=== PATIENT | male | born 1945 | race Caucasian/White ===

== ENCOUNTER 2019-01-31 09:20 | Outpatient (CLI) | payer MEDICARE ==
--- NOTE | 2019-01-31 10:00 | RAD ---
EXAM: Two views chest PROVIDED CLINICAL HISTORY: Hypertension COMPARISON: None FINDINGS: Cardiac silhouette and pulmonary vasculature are within normal limits. The lungs are clear. Multilev el osteophytes are seen in the thoracic spine. Vascular calcifications are seen in the thoracic aorta. IMPRESSION: No acute cardiopulmonary process.
== END 2019-01-31 09:21 | disposition home or self-care (01) ==
LOC: BICRAD 09:20
PROVIDERS: ATTEND Internal Medicine
DX: I10 Essential (primary) hypertension (principal)
CPT/HCPCS: 71046

== ENCOUNTER 2019-02-21 09:31 | Outpatient (CLI) | payer MEDICARE ==
--- NOTE | 2019-02-21 10:15 | ULT ---
Exam: Bilateral renal ultrasound HISTORY: Chronic kidney disease COMPARISON: None FINDINGS: Right kidney: Normal cortical echotexture. No hydronephrosis. Right kidney measurements: 13.1 x 6.6 x 7.3 cm. Left kidney: Normal cortical echotexture. No hydronephrosis. Hypoechoic focus measuring 1.3 x 1.4 x 1 .5 cm. Left kidney measurements 12.8 x 5.6 x 5.3 cm. Urinary bladder: Normal mucosa. Prevoid volume 308 mL. Post void volume 35 mL. IMPRESSION: 1. Mild post void residual. 2. Hypoechoic focus in the mid pole left kidney. Sonographic features are not entirely consistent wit h a simple cyst. Renal mass protocol CT can be performed on a nonemergent basis. CODE T
== END 2019-02-21 09:32 | disposition home or self-care (01) ==
LOC: BICULT 09:31
PROVIDERS: ATTEND Internal Medicine Nephrology
DX: N18.3 Chronic kidney disease, stage 3 (moderate) (principal); N28.89 Other specified disorders of kidney and ureter
CPT/HCPCS: 76770

== ENCOUNTER 2020-03-18 11:43 | Inpatient (IN) | payer MEDICARE ==
[2020-03-18 12:12] LABS: #Lymphocytes 0.7 thou/uL (1.20-3.40); #Monocytes 0.2 thou/uL (0.11-0.59); %Basophils 0.2 % (0.0-1.0); %Monocytes 5.3 % (0.0-10.0); %Neutrophils 76.4 % (42.0-75.0); Mean Corpuscular Hemoglobin 31.2 pg (27.0-31.0); Mean Corpuscular Volume 91.7 fL (78.0-98.0); Mean Platelet Volume 8.1 fL (7.4-10.4); Platelet Count 159 thou/uL (130-400); RBC Distribution Width 11.9 % (11.5-14.5); Red Blood Cell (RBC) Count 3.86 mill/uL (4.70-6.10); White Blood Cell (WBC) Count 3.9 thou/uL (4.8-10.8)
[2020-03-18 12:31] LABS: ALT (SGPT) 51 U/L (8-55); AST (SGOT) 94 U/L (5-34); Albumin 3.6 g/dL (3.4-4.8); Alkaline Phosphatase 36 U/L (40-110); Anion Gap 18 mmol/L (10-20); BUN (Urea Nitrogen) 39 mg/dL (8.4-25.7); Bilirubin, Total 0.6 mg/dL (0.2-1.2); Calc. Creatinine Clearance 0 mL/min (70-130); Calcium 8.5 mg/dL (7.8-10.44); Carbon Dioxide 17 mmol/L (23-31); Chloride 99 mmol/L (98-107); Globulin 3.3 g/dL (2.4-3.5); Glucose 171 mg/dL (83-110); Protein, Total 6.9 g/dL (5.8-8.1); Sodium 130 mmol/L (136-145)
--- NOTE | 2020-03-18 12:44 | RAD ---
RADIOGRAPH CHEST 1 VIEW: DATE: 03/18/2020 TIME: 12:36 PM HISTORY: 74-year-old COVID-19 positive male with dyspnea COMPARISON: 01/31/2019 FINDINGS: There is a new finding of a moderate degree of patchy bilateral peripheral and central infiltrates th roughout all lung saha. No cardiomegaly or pneumothorax. Lateral costophrenic angles are sharp. IMPRESSION: Moderate degree of bilateral: 19 pneumonia
[2020-03-18 12:51] LABS: CKMB 2.1 ng/mL (0-6.6)
[2020-03-18] MEDS ORDERED: Aspirin Chewable 81 MG TAB ONE (13:06)
[2020-03-18] MEDS ORDERED: cefTRIAXone\\ROCEPHIN 1 GM VIAL ONE (13:06)
[2020-03-18] MEDS ORDERED: Dexamethasone 4 mg/ml Vial ONE (13:06)
[2020-03-18] MEDS ORDERED: Azithromycin 500 MG VIAL ONE (13:55)
[2020-03-18] MEDS ORDERED: Dextrose 50% Abboject 50 ML SYRINGE SLOW IVP PRN (14:41)
[2020-03-18] MEDS ORDERED: Dextrose 5% in Water 1,000 ML IV PRN (14:41)
[2020-03-18] MEDS ORDERED: cloNIDine 0.1 MG TAB PO PRN (14:47)
--- NOTE | 2020-03-18 14:56 | PDOC.HHP ---
Hospitalist HPI - History of Present Illness Fever, shortness of breath related to COVID-19 History of Present Illness: Patient is a 74-year-old male with a history of diabetes, hypertension, hyperlipidemia and morbid obesity who presented to the emergency department with worsening symptoms of COVID-19 infection. Patient reports that he went to a family gathering on . Subsequently someone at that gathering told him they were positive. He then went to get tested 7 days ago. He received his results 5 days ago. At that time he began experiencing some flulike symptoms. He reported generalized aches, low-grade fever and some shortness of breath. His is also infected with COVID-19 but is faring better than he is. He reported that his symptoms progressed and therefore he presented to the emergency department. He says he is not been eating or drinking as much because of his generalized malaise. He denies having any significant chest pain or cough. ED Course: Patient's chest x-ray in the emergency department was consistent with COVID-19 pneumonia. His white blood cell count was a bit low. Also consistent with Covid. He had a troponin of 0.1 and his sodium was slightly low at 130. He also had a GFR slightly below his baseline.In the emergency department he was given Rocephin and azithromycin. He was also given dexamethasone 10 mg IV x1 as well as aspirin and 1 L of normal saline. His O2 sat was 98% on room air. Nonetheless he has been placed on 2 L nasal cannula oxygen. Hospitalist ROS - Review of Systems Constitutional: reports: fever, malaise. denies: chills Respiratory: reports: shortness of breath, SOB with excertion. denies: cough Cardiovascular: denies: chest pain, palpitations Gastrointestinal: reports: constipation. denies: nausea, vomiting, abdominal pain, diarrhea All other systems reviewed; all pertinent +/- noted in HPI/Subj - Medication Medications: atorvastatin WedMar 18, 2020 13:40 JOSE DAVID Bose Jennifer TABLET : Strength - 40 mg : ORAL Patient Dose: 1 tab(s) Oral once a day (in the evening). cloNIDine HCl WedMar 18, 2020 13:40 JOSE DAVID Bose Jennifer TABLET : Strength - 0.1 mg : ORAL Patient Dose: 1 tab(s) Oral every 6 hours PRN. furosemide oral WedMar 18, 2020 13:40 JOSE DAVID Bose Jennifer TABLET : Strength - 40 mg : ORAL Patient Dose: 1 tab(s) Oral once a day (in the morning). Januvia WedMar 18, 2020 13:40 JOSE DAVID Bose Jennifer TABLET : Strength - 100 mg : ORAL Patient Dose: 1 tab(s) Oral once a day. lisinopril WedMar 18, 2020 13:40 JOSE DAVID Bose Jennifer TABLET : Strength - 20 mg : ORAL Patient Dose: 1 tab(s) Oral once a day. pantoprazole oral WedMar 18, 2020 13:40 JOSE DAVID Bose Jennifer TABLET, DELAYED RELEASE (ENTERIC COATED) : Strength - 40 mg : ORAL Patient Dose: 1 tab(s) Oral once a day. dutasteride WedMar 18, 2020 13:40 JOSE DAVID Bose Jennifer capsule : Strength - 0.5 mg : ORAL Patient Dose: once a day (in the morning). bisoprolol fumarate WedMar 18, 2020 13:41 JOSE DAVID Bose Jennifer tablet : Strength - 10 mg : ORAL Patient Dose: once a day (in the morning). doxazosin WedMar 18, 2020 13:42 JOSE DAVID Bose Jennifer tablet : Strength - 4 mg : ORAL Patient Dose: once a day (in the morning).IF BP 160+ TAKE 1/2 PILL IN EVENING. Vascepa WedMar 18, 2020 13:43 JOSE DAVID Bose Jennifer capsule : Strength - 1 gram : ORAL Patient Dose: 2 cap(s) 2 times a day. glipiZIDE WedMar 18, 2020 13:44 JOSE DAVID Bose Jennifer tablet : Strength - 5 mg : ORAL Patient Dose: 2 times a day. aspirin oral WedMar 18, 2020 13:44 JOSE DAVID Bose Jennifer tablet : Strength - 81 mg : ORAL Patient Dose: once a day. glucosamine-chondroitin 500 mg-400 mg capsule WedMar 18, 2020 13:46 JOSE DAVID Bose Jennifer capsule : Strength - 500 mg-400 mg : ORAL Patient Dose: 1587 mg 2 times a day. Centrum Silver tablet WedMar 18, 2020 13:46 JOSE DAVID Bose Jennifer tablet : ORAL Patient Dose: once a day. Tylenol Extra Strength WedMar 18, 2020 13:47 JOSE DAVID Bose Jennifer capsule : Strength - 500 mg : ORAL Patient Dose: 2 times a day. Hospitalist History - Past Medical History Source: patient Cardiac: reports: CHF, Hyperlipidemia Renal/: reports: Chronic renal failure (Stage III) Endocrine: reports: Diabetes - Past Surgical History Past Surgical History: reports: Other (Blepharoplasty) - Family History Family History: reports: cerebrovascular accident (Father) - Social History Smoking Status: Never smoker Alcohol: reports: None Living Situation: With Family - Exam General Appearance: NAD, awake alert General - other findings: Morbidly obese Eye: PERRL Heart: RRR, no murmur, no gallops, no rubs, normal peripheral pulses Respiratory: CTAB, no wheezes, no rales, no ronchi, normal chest expansion, no tachypnea Respiratory - other findings: Exam is compromised by the negative pressure machine noise Gastrointestinal: soft, non-tender, non-distended, normal bowel sounds, no palpable masses, no hepatomegaly, no splenomegaly, no bruit Extremities: no cyanosis, no clubbing, no edema Skin: normal turgor, no lesions, no rashes Neurological: cranial nerve grossly intact, normal sensation to touch, no weakness, no focal deficits, no new deficit Musculoskeletal: normal tone, normal strength, no muscle wasting Psychiatric: normal affect, normal behavior, A&O x 3 Hospitalist Results - Labs Result Diagrams: 03/18/20 11:59 03/18/20 11:59 Lab results: WBC 3.9 thou/uL (4.8-10.8) L 03/18/20 11:59 Hgb 12.0 g/dL (14.0-18.0) L 03/18/20 11:59 Hct 35.4 % (42.0-52.0) L 03/18/20 11:59 MCV 91.7 fL (78.0-98.0) 03/18/20 11:59 Plt Count 159 thou/uL (130-400) 03/18/20 11:59 Neutrophils % 76.4 % (42.0-75.0) H 03/18/20 11:59 ESR Westergren 89 mm/hr (Less than 20) H 03/18/20 11:59 Sodium 130 mmol/L (136-145) L 03/18/20 11:59 Potassium 4.0 mmol/L (3.5-5.1) 03/18/20 11:59 Chloride 99 mmol/L (98-107) 03/18/20 11:59 Carbon Dioxide 17 mmol/L (23-31) L 03/18/20 11:59 BUN 39 mg/dL (8.4-25.7) H 03/18/20 11:59 Creatinine 2.93 mg/dL (0.7-1.3) H 03/18/20 11:59 Glucose 171 mg/dL (83-110) H 03/18/20 11:59 Lactic Acid 1.2 mmol/L (0.5-2.2) 03/18/20 12:23 Calcium 8.5 mg/dL (7.8-10.44) 03/18/20 11:59 Total Bilirubin 0.6 mg/dL (0.2-1.2) 03/18/20 11:59 AST 94 U/L (5-34) H 03/18/20 11:59 ALT 51 U/L (8-55) 03/18/20 11:59 Alkaline Phosphatase 36 U/L (40-110) L 03/18/20 11:59 CK-MB (CK-2) 2.1 ng/mL (0-6.6) 03/18/20 11:59 Troponin I 0.104 ng/mL (< 0.028) H 03/18/20 11:59 C-Reactive Protein 24.83 mg/dL (= or < 0.5) H 03/18/20 11:59 B-Natriuretic Peptide 54.2 pg/mL (0-100) 03/18/20 11:59 Serum Total Protein 6.9 g/dL (5.8-8.1) 03/18/20 11:59 Albumin 3.6 g/dL (3.4-4.8) 03/18/20 11:59 - Radiology Interpretation Chest x-ray Status: image reviewed by me, report reviewed by me (Consistent with bilateral Covid pneumonia.) Hospitalist H&P A/P - Problem (1) Pneumonia due to COVID-19 virus Code(s): U07.1 - COVID-19; J12.82 - PNEUMONIA DUE TO CORONAVIRUS DISEASE 2019 Status: Acute (2) Dehydration Code(s): E86.0 - DEHYDRATION Status: Acute (3) Acute worsening of stage 3 chronic kidney disease Code(s): N18.30 - CHRONIC KIDNEY DISEASE, STAGE 3 UNSPECIFIED Status: Acute (4) Hyponatremia Code(s): E87.1 - HYPO-OSMOLALITY AND HYPONATREMIA Status: Acute (5) Diabetes mellitus Code(s): E11.9 - TYPE 2 DIABETES MELLITUS WITHOUT COMPLICATIONS Status: Acute (6) Hypertension Code(s): I10 - ESSENTIAL (PRIMARY) HYPERTENSION Status: Acute (7) Morbid obesity Code(s): E66.01 - MORBID (SEVERE) OBESITY DUE TO EXCESS CALORIES Status: Acute (8) Hyperlipidemia Code(s): E78.5 - HYPERLIPIDEMIA, UNSPECIFIED Status: Acute (9) Elevated troponin Code(s): R77.8 - OTHER SPECIFIED ABNORMALITIES OF PLASMA PROTEINS Status: Acute - Plan Plan: Pneumonia due to COVID-19 virus: Patient has a confirmed exposure about 12 days ago. He tested + 7 days ago. Currently chest x-ray shows evidence of bilateral COVID-19 pneumonia findings. CRP is elevated at 25. Patient is symptomatic with generalized malaise and subjective shortness of breath. He did not demonstrate significant hypoxia. Patient received dexamethasone in the emergency department. He does not qualify for Remdesivir and that he is not hypoxic. Does not qualify for monoclonal antibodies. We will reassess through the course of his observation stay to see if he develops any significant hypoxia. Discussed Via [employer] connect with Dr. Erickson. Patient is not being admitted for Covid. He is not hypoxic presently. He is at high risk of decompensation due to his age, his obesity, his diabetes, and his renal dysfunction. He is within the 7 days of diagnosis. Therefore he does qualify for monoclonal antibodies. I discussed this with the patient and he is amenable. Request form has been completed. Dehydration: Patient is likely been febrile and has had decreased p.o. intake. He has hyponatremia and DYLAN concerning for acute dehydration. Patient received a liter of fluids in the emergency department. We will continue with IV hydration. Hyponatremia: Likely related to his chronic kidney disease and some dehydration. Mild and asymptomatic. Reassess with labs after hydration. Acute kidney injury: Patient has a history of CKD stage III. GFR is slightly below his baseline. Unlikely due to dehydration and acute infection. Reassess after hydration. Diabetes mellitus type 2: We will resume his home medications. Given the Decadron he will likely experience some hyperglycemia. Sliding scale insulin. New Indeterminate troponin: Patient certainly has risk factors for coronary disease but no history of cardiac issues. We will keep him on telemetry with serial troponins. Given the degree of renal impairment this may be insignificant. Patient is already on a beta-gumaro, statin, aspirin.
[2020-03-18 15:33] LABS: Troponin I 0.107 ng/mL (< 0.028)
[2020-03-18] MEDS: Sodium Chloride 0.9% 1,000 ML IV SCH (16:53)
[2020-03-18] MEDS: glipiZIDE 5 MG TAB PO SCH (16:54)
[2020-03-18] MEDS: HumaLOG 300 UNITS/3 ML VIAL SC PRN ×2 (17:11→20:30)
[2020-03-18 18:32] LABS: Troponin I 0.104 ng/mL (< 0.028)
[2020-03-18] MEDS: Atorvastatin Calcium 40 MG TAB PO SCH (20:21)
[2020-03-19] MEDS: Acetaminophen 325 MG TAB PO PRN ×2 (00:12→15:50)
[2020-03-19] MEDS: Sodium Chloride 0.9% 1,000 ML IV SCH ×2 (04:10→19:47)
[2020-03-19 05:12] LABS: #Lymphocytes 0.5 thou/uL (1.20-3.40); #Monocytes 0.3 thou/uL (0.11-0.59); #Neutrophils 3.1 thou/uL (1.40-6.50); %Lymphocytes 12.6 % (21.0-51.0); %Monocytes 7.1 % (0.0-10.0); %Neutrophils 80.3 % (42.0-75.0); Hemoglobin 11.3 g/dL (14.0-18.0); Mean Corpuscular HGB CONC 33.6 g/dL (32.0-36.0); Mean Corpuscular Hemoglobin 30.4 pg (27.0-31.0); Mean Corpuscular Volume 90.4 fL (78.0-98.0); Mean Platelet Volume 7.7 fL (7.4-10.4); Platelet Count 177 thou/uL (130-400); RBC Distribution Width 11.8 % (11.5-14.5); Red Blood Cell (RBC) Count 3.73 mill/uL (4.70-6.10); White Blood Cell (WBC) Count 3.9 thou/uL (4.8-10.8)
[2020-03-19 05:41] LABS: Anion Gap 16 mmol/L (10-20); BUN (Urea Nitrogen) 41 mg/dL (8.4-25.7); Calc. Creatinine Clearance 47 mL/min (70-130); Calcium 8.2 mg/dL (7.8-10.44); Carbon Dioxide 16 mmol/L (23-31); Chloride 102 mmol/L (98-107); Glucose 262 mg/dL (83-110); Potassium 4.1 mmol/L (3.5-5.1); Sodium 130 mmol/L (136-145)
[2020-03-19] MEDS: HumaLOG 300 UNITS/3 ML VIAL SC PRN ×4 (05:58→22:05)
[2020-03-19] MEDS: Alogliptin 6.25 MG TAB PO SCH (08:19)
[2020-03-19] MEDS: Doxazosin 2 MG TAB PO SCH (08:19)
[2020-03-19] MEDS: Enoxaparin Sodium 40 MG/0.4 ML SYRINGE SC SCH (08:19)
[2020-03-19] MEDS: Bisoprolol Fumarate 5 MG TAB PO SCH (08:19)
[2020-03-19] MEDS: Lisinopril 20 MG TAB PO SCH (08:20)
[2020-03-19] MEDS: Furosemide 40 MG TAB PO SCH (08:20)
[2020-03-19] MEDS: Dutasteride 0.5 MG CAP PO SCH (08:20)
[2020-03-19] MEDS: Aspirin 81 mg Enteric Coated Tablet PO SCH (08:20)
[2020-03-19] MEDS: glipiZIDE 5 MG TAB PO SCH ×2 (08:20→17:12)
--- NOTE | 2020-03-19 11:29 | PDOC.HOSPP ---
- Subjective Encounter Date: 03/19/20 Encounter Time: 11:25 Subjective: f/u for COVID PNA/hypoxia receiving initially Decadron/Rocephin/Zithromax. States increased SOB with mild movement or exertion. - Objective Vital Signs & Weight: Vital Signs (12 hours) Temp Pulse Resp BP BP BP Pulse Ox 03/19/20 11:17 97.9 F 83 151/79 H 03/19/20 08:20 98.2 F 79 22 H 139/69 92 L 03/19/20 07:52 98 F 79 22 H 147/67 H 93 L 03/19/20 04:50 94 L 03/19/20 04:15 20 94 L 03/19/20 04:10 98.8 F 85 20 168/60 H 90 L 03/19/20 04:00 98.8 F 85 17 168/60 H 90 L 03/19/20 03:55 20 94 L 03/19/20 00:00 99.3 F 87 20 162/74 H 95 Weight Weight 285 lb I&O: 03/18/20 03/19/20 03/20/20 06:59 06:59 06:59 Intake Total 1680 Output Total 850 400 Balance 830 -400 Result Diagrams: 03/19/20 04:54 03/19/20 04:54 Additional Labs: Accuchecks 03/18/20 03/18/20 20:27 17:02 POC Glucose 286 H 193 H Microbiology 03/18/20 12:23 Venous blood - Right Arm Blood Culture - Preliminary Specimen has been received and culture in progress. No Growth to date. 03/18/20 12:23 Venous blood - Left Hand Blood Culture - Preliminary Specimen has been received and culture in progress. No Growth to date. Laboratory Tests 03/14/20 03/18/20 03/18/20 15:35 11:59 11:59 Creatinine 2.93 H Lactic Acid Troponin I 0.104 H B-Natriuretic Peptide SARS-CoV-2 (PCR) DETECTED A* 03/18/20 03/18/20 03/18/20 11:59 12:23 14:55 Creatinine Lactic Acid 1.2 Troponin I 0.107 H B-Natriuretic Peptide 54.2 SARS-CoV-2 (PCR) 03/18/20 17:40 Creatinine Lactic Acid Troponin I 0.104 H B-Natriuretic Peptide SARS-CoV-2 (PCR) Radiology Reviewed by me: Yes (PCXR - bilat infiltrates) EKG Reviewed by me: Yes (Tele - SR) Hospitalist ROS - Medication Medications: Active Medications Generic Name Dose Route Start Last Admin Trade Name Freq PRN Reason Stop Dose Admin Acetaminophen 650 mg 03/18/20 14:41 03/19/20 00:12 Acetaminophen 325 Mg Tab PO 650 mg Q4H PRN Administration Headache/Fever/Mild Pain (1-3) Alogliptin Benzoate 6.25 mg 03/19/20 09:00 03/19/20 08:19 Alogliptin 6.25 Mg Tab PO 6.25 mg DAILY SYDNEE Administration Aspirin 81 mg 03/19/20 09:00 03/19/20 08:20 Aspirin 81 Mg Enteric Coated Tablet PO 81 mg DAILY SYDNEE Administration Atorvastatin Calcium 40 mg 03/18/20 21:00 03/18/20 20:21 Atorvastatin Calcium 40 Mg Tab PO 40 mg HS SYDNEE Administration Bisoprolol Fumarate 5 mg 03/19/20 09:00 03/19/20 08:19 Bisoprolol Fumarate 5 Mg Tab PO 5 mg DAILY SYDNEE Administration Doxazosin Mesylate 2 mg 03/19/20 09:00 03/19/20 08:19 Doxazosin 2 Mg Tab PO 2 mg DAILY SYDNEE Administration Dutasteride 0.5 mg 03/19/20 09:00 03/19/20 08:20 Dutasteride 0.5 Mg Cap PO 0.5 mg DAILY SYDNEE Administration Enoxaparin Sodium 40 mg 03/19/20 09:00 03/19/20 08:19 Enoxaparin Sodium 40 Mg/0.4 Ml Syringe SC 40 mg 0900 SYDNEE Administration Furosemide 40 mg 03/19/20 07:30 03/19/20 08:20 Furosemide 40 Mg Tab PO 40 mg DAILY-AC SYDNEE Administration Glipizide 5 mg 03/18/20 16:30 03/19/20 08:20 Glipizide 5 Mg Tab PO 5 mg BID-AC SYDNEE Administration Sodium Chloride 1,000 mls @ 75 mls/hr 03/18/20 15:00 03/19/20 04:10 Normal Saline 0.9% IV 1,000 mls .[id number] SYDNEE Administration Insulin Human Lispro 0 units 03/18/20 14:41 03/19/20 05:58 Humalog 300 Units/3 Ml Vial SC 4 units .MILD SLIDING SCALE PRN Administration Mild Correctional Scale Lisinopril 20 mg 03/19/20 09:00 03/19/20 08:20 Lisinopril 20 Mg Tab PO 20 mg DAILY SYDNEE Administration Pantoprazole Sodium 40 mg 03/19/20 09:00 03/19/20 08:20 Pantoprazole 40 Mg Tab PO 40 mg DAILY SYDNEE Administration - Exam General Appearance: awake alert General - other findings: tachypneic Eye: PERRL, anicteric sclera ENT: normocephalic atraumatic, no oropharyngeal lesions Neck: supple, symmetric, no JVD, no thyromegaly Heart: RRR, no gallops, no rubs, normal peripheral pulses Heart - other findings: S1, S2 Respiratory: tachypneic Respiratory - other findings: diminished in bases, scattered coarse sounds Gastrointestinal: soft, non-tender, non-distended, normal bowel sounds Gastrointestinal - other findings: obese Extremities: no cyanosis, no clubbing, 1+ LE edema Skin: normal turgor Neurological: cranial nerve grossly intact, no new deficit Musculoskeletal: normal tone, generalized weakness Psychiatric: normal affect, A&O x 3 Hosp A/P (1) Pneumonia due to COVID-19 virus Code(s): U07.1 - COVID-19; J12.82 - PNEUMONIA DUE TO CORONAVIRUS DISEASE 2019 Status: Acute Plan: Continue pulmonary supportive mgmt, Dexamethasone/Rocephin/Zithromax/Lovenox/Vit C/Zinc/D3 (2) Acute respiratory failure with hypoxia Code(s): J96.01 - ACUTE RESPIRATORY FAILURE WITH HYPOXIA Status: Acute Plan: Continue O2 supplementation, titrate to clinical response, Albuterol MDI (3) Acute worsening of stage 3 chronic kidney disease Code(s): N18.30 - CHRONIC KIDNEY DISEASE, STAGE 3 UNSPECIFIED Status: Acute Plan: Slow improvement, avoid nephrotoxic meds and limit contrast exposure (4) Diabetes mellitus Code(s): E11.9 - TYPE 2 DIABETES MELLITUS WITHOUT COMPLICATIONS Status: Chronic Plan: Continue ISS, Glipizide, serial accuchecks, ADA (5) Hyponatremia Code(s): E87.1 - HYPO-OSMOLALITY AND HYPONATREMIA Status: Acute Plan: Suspect due to hyperglycemia and decreased po intake, serial monitoring, glucose control - Plan plan discussed w/ family, continue antibiotics, social services director, respiratory the rapy, incentive spirometry, out of bed/ambulate, DVT proph w/SCDs Continue pulmonary supportive mgmt Start Rocephin/Zithromax Start Vit C/Zinc/D3 Continue Lovenox O2 supplementation Remdesivir on hold due to CKD AM lab: BMP, CBC, CRP, Ferritin
[2020-03-19] MEDS ORDERED: Zinc Sulfate 220 MG CAP PO SCH (12:15)
[2020-03-19] MEDS ORDERED: Dexamethasone 4 mg/ml Vial SLOW IVP SCH (12:15)
[2020-03-19] MEDS ORDERED: Ascorbic Acid 500 mg Chewable Tablet PO SCH (12:15)
[2020-03-19] MEDS: cefTRIAXone\\ROCEPHIN 2 GM in Sodium Chloride 0.9% 100 ML IVPB SCH (13:32)
[2020-03-19] MEDS: Azithromycin 500 MG in Sodium Chloride 0.9% 250 ML 250 ML IVPB SCH (15:45)
[2020-03-19] MEDS: Atorvastatin Calcium 40 MG TAB PO SCH (19:47)
[2020-03-20 05:43] LABS: #Lymphocytes 0.4 thou/uL (1.20-3.40); #Monocytes 0.4 thou/uL (0.11-0.59); #Neutrophils 4.1 thou/uL (1.40-6.50); %Basophils 0.2 % (0.0-1.0); %Eosinophils 0.1 % (0.0-10.0); %Lymphocytes 8.1 % (21.0-51.0); %Monocytes 7.7 % (0.0-10.0); %Neutrophils 83.9 % (42.0-75.0); Hemoglobin 11.8 g/dL (14.0-18.0); Mean Corpuscular HGB CONC 34.5 g/dL (32.0-36.0); Mean Corpuscular Hemoglobin 31.2 pg (27.0-31.0); Mean Corpuscular Volume 90.4 fL (78.0-98.0); Mean Platelet Volume 7.7 fL (7.4-10.4); Platelet Count 208 thou/uL (130-400); RBC Distribution Width 11.8 % (11.5-14.5); Red Blood Cell (RBC) Count 3.78 mill/uL (4.70-6.10); White Blood Cell (WBC) Count 4.9 thou/uL (4.8-10.8)
[2020-03-20 05:44] LABS: Anion Gap 17 mmol/L (10-20); BUN (Urea Nitrogen) 42 mg/dL (8.4-25.7); CRP (Inflammatory) 14.34 mg/dL (= or < 0.5); Calc. Creatinine Clearance 52 mL/min (70-130); Calcium 8.3 mg/dL (7.8-10.44); Carbon Dioxide 17 mmol/L (23-31); Chloride 107 mmol/L (98-107); Glucose 269 mg/dL (83-110); Potassium 4.3 mmol/L (3.5-5.1); Sodium 137 mmol/L (136-145)
[2020-03-20] MEDS: HumaLOG 300 UNITS/3 ML VIAL SC PRN ×3 (05:59→21:14)
[2020-03-20] MEDS: Acetaminophen 325 MG TAB PO PRN (08:17)
[2020-03-20] MEDS: Enoxaparin Sodium 40 MG/0.4 ML SYRINGE SC SCH (08:17)
[2020-03-20] MEDS: Alogliptin 6.25 MG TAB PO SCH (08:17)
[2020-03-20] MEDS: Bisoprolol Fumarate 5 MG TAB PO SCH (08:17)
[2020-03-20] MEDS: Zinc Sulfate 220 MG CAP PO SCH (08:17)
[2020-03-20] MEDS: Cholecalciferol (Vitamin D3) 400 UNITS TAB PO SCH (08:17)
[2020-03-20] MEDS: Ascorbic Acid 500 mg Chewable Tablet PO SCH (08:18)
[2020-03-20] MEDS: Aspirin 81 mg Enteric Coated Tablet PO SCH (08:18)
[2020-03-20] MEDS: Furosemide 40 MG TAB PO SCH (08:18)
[2020-03-20] MEDS: Dutasteride 0.5 MG CAP PO SCH (08:18)
[2020-03-20] MEDS: Doxazosin 2 MG TAB PO SCH (08:18)
[2020-03-20] MEDS: glipiZIDE 5 MG TAB PO SCH (08:18)
[2020-03-20] MEDS: Lisinopril 20 MG TAB PO SCH (08:18)
[2020-03-20] MEDS: Dexamethasone 4 mg/ml Vial SLOW IVP SCH (08:19)
[2020-03-20] MEDS: Sodium Chloride 0.9% 1,000 ML IV SCH ×2 (09:10→12:13)
--- NOTE | 2020-03-20 10:43 | PDOC.HOSPP ---
- Subjective Encounter Date: 03/20/20 Encounter Time: 10:15 Subjective: Called by nursing as O2 sats remain in low 70-80's after going to the restroom. COVID PNA with hypoxic resp failure receiving high-flow NC. - Objective Vital Signs & Weight: Vital Signs (12 hours) Temp Pulse Resp BP Pulse Ox 03/20/20 10:05 81 L 03/20/20 08:24 88 L 03/20/20 08:20 98.5 F 82 42 H 141/72 H 89 L 03/20/20 03:31 98.8 F 78 28 H 159/73 H 93 L 03/19/20 23:45 99.2 F 86 26 H 164/95 H 89 L Weight Weight 285 lb I&O: 03/19/20 03/20/20 03/21/20 06:59 06:59 06:59 Intake Total 1680 2110 Output Total 850 5 500 Balance 830 85 -500 Result Diagrams: 03/20/20 04:45 03/20/20 04:45 Additional Labs: Accuchecks 03/20/20 03/19/20 03/19/20 05:34 19:50 16:25 POC Glucose 242 H 276 H 282 H 03/19/20 12:02 POC Glucose 284 H Microbiology 03/18/20 12:23 Venous blood - Right Arm Blood Culture - Preliminary Specimen has been received and culture in progress. No Growth to date. 03/18/20 12:23 Venous blood - Left Hand Blood Culture - Preliminary Specimen has been received and culture in progress. No Growth to date. Laboratory Tests 03/14/20 03/18/20 03/18/20 15:35 11:59 11:59 ESR Westergren Creatinine 2.93 H Lactic Acid Ferritin Troponin I 0.104 H C-Reactive Protein B-Natriuretic Peptide SARS-CoV-2 (PCR) DETECTED A* 03/18/20 03/18/20 03/18/20 11:59 11:59 12:23 ESR Westergren 89 H Creatinine Lactic Acid 1.2 Ferritin Troponin I C-Reactive Protein B-Natriuretic Peptide 54.2 SARS-CoV-2 (PCR) 03/18/20 03/18/20 03/20/20 14:55 17:40 04:45 ESR Westergren Creatinine Lactic Acid Ferritin Troponin I 0.107 H 0.104 H C-Reactive Protein 14.34 H B-Natriuretic Peptide SARS-CoV-2 (PCR) 03/20/20 04:45 ESR Westergren Creatinine Lactic Acid Ferritin 1477.62 H Troponin I C-Reactive Protein B-Natriuretic Peptide SARS-CoV-2 (PCR) EKG Reviewed by me: Yes (Tele - SR) Hospitalist ROS - Medication Medications: Active Medications Generic Name Dose Route Start Last Admin Trade Name Freq PRN Reason Stop Dose Admin Acetaminophen 650 mg 03/18/20 14:41 03/20/20 08:17 Acetaminophen 325 Mg Tab PO 650 mg Q4H PRN Administration Headache/Fever/Mild Pain (1-3) Alogliptin Benzoate 6.25 mg 03/19/20 09:00 03/20/20 08:17 Alogliptin 6.25 Mg Tab PO 6.25 mg DAILY SYDNEE Administration Ascorbic Acid 1,000 mg 03/20/20 09:00 03/20/20 08:18 Ascorbic Acid 500 Mg Chewable Tablet PO 1,000 mg DAILY SYDNEE Administration Aspirin 81 mg 03/19/20 09:00 03/20/20 08:18 Aspirin 81 Mg Enteric Coated Tablet PO 81 mg DAILY SYDNEE Administration Atorvastatin Calcium 40 mg 03/18/20 21:00 03/19/20 19:47 Atorvastatin Calcium 40 Mg Tab PO 40 mg HS SYDNEE Administration Bisoprolol Fumarate 5 mg 03/19/20 09:00 03/20/20 08:17 Bisoprolol Fumarate 5 Mg Tab PO 5 mg DAILY SYDNEE Administration Cholecalciferol 400 units 03/20/20 09:00 03/20/20 08:17 Cholecalciferol (Vitamin D3) 400 Units Tab PO 400 units DAILY SYDNEE Administration Dexamethasone 8 mg 03/20/20 09:00 03/20/20 08:19 Dexamethasone 4 Mg/Ml Vial SLOW IVP 8 mg DAILY SYDNEE Administration Doxazosin Mesylate 2 mg 03/19/20 09:00 03/20/20 08:18 Doxazosin 2 Mg Tab PO 2 mg DAILY SYDNEE Administration Dutasteride 0.5 mg 03/19/20 09:00 03/20/20 08:18 Dutasteride 0.5 Mg Cap PO 0.5 mg DAILY SYDNEE Administration Enoxaparin Sodium 40 mg 03/19/20 09:00 03/20/20 08:17 Enoxaparin Sodium 40 Mg/0.4 Ml Syringe SC 40 mg 0900 SYDNEE Administration Furosemide 40 mg 03/19/20 07:30 03/20/20 08:18 Furosemide 40 Mg Tab PO 40 mg DAILY-AC SYDNEE Administration Glipizide 5 mg 03/18/20 16:30 03/20/20 08:18 Glipizide 5 Mg Tab PO 5 mg BID-AC SYDNEE Administration Ceftriaxone Sodium 2 gm/ 100 mls @ 200 mls/hr 03/19/20 13:00 03/19/20 13:32 Sodium Chloride IVPB 100 mls 1300 SYDNEE Administration Azithromycin 500 mg/ Sodium 250 mls @ 250 mls/hr 03/19/20 14:00 03/19/20 15:45 Chloride IVPB 250 mls 1400 SYDNEE Administration Insulin Human Lispro 0 units 03/18/20 14:41 03/20/20 05:59 Humalog 300 Units/3 Ml Vial SC 3 units .MILD SLIDING SCALE PRN Administration Mild Correctional Scale Insulin Human Lispro 0 units 03/19/20 21:53 03/19/20 22:05 Humalog 300 Units/3 Ml Vial SC 3 unit .BEDTIME SLIDING SC PRN Administration Bedtime Correctional Scale Lisinopril 20 mg 03/19/20 09:00 03/20/20 08:18 Lisinopril 20 Mg Tab PO 20 mg DAILY SYDNEE Administration Pantoprazole Sodium 40 mg 03/19/20 09:00 03/20/20 08:18 Pantoprazole 40 Mg Tab PO 40 mg DAILY SYDNEE Administration Zinc Sulfate 220 mg 03/20/20 09:00 03/20/20 08:17 Zinc Sulfate 220 Mg Cap PO 220 mg DAILY SYDNEE Administration - Exam General Appearance: ill appearing General - other findings: tachypneic, responds to questions Eye: PERRL, anicteric sclera ENT: normocephalic atraumatic, no oropharyngeal lesions Neck: supple, symmetric, no JVD, no thyromegaly, no lymphadenopathy Heart: RRR, no gallops, no rubs, normal peripheral pulses Heart - other findings: S1, S2 Respiratory: no wheezes, tachypneic Respiratory - other findings: diminished in bases, scattered coarse sounds Gastrointestinal: soft, non-tender, non-distended, normal bowel sounds, no palpable masses Extremities: no cyanosis, no clubbing, no edema Skin: normal turgor, no lesions Neurological: cranial nerve grossly intact, no new deficit Musculoskeletal: generalized weakness Psychiatric: A&O x 3, flat affect Hosp A/P (1) Pneumonia due to COVID-19 virus Code(s): U07.1 - COVID-19; J12.82 - PNEUMONIA DUE TO CORONAVIRUS DISEASE 2019 Status: Acute Plan: Continue Rocephin/Zithromax/Lovenox/Vit C/Zinc, consider convalescent plasma, Remdesivir if renal function improves (2) Acute respiratory failure with hypoxia Code(s): J96.01 - ACUTE RESPIRATORY FAILURE WITH HYPOXIA Status: Acute Plan: Trial BiPAP NIMV now, consult Pulmonology for further assistance, see mgmt in #1 (3) Acute worsening of stage 3 chronic kidney disease Code(s): N18.30 - CHRONIC KIDNEY DISEASE, STAGE 3 UNSPECIFIED Status: Acute Plan: Improved, continue low-volume IVF's, avoid nephrotoxic meds and limit contrast (4) Diabetes mellitus Code(s): E11.9 - TYPE 2 DIABETES MELLITUS WITHOUT COMPLICATIONS Status: Chronic (5) Hyponatremia Code(s): E87.1 - HYPO-OSMOLALITY AND HYPONATREMIA Status: Acute Plan: Resolved, continue serial monitoring - Plan continue antibiotics, social secretary, respiratory therapy, DVT proph w/SCDs Continue pulmonary supportive mgmt Start Rocephin/Zithromax Start Vit C/Zinc/D3 Continue Lovenox Add Albuterol MDI Trial BiPAP NIMV Consult Pulmonology Consider convalescent plasma O2 supplementation Remdesivir on hold due to CKD AM lab: BMP, CBC, CRP, Ferritin Total critical care time: 40min
[2020-03-20] MEDS ORDERED: Albuterol 200 PUFF (6.7GM INHALER) INH PRN (10:54)
[2020-03-20] MEDS: cefTRIAXone\\ROCEPHIN 2 GM in Sodium Chloride 0.9% 100 ML IVPB SCH (12:13)
[2020-03-20] MEDS ORDERED: Ventilator Sedation Protocol 1 EACH FS SCH (12:45)
[2020-03-20] MEDS ORDERED: Propofol 500 MG/50 ML VIAL ONE (13:22)
[2020-03-20] MEDS ORDERED: Propofol 1,000 MG/100 ML VIAL IV ONE ×2 (13:23→14:28)
--- NOTE | 2020-03-20 13:25 | CON ---
DATE OF CONSULTATION: 03/20/2020 This is a 45 minutes of critical care time. CONSULTING PHYSICIAN: Edis Quick REASON FOR CONSULTATION: Severe COVID-19 pneumonia HISTORY OF PRESENT ILLNESS: The patient is a 74-year-old male, who was admitted to the facility on 03/18/2020. He has had COVID symptoms since 03/14. Apparently, he went to a family gathering on 04/07. It looks like his positive test was from the 6th. He has been getting progressively worse since hospitalization. He has decompensated to the point, where he needs BiPAP and looks like he needs to be intubated. He is currently breathing about 37 L/minute on 65% FiO2. PAST MEDICAL HISTORY: 1. Diabetes mellitus. 2. Congestive heart failure. 3. Chronic kidney disease. PAST SURGICAL HISTORY: Blepharoplasty. FAMILY MEDICAL HISTORY: Remarkable for stroke. SOCIAL HISTORY: Never smoker. Does not consume alcohol. MEDICATIONS: Prior to admission; 1. Clonidine. 2. Furosemide. 3. Januvia. 4. Lisinopril. 5. Pantoprazole. 6. . 7. Bisoprolol. 8. Doxazosin. 9. Vascepa. 10. Glipizide. 11. Aspirin. 12. Glucosamine/chondroitin. 13. Centrum Silver. 14. Tylenol Extra Strength. REVIEW OF SYSTEMS: Difficult to obtain because he is so short of breath. PHYSICAL EXAMINATION: VITAL SIGNS: Temperature 99.5, pulse 76, respirations 20, O2 saturation 95% on BiPAP, and blood pressure 160/67. GENERAL: The patient appears acutely ill and tachypneic. His height is 5 feet and 11 inches, weight 285 pounds. BMI nearly 40. HEENT: His face is covered with BiPAP. NECK: No adenopathy or JVD. LUNGS: Inspiratory crackles bilaterally. CARDIAC: S1 and S2. Tachycardic. ABDOMEN: Soft, obese, and nontender. EXTREMITIES: No clubbing, cyanosis, or edema. LABORATORY DATA: Sodium 137, potassium 4.3, chloride 107, CO2 of 17, BUN 42, creatinine 2.3, and glucose 269. C-reactive protein 14. White blood cell count 4.9, hematocrit 34.2, and platelet count 208. IMAGING DATA: X-ray shows diffuse bilateral infiltrates from the time of admission. ASSESSMENT: Severe COVID-19 pneumonia with progressive acute hypoxic respiratory failure. I feel very strongly this is going to get much worse before it gets better. RECOMMENDATIONS: I do not think we have any choice, but to go forward and intubate the patient and place in a prone ventilation. I think he is sure to fail on BiPAP. I agree with the steroids. We need to increase his anticoagulation. I would withhold all of his oral hypoglycemics. I would stop his MARCO A inhibitor since his kidney function is off. His prognosis is very poor. Job ID: [id number] MADHAV
--- NOTE | 2020-03-20 13:35 | PQF ---
CLINICAL DOCUMENTATION CLARIFICATION FORM: Dear Dr. Nathen Quick Date: 03/20/20 [id number] Please exercise your independent, professional judgment in responding to the clarification form. Clinical indicators are provided on the bottom of this form for your review. Please check appropriate box(es): [ ] Type 1 [place] (NSTEMI) [ x ] Type 2 [place] (T2MI) secondary to: [ ] hypertension [ ] arrhythmia [ ] Infection [ ] severe anemia [ ] ischemic stroke [ x ] renal failure [ ] heart failure [ ] other [ ] Insignificant lab values [ ] Other: [ ] Takotsubo syndrome [ ] Other diagnosis [ ] Unable to determine In addition, please specify: Present on Admission (POA): [ x ] Yes [ ] No [ ] Unable to determine For continuity of documentation, please document condition throughout progress notes and discharge summary. Thank You. To be completed by CDI/Coding staff for physician review: CLINICAL INDICATORS - SIGNS / SYMPTOMS / LABS / RESULTS AND LOCATION IN EMR 03/18 Troponin I 0.104, 0.107, 0.104 Pt certainly has risk factors for coronary disease but no history of cardiac issues. We will keep him on telemetry with serial troponin. Given the degree of renal impairment this may be insignificant. (H&P/ [place]) 03/18 RISKS / RESULTS AND LOCATION IN EMR Hx of Hypertension, Hyperlipidemia, morbid obesity and diabetes; Covid 19- Pneumonia, DYLAN, CKD3 (H&P/ [place]) 03/18 TREATMENTS / RESULTS AND LOCATION IN EMR Supplemental oxygen ( 03/18 present) Continuous cardiac monitoring ( 03/18 present) Serial Troponin (03/18) Thank you! CDS Signature: Carine Carlin RN Phone #: [phone] Date: 03/20/2020 This is a permanent part of the Medical Record [facility]
[2020-03-20] MEDS ORDERED: Lorazepam 2 MG/ML VIAL ONE ×2 (13:43→14:37)
[2020-03-20 13:51] LABS: Actual Bicarbonate (HCO3a) 17.8 mEq/L (22-28); Base Excess (BEa) -7.1 mEq/L (-2.0 to +3.0); CO2 Tension 33.6 mmHg (35.0-45.0); Calcium, Ionized (arterial) 1.14 mmol/L (1.12-1.30); Carboxyhemoglobin (COHb) 0.1 gm% (0.0-3.0); Hemoglobin (Hb) 12.1 g/dL (14.0-18.0); O2 Tension (PaO2), arterial 62.7 mmHg (> 70.0); Potassium - ABG Lab 4.75 mmol/L (3.70-5.30); pH, Arterial 7.34 (7.35-7.45)
--- NOTE | 2020-03-20 13:53 | RAD ---
XR Chest 1 View Portable History: Postintubation Comparison: Radiograph 2 days prior Findings: Endotracheal tube tip at the clavicular level in good position. Enteric tube tip not well s een although likely below diaphragm although field of view. Markedly worsening of lung aeration. No pneumothorax. No significant effusion. No pneumomediastinum. Impression: 1. Markedly progressive airspace consolidation. 2. Endotracheal tube tip at the clavicular level. 3. Enteric tube tip below diaphragm although out of field of view.
[2020-03-20] MEDS ORDERED: DISCONTINUE PREVIOUS NARCOTIC PAIN MEDICATIONS AND BENZODIAZEPINES FS SCH (14:00)
[2020-03-20] MEDS ORDERED: Fentanyl BOLUS 250 ML IVPB PRN (14:00)
[2020-03-20] MEDS ORDERED: Propofol BOLUS 1,000 MG/100 ML VIAL IV PRN (14:00)
[2020-03-20 14:02] LABS: Puncture Site LRA
[2020-03-20] MEDS ORDERED: Vecuronium 10 MG VIAL ONE (14:28)
[2020-03-20] MEDS ORDERED: Sterile Water 10 ML ONE (14:29)
[2020-03-20] MEDS ORDERED: Fentanyl CADD 100 ML ONE (14:46)
[2020-03-20] MEDS: Azithromycin 500 MG in Sodium Chloride 0.9% 250 ML 250 ML IVPB SCH (15:46)
[2020-03-20] MEDS: Vecuronium 10 MG VIAL IVP PRN ×2 (17:56→20:47)
[2020-03-20] MEDS: Lorazepam 2 MG/ML VIAL SLOW IVP PRN ×2 (17:56→20:46)
[2020-03-20] MEDS: Atorvastatin Calcium 40 MG TAB PO SCH (20:46)
[2020-03-20] MEDS: Apixaban 5 MG TAB PER TUBE SCH (20:46)
[2020-03-20] MEDS: Propofol 1,000 MG/100 ML VIAL IV PRN (20:48)
[2020-03-20] MEDS ORDERED: NPH, Human Insulin Isophane 300 UNIT/3 ML VIAL SC SCH (21:00)
[2020-03-21] MEDS: Propofol 1,000 MG/100 ML VIAL IV PRN ×8 (00:03→23:17)
[2020-03-21] MEDS: Sodium Chloride 0.9% 1,000 ML IV SCH (00:03)
[2020-03-21] MEDS: HumaLOG 300 UNITS/3 ML VIAL SC PRN ×4 (00:10→20:34)
[2020-03-21 04:23] LABS: #Lymphocytes 0.4 thou/uL (1.20-3.40); #Monocytes 0.4 thou/uL (0.11-0.59); #Neutrophils 4.1 thou/uL (1.40-6.50); %Basophils 0.2 % (0.0-1.0); %Eosinophils 0.1 % (0.0-10.0); %Lymphocytes 7.8 % (21.0-51.0); %Monocytes 7.5 % (0.0-10.0); %Neutrophils 84.4 % (42.0-75.0); Hemoglobin 10.9 g/dL (14.0-18.0); Mean Corpuscular HGB CONC 34.4 g/dL (32.0-36.0); Mean Corpuscular Hemoglobin 31.3 pg (27.0-31.0); Mean Platelet Volume 7.8 fL (7.4-10.4); Platelet Count 226 thou/uL (130-400); Red Blood Cell (RBC) Count 3.48 mill/uL (4.70-6.10); White Blood Cell (WBC) Count 4.8 thou/uL (4.8-10.8)
[2020-03-21 04:48] LABS: Anion Gap 17 mmol/L (10-20); BUN (Urea Nitrogen) 46 mg/dL (8.4-25.7); CRP (Inflammatory) 13.33 mg/dL (= or < 0.5); Calc. Creatinine Clearance 54 mL/min (70-130); Carbon Dioxide 15 mmol/L (23-31); Chloride 109 mmol/L (98-107); Glucose 288 mg/dL (83-110); Potassium 4.3 mmol/L (3.5-5.1); Sodium 137 mmol/L (136-145)
[2020-03-21] MEDS: Vecuronium 10 MG VIAL IVP PRN ×5 (05:02→23:27)
[2020-03-21] MEDS: Lorazepam 2 MG/ML VIAL SLOW IVP PRN ×5 (05:02→23:27)
--- NOTE | 2020-03-21 07:55 | PRG ---
DATE OF SERVICE: 03/21/2020 This is a 35 minutes critical time. The patient remains intubated. He is in a prone position on mechanical ventilation. He is sedated with propofol, fentanyl. He is also intermittently paralyzed. OBJECTIVE: VITAL SIGNS: On exam, temperature 98.5, pulse 63, blood pressure 182/90, O2 saturation 100%. 24-hour intake 2090, output 1999. HEENT: Difficult to assess because he is prone. NECK: No JVD. LUNGS: Inspiratory crackles. CARDIAC: S1, S2. Regular. ABDOMEN: Soft. EXTREMITIES: No edema. LABORATORY AND DIAGNOSTIC STUDIES: Chest x-ray shows diffuse bilateral infiltrates. His ET tube is in good position. Labs: Sodium 137, potassium 4.3, chloride 109, CO2 15, BUN 46, creatinine 2.2, glucose 288. His anion gap is 13. White blood cell count 4.8, hematocrit 31.7, and platelet count 226. ASSESSMENT: 1. COVID-19 pneumonia. 2. Non-anion gap metabolic acidosis. 3. Respiratory failure requiring mechanical ventilation. PLAN: 1. Would hold diuretics. 2. IV fluids. 3. Continue steroids. 4. Stop ceftriaxone. 5. Continue anticoagulation. 6. I have adjusted blood pressure medications. 7. I have adjusted insulin. 8. Keep prone for at least 24 more hours. Job ID: [id number]
[2020-03-21] MEDS: Sodium Bicarbonate 70 MEQ in Sodium Chloride 0.45% 1,000 ML IV SCH (08:36)
[2020-03-21] MEDS: Morphine 2 MG/ML VIAL SLOW IVP PRN ×2 (08:37→14:00)
[2020-03-21] MEDS: Furosemide 40 MG TAB PO SCH (08:39)
--- NOTE | 2020-03-21 08:55 | RAD ---
PORTABLE CHEST: Date: 03/21/2020 HISTORY: Follow-up pneumonia. COMPARISON: Prior day's study. FINDINGS: The dense interstitial alveolar lung infiltrates are again noted. There is improvement of the changes in the left lung with a definite improvement to the aeration, but significant worsening to the amador es on the right side. The rapidity of the change may indicate some of this is related to pulmonary ed alpesh. IMPRESSION: 1. Rather pronounced improvement to some of the left lung interstitial alveolar changes, but a defin ite worsening to the right-sided changes. 2. Endotracheal tube in satisfactory position. POS: [facility]
[2020-03-21] MEDS ORDERED: Fentanyl CADD 100 ML ONE (11:16)
[2020-03-21] MEDS: Fentanyl CADD 100 ML IV SCH (11:19)
[2020-03-21] MEDS: Zinc Sulfate 220 MG CAP PO SCH (12:04)
[2020-03-21] MEDS: Amlodipine 10 MG TAB PER TUBE SCH (12:04)
[2020-03-21] MEDS: Pantoprazole 40 MG GRANULES PACKET PER TUBE SCH (12:04)
[2020-03-21] MEDS: Cholecalciferol (Vitamin D3) 400 UNITS TAB PO SCH (12:04)
[2020-03-21] MEDS: Apixaban 5 MG TAB PER TUBE SCH ×2 (12:04→20:03)
[2020-03-21] MEDS: Ascorbic Acid 500 mg Chewable Tablet PO SCH (12:05)
[2020-03-21] MEDS: Dutasteride 0.5 MG CAP PO SCH (12:05)
[2020-03-21] MEDS: Dexamethasone 4 mg/ml Vial SLOW IVP SCH (12:05)
[2020-03-21] MEDS: Doxazosin 2 MG TAB PO SCH (12:05)
[2020-03-21] MEDS: Aspirin Chewable 81 MG TAB PO SCH (12:05)
[2020-03-21] MEDS: NPH, Human Insulin Isophane 300 UNIT/3 ML VIAL SC SCH ×2 (12:29→20:33)
[2020-03-21] MEDS: Labetalol HCl 100 MG/20 ML VIAL SLOW IVP PRN (12:54)
[2020-03-21] MEDS: Bisoprolol Fumarate 5 MG TAB PO SCH (13:56)
[2020-03-21] MEDS: Azithromycin 500 MG in Sodium Chloride 0.9% 250 ML 250 ML IVPB SCH (14:00)
[2020-03-21] MEDS ORDERED: hydrALAZINE 20 MG/ML VIAL SLOW IVP SCH (14:00)
--- NOTE | 2020-03-21 14:44 | PDOC.HOSPP ---
- Subjective Encounter Date: 03/21/20 Encounter Time: 14:15 Subjective: f/u for COVID PNA[facility] with prone positioning. Nursing reports BP elevated. - Objective Vital Signs & Weight: Vital Signs (12 hours) Temp Pulse Resp BP 03/21/20 14:00 61 201/65 H 03/21/20 12:54 61 201/65 H 03/21/20 12:04 61 03/21/20 11:27 61 03/21/20 07:38 62 169/93 H 03/21/20 06:00 22 H 03/21/20 04:00 98.5 F 22 H Weight Admit Weight 276 lb Weight 276 lb 3.827 oz Most Recent Monitor Data Heart Rate from ECG 60 NIBP 201/93 NIBP BP-Mean 129 Respiration from ECG 22 SpO2 99 I&O: 03/20/20 03/21/20 03/22/20 06:59 06:59 06:59 Intake Total 2109 2090.3 Output Total 2024 1999 Balance 85 91.3 Result Diagrams: 03/21/20 03:42 03/21/20 03:42 Additional Labs: Accuchecks 03/21/20 03/21/20 03/21/20 12:21 03:32 00:07 POC Glucose 226 H 301 H 282 H 03/20/20 03/20/20 20:54 18:10 POC Glucose 309 H 287 H Microbiology 03/18/20 12:23 Venous blood - Right Arm Blood Culture - Preliminary Specimen has been received and culture in progress. No Growth to date. 03/18/20 12:23 Venous blood - Right Arm Blood Culture - Preliminary NO GROWTH AT 48 HOURS 03/18/20 12:23 Venous blood - Left Hand Blood Culture - Preliminary Specimen has been received and culture in progress. No Growth to date. 03/18/20 12:23 Venous blood - Left Hand Blood Culture - Preliminary NO GROWTH AT 48 HOURS Laboratory Tests 03/14/20 03/18/20 03/18/20 15:35 11:59 11:59 ESR Westergren Creatinine 2.93 H Lactic Acid Ferritin Troponin I 0.104 H C-Reactive Protein B-Natriuretic Peptide SARS-CoV-2 (PCR) DETECTED A* 03/18/20 03/18/20 03/18/20 11:59 11:59 12:23 ESR Westergren 89 H Creatinine Lactic Acid 1.2 Ferritin Troponin I C-Reactive Protein B-Natriuretic Peptide 54.2 SARS-CoV-2 (PCR) 03/18/20 03/18/20 03/20/20 14:55 17:40 04:45 ESR Westergren Creatinine 2.31 H Lactic Acid Ferritin Troponin I 0.107 H 0.104 H C-Reactive Protein 14.34 H B-Natriuretic Peptide SARS-CoV-2 (PCR) 03/20/20 03/21/20 03/21/20 04:45 03:42 03:42 ESR Westergren Creatinine Lactic Acid Ferritin 1477.62 H 1626.95 H Troponin I C-Reactive Protein 13.33 H B-Natriuretic Peptide SARS-CoV-2 (PCR) Radiology Reviewed by me: Yes (PCXR - infiltrates improved on L, R worsening, lines/tubes in place) EKG Reviewed by me: Yes (Tele - SR) Hospitalist ROS - Medication Medications: Active Medications Generic Name Dose Route Start Last Admin Trade Name Freq PRN Reason Stop Dose Admin Acetaminophen 650 mg 03/18/20 14:41 03/20/20 08:17 Acetaminophen 325 Mg Tab PO 650 mg Q4H PRN Administration Headache/Fever/Mild Pain (1-3) Amlodipine Besylate 10 mg 03/21/20 09:00 03/21/20 12:04 Amlodipine 10 Mg Tab PER TUBE 10 mg DAILY SYDNEE Administration Apixaban 5 mg 03/20/20 21:00 03/21/20 12:04 Apixaban 5 Mg Tab PER TUBE 5 mg BID SYDNEE Administration Ascorbic Acid 1,000 mg 03/20/20 09:00 03/21/20 12:05 Ascorbic Acid 500 Mg Chewable Tablet PO 1,000 mg DAILY SYDNEE Administration Aspirin 81 mg 03/21/20 09:00 03/21/20 12:05 Aspirin Chewable 81 Mg Tab PO 81 mg DAILY SYDNEE Administration Atorvastatin Calcium 40 mg 03/18/20 21:00 03/20/20 20:46 Atorvastatin Calcium 40 Mg Tab PO 40 mg HS SYDNEE Administration Bisoprolol Fumarate 5 mg 03/19/20 09:00 03/21/20 13:56 Bisoprolol Fumarate 5 Mg Tab PO Not Given DAILY SYDNEE Cholecalciferol 400 units 03/20/20 09:00 03/21/20 12:04 Cholecalciferol (Vitamin D3) 400 Units Tab PO 400 units DAILY SYDNEE Administration Dexamethasone 8 mg 03/20/20 09:00 03/21/20 12:05 Dexamethasone 4 Mg/Ml Vial SLOW IVP 8 mg DAILY SYDNEE Administration Doxazosin Mesylate 2 mg 03/19/20 09:00 03/21/20 12:05 Doxazosin 2 Mg Tab PO 2 mg DAILY SYDNEE Administration Dutasteride 0.5 mg 03/19/20 09:00 03/21/20 12:05 Dutasteride 0.5 Mg Cap PO 0.5 mg DAILY SYDNEE Administration Hydralazine HCl 20 mg 03/21/20 14:00 03/21/20 14:00 Hydralazine 20 Mg/Ml Vial SLOW IVP 03/21/20 16:00 20 mg NOW SYDNEE Administration Azithromycin 500 mg/ Sodium 250 mls @ 250 mls/hr 03/19/20 14:00 03/21/20 14:00 Chloride IVPB 250 mls 1400 SYDNEE Administration Fentanyl 100 mls @ 0 mls/hr 03/20/20 14:00 03/21/20 11:19 Fentanyl Cadd IV 04/19/20 14:00 100 mls INF SYDNEE Administration Protocol Per Protocol Sodium Bicarbonate 70 meq/ 1,070 mls @ 75 mls/hr 03/21/20 07:45 03/21/20 08:36 Sodium Chloride IV 1,070 mls .[id number] SYDNEE Administration Insulin Human Lispro 0 units 03/18/20 14:41 03/21/20 03:49 Humalog 300 Units/3 Ml Vial SC 5 units .MILD SLIDING SCALE PRN Administration Mild Correctional Scale Insulin Human Lispro 0 units 03/19/20 21:53 03/21/20 12:31 Humalog 300 Units/3 Ml Vial SC 3 unit .BEDTIME SLIDING SC PRN Administration Bedtime Correctional Scale Insulin Human NPH 40 unit 03/21/20 09:00 03/21/20 12:29 Nph, Human Insulin Isophane 300 Unit/3 Ml Vial SC Not Given BID SYDNEE Labetalol HCl 40 mg 03/21/20 07:34 03/21/20 12:54 Labetalol Hcl 100 Mg/20 Ml Vial SLOW IVP 8 ml Q4H PRN Administration SBP Greater Than 180 Lorazepam 2 mg 03/20/20 14:00 03/21/20 12:04 Lorazepam 2 Mg/Ml Vial SLOW IVP 04/19/20 14:00 2 mg Q1H PRN Administration Breakthrough agitation Morphine Sulfate 2 mg 03/20/20 14:00 03/21/20 14:00 Morphine 2 Mg/Ml Vial SLOW IVP 04/19/20 14:00 2 mg Q1H PRN Administration Breakthrough Pain/Agitation Pantoprazole Sodium 40 mg 03/21/20 09:00 03/21/20 12:04 Pantoprazole 40 Mg Granules Packet PER TUBE 40 mg DAILY SYDNEE Administration Propofol 1,000 mg 03/20/20 14:00 03/21/20 12:03 Propofol 1,000 Mg/100 Ml Vial IV 04/19/20 14:00 1,000 mg INF PRN Administration TO ACHIEVE GOAL RASS Protocol Vecuronium [place] 10 mg 03/20/20 12:37 03/21/20 14:00 Vecuronium 10 Mg Vial IVP 10 mg Q30MIN PRN Administration Agitation Zinc Sulfate 220 mg 03/20/20 09:00 03/21/20 12:04 Zinc Sulfate 220 Mg Cap PO 220 mg DAILY SYDNEE Administration - Exam General - other findings: sedate/prone mech ventilation Eye: anicteric sclera ENT: normocephalic atraumatic, no oropharyngeal lesions Neck: supple, symmetric, no JVD, no thyromegaly, no lymphadenopathy Heart: RRR, no gallops, no rubs, normal peripheral pulses Heart - other findings: S1, S2 Respiratory - other findings: diminished in bases, few scattered coarse sounds Gastrointestinal: normal bowel sounds, no palpable masses Gastrointestinal - other findings: obese Extremities: no cyanosis, no clubbing, no edema Skin: normal turgor, no lesions Musculoskeletal: generalized weakness Psychiatric: somnolent, lethargic Hosp A/P (1) Pneumonia due to COVID-19 virus Code(s): U07.1 - COVID-19; J12.82 - PNEUMONIA DUE TO CORONAVIRUS DISEASE 2019 Status: Acute Plan: Continue Rocephin/Zithromax/Convalescent plasma/Decadron/Vit C/D3/Zinc/Eliquis (2) Acute respiratory failure with hypoxia Code(s): J96.01 - ACUTE RESPIRATORY FAILURE WITH HYPOXIA Status: Acute Plan: Continue mech ventilation, prone positioning, Albuterol (3) Acute worsening of stage 3 chronic kidney disease Code(s): N18.30 - CHRONIC KIDNEY DISEASE, STAGE 3 UNSPECIFIED Status: Acute Plan: Improved, avoid nephrotoxic meds and limit contrast (4) Diabetes mellitus Code(s): E11.9 - TYPE 2 DIABETES MELLITUS WITHOUT COMPLICATIONS Status: Chronic Plan: Labile due to Decadron, ISS, Humulin N 40u BID (5) Hyponatremia Code(s): E87.1 - HYPO-OSMOLALITY AND HYPONATREMIA Status: Acute Plan: Resolved - Plan continue antibiotics, pediatric social worker, respiratory therapy, DVT proph w/SCDs Continue pulmonary supportive mgmt Start Rocephin/Zithromax Start Vit C/Zinc/D3 Continue Eliquis Add Albuterol MDI Consult Pulmonology s/p convalescent plasma O2 supplementation Remdesivir on hold due to CKD Add Clonidine 0.2mg TD AM lab: BMP, CBC, CRP, Ferritin
[2020-03-21] MEDS: cloNIDine 0.2mg/24 Hour PATCH TD SCH (15:48)
[2020-03-21] MEDS: Atorvastatin Calcium 40 MG TAB PO SCH (20:03)
[2020-03-21] MEDS: niCARdipine 25 MG in Sodium Chloride 0.9% 250 ML 240 ML IVPB SCH (20:03)
[2020-03-22] MEDS: Vecuronium 10 MG VIAL IVP PRN ×3 (00:28→13:44)
[2020-03-22] MEDS: Lorazepam 2 MG/ML VIAL SLOW IVP PRN ×4 (00:28→13:45)
[2020-03-22] MEDS: Sodium Bicarbonate 70 MEQ in Sodium Chloride 0.45% 1,000 ML IV SCH ×2 (00:29→10:41)
[2020-03-22] MEDS: HumaLOG 300 UNITS/3 ML VIAL SC PRN ×6 (00:43→21:44)
[2020-03-22] MEDS: Propofol 1,000 MG/100 ML VIAL IV PRN ×9 (01:11→22:06)
[2020-03-22] MEDS: Fentanyl CADD 100 ML IV SCH ×2 (01:12→13:53)
[2020-03-22] MEDS: niCARdipine 25 MG in Sodium Chloride 0.9% 250 ML 240 ML IVPB SCH ×3 (01:12→10:41)
[2020-03-22 04:25] LABS: #Lymphocytes 0.3 thou/uL (1.20-3.40); #Monocytes 0.4 thou/uL (0.11-0.59); #Neutrophils 5.3 thou/uL (1.40-6.50); %Basophils 0.2 % (0.0-1.0); %Eosinophils 0.2 % (0.0-10.0); %Lymphocytes 5.5 % (21.0-51.0); %Monocytes 6.7 % (0.0-10.0); %Neutrophils 87.4 % (42.0-75.0); Anion Gap 19 mmol/L (10-20); BUN (Urea Nitrogen) 44 mg/dL (8.4-25.7); Calc. Creatinine Clearance 61 mL/min (70-130); Calcium 8.2 mg/dL (7.8-10.44); Carbon Dioxide 16 mmol/L (23-31); Chloride 108 mmol/L (98-107); Glucose 349 mg/dL (83-110); Mean Corpuscular HGB CONC 34.6 g/dL (32.0-36.0); Mean Corpuscular Hemoglobin 31.4 pg (27.0-31.0); Mean Corpuscular Volume 90.6 fL (78.0-98.0); Mean Platelet Volume 7.5 fL (7.4-10.4); Platelet Count 246 thou/uL (130-400); Potassium 4.1 mmol/L (3.5-5.1); RBC Distribution Width 11.9 % (11.5-14.5); Sodium 139 mmol/L (136-145); White Blood Cell (WBC) Count 6.1 thou/uL (4.8-10.8)
[2020-03-22] MEDS ORDERED: Dextrose 5% in Water 1,000 ML IV PRN (07:49)
[2020-03-22] MEDS ORDERED: Dextrose 50% Abboject 50 ML SYRINGE SLOW IVP PRN (07:49)
--- NOTE | 2020-03-22 08:08 | PRG ---
DATE OF SERVICE: 03/22/2020 35 minutes of critical care time. SUBJECTIVE: The patient continues in a prone position on mechanical ventilation. A Cardene drip was started yesterday because of persistent hypertension. OBJECTIVE: VITAL SIGNS: Temperature 97.3, pulse 69, blood pressure 176/78, O2 saturation in the 90s. 24-hour intake 3340, output 2295. CHEST: His exam is limited to his chest. He has inspiratory crackles bilaterally. LABORATORY DATA: Sodium 139, potassium 4.1, chloride 108, CO2 16, BUN 44, creatinine 1.9, glucose 349. White blood cell count 6.1, hematocrit 31.7, platelet count 246. X-ray shows diffuse bilateral infiltrates. ASSESSMENT: 1. COVID-19 pneumonia. 2. Severe hyperglycemia. 3. Type 2 diabetes mellitus with severe insulin resistance. 4. Respiratory failure requiring mechanical ventilation. PLAN: 1. He will be placed in a supine position later today. I have adjusted his ventilator to lower his high PEEP pressure and raise his low PEEP pressure. Hopefully, this will get his volumes back into a more reasonable range. He was running in the 700-800s early this morning, and that is too much volume. 2. Increase insulin as he is extremely insulin resistant at this point. 3. Continue blood pressure control with nicardipine. 4. Hope tube feedings once he is in the supine position. 5. I do not expect him to live through this. Job ID: [id number]
[2020-03-22] MEDS: Ascorbic Acid 500 mg Chewable Tablet PO SCH (08:18)
[2020-03-22] MEDS: Zinc Sulfate 220 MG CAP PO SCH (08:18)
[2020-03-22] MEDS: Pantoprazole 40 MG GRANULES PACKET PER TUBE SCH (08:18)
[2020-03-22] MEDS: Morphine 2 MG/ML VIAL SLOW IVP PRN ×2 (08:18→13:45)
[2020-03-22] MEDS: Apixaban 5 MG TAB PER TUBE SCH ×2 (08:19→21:48)
[2020-03-22] MEDS: Amlodipine 10 MG TAB PER TUBE SCH (08:19)
[2020-03-22] MEDS: Dexamethasone 4 mg/ml Vial SLOW IVP SCH (08:19)
[2020-03-22] MEDS: Doxazosin 2 MG TAB PO SCH (08:19)
[2020-03-22] MEDS: Aspirin Chewable 81 MG TAB PO SCH (08:19)
[2020-03-22] MEDS: Dutasteride 0.5 MG CAP PO SCH (08:19)
[2020-03-22] MEDS: Bisoprolol Fumarate 5 MG TAB PO SCH (08:19)
[2020-03-22] MEDS: Cholecalciferol (Vitamin D3) 400 UNITS TAB PO SCH (08:19)
--- NOTE | 2020-03-22 09:21 | RAD ---
PORTABLE CHEST: Date: 03/22/2020 HISTORY: Follow-up COVID pneumonia. FINDINGS: Extensive bilateral lung infiltrates are again noted. Endotracheal tube is in satisfactory position. NG tube below the hemidiaphragm. Parenchymal infiltrates are relatively stable with the exception of some of the changes in the left lung appear somewhat increased. IMPRESSION: Slight increase in the parenchymal infiltrates in the left lung as compared to the prior exam. POS: [facility]
[2020-03-22] MEDS: NPH, Human Insulin Isophane 300 UNIT/3 ML VIAL SC SCH (09:32)
[2020-03-22] MEDS: Azithromycin 500 MG in Sodium Chloride 0.9% 250 ML 250 ML IVPB SCH (13:44)
[2020-03-22] MEDS ORDERED: Fentanyl CADD 100 ML ONE (13:51)
--- NOTE | 2020-03-22 19:12 | PDOC.HOSPP ---
- Subjective Encounter Date: 03/22/20 Encounter Time: 17:45 Subjective: f/u for COVID PNA/hypoxic resp failure s/p prone ventilation. [facility] FIO2 50%. - Objective Vital Signs & Weight: Vital Signs (12 hours) Temp Pulse Resp BP Pulse Ox 03/22/20 18:35 65 145/64 H 03/22/20 18:00 22 H 03/22/20 16:00 96.8 F L 22 H 03/22/20 14:22 67 03/22/20 14:00 22 H 03/22/20 12:00 97.5 F L 22 H 03/22/20 11:32 65 03/22/20 10:00 22 H 03/22/20 08:36 75 03/22/20 08:19 69 03/22/20 08:00 97.5 F L 22 H 95 Weight Admit Weight 276 lb Weight 275 lb 5.718 oz Most Recent Monitor Data Heart Rate from ECG 65 NIBP 145/64 NIBP BP-Mean 91 Respiration from ECG 22 SpO2 91 I&O: 03/21/20 03/22/20 03/23/20 06:59 06:59 06:59 Intake Total 2091.3 3340.0 2268 Output Total 1999 2295 500 Balance 91.3 1045.0 1768 Result Diagrams: 03/22/20 03:54 03/22/20 03:54 Additional Labs: Accuchecks 03/22/20 03/22/20 03/22/20 15:48 11:45 08:31 POC Glucose 318 H 270 H 289 H 03/22/20 03/22/20 03/21/20 03:45 00:32 20:14 POC Glucose 316 H 338 H 333 H Microbiology 03/18/20 12:23 Venous blood - Right Arm Blood Culture - Preliminary Specimen has been received and culture in progress. No Growth to date. 03/18/20 12:23 Venous blood - Right Arm Blood Culture - Preliminary NO GROWTH AT 48 HOURS 03/18/20 12:23 Venous blood - Left Hand Blood Culture - Preliminary Specimen has been received and culture in progress. No Growth to date. 03/18/20 12:23 Venous blood - Left Hand Blood Culture - Preliminary NO GROWTH AT 48 HOURS Laboratory Tests 03/14/20 03/18/20 03/18/20 15:35 11:59 11:59 ESR [place] Creatinine 2.93 H Lactic Acid Ferritin Troponin I 0.104 H C-Reactive Protein B-Natriuretic Peptide SARS-CoV-2 (PCR) DETECTED A* 03/18/20 03/18/20 03/18/20 11:59 11:59 12:23 ESR [place] 89 H Creatinine Lactic Acid 1.2 Ferritin Troponin I C-Reactive Protein B-Natriuretic Peptide 54.2 SARS-CoV-2 (PCR) 03/18/20 03/18/20 03/20/20 14:55 17:40 04:45 ESR [place] Creatinine 2.31 H Lactic Acid Ferritin Troponin I 0.107 H 0.104 H C-Reactive Protein 14.34 H B-Natriuretic Peptide SARS-CoV-2 (PCR) 03/20/20 03/21/20 03/21/20 04:45 03:42 03:42 ESR [place] Creatinine Lactic Acid Ferritin 1477.62 H 1626.95 H Troponin I C-Reactive Protein 13.33 H B-Natriuretic Peptide SARS-CoV-2 (PCR) Radiology Reviewed by me: Yes (PCXR - bilat infiltrates L>R, lines/tubes in place) EKG Reviewed by me: Yes (Tele - SR) Hospitalist ROS - Medication Medications: Active Medications Generic Name Dose Route Start Last Admin Trade Name Freq PRN Reason Stop Dose Admin Acetaminophen 650 mg 03/18/20 14:41 03/20/20 08:17 Acetaminophen 325 Mg Tab PO 650 mg Q4H PRN Administration Headache/Fever/Mild Pain (1-3) Amlodipine Besylate 10 mg 03/21/20 09:00 03/22/20 08:19 Amlodipine 10 Mg Tab PER TUBE 10 mg DAILY SYDNEE Administration Apixaban 5 mg 03/20/20 21:00 03/22/20 08:19 Apixaban 5 Mg Tab PER TUBE 5 mg BID SYDNEE Administration Ascorbic Acid 1,000 mg 03/20/20 09:00 03/22/20 08:18 Ascorbic Acid 500 Mg Chewable Tablet PO 1,000 mg DAILY SYDNEE Administration Aspirin 81 mg 03/21/20 09:00 03/22/20 08:19 Aspirin Chewable 81 Mg Tab PO 81 mg DAILY SYDNEE Administration Atorvastatin Calcium 40 mg 03/18/20 21:00 03/21/20 20:03 Atorvastatin Calcium 40 Mg Tab PO 40 mg HS SYDNEE Administration Bisoprolol Fumarate 5 mg 03/19/20 09:00 03/22/20 08:19 Bisoprolol Fumarate 5 Mg Tab PO 5 mg DAILY SYDNEE Administration Cholecalciferol 400 units 03/20/20 09:00 03/22/20 08:19 Cholecalciferol (Vitamin D3) 400 Units Tab PO 400 units DAILY SYDNEE Administration Clonidine 0.2 mg 03/21/20 15:00 03/21/20 15:48 Clonidine 0.2mg/24 Hour Patch TD 0.2 mg Q7DAYS@1500 SYDNEE Administration Dexamethasone 8 mg 03/20/20 09:00 03/22/20 08:19 Dexamethasone 4 Mg/Ml Vial SLOW IVP 8 mg DAILY SYDNEE Administration Doxazosin Mesylate 2 mg 03/19/20 09:00 03/22/20 08:19 Doxazosin 2 Mg Tab PO 2 mg DAILY SYDNEE Administration Dutasteride 0.5 mg 03/19/20 09:00 03/22/20 08:19 Dutasteride 0.5 Mg Cap PO 0.5 mg DAILY SYDNEE Administration Azithromycin 500 mg/ Sodium 250 mls @ 250 mls/hr 03/19/20 14:00 03/22/20 13:44 Chloride IVPB 250 mls 1400 SYDNEE Administration Fentanyl 100 mls @ 0 mls/hr 03/20/20 14:00 03/22/20 13:53 Fentanyl Cadd IV 04/19/20 14:00 100 mls INF SYDNEE Administration Protocol Per Protocol Sodium Bicarbonate 70 meq/ 1,070 mls @ 75 mls/hr 03/21/20 07:45 03/22/20 10:41 Sodium Chloride IV 1,070 mls .[id number] SYDNEE Administration Nicardipine HCl 25 mg/ Sodium 250 mls @ 0 mls/hr 03/21/20 19:30 03/22/20 10:41 Chloride IVPB 250 mls INF SYDNEE Administration Protocol Titrate Insulin Human Lispro 0 units 03/22/20 07:49 03/22/20 16:00 Humalog 300 Units/3 Ml Vial SC 11 unit .AGGRESSIVE SLIDING PRN Administration Aggressive [employer] Scale Insulin Human NPH 60 unit 03/22/20 09:00 03/22/20 09:32 Nph, Human Insulin Isophane 300 Unit/3 Ml Vial SC 60 unit BID SYDNEE Administration Labetalol HCl 40 mg 03/21/20 07:34 03/21/20 12:54 Labetalol Hcl 100 Mg/20 Ml Vial SLOW IVP 8 ml Q4H PRN Administration SBP Greater Than 180 Lorazepam 2 mg 03/20/20 14:00 03/22/20 13:45 Lorazepam 2 Mg/Ml Vial SLOW IVP 04/19/20 14:00 2 mg Q1H PRN Administration Breakthrough agitation Morphine Sulfate 2 mg 03/20/20 14:00 03/22/20 13:45 Morphine 2 Mg/Ml Vial SLOW IVP 04/19/20 14:00 2 mg Q1H PRN Administration Breakthrough Pain/Agitation Pantoprazole Sodium 40 mg 03/21/20 09:00 03/22/20 08:18 Pantoprazole 40 Mg Granules Packet PER TUBE 40 mg DAILY SYDNEE Administration Propofol 1,000 mg 03/20/20 14:00 03/22/20 16:45 Propofol 1,000 Mg/100 Ml Vial IV 04/19/20 14:00 1,000 mg INF PRN Administration TO ACHIEVE GOAL RASS Protocol Vecuronium [place] 10 mg 03/20/20 12:37 03/22/20 13:44 Vecuronium 10 Mg Vial IVP 10 mg Q30MIN PRN Administration Agitation Zinc Sulfate 220 mg 03/20/20 09:00 03/22/20 08:18 Zinc Sulfate 220 Mg Cap PO 220 mg DAILY SYDNEE Administration - Exam General - other findings: sedate on mech vent Eye: anicteric sclera ENT: normocephalic atraumatic, no oropharyngeal lesions ENT - other findings: ETT/OGT in place Neck: supple, symmetric, no JVD, no thyromegaly, no lymphadenopathy Heart: RRR, no gallops, no rubs, normal peripheral pulses Heart - other findings: S1, S2 Respiratory: tachypneic Respiratory - other findings: diminished in bilat saha, occ rhonchi Gastrointestinal: soft, non-tender, non-distended, normal bowel sounds, no palpable masses Gastrointestinal - other findings: obese Extremities: no cyanosis, 1+ LE edema Skin: normal turgor Psychiatric: somnolent, lethargic Hosp A/P (1) Pneumonia due to COVID-19 virus Code(s): U07.1 - COVID-19; J12.82 - PNEUMONIA DUE TO CORONAVIRUS DISEASE 2019 Status: Acute Plan: Continue Zithromax/Eliquis/Dexamethasone/Vit C/Zinc/Albuterol (2) Acute respiratory failure with hypoxia Code(s): J96.01 - ACUTE RESPIRATORY FAILURE WITH HYPOXIA Status: Acute Plan: Continue mech vent with Bi-level, wean as clinically indicated (3) Acute worsening of stage 3 chronic kidney disease Code(s): N18.30 - CHRONIC KIDNEY DISEASE, STAGE 3 UNSPECIFIED Status: Acute Plan: Improved, continue low-volume IVF's, avoid nephrotoxic meds (4) Diabetes mellitus Code(s): E11.9 - TYPE 2 DIABETES MELLITUS WITHOUT COMPLICATIONS Status: Chronic Plan: Labile, NPH 60u BID, ISS (5) Hyponatremia Code(s): E87.1 - HYPO-OSMOLALITY AND HYPONATREMIA Status: Acute Plan: Resolved - Plan continue antibiotics, rn social work, respiratory therapy, DVT proph w/SCDs Continue pulmonary supportive mgmt Continue Zithromax Continue Vit C/Zinc/D3 Continue Eliquis Add Albuterol MDI Pulmonology assistance appreciated s/p convalescent plasma O2 supplementation Remdesivir on hold due to CKD Add Clonidine 0.2mg TD AM lab: BMP, CBC, CRP, Ferritin PCXR in am
[2020-03-22] MEDS: Atorvastatin Calcium 40 MG TAB PO SCH (21:48)
[2020-03-23] MEDS: NPH, Human Insulin Isophane 300 UNIT/3 ML VIAL SC SCH ×2 (00:37→09:34)
[2020-03-23] MEDS: HumaLOG 300 UNITS/3 ML VIAL SC PRN ×3 (00:51→09:30)
[2020-03-23] MEDS: Propofol 1,000 MG/100 ML VIAL IV PRN ×4 (02:00→19:10)
[2020-03-23 03:50] LABS: #Lymphocytes 0.3 thou/uL (1.20-3.40); #Monocytes 0.5 thou/uL (0.11-0.59); #Neutrophils 6.8 thou/uL (1.40-6.50); %Eosinophils 0.4 % (0.0-10.0); %Lymphocytes 4.3 % (21.0-51.0); %Neutrophils 88.4 % (42.0-75.0); Hemoglobin 10.8 g/dL (14.0-18.0); Mean Corpuscular HGB CONC 34.3 g/dL (32.0-36.0); Mean Corpuscular Hemoglobin 31.6 pg (27.0-31.0); Mean Corpuscular Volume 92.1 fL (78.0-98.0); Platelet Count 255 thou/uL (130-400); RBC Distribution Width 12.2 % (11.5-14.5); Red Blood Cell (RBC) Count 3.42 mill/uL (4.70-6.10); White Blood Cell (WBC) Count 7.7 thou/uL (4.8-10.8)
[2020-03-23 03:54] LABS: Anion Gap 18 mmol/L (10-20); BUN (Urea Nitrogen) 51 mg/dL (8.4-25.7); Calc. Creatinine Clearance 56 mL/min (70-130); Calcium 8.1 mg/dL (7.8-10.44); Carbon Dioxide 18 mmol/L (23-31); Chloride 108 mmol/L (98-107); Glucose 288 mg/dL (83-110); Potassium 4.5 mmol/L (3.5-5.1); Sodium 139 mmol/L (136-145)
[2020-03-23] MEDS ORDERED: Fentanyl CADD 100 ML ONE (04:12)
[2020-03-23] MEDS: Sodium Bicarbonate 70 MEQ in Sodium Chloride 0.45% 1,000 ML IV SCH ×3 (05:29→20:16)
--- NOTE | 2020-03-23 08:33 | RAD ---
XR Chest 1 View Portable History: Pneumonia Comparison: Radiograph prior day Findings: Endotracheal tube tip the clavicular level. Enteric tube tip below diaphragm although out o f field of view. Airspace opacities are slightly improved. Impression: Slight improved lung aeration.
[2020-03-23] MEDS: Amlodipine 10 MG TAB PER TUBE SCH (09:30)
[2020-03-23] MEDS: Aspirin Chewable 81 MG TAB PO SCH (09:31)
[2020-03-23] MEDS: Apixaban 5 MG TAB PER TUBE SCH ×2 (09:31→19:10)
[2020-03-23] MEDS: Ascorbic Acid 500 mg Chewable Tablet PO SCH (09:31)
[2020-03-23] MEDS: Cholecalciferol (Vitamin D3) 400 UNITS TAB PO SCH (09:32)
[2020-03-23] MEDS: Dexamethasone 4 mg/ml Vial SLOW IVP SCH (09:32)
[2020-03-23] MEDS: Bisoprolol Fumarate 5 MG TAB PO SCH (09:32)
[2020-03-23] MEDS: Doxazosin 2 MG TAB PO SCH (09:33)
[2020-03-23] MEDS: Dutasteride 0.5 MG CAP PO SCH (09:33)
[2020-03-23] MEDS: Pantoprazole 40 MG GRANULES PACKET PER TUBE SCH (09:34)
[2020-03-23] MEDS: Zinc Sulfate 220 MG CAP PO SCH (09:35)
--- NOTE | 2020-03-23 10:08 | EKG ---
Test Reason : SOB Blood Pressure : / mmHG Vent. Rate : 079 BPM Atrial Rate : 079 BPM P-R Int : 158 ms QRS Dur : 112 ms QT Int : 406 ms P-R-T Axes : 005 -14 024 degrees QTc Int : 465 ms Normal sinus rhythm Normal ECG Confirmed by RIZWANA LINO, KAYCE Varghese ([id number]), presser and shaper [employer] TAURUS CANALES ([id number]) on 03/23/2020 10:07:53 AM [facility] Confirmed By:KAYCE WAGONER MD
--- NOTE | 2020-03-23 12:44 | PRG ---
DATE OF SERVICE: This is 35 minutes critical care time. SUBJECTIVE: The patient remains intubated on mechanical ventilation. He is now in a supine position. OBJECTIVE: VITAL SIGNS: His temperature is 99.4, that is his maximum temperature, pulse 71, blood pressure 207/91, O2 saturation 100%. Right now, he is not on the Cardene drip. Intake for 24 hours 3632, output 1716. HEENT: Unremarkable. NECK: No adenopathy or JVD. LUNGS: Clear anteriorly. CARDIAC: S1, S2. Regular. ABDOMEN: Soft. EXTREMITIES: No edema. LABORATORY DATA: White blood cell count 7.7, hematocrit 31.5, and platelet count 255. Sodium 139, potassium 4.5, chloride 108, CO2 18, BUN 51, creatinine 2.1, glucose 288. Ferritin 2241. ASSESSMENT: 1. COVID-19 pneumonia. 2. Diabetes with continued elevated blood sugars. 3. Acute respiratory failure requiring mechanical ventilation. PLAN: 1. I have lowered the high PEEP on his bilevel ventilation. I have also brought his FiO2 down from 50% to 45%. I think weaning is going to be very slow in this gentleman. 2. His blood pressures continue to be in issue. He is on Norvasc, Zebeta, and clonidine as well as Cardura. May end up having to add some minoxidil on top of this. 3. His blood sugars also continue to be a problem despite the NPH insulin. Therefore, may have to go to an insulin drip for a while. Job ID: [id number]
[2020-03-23] MEDS ORDERED: Minoxidil 2.5 MG TAB PER TUBE SCH (13:45)
[2020-03-23] MEDS: HUMULIN R 100 UNITS in Sodium Chloride 0.9% 100 ML IVPB SCH (14:12)
[2020-03-23] MEDS: Azithromycin 500 MG in Sodium Chloride 0.9% 250 ML 250 ML IVPB SCH (14:12)
--- NOTE | 2020-03-23 18:13 | PDOC.HOSPP ---
- Subjective Encounter Date: 03/23/20 Encounter Time: 18:12 non-verbal Subjective: Mr. Aureliano Woods is a 74-year-old patient who is admitted with COVID-19 pneumonia. He is intubated and mechanically ventilated. He is getting supportive care. I called and updated the family and answered all their questions. His prognosis appears to be guarded. He has multiple comorbid conditions including diabetes and morbid obesity. - Objective Vital Signs & Weight: Vital Signs (12 hours) Temp Pulse Resp BP Pulse Ox 03/23/20 16:00 98.9 F 22 H 03/23/20 15:22 69 176/83 H 03/23/20 14:00 22 H 03/23/20 12:02 73 03/23/20 12:00 98.5 F 22 H 03/23/20 10:00 22 H 03/23/20 09:30 69 195/87 H 03/23/20 08:00 99.4 F 22 H 98 03/23/20 07:52 69 Weight Admit Weight 276 lb Weight 4.72 oz Most Recent Monitor Data Heart Rate from ECG 63 NIBP 170/80 NIBP BP-Mean 110 Respiration from ECG 22 SpO2 99 I&O: 03/22/20 03/23/20 03/24/20 06:59 06:59 06:59 Intake Total 3340.0 3632 240 Output Total 2295 1760 1075 Balance 1045.0 1872 -835 Result Diagrams: 03/23/20 03:14 03/23/20 03:14 Additional Labs: Accuchecks 03/23/20 03/23/20 03/23/20 17:55 15:54 09:05 POC Glucose 189 H 209 H 222 H 03/23/20 03/22/20 00:40 21:12 POC Glucose 273 H 293 H Radiology Reviewed by me: Yes EKG Reviewed by me: Yes Hospitalist ROS - Review of Systems ROS unobtainable: due to endotracheal tube Constitutional: reports: weakness, malaise Respiratory: reports: shortness of breath, SOB with excertion Gastrointestinal: reports: nausea Neurological: reports: weakness, numbness - Medication Medications: Active Medications Generic Name Dose Route Start Last Admin Trade Name Freq PRN Reason Stop Dose Admin Acetaminophen 650 mg 03/18/20 14:41 03/20/20 08:17 Acetaminophen 325 Mg Tab PO 650 mg Q4H PRN Administration Headache/Fever/Mild Pain (1-3) Amlodipine Besylate 10 mg 03/21/20 09:00 03/23/20 09:30 Amlodipine 10 Mg Tab PER TUBE 10 mg DAILY SYDNEE Administration Apixaban 5 mg 03/20/20 21:00 03/23/20 09:31 Apixaban 5 Mg Tab PER TUBE 5 mg BID SYDNEE Administration Ascorbic Acid 1,000 mg 03/20/20 09:00 03/23/20 09:31 Ascorbic Acid 500 Mg Chewable Tablet PO 1,000 mg DAILY SYDNEE Administration Aspirin 81 mg 03/21/20 09:00 03/23/20 09:31 Aspirin Chewable 81 Mg Tab PO 81 mg DAILY SYDNEE Administration Atorvastatin Calcium 40 mg 03/18/20 21:00 03/22/20 21:48 Atorvastatin Calcium 40 Mg Tab PO 40 mg HS SYDNEE Administration Bisoprolol Fumarate 5 mg 03/19/20 09:00 03/23/20 09:32 Bisoprolol Fumarate 5 Mg Tab PO 5 mg DAILY SYDNEE Administration Cholecalciferol 400 units 03/20/20 09:00 03/23/20 09:32 Cholecalciferol (Vitamin D3) 400 Units Tab PO 400 units DAILY SYDNEE Administration Clonidine 0.2 mg 03/21/20 15:00 03/21/20 15:48 Clonidine 0.2mg/24 Hour Patch TD 0.2 mg Q7DAYS@1500 SYDNEE Administration Dexamethasone 8 mg 03/20/20 09:00 03/23/20 09:32 Dexamethasone 4 Mg/Ml Vial SLOW IVP 8 mg DAILY SYDNEE Administration Doxazosin Mesylate 2 mg 03/19/20 09:00 03/23/20 09:33 Doxazosin 2 Mg Tab PO 2 mg DAILY SYDNEE Administration Dutasteride 0.5 mg 03/19/20 09:00 03/23/20 09:33 Dutasteride 0.5 Mg Cap PO 0.5 mg DAILY SYDNEE Administration Azithromycin 500 mg/ Sodium 250 mls @ 250 mls/hr 03/19/20 14:00 03/23/20 14:12 Chloride IVPB 250 mls 1400 SYDNEE Administration Fentanyl 100 mls @ 0 mls/hr 03/20/20 14:00 03/22/20 13:53 Fentanyl Cadd IV 04/19/20 14:00 100 mls INF SYDNEE Administration Protocol Per Protocol Sodium Bicarbonate 70 meq/ 1,070 mls @ 75 mls/hr 03/21/20 07:45 03/23/20 05:29 Sodium Chloride IV 1,070 mls .[id number] SYDNEE Administration Nicardipine HCl 25 mg/ Sodium 250 mls @ 0 mls/hr 03/21/20 19:30 03/22/20 10:41 Chloride IVPB 250 mls INF SYDNEE Administration Protocol Titrate Insulin Human Regular 100 101 mls @ 0 mls/hr 03/23/20 12:30 03/23/20 14:12 units/ Sodium Chloride IVPB 101 mls INF SYDNEE Administration Protocol Titrate Midazolam HCl 100 mls @ 0 mls/hr 03/23/20 12:30 03/23/20 14:19 Versed IVPB 100 mls INF SYDNEE Administration Protocol Titrate Labetalol HCl 40 mg 03/21/20 07:34 03/21/20 12:54 Labetalol Hcl 100 Mg/20 Ml Vial SLOW IVP 8 ml Q4H PRN Administration SBP Greater Than 180 Lorazepam 2 mg 03/20/20 14:00 03/22/20 13:45 Lorazepam 2 Mg/Ml Vial SLOW IVP 04/19/20 14:00 2 mg Q1H PRN Administration Breakthrough agitation Morphine Sulfate 2 mg 03/20/20 14:00 03/22/20 13:45 Morphine 2 Mg/Ml Vial SLOW IVP 04/19/20 14:00 2 mg Q1H PRN Administration Breakthrough Pain/Agitation Pantoprazole Sodium 40 mg 03/21/20 09:00 03/23/20 09:34 Pantoprazole 40 Mg Granules Packet PER TUBE 40 mg DAILY SYDNEE Administration Propofol 1,000 mg 03/20/20 14:00 03/23/20 14:14 Propofol 1,000 Mg/100 Ml Vial IV 04/19/20 14:00 1,000 mg INF PRN Administration TO ACHIEVE GOAL RASS Protocol Vecuronium [place] 10 mg 03/20/20 12:37 03/22/20 13:44 Vecuronium 10 Mg Vial IVP 10 mg Q30MIN PRN Administration Agitation Zinc Sulfate 220 mg 03/20/20 09:00 03/23/20 09:35 Zinc Sulfate 220 Mg Cap PO 220 mg DAILY SYDNEE Administration - Exam General Appearance: NAD, ill appearing Eye: PERRL, anicteric sclera ENT: normocephalic atraumatic, no oropharyngeal lesions Neck: supple, symmetric, no JVD, no thyromegaly Heart: RRR, no murmur, no gallops, no rubs Respiratory: normal chest expansion, rhonchi, tachypneic, wheezes Gastrointestinal: soft, non-tender, non-distended Musculoskeletal: generalized weakness Psychiatric: not oriented, flat affect, somnolent, lethargic Hosp A/P (1) Acute respiratory failure with hypoxia Code(s): J96.01 - ACUTE RESPIRATORY FAILURE WITH HYPOXIA Status: Acute Plan: He remains intubated and mechanically ventilated. He has respiratory failure secondary to COVID-19 pneumonia. (2) Pneumonia due to COVID-19 virus Code(s): U07.1 - COVID-19; J12.82 - PNEUMONIA DUE TO CORONAVIRUS DISEASE 2019 Status: Acute Plan: Continue supportive care as above. (3) Morbid obesity Code(s): E66.01 - MORBID (SEVERE) OBESITY DUE TO EXCESS CALORIES Status: Acute (4) Diabetes mellitus Code(s): E11.9 - TYPE 2 DIABETES MELLITUS WITHOUT COMPLICATIONS Status: Chronic Qualifiers: Diabetes mellitus long term care administrator insulin use: with intermediate use Diabetes mellitus complication status: with hyperglycemia - Plan old records reviewed/req, plan discussed w/ family, PT/OT
[2020-03-23] MEDS: Atorvastatin Calcium 40 MG TAB PO SCH (19:10)
[2020-03-24] MEDS ORDERED: Fentanyl CADD 0 ML ONE (02:47)
[2020-03-24] MEDS: Fentanyl CADD 100 ML IV SCH ×2 (02:54→22:03)
[2020-03-24] MEDS: Propofol 1,000 MG/100 ML VIAL IV PRN (02:55)
[2020-03-24 03:28] LABS: #Lymphocytes 0.5 thou/uL (1.20-3.40); #Monocytes 0.6 thou/uL (0.11-0.59); #Neutrophils 6.2 thou/uL (1.40-6.50); %Eosinophils 0.3 % (0.0-10.0); %Lymphocytes 6.7 % (21.0-51.0); %Monocytes 8.2 % (0.0-10.0); %Neutrophils 84.8 % (42.0-75.0); Mean Corpuscular Hemoglobin 31.2 pg (27.0-31.0); Mean Corpuscular Volume 91.8 fL (78.0-98.0); Mean Platelet Volume 7.6 fL (7.4-10.4); Platelet Count 263 thou/uL (130-400); Red Blood Cell (RBC) Count 3.53 mill/uL (4.70-6.10); White Blood Cell (WBC) Count 7.3 thou/uL (4.8-10.8)
[2020-03-24 03:44] LABS: Anion Gap 17 mmol/L (10-20); BUN (Urea Nitrogen) 68 mg/dL (8.4-25.7); Calc. Creatinine Clearance 0 mL/min (70-130); Calcium 8.3 mg/dL (7.8-10.44); Carbon Dioxide 22 mmol/L (23-31); Chloride 109 mmol/L (98-107); Glucose 168 mg/dL (83-110); Potassium 4.5 mmol/L (3.5-5.1); Sodium 143 mmol/L (136-145)
[2020-03-24] MEDS: HUMULIN R 100 UNITS in Sodium Chloride 0.9% 100 ML IVPB SCH (05:12)
--- NOTE | 2020-03-24 07:56 | RAD ---
XR Chest 1 View Portable History: Pneumonia Comparison: Radiograph prior day Findings: Endotracheal tube tip at the clavicular level. Enteric tube tip below diaphragm although ou t of field of view. Airspace consolidation is similar. Relative to the prior airspace consolidation is also similar. No acute osseous abnormality. Impression: Similar examination of the chest. No pneumothorax or pneumomediastinum.
[2020-03-24] MEDS: Aspirin Chewable 81 MG TAB PO SCH (09:14)
[2020-03-24] MEDS: Minoxidil 2.5 MG TAB PER TUBE SCH (09:14)
[2020-03-24] MEDS: Pantoprazole 40 MG GRANULES PACKET PER TUBE SCH (09:15)
[2020-03-24] MEDS: Ascorbic Acid 500 mg Chewable Tablet PO SCH (09:15)
[2020-03-24] MEDS: Cholecalciferol (Vitamin D3) 400 UNITS TAB PO SCH (09:15)
[2020-03-24] MEDS: Amlodipine 10 MG TAB PER TUBE SCH (09:15)
[2020-03-24] MEDS: Doxazosin 2 MG TAB PO SCH (09:16)
[2020-03-24] MEDS: Apixaban 5 MG TAB PER TUBE SCH ×2 (09:16→19:38)
[2020-03-24] MEDS: Zinc Sulfate 220 MG CAP PO SCH (09:16)
[2020-03-24] MEDS: Dutasteride 0.5 MG CAP PO SCH (09:16)
[2020-03-24] MEDS: Dexamethasone 4 mg/ml Vial SLOW IVP SCH (09:16)
[2020-03-24] MEDS: Bisoprolol Fumarate 5 MG TAB PO SCH (09:17)
[2020-03-24] MEDS: Sodium Bicarbonate 70 MEQ in Sodium Chloride 0.45% 1,000 ML IV SCH (11:10)
--- NOTE | 2020-03-24 13:41 | PRG ---
DATE OF SERVICE: 03/24/2020 This is 35 minutes of critical care time. SUBJECTIVE: The patient remains stable on mechanical ventilation. He will wake up and follow commands. OBJECTIVE: VITAL SIGNS: Temperature 98.6, pulse 68, blood pressure 156/75, O2 saturation 96%. 24-hour intake 3821 and output 2725. HEENT: Unremarkable. NECK: No JVD. LUNGS: Clear anteriorly. CARDIAC: S1 and S2. Regular. ABDOMEN: Soft. EXTREMITIES: Edematous. LABORATORY DATA: Sodium 143, potassium 4.5, chloride 109, CO2 of 22, BUN 68, creatinine 1.9, glucose 168. White blood cell count 7.3, hematocrit 32.4, and platelet count 263. X-ray shows bilateral infiltrates, maybe some clearing. ASSESSMENT: 1. COVID-19 pneumonia. 2. Acute hypoxic respiratory failure requiring mechanical ventilation. 3. Mild renal dysfunction. 4. Improved blood sugars, on continuous insulin drip. PLAN: I have decreased his high PEEP and decreased his FiO2. He is going to hopefully get in the situation in the next day or two, where we can start aggressively weaning him from mechanical ventilation. He is continuing steroids and anticoagulation. I will update his family. Job ID: [id number]
--- NOTE | 2020-03-24 14:30 | PDOC.HOSPP ---
- Subjective Encounter Date: 03/24/20 Encounter Time: 14:28 non-verbal Subjective: Mr. Woods remains intubated and mechanically ventilated. I did call his family yesterday and updated them about the plan of care. He remains on a ventilator and I will defer to critical care team about weaning. - Objective Vital Signs & Weight: Vital Signs (12 hours) Temp Pulse Resp BP Pulse Ox 03/24/20 12:00 22 H 03/24/20 10:20 71 190/86 H 03/24/20 10:00 28 H 03/24/20 09:15 65 174/83 H 03/24/20 08:00 98.6 F 22 H 94 L 03/24/20 06:47 65 174/83 H 03/24/20 06:00 22 H 03/24/20 04:00 22 H Weight Admit Weight 276 lb Weight 292 lb 1.8 oz Most Recent Monitor Data Heart Rate from ECG 68 NIBP 156/75 NIBP BP-Mean 102 Respiration from ECG 22 SpO2 96 I&O: 03/23/20 03/24/20 03/25/20 06:59 06:59 06:59 Intake Total 3632 3821.0 300 Output Total 1760 2725 930 Balance 1872 1096.0 -630 Result Diagrams: 03/24/20 03:15 03/24/20 03:15 Additional Labs: Accuchecks 03/24/20 03/24/20 03/24/20 14:09 12:27 11:25 POC Glucose 167 H 159 H 163 H 03/24/20 03/24/20 03/24/20 10:06 09:28 08:36 POC Glucose 148 H 131 H 127 H 03/24/20 03/24/20 03/24/20 07:25 06:03 03:00 POC Glucose 150 H 120 H 176 H 03/24/20 03/23/20 03/23/20 01:06 23:24 20:29 POC Glucose 177 H 184 H 202 H 03/23/20 03/23/20 03/23/20 19:16 17:55 15:54 POC Glucose 184 H 189 H 209 H Radiology Reviewed by me: Yes EKG Reviewed by me: Yes Hospitalist ROS - Review of Systems Constitutional: reports: weakness Gastrointestinal: reports: nausea Neurological: reports: weakness - Medication Medications: Active Medications Generic Name Dose Route Start Last Admin Trade Name Benjamínq PRN Reason Stop Dose Admin Acetaminophen 650 mg 03/18/20 14:41 03/20/20 08:17 Acetaminophen 325 Mg Tab PO 650 mg Q4H PRN Administration Headache/Fever/Mild Pain (1-3) Amlodipine Besylate 10 mg 03/21/20 09:00 03/24/20 09:15 Amlodipine 10 Mg Tab PER TUBE 10 mg DAILY SYDNEE Administration Apixaban 5 mg 03/20/20 21:00 03/24/20 09:16 Apixaban 5 Mg Tab PER TUBE 5 mg BID SYDNEE Administration Ascorbic Acid 1,000 mg 03/20/20 09:00 03/24/20 09:15 Ascorbic Acid 500 Mg Chewable Tablet PO 1,000 mg DAILY SYDNEE Administration Aspirin 81 mg 03/21/20 09:00 03/24/20 09:14 Aspirin Chewable 81 Mg Tab PO 81 mg DAILY SYDNEE Administration Atorvastatin Calcium 40 mg 03/18/20 21:00 03/23/20 19:10 Atorvastatin Calcium 40 Mg Tab PO 40 mg HS SYDNEE Administration Bisoprolol Fumarate 5 mg 03/19/20 09:00 03/24/20 09:17 Bisoprolol Fumarate 5 Mg Tab PO 5 mg DAILY SYDNEE Administration Cholecalciferol 400 units 03/20/20 09:00 03/24/20 09:15 Cholecalciferol (Vitamin D3) 400 Units Tab PO 400 units DAILY SYDNEE Administration Clonidine 0.2 mg 03/21/20 15:00 03/21/20 15:48 Clonidine 0.2mg/24 Hour Patch TD 0.2 mg Q7DAYS@1500 SYDNEE Administration Dexamethasone 8 mg 03/20/20 09:00 03/24/20 09:16 Dexamethasone 4 Mg/Ml Vial SLOW IVP 8 mg DAILY SYDNEE Administration Doxazosin Mesylate 2 mg 03/19/20 09:00 03/24/20 09:16 Doxazosin 2 Mg Tab PO 2 mg DAILY SYDNEE Administration Dutasteride 0.5 mg 03/19/20 09:00 03/24/20 09:16 Dutasteride 0.5 Mg Cap PO 0.5 mg DAILY SYDNEE Administration Azithromycin 500 mg/ Sodium 250 mls @ 250 mls/hr 03/19/20 14:00 03/23/20 14:12 Chloride IVPB 250 mls 1400 SYDNEE Administration Fentanyl 100 mls @ 0 mls/hr 03/20/20 14:00 03/24/20 02:54 Fentanyl Cadd IV 04/19/20 14:00 100 mls INF SYDNEE Administration Protocol Per Protocol Sodium Bicarbonate 70 meq/ 1,070 mls @ 75 mls/hr 03/21/20 07:45 03/24/20 11:10 Sodium Chloride IV 1,070 mls .[id number] SYDNEE Administration Nicardipine HCl 25 mg/ Sodium 250 mls @ 0 mls/hr 03/21/20 19:30 03/22/20 10:41 Chloride IVPB 250 mls INF SYDNEE Administration Protocol Titrate Insulin Human Regular 100 101 mls @ 0 mls/hr 03/23/20 12:30 03/24/20 05:12 units/ Sodium Chloride IVPB 101 mls INF SYDNEE Administration Protocol Titrate Midazolam HCl 100 mls @ 0 mls/hr 03/23/20 12:30 03/24/20 13:33 Versed IVPB 100 mls INF SYDNEE Administration Protocol Titrate Labetalol HCl 40 mg 03/21/20 07:34 03/21/20 12:54 Labetalol Hcl 100 Mg/20 Ml Vial SLOW IVP 8 ml Q4H PRN Administration SBP Greater Than 180 Lorazepam 2 mg 03/20/20 14:00 03/22/20 13:45 Lorazepam 2 Mg/Ml Vial SLOW IVP 04/19/20 14:00 2 mg Q1H PRN Administration Breakthrough agitation Minoxidil 5 mg 03/24/20 09:00 03/24/20 09:14 Minoxidil 2.5 Mg Tab PER TUBE 5 mg DAILY SYDNEE Administration Morphine Sulfate 2 mg 03/20/20 14:00 03/22/20 13:45 Morphine 2 Mg/Ml Vial SLOW IVP 04/19/20 14:00 2 mg Q1H PRN Administration Breakthrough Pain/Agitation Pantoprazole Sodium 40 mg 03/21/20 09:00 03/24/20 09:15 Pantoprazole 40 Mg Granules Packet PER TUBE 40 mg DAILY SYDNEE Administration Propofol 1,000 mg 03/20/20 14:00 03/24/20 02:55 Propofol 1,000 Mg/100 Ml Vial IV 04/19/20 14:00 1,000 mg INF PRN Administration TO ACHIEVE GOAL RASS Protocol Vecuronium [place] 10 mg 03/20/20 12:37 01/15/21 13:44 Vecuronium 10 Mg Vial IVP 10 mg Q30MIN PRN Administration Agitation Zinc Sulfate 220 mg 03/20/20 09:00 03/24/20 09:16 Zinc Sulfate 220 Mg Cap PO 220 mg DAILY SYDNEE Administration - Exam General Appearance: NAD, ill appearing Eye: PERRL, anicteric sclera ENT: normocephalic atraumatic, no oropharyngeal lesions Neck: supple, symmetric, no JVD, no thyromegaly Heart: RRR, no murmur, no gallops, no rubs, normal peripheral pulses Respiratory: CTAB, no wheezes, no rales, no ronchi, normal chest expansion Gastrointestinal: soft, non-tender, non-distended, normal bowel sounds Neurological: no focal deficits, no new deficit Musculoskeletal: generalized weakness Psychiatric: not oriented, somnolent, lethargic Hosp A/P (1) Acute respiratory failure with hypoxia Code(s): J96.01 - ACUTE RESPIRATORY FAILURE WITH HYPOXIA Status: Acute Plan: He continues to tolerate mechanical ventilation. We appreciate pulmonary and critical care services. His prognosis is guarded. I did discuss with his family yesterday. (2) Pneumonia due to COVID-19 virus Code(s): U07.1 - COVID-19; J12.82 - PNEUMONIA DUE TO CORONAVIRUS DISEASE 2019 Status: Acute (3) Morbid obesity Code(s): E66.01 - MORBID (SEVERE) OBESITY DUE TO EXCESS CALORIES Status: Acute (4) Diabetes mellitus Code(s): E11.9 - TYPE 2 DIABETES MELLITUS WITHOUT COMPLICATIONS Status: Chronic Qualifiers: Diabetes mellitus bed bug exterminator insulin use: with bed bug exterminator use Diabetes mellitus complication status: with hyperglycemia - Plan old records reviewed/req, plan discussed w/ family, continue antibiotics, respiratory therapy
[2020-03-24] MEDS: Azithromycin 500 MG in Sodium Chloride 0.9% 250 ML 250 ML IVPB SCH (15:04)
[2020-03-24] MEDS: hydrALAZINE 20 MG/ML VIAL SLOW IVP PRN (19:38)
[2020-03-24] MEDS: Atorvastatin Calcium 40 MG TAB PO SCH (19:38)
[2020-03-24] MEDS ORDERED: Fentanyl CADD 100 ML ONE (20:30)
[2020-03-25] MEDS: Sodium Bicarbonate 70 MEQ in Sodium Chloride 0.45% 1,000 ML IV SCH (02:09)
[2020-03-25 05:39] LABS: #Eosinphils 0.1 thou/uL (0.0-0.7); #Lymphocytes 0.5 thou/uL (1.20-3.40); #Monocytes 0.8 thou/uL (0.11-0.59); #Neutrophils 7.5 thou/uL (1.40-6.50); %Basophils 0.3 % (0.0-1.0); %Eosinophils 0.9 % (0.0-10.0); %Lymphocytes 5.9 % (21.0-51.0); %Monocytes 8.5 % (0.0-10.0); %Neutrophils 84.4 % (42.0-75.0); Hemoglobin 10.5 g/dL (14.0-18.0); Mean Corpuscular HGB CONC 32.9 g/dL (32.0-36.0); Mean Corpuscular Hemoglobin 30.5 pg (27.0-31.0); Mean Corpuscular Volume 92.8 fL (78.0-98.0); Mean Platelet Volume 8.3 fL (7.4-10.4); Platelet Count 263 thou/uL (130-400); RBC Distribution Width 12.1 % (11.5-14.5); Red Blood Cell (RBC) Count 3.44 mill/uL (4.70-6.10); White Blood Cell (WBC) Count 8.9 thou/uL (4.8-10.8)
[2020-03-25 06:17] LABS: Anion Gap 15 mmol/L (10-20); BUN (Urea Nitrogen) 77 mg/dL (8.4-25.7); Calc. Creatinine Clearance 63 mL/min (70-130); Calcium 8.3 mg/dL (7.8-10.44); Carbon Dioxide 26 mmol/L (23-31); Chloride 109 mmol/L (98-107); Glucose 159 mg/dL (83-110); Potassium 4.5 mmol/L (3.5-5.1); Sodium 145 mmol/L (136-145)
[2020-03-25] MEDS: HUMULIN R 100 UNITS in Sodium Chloride 0.9% 100 ML IVPB SCH (06:36)
[2020-03-25] MEDS ORDERED: Dextrose 5% in Water 1,000 ML IV PRN (08:12)
[2020-03-25] MEDS ORDERED: Dextrose 50% Abboject 50 ML SYRINGE SLOW IVP PRN (08:12)
[2020-03-25] MEDS: Ascorbic Acid 500 mg Chewable Tablet PO SCH (08:18)
[2020-03-25] MEDS: Apixaban 5 MG TAB PER TUBE SCH ×2 (08:18→20:29)
[2020-03-25] MEDS: Amlodipine 10 MG TAB PER TUBE SCH (08:19)
[2020-03-25] MEDS: Doxazosin 2 MG TAB PO SCH (08:19)
[2020-03-25] MEDS: Minoxidil 2.5 MG TAB PER TUBE SCH (08:19)
[2020-03-25] MEDS: Dutasteride 0.5 MG CAP PO SCH (08:19)
[2020-03-25] MEDS: Zinc Sulfate 220 MG CAP PO SCH (08:19)
[2020-03-25] MEDS: Cholecalciferol (Vitamin D3) 400 UNITS TAB PO SCH (08:19)
[2020-03-25] MEDS: Aspirin Chewable 81 MG TAB PO SCH (08:19)
[2020-03-25] MEDS: Bisoprolol Fumarate 5 MG TAB PO SCH (08:20)
[2020-03-25] MEDS: Dexamethasone 4 mg/ml Vial SLOW IVP SCH (08:20)
[2020-03-25] MEDS: Pantoprazole 40 MG GRANULES PACKET PER TUBE SCH (08:21)
--- NOTE | 2020-03-25 08:25 | PRG ---
DATE OF SERVICE: 03/25/2020 35 minutes of critical care time. SUBJECTIVE: The patient remains intubated on mechanical ventilation. He will wake up and follow some commands. OBJECTIVE: VITAL SIGNS: Temperature 98.6, pulse 71, respirations 21, blood pressure 156/82. Currently, insulin drip at 3 units/hour. 24-hour intake 3222, output 2705. HEENT: Unremarkable. NECK: No adenopathy or JVD. LUNGS: Coarse breath sounds. CARDIAC: S1 and S2, regular. ABDOMEN: Soft. EXTREMITIES: No edema. LABORATORY DATA: White blood cell count 8.9, hematocrit 31.9, and platelet count 263. Sodium 145, potassium 4.5, chloride 109, CO2 of 26, BUN 77, creatinine 1.9, glucose 159. Ferritin 1489. Chest x-ray shows bilateral infiltrates, unchanged from previous. ASSESSMENT: 1. COVID-19 pneumonia. 2. Acute hypoxic respiratory failure, requiring mechanical ventilation - right now on bilevel ventilation with a FiO2 of 40%. 3. Renal dysfunction. 4. Diabetes mellitus. PLAN: 1. I will try transition him over to long-acting insulin today. 2. Cut the corticosteroid dose. 3. Initiate physical therapy. 4. Try to slowly wean mechanical ventilation. Job ID: [id number]
--- NOTE | 2020-03-25 08:31 | RAD ---
Portable frontal chest radiograph: 03/25/2020 COMPARISON: 03/24/2020 HISTORY: Pneumonia FINDINGS: The endotracheal tube and nasogastric tube appear stable. There is diffuse interstitial and alveolar opacity with a perihilar and bibasilar predominance, not significantly changed when compared to the prior examination. IMPRESSION: No significant interval change.
[2020-03-25] MEDS: NPH, Human Insulin Isophane 300 UNIT/3 ML VIAL SC SCH ×2 (09:48→20:30)
[2020-03-25] MEDS: Azithromycin 500 MG in Sodium Chloride 0.9% 250 ML 250 ML IVPB SCH (13:04)
[2020-03-25] MEDS: HumaLOG 300 UNITS/3 ML VIAL SC PRN ×2 (13:08→17:12)
[2020-03-25] MEDS ORDERED: Fentanyl CADD 100 ML ONE (14:36)
--- NOTE | 2020-03-25 16:54 | PDOC.HOSPP ---
- Subjective Encounter Date: 03/25/20 Encounter Time: 16:52 Subjective: The patient remains intubated and ventilated. No acute issues per nursing staff. We will continue current management plan. - Objective Vital Signs & Weight: Vital Signs (12 hours) Temp Pulse Resp BP Pulse Ox 03/25/20 16:00 98 F 03/25/20 14:35 73 03/25/20 12:00 97.7 F 03/25/20 11:59 76 03/25/20 08:19 72 155/72 H 03/25/20 08:00 98.8 F 96 03/25/20 06:00 24 H Weight Admit Weight 276 lb Weight 288 lb 5.834 oz Most Recent Monitor Data Heart Rate from ECG 87 NIBP 152/75 NIBP BP-Mean 100 Respiration from ECG 26 SpO2 100 I&O: 03/24/20 03/25/20 03/26/20 06:59 06:59 06:59 Intake Total 3821.0 3222.6 250 Output Total 2725 2705 835 Balance 1096.0 517.6 -585 Result Diagrams: 03/25/20 04:00 03/25/20 04:00 Additional Labs: Accuchecks 03/25/20 03/25/20 03/25/20 12:58 06:06 04:02 POC Glucose 179 H 140 H 147 H 03/25/20 03/25/20 03/25/20 02:23 01:23 00:14 POC Glucose 165 H 168 H 137 H 03/24/20 03/24/20 03/24/20 22:10 20:22 18:06 POC Glucose 158 H 147 H 168 H 03/23/20 03/23/20 03/23/20 22:05 17:07 14:32 POC Glucose 175 H 209 H 208 H Radiology Reviewed by me: Yes EKG Reviewed by me: Yes Hospitalist ROS - Review of Systems ROS unobtainable: due to endotracheal tube Constitutional: reports: weakness Gastrointestinal: reports: nausea Neurological: reports: weakness - Medication Medications: Active Medications Generic Name Dose Route Start Last Admin Trade Name Freq PRN Reason Stop Dose Admin Acetaminophen 650 mg 03/18/20 14:41 03/20/20 08:17 Acetaminophen 325 Mg Tab PO 650 mg Q4H PRN Administration Headache/Fever/Mild Pain (1-3) Amlodipine Besylate 10 mg 03/21/20 09:00 03/25/20 08:19 Amlodipine 10 Mg Tab PER TUBE 10 mg DAILY SYDNEE Administration Apixaban 5 mg 03/20/20 21:00 03/25/20 08:18 Apixaban 5 Mg Tab PER TUBE 5 mg BID SYDNEE Administration Ascorbic Acid 1,000 mg 03/20/20 09:00 03/25/20 08:18 Ascorbic Acid 500 Mg Chewable Tablet PO 1,000 mg DAILY SYDNEE Administration Aspirin 81 mg 03/21/20 09:00 03/25/20 08:19 Aspirin Chewable 81 Mg Tab PO 81 mg DAILY SYDNEE Administration Atorvastatin Calcium 40 mg 03/18/20 21:00 03/24/20 19:38 Atorvastatin Calcium 40 Mg Tab PO 40 mg HS SYDNEE Administration Bisoprolol Fumarate 5 mg 03/19/20 09:00 03/25/20 08:20 Bisoprolol Fumarate 5 Mg Tab PO 5 mg DAILY SYDNEE Administration Cholecalciferol 400 units 03/20/20 09:00 03/25/20 08:19 Cholecalciferol (Vitamin D3) 400 Units Tab PO 400 units DAILY SYDNEE Administration Clonidine 0.2 mg 03/21/20 15:00 03/21/20 15:48 Clonidine 0.2mg/24 Hour Patch TD 0.2 mg Q7DAYS@1500 SYDNEE Administration Dexamethasone 4 mg 03/25/20 09:00 03/25/20 08:20 Dexamethasone 4 Mg/Ml Vial SLOW IVP 4 mg DAILY SYDNEE Administration Doxazosin Mesylate 2 mg 03/19/20 09:00 03/25/20 08:19 Doxazosin 2 Mg Tab PO 2 mg DAILY SYDNEE Administration Dutasteride 0.5 mg 03/19/20 09:00 03/25/20 08:19 Dutasteride 0.5 Mg Cap PO 0.5 mg DAILY SYDNEE Administration Hydralazine HCl 20 mg 03/21/20 13:50 03/24/20 19:38 Hydralazine 20 Mg/Ml Vial SLOW IVP 20 mg Q4H PRN Administration SBP>170 Azithromycin 500 mg/ Sodium 250 mls @ 250 mls/hr 03/19/20 14:00 03/25/20 13:04 Chloride IVPB 250 mls 1400 SYDNEE Administration Fentanyl 100 mls @ 0 mls/hr 03/20/20 14:00 03/24/20 22:03 Fentanyl Cadd IV 04/19/20 14:00 100 mls INF SYDNEE Administration Protocol Per Protocol Nicardipine HCl 25 mg/ Sodium 250 mls @ 0 mls/hr 03/21/20 19:30 03/22/20 10:41 Chloride IVPB 250 mls INF SYDNEE Administration Protocol Titrate Insulin Human Regular 100 101 mls @ 0 mls/hr 03/23/20 12:30 03/25/20 06:36 units/ Sodium Chloride IVPB 101 mls INF SYDNEE Administration Protocol Titrate Midazolam HCl 100 mls @ 0 mls/hr 03/23/20 12:30 03/25/20 14:51 Versed IVPB 100 mls INF SYDNEE Administration Protocol Titrate Insulin Human Lispro 0 units 03/25/20 08:12 03/25/20 13:08 Humalog 300 Units/3 Ml Vial SC 3 unit .AGGRESSIVE SLIDING PRN Administration Aggressive Correctional Scale Insulin Human NPH 45 unit 03/25/20 09:00 03/25/20 09:48 Nph, Human Insulin Isophane 300 Unit/3 Ml Vial SC 45 unit BID SYDNEE Administration Labetalol HCl 40 mg 03/21/20 07:34 03/21/20 12:54 Labetalol Hcl 100 Mg/20 Ml Vial SLOW IVP 8 ml Q4H PRN Administration SBP Greater Than 180 Lorazepam 2 mg 03/20/20 14:00 03/22/20 13:45 Lorazepam 2 Mg/Ml Vial SLOW IVP 04/19/20 14:00 2 mg Q1H PRN Administration Breakthrough agitation Minoxidil 5 mg 03/24/20 09:00 03/25/20 08:19 Minoxidil 2.5 Mg Tab PER TUBE 5 mg DAILY SYDNEE Administration Morphine Sulfate 2 mg 03/20/20 14:00 03/22/20 13:45 Morphine 2 Mg/Ml Vial SLOW IVP 04/19/20 14:00 2 mg Q1H PRN Administration Breakthrough Pain/Agitation Pantoprazole Sodium 40 mg 03/21/20 09:00 03/25/20 08:21 Pantoprazole 40 Mg Granules Packet PER TUBE 40 mg DAILY SYDNEE Administration Propofol 1,000 mg 03/20/20 14:00 03/24/20 02:55 Propofol 1,000 Mg/100 Ml Vial IV 04/19/20 14:00 1,000 mg INF PRN Administration TO ACHIEVE GOAL RASS Protocol Vecuronium [place] 10 mg 03/20/20 12:37 03/22/20 13:44 Vecuronium 10 Mg Vial IVP 10 mg Q30MIN PRN Administration Agitation Zinc Sulfate 220 mg 03/20/20 09:00 03/25/20 08:19 Zinc Sulfate 220 Mg Cap PO 220 mg DAILY SYDNEE Administration - Exam General Appearance: NAD, ill appearing Eye: PERRL, anicteric sclera ENT: normocephalic atraumatic, no oropharyngeal lesions Neck: supple, symmetric Heart: RRR, no murmur, no gallops, no rubs Respiratory: CTAB, no wheezes Gastrointestinal: soft, non-tender, non-distended Neurological: cranial nerve grossly intact Psychiatric: not oriented, somnolent, lethargic Hosp A/P (1) Acute respiratory failure with hypoxia Code(s): J96.01 - ACUTE RESPIRATORY FAILURE WITH HYPOXIA Status: Acute (2) Pneumonia due to COVID-19 virus Code(s): U07.1 - COVID-19; J12.82 - PNEUMONIA DUE TO CORONAVIRUS DISEASE 2019 Status: Acute (3) Morbid obesity Code(s): E66.01 - MORBID (SEVERE) OBESITY DUE TO EXCESS CALORIES Status: Acute (4) Diabetes mellitus Code(s): E11.9 - TYPE 2 DIABETES MELLITUS WITHOUT COMPLICATIONS Status: Chronic Qualifiers: Diabetes mellitus senior living insulin use: with terminal 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
[2020-03-25] MEDS: Atorvastatin Calcium 40 MG TAB PO SCH (20:29)
[2020-03-26] MEDS: HumaLOG 300 UNITS/3 ML VIAL SC PRN ×5 (00:16→20:44)
[2020-03-26 04:56] LABS: #Eosinphils 0.1 thou/uL (0.0-0.7); #Lymphocytes 0.6 thou/uL (1.20-3.40); #Monocytes 0.8 thou/uL (0.11-0.59); #Neutrophils 6.7 thou/uL (1.40-6.50); %Basophils 0.1 % (0.0-1.0); %Eosinophils 1.3 % (0.0-10.0); %Lymphocytes 7.5 % (21.0-51.0); %Monocytes 9.9 % (0.0-10.0); %Neutrophils 81.3 % (42.0-75.0); Hemoglobin 10.1 g/dL (14.0-18.0); Mean Corpuscular HGB CONC 33.6 g/dL (32.0-36.0); Mean Corpuscular Hemoglobin 31.2 pg (27.0-31.0); Mean Corpuscular Volume 93.1 fL (78.0-98.0); Mean Platelet Volume 8.4 fL (7.4-10.4); Platelet Count 233 thou/uL (130-400); Red Blood Cell (RBC) Count 3.23 mill/uL (4.70-6.10); White Blood Cell (WBC) Count 8.2 thou/uL (4.8-10.8)
[2020-03-26 05:09] LABS: Anion Gap 16 mmol/L (10-20); BUN (Urea Nitrogen) 89 mg/dL (8.4-25.7); Calc. Creatinine Clearance 60 mL/min (70-130); Calcium 8.4 mg/dL (7.8-10.44); Carbon Dioxide 26 mmol/L (23-31); Chloride 110 mmol/L (98-107); Glucose 188 mg/dL (83-110); Potassium 4.5 mmol/L (3.5-5.1); Sodium 147 mmol/L (136-145)
--- NOTE | 2020-03-26 08:03 | RAD ---
XR Chest 1 View Portable History: Pneumonia Comparison: Radiograph prior day Findings: Enteric tube tip below diaphragm although out of field of view. Endotracheal tube tip felt to be at the clavicular level. Airspace opacities throughout the lungs are relatively similar. No pneumothorax. No pneumomediastinum . Impression: Similar examination of the chest without improved lung aeration. Relative to a chest radi ograph 1 week prior, findings are also relatively similar.
--- NOTE | 2020-03-26 08:04 | PRG ---
DATE OF SERVICE: 03/26/2020 30 minutes of critical care time. SUBJECTIVE: The patient remains intubated on mechanical ventilation. He will open his eyes to command. OBJECTIVE: VITAL SIGNS: His temperature is 99.3 with no fever overnight, pulse 83, blood pressure 166/80. Currently, sedated on Versed and fentanyl. His 24-hour intake was 3226, output 2705. He has been in persistent positive fluid balance and his weight is 285, up from 276 on 03/21/2020. HEENT: Unchanged. NECK: No JVD. LUNGS: Coarse breath sounds anteriorly. CARDIOVASCULAR: S1, S2. Regular. ABDOMEN: Obese, soft, nontender. EXTREMITIES: Slight edema throughout. LABORATORY DATA: Sodium 147, potassium 4.5, chloride 110, CO2 of 26, BUN 89, creatinine 2.0, and glucose 188. White blood cell count 8.2, hematocrit 30, and platelet count 233. His x-ray shows bilateral infiltrative changes which are stable. ASSESSMENT: 1. COVID-19 pneumonia. 2. Acute renal dysfunction. 3. Diabetes mellitus. PLAN: 1. He seems to have a free water deficit, so I will add free water through his tube feeds. 2. I have decreased his respiratory rate to 15, high pressure to 22 and his low pressure to 12. His FiO2 remains at 40%. I think it will be a very slow wean on this patient. Job ID: [id number]
[2020-03-26] MEDS: NPH, Human Insulin Isophane 300 UNIT/3 ML VIAL SC SCH ×2 (09:00→20:51)
[2020-03-26] MEDS ORDERED: Fentanyl CADD 100 ML ONE (09:02)
[2020-03-26] MEDS: Fentanyl CADD 100 ML IV SCH (09:06)
[2020-03-26] MEDS: Bisoprolol Fumarate 5 MG TAB PO SCH (09:06)
[2020-03-26] MEDS: Doxazosin 2 MG TAB PO SCH (09:06)
[2020-03-26] MEDS: Ascorbic Acid 500 mg Chewable Tablet PO SCH (09:07)
[2020-03-26] MEDS: Minoxidil 2.5 MG TAB PER TUBE SCH (09:07)
[2020-03-26] MEDS: Cholecalciferol (Vitamin D3) 400 UNITS TAB PO SCH (09:07)
[2020-03-26] MEDS: Aspirin Chewable 81 MG TAB PO SCH (09:07)
[2020-03-26] MEDS: Zinc Sulfate 220 MG CAP PO SCH (09:07)
[2020-03-26] MEDS: Dutasteride 0.5 MG CAP PO SCH (09:07)
[2020-03-26] MEDS: Amlodipine 10 MG TAB PER TUBE SCH (09:07)
[2020-03-26] MEDS: Pantoprazole 40 MG GRANULES PACKET PER TUBE SCH (09:07)
[2020-03-26] MEDS: Apixaban 5 MG TAB PER TUBE SCH ×2 (09:07→20:44)
[2020-03-26] MEDS: Dexamethasone 4 mg/ml Vial SLOW IVP SCH (09:08)
[2020-03-26] MEDS: Azithromycin 500 MG in Sodium Chloride 0.9% 250 ML 250 ML IVPB SCH (15:10)
--- NOTE | 2020-03-26 15:46 | PDOC.HOSPP ---
- Subjective Encounter Date: 03/26/20 Encounter Time: 15:44 non-verbal Subjective: I saw and evaluated Mr. Woods today. He remains on the mechanical ventilator. Critical care team is managing his ventilator. I will defer to them about weaning protocols. He is on ventilator secondary to respiratory failure from COVID-19 pneumonia. He has completed 8 days of azithromycin and I will go ahead and discontinue this today. He has remained afebrile and his white count has since normalized. We will continue supportive care as above. - Objective Vital Signs & Weight: Vital Signs (12 hours) Temp Pulse Resp BP Pulse Ox 03/26/20 14:59 78 03/26/20 10:37 64 03/26/20 10:00 1 L 03/26/20 09:07 75 151/66 H 03/26/20 08:00 98.8 F 22 H 95 03/26/20 06:39 75 03/26/20 06:00 22 H 03/26/20 04:00 99.3 F 23 H Weight Admit Weight 276 lb Weight 285 lb 7.978 oz Most Recent Monitor Data Heart Rate from ECG 70 NIBP 158/81 NIBP BP-Mean 106 Respiration from ECG 16 SpO2 97 I&O: 03/25/20 03/26/20 03/27/20 06:59 06:59 06:59 Intake Total 3222.6 1450.8 60 Output Total 2705 2504 1120 Balance 517.6 -1053.2 -1060 Result Diagrams: 03/26/20 04:05 03/26/20 04:05 Additional Labs: Accuchecks 03/26/20 03/25/20 03/25/20 09:22 23:58 20:35 POC Glucose 186 H 207 H 217 H 03/25/20 03/25/20 17:07 08:42 POC Glucose 195 H 154 H Radiology Reviewed by me: Yes EKG Reviewed by me: Yes Hospitalist ROS - Review of Systems Constitutional: reports: weakness, malaise Gastrointestinal: reports: nausea Neurological: reports: weakness - Medication Medications: Active Medications Generic Name Dose Route Start Last Admin Trade Name Freq PRN Reason Stop Dose Admin Acetaminophen 650 mg 03/18/20 14:41 03/20/20 08:17 Acetaminophen 325 Mg Tab PO 650 mg Q4H PRN Administration Headache/Fever/Mild Pain (1-3) Amlodipine Besylate 10 mg 03/21/20 09:00 03/26/20 09:07 Amlodipine 10 Mg Tab PER TUBE 10 mg DAILY SYDNEE Administration Apixaban 5 mg 03/20/20 21:00 03/26/20 09:07 Apixaban 5 Mg Tab PER TUBE 5 mg BID SYDNEE Administration Ascorbic Acid 1,000 mg 03/20/20 09:00 03/26/20 09:07 Ascorbic Acid 500 Mg Chewable Tablet PO 1,000 mg DAILY SYDNEE Administration Aspirin 81 mg 03/21/20 09:00 03/26/20 09:07 Aspirin Chewable 81 Mg Tab PO 81 mg DAILY SYDNEE Administration Atorvastatin Calcium 40 mg 03/18/20 21:00 03/25/20 20:29 Atorvastatin Calcium 40 Mg Tab PO 40 mg HS SYDNEE Administration Bisoprolol Fumarate 5 mg 03/19/20 09:00 03/26/20 09:06 Bisoprolol Fumarate 5 Mg Tab PO 5 mg DAILY SYDNEE Administration Cholecalciferol 400 units 03/20/20 09:00 03/26/20 09:07 Cholecalciferol (Vitamin D3) 400 Units Tab PO 400 units DAILY SYDNEE Administration Clonidine 0.2 mg 03/21/20 15:00 03/21/20 15:48 Clonidine 0.2mg/24 Hour Patch TD 0.2 mg Q7DAYS@1500 SYDNEE Administration Dexamethasone 4 mg 03/25/20 09:00 03/26/20 09:08 Dexamethasone 4 Mg/Ml Vial SLOW IVP 4 mg DAILY SYDNEE Administration Doxazosin Mesylate 2 mg 03/19/20 09:00 03/26/20 09:06 Doxazosin 2 Mg Tab PO 2 mg DAILY SYDNEE Administration Dutasteride 0.5 mg 03/19/20 09:00 03/26/20 09:07 Dutasteride 0.5 Mg Cap PO 0.5 mg DAILY SYDNEE Administration Hydralazine HCl 20 mg 03/21/20 13:50 03/24/20 19:38 Hydralazine 20 Mg/Ml Vial SLOW IVP 20 mg Q4H PRN Administration SBP>170 Azithromycin 500 mg/ Sodium 250 mls @ 250 mls/hr 03/19/20 14:00 03/26/20 15:10 Chloride IVPB 250 mls 1400 SYDNEE Administration Fentanyl 100 mls @ 0 mls/hr 03/20/20 14:00 03/26/20 09:06 Fentanyl Cadd IV 02/12/21 14:00 100 mls INF SYDNEE Administration Protocol Per Protocol Nicardipine HCl 25 mg/ Sodium 250 mls @ 0 mls/hr 03/21/20 19:30 03/22/20 10:41 Chloride IVPB 250 mls INF SYDNEE Administration Protocol Titrate Insulin Human Regular 100 101 mls @ 0 mls/hr 03/23/20 12:30 03/25/20 06:36 units/ Sodium Chloride IVPB 101 mls INF SYDNEE Administration Protocol Titrate Midazolam HCl 100 mls @ 0 mls/hr 03/23/20 12:30 03/26/20 07:19 Versed IVPB 100 mls INF SYDNEE Administration Protocol Titrate Insulin Human Lispro 0 units 03/25/20 08:12 03/26/20 13:00 Humalog 300 Units/3 Ml Vial SC 3 unit .AGGRESSIVE SLIDING PRN Administration Aggressive Correctional Scale Insulin Human NPH 45 unit 03/25/20 09:00 03/26/20 09:00 Nph, Human Insulin Isophane 300 Unit/3 Ml Vial SC 45 unit BID SYDNEE Administration Labetalol HCl 40 mg 03/21/20 07:34 03/21/20 12:54 Labetalol Hcl 100 Mg/20 Ml Vial SLOW IVP 8 ml Q4H PRN Administration SBP Greater Than 180 Lorazepam 2 mg 03/20/20 14:00 03/22/20 13:45 Lorazepam 2 Mg/Ml Vial SLOW IVP 04/19/20 14:00 2 mg Q1H PRN Administration Breakthrough agitation Minoxidil 5 mg 03/24/20 09:00 03/26/20 09:07 Minoxidil 2.5 Mg Tab PER TUBE 5 mg DAILY SYDNEE Administration Morphine Sulfate 2 mg 03/20/20 14:00 03/22/20 13:45 Morphine 2 Mg/Ml Vial SLOW IVP 04/19/20 14:00 2 mg Q1H PRN Administration Breakthrough Pain/Agitation Pantoprazole Sodium 40 mg 03/21/20 09:00 03/26/20 09:07 Pantoprazole 40 Mg Granules Packet PER TUBE 40 mg DAILY SYDNEE Administration Vecuronium [place] 10 mg 03/20/20 12:37 03/22/20 13:44 Vecuronium 10 Mg Vial IVP 10 mg Q30MIN PRN Administration Agitation Zinc Sulfate 220 mg 03/20/20 09:00 03/26/20 09:07 Zinc Sulfate 220 Mg Cap PO 220 mg DAILY SYDNEE Administration - Exam General Appearance: NAD, ill appearing Eye: PERRL ENT: normocephalic atraumatic, no oropharyngeal lesions Neck: supple, symmetric, no JVD, no thyromegaly, no lymphadenopathy Heart: RRR, no murmur, no gallops, no rubs, normal peripheral pulses Respiratory: CTAB, no wheezes, no rales, no ronchi, normal chest expansion Gastrointestinal: soft, non-tender, non-distended, normal bowel sounds Musculoskeletal: generalized weakness Psychiatric: not oriented, somnolent, lethargic Hosp A/P (1) Acute respiratory failure with hypoxia Code(s): J96.01 - ACUTE RESPIRATORY FAILURE WITH HYPOXIA Status: Acute (2) Pneumonia due to COVID-19 virus Code(s): U07.1 - COVID-19; J12.82 - PNEUMONIA DUE TO CORONAVIRUS DISEASE 2019 Status: Acute (3) Morbid obesity Code(s): E66.01 - MORBID (SEVERE) OBESITY DUE TO EXCESS CALORIES Status: Acute (4) Diabetes mellitus Code(s): E11.9 - TYPE 2 DIABETES MELLITUS WITHOUT COMPLICATIONS Status: Chronic Qualifiers: Diabetes mellitus fci insulin use: with fci use Diabetes mellitus complication status: with hyperglycemia - Plan plan discussed w/ family, PT/OT, respiratory therapy, incentive spirometry, DVT proph w/lovenox, GI proph Consults: Palliative Care 03/26/2020. Mr. Woods remains on mechanical ventilation. He has respiratory failure secondary to COVID-19 pneumonia. I did call and speak with his family day before yesterday and updated them about plan of care. Will defer to the critical care team about any weaning protocols.
[2020-03-26] MEDS: Atorvastatin Calcium 40 MG TAB PO SCH (20:44)
[2020-03-27] MEDS: HumaLOG 300 UNITS/3 ML VIAL SC PRN ×4 (01:16→20:37)
[2020-03-27] MEDS ORDERED: Fentanyl CADD 0 ML ONE (05:27)
[2020-03-27] MEDS: Fentanyl CADD 100 ML IV SCH (05:38)
[2020-03-27 05:47] LABS: #Eosinphils 0.1 thou/uL (0.0-0.7); #Lymphocytes 0.7 thou/uL (1.20-3.40); #Monocytes 0.7 thou/uL (0.11-0.59); #Neutrophils 6.4 thou/uL (1.40-6.50); %Basophils 0.3 % (0.0-1.0); %Eosinophils 1.4 % (0.0-10.0); %Lymphocytes 8.7 % (21.0-51.0); %Monocytes 8.9 % (0.0-10.0); %Neutrophils 80.6 % (42.0-75.0); Hemoglobin 10.1 g/dL (14.0-18.0); Mean Corpuscular HGB CONC 32.3 g/dL (32.0-36.0); Mean Corpuscular Hemoglobin 30.4 pg (27.0-31.0); Mean Platelet Volume 8.6 fL (7.4-10.4); Platelet Count 248 thou/uL (130-400); RBC Distribution Width 11.9 % (11.5-14.5); Red Blood Cell (RBC) Count 3.32 mill/uL (4.70-6.10); White Blood Cell (WBC) Count 7.9 thou/uL (4.8-10.8)
[2020-03-27 06:01] LABS: Anion Gap 13 mmol/L (10-20); BUN (Urea Nitrogen) 95 mg/dL (8.4-25.7); Calc. Creatinine Clearance 55 mL/min (70-130); Calcium 8.7 mg/dL (7.8-10.44); Carbon Dioxide 27 mmol/L (23-31); Chloride 111 mmol/L (98-107); Glucose 163 mg/dL (83-110); Potassium 4.8 mmol/L (3.5-5.1); Sodium 146 mmol/L (136-145)
--- NOTE | 2020-03-27 08:33 | RAD ---
PORTABLE CHEST: Date: 03/27/2020 INDICATION: Pneumonia follow-up. CCU follow-up. COMPARISON: 03/26/2020. FINDINGS: There are bilateral confluent infiltrates, most prominent in the lower lung saha. ET tube is unchan ged. No evidence of acute interval change. IMPRESSION: Stable bilateral infiltrates. POS: OFF
--- NOTE | 2020-03-27 08:51 | PRG ---
DATE OF SERVICE: 03/27/2020 35 minutes of critical care time. SUBJECTIVE: The patient remains intubated on mechanical ventilation. There have been no acute changes overnight. I find him deeply sedated on Versed and fentanyl to the point where he is not waking up and following commands. OBJECTIVE: VITAL SIGNS: Temperature 98.8, pulse 90, blood pressure , and O2 saturation 87%. 24-four intake 1879, output 2685. HEENT: Unremarkable. NECK: No adenopathy or JVD. LUNGS: Clear anteriorly. CARDIAC: S1, S2. Regular. ABDOMEN: Soft. EXTREMITIES: No edema. LABORATORY DATA: Sodium down to 146 from 147, potassium 4.8, chloride 111, CO2 of 27, BUN 95, creatinine 2.2, glucose 163. White blood cell count 7.9, hematocrit 31.2, and platelet count 248. ASSESSMENT: 1. Acute respiratory failure requiring mechanical ventilation. 2. COVID-19 pneumonia. 3. Worsening renal insufficiency. 4. Hypernatremia, slightly improved with free water administration yesterday. PLAN: 1. We will go ahead and give him some IV fluids today to see if that will help with his kidney numbers. 2. Switch over to SIMV mode and wean PEEP as tolerated. 3. Reduce Versed. Job ID: [id number]
[2020-03-27] MEDS: Bisoprolol Fumarate 5 MG TAB PO SCH (09:00)
[2020-03-27] MEDS: Sodium Chloride 0.45% 1,000 ML IV SCH ×2 (09:10→19:59)
[2020-03-27] MEDS: Pantoprazole 40 MG GRANULES PACKET PER TUBE SCH (09:12)
[2020-03-27] MEDS: Minoxidil 2.5 MG TAB PER TUBE SCH (09:12)
[2020-03-27] MEDS: Cholecalciferol (Vitamin D3) 400 UNITS TAB PO SCH (09:12)
[2020-03-27] MEDS: Ascorbic Acid 500 mg Chewable Tablet PO SCH (09:12)
[2020-03-27] MEDS: Apixaban 5 MG TAB PER TUBE SCH ×2 (09:12→20:00)
[2020-03-27] MEDS: Dutasteride 0.5 MG CAP PO SCH (09:12)
[2020-03-27] MEDS: Doxazosin 2 MG TAB PO SCH (09:12)
[2020-03-27] MEDS: Amlodipine 10 MG TAB PER TUBE SCH (09:12)
[2020-03-27] MEDS: Dexamethasone 4 mg/ml Vial SLOW IVP SCH (09:12)
[2020-03-27] MEDS: Aspirin Chewable 81 MG TAB PO SCH (09:13)
[2020-03-27] MEDS: Zinc Sulfate 220 MG CAP PO SCH (09:13)
[2020-03-27] MEDS: NPH, Human Insulin Isophane 300 UNIT/3 ML VIAL SC SCH ×2 (10:08→20:34)
[2020-03-27] MEDS: Acetaminophen 325 MG TAB PO PRN (16:17)
[2020-03-27] MEDS ORDERED: Fentanyl CADD 100 ML ONE (17:46)
--- NOTE | 2020-03-27 18:28 | PDOC.HOSPP ---
- Subjective Encounter Date: 03/27/20 Encounter Time: 18:26 Subjective: Mr. Woods was seen and evaluated. He remains intubated and mechanically ventilated. He has respiratory failure secondary to COVID-19 pneumonia. Will defer to the critical care team about weaning. - Objective Vital Signs & Weight: Vital Signs (12 hours) Temp Pulse Resp BP Pulse Ox 03/27/20 16:00 100.1 F H 9 L 03/27/20 14:17 77 142/70 H 03/27/20 14:00 9 L 03/27/20 12:00 99.6 F 9 L 03/27/20 11:48 75 146/68 H 03/27/20 10:00 10 L 03/27/20 09:12 82 151/79 H 03/27/20 08:00 99.8 F H 03/27/20 07:55 82 146/77 H 03/27/20 07:44 82 146/77 H 03/27/20 07:42 97 Weight Admit Weight 276 lb Weight 285 lb 7.968 oz Most Recent Monitor Data Heart Rate from ECG 98 NIBP 182/85 NIBP BP-Mean 117 Respiration from ECG 23 SpO2 97 I&O: 03/26/20 03/27/20 03/28/20 06:59 06:59 06:59 Intake Total 1450.8 1879 1129 Output Total 2504 2685 785 Balance -1053.2 -806 344 Result Diagrams: 03/27/20 05:15 03/27/20 05:15 Additional Labs: Accuchecks 03/27/20 03/27/20 03/27/20 12:40 08:24 05:03 POC Glucose 158 H 170 H 145 H 03/27/20 03/26/20 03/26/20 00:50 20:11 18:21 POC Glucose 176 H 171 H 179 H 03/26/20 12:53 POC Glucose 176 H Radiology Reviewed by me: Yes EKG Reviewed by me: Yes Hospitalist ROS - Review of Systems Constitutional: reports: weakness Gastrointestinal: reports: nausea Neurological: reports: weakness - Medication Medications: Active Medications Generic Name Dose Route Start Last Admin Trade Name Freq PRN Reason Stop Dose Admin Acetaminophen 650 mg 03/18/20 14:41 03/27/20 16:17 Acetaminophen 325 Mg Tab PO 650 mg Q4H PRN Administration Headache/Fever/Mild Pain (1-3) Amlodipine Besylate 10 mg 03/21/20 09:00 03/27/20 09:12 Amlodipine 10 Mg Tab PER TUBE 10 mg DAILY SYDNEE Administration Apixaban 5 mg 03/20/20 21:00 03/27/20 09:12 Apixaban 5 Mg Tab PER TUBE 5 mg BID SYDNEE Administration Ascorbic Acid 1,000 mg 03/20/20 09:00 03/27/20 09:12 Ascorbic Acid 500 Mg Chewable Tablet PO 1,000 mg DAILY SYDNEE Administration Aspirin 81 mg 03/21/20 09:00 03/27/20 09:13 Aspirin Chewable 81 Mg Tab PO 81 mg DAILY SYDNEE Administration Atorvastatin Calcium 40 mg 03/18/20 21:00 03/26/20 20:44 Atorvastatin Calcium 40 Mg Tab PO 40 mg HS SYDNEE Administration Bisoprolol Fumarate 5 mg 03/19/20 09:00 03/27/20 09:00 Bisoprolol Fumarate 5 Mg Tab PO 5 mg DAILY SYDNEE Administration Cholecalciferol 400 units 03/20/20 09:00 03/27/20 09:12 Cholecalciferol (Vitamin D3) 400 Units Tab PO 400 units DAILY SYDNEE Administration Clonidine 0.2 mg 03/21/20 15:00 03/21/20 15:48 Clonidine 0.2mg/24 Hour Patch TD 0.2 mg Q7DAYS@1500 SYDNEE Administration Dexamethasone 4 mg 03/25/20 09:00 03/27/20 09:12 Dexamethasone 4 Mg/Ml Vial SLOW IVP 4 mg DAILY SYDNEE Administration Doxazosin Mesylate 2 mg 03/19/20 09:00 03/27/20 09:12 Doxazosin 2 Mg Tab PO 2 mg DAILY SYDNEE Administration Dutasteride 0.5 mg 03/19/20 09:00 03/27/20 09:12 Dutasteride 0.5 Mg Cap PO 0.5 mg DAILY SYDNEE Administration Hydralazine HCl 20 mg 03/21/20 13:50 03/24/20 19:38 Hydralazine 20 Mg/Ml Vial SLOW IVP 20 mg Q4H PRN Administration SBP>170 Fentanyl 100 mls @ 0 mls/hr 03/20/20 14:00 03/27/20 05:38 Fentanyl Cadd IV 04/19/20 14:00 100 mls INF SYDNEE Administration Protocol Per Protocol Nicardipine HCl 25 mg/ Sodium 250 mls @ 0 mls/hr 03/21/20 19:30 03/22/20 10:41 Chloride IVPB 250 mls INF SYDNEE Administration Protocol Titrate Midazolam HCl 100 mls @ 0 mls/hr 03/23/20 12:30 03/27/20 17:52 Versed IVPB 100 mls INF SYDNEE Administration Protocol Titrate Sodium Chloride 1,000 mls @ 100 mls/hr 03/27/20 08:00 03/27/20 09:10 1/2 Normal Saline IV 03/28/20 03:59 1,000 mls .Q10H SYDNEE Administration Insulin Human Lispro 0 units 03/25/20 08:12 03/27/20 16:13 Humalog 300 Units/3 Ml Vial SC 3 unit .AGGRESSIVE SLIDING PRN Administration Aggressive Correctional Scale Insulin Human NPH 45 unit 03/25/20 09:00 03/27/20 10:08 Nph, Human Insulin Isophane 300 Unit/3 Ml Vial SC 45 unit BID SYDNEE Administration Labetalol HCl 40 mg 03/21/20 07:34 03/21/20 12:54 Labetalol Hcl 100 Mg/20 Ml Vial SLOW IVP 8 ml Q4H PRN Administration SBP Greater Than 180 Lorazepam 2 mg 03/20/20 14:00 03/22/20 13:45 Lorazepam 2 Mg/Ml Vial SLOW IVP 04/19/20 14:00 2 mg Q1H PRN Administration Breakthrough agitation Minoxidil 5 mg 03/24/20 09:00 03/27/20 09:12 Minoxidil 2.5 Mg Tab PER TUBE 5 mg DAILY SYDNEE Administration Morphine Sulfate 2 mg 03/20/20 14:00 03/22/20 13:45 Morphine 2 Mg/Ml Vial SLOW IVP 04/19/20 14:00 2 mg Q1H PRN Administration Breakthrough Pain/Agitation Pantoprazole Sodium 40 mg 03/21/20 09:00 03/27/20 09:12 Pantoprazole 40 Mg Granules Packet PER TUBE 40 mg DAILY SYDNEE Administration Vecuronium [place] 10 mg 03/20/20 12:37 03/22/20 13:44 Vecuronium 10 Mg Vial IVP 10 mg Q30MIN PRN Administration Agitation Zinc Sulfate 220 mg 03/20/20 09:00 03/27/20 09:13 Zinc Sulfate 220 Mg Cap PO 220 mg DAILY SYDNEE Administration - Exam General Appearance: NAD, ill appearing Eye: PERRL, anicteric sclera ENT: normocephalic atraumatic, no oropharyngeal lesions, moist mucosa Neck: supple, symmetric, no JVD, no thyromegaly Heart: RRR, no murmur, no gallops, no rubs Respiratory: CTAB, no wheezes, no rales Gastrointestinal: soft, non-tender, non-distended, normal bowel sounds, no p alpable masses Neurological: cranial nerve grossly intact Psychiatric: not oriented, somnolent, lethargic Hosp A/P (1) Acute respiratory failure with hypoxia Code(s): J96.01 - ACUTE RESPIRATORY FAILURE WITH HYPOXIA Status: Acute (2) Pneumonia due to COVID-19 virus Code(s): U07.1 - COVID-19; J12.82 - PNEUMONIA DUE TO CORONAVIRUS DISEASE 2019 Status: Acute (3) Morbid obesity Code(s): E66.01 - MORBID (SEVERE) OBESITY DUE TO EXCESS CALORIES Status: Acute (4) Diabetes mellitus Code(s): E11.9 - TYPE 2 DIABETES MELLITUS WITHOUT COMPLICATIONS Status: Chronic Qualifiers: Diabetes mellitus nursing home insulin use: with nursing home use Diabetes mellitus complication status: without complication - Plan continue antibiotics, PT/OT, respiratory therapy, incentive spirometry 03/26/2020. Mr. Woods remains on mechanical ventilation. He has respiratory failure secondary to COVID-19 pneumonia. I did call and speak with his family day before yesterday and updated them about plan of care. Will defer to the critical care team about any weaning protocols. 03/27/2020. He remains intubated and ventilated.
[2020-03-27] MEDS: Atorvastatin Calcium 40 MG TAB PO SCH (20:00)
[2020-03-28] MEDS: HumaLOG 300 UNITS/3 ML VIAL SC PRN ×6 (00:18→20:37)
[2020-03-28] MEDS ORDERED: Fentanyl CADD 100 ML ONE ×2 (01:43→22:07)
[2020-03-28 05:57] LABS: #Eosinphils 0.1 thou/uL (0.0-0.7); #Lymphocytes 0.8 thou/uL (1.20-3.40); #Monocytes 0.9 thou/uL (0.11-0.59); %Basophils 0.1 % (0.0-1.0); %Lymphocytes 9.4 % (21.0-51.0); %Monocytes 9.8 % (0.0-10.0); %Neutrophils 79.7 % (42.0-75.0); Hemoglobin 9.5 g/dL (14.0-18.0); Mean Corpuscular HGB CONC 32.4 g/dL (32.0-36.0); Mean Corpuscular Hemoglobin 30.5 pg (27.0-31.0); Mean Corpuscular Volume 94.4 fL (78.0-98.0); Mean Platelet Volume 9.4 fL (7.4-10.4); Platelet Count 208 thou/uL (130-400); RBC Distribution Width 11.8 % (11.5-14.5); Red Blood Cell (RBC) Count 3.12 mill/uL (4.70-6.10); White Blood Cell (WBC) Count 8.8 thou/uL (4.8-10.8)
[2020-03-28 06:15] LABS: Anion Gap 13 mmol/L (10-20); BUN (Urea Nitrogen) 91 mg/dL (8.4-25.7); Calc. Creatinine Clearance 56 mL/min (70-130); Calcium 8.2 mg/dL (7.8-10.44); Carbon Dioxide 26 mmol/L (23-31); Chloride 110 mmol/L (98-107); Glucose 189 mg/dL (83-110); Potassium 5.1 mmol/L (3.5-5.1); Sodium 144 mmol/L (136-145)
--- NOTE | 2020-03-28 08:46 | RAD ---
AP CHEST: Date: 03/28/2020 HISTORY: Pneumonia. CCU follow-up. COMPARISON: 03/27/2020. FINDINGS/IMPRESSION: ET tube and NG tube again noted. Bilateral infiltrates are again seen, more prominent in the lung bas es bilaterally. Alveolar-type infiltrates seen in both lung bases and hazy ground-glass type infiltra te in the upper lung saha. No significant interval change. POS: AGW
--- NOTE | 2020-03-28 09:28 | PRG ---
DATE OF SERVICE: 03/28/2020 35 minutes critical care time. SUBJECTIVE: The patient remains intubated on mechanical ventilation. He is heavily sedated on a Versed drip. OBJECTIVE: VITAL SIGNS: His temperature is 99.9 with T-max of 100.1, pulse 70, blood pressure 133/63, O2 saturation 100%. 24-hour intake is 5603, output 2685. HEENT: Unremarkable. NECK: No adenopathy or JVD. LUNGS: Fairly clear anteriorly. CARDIAC: S1, S2. Regular. ABDOMEN: Soft, extremities edematous. IMAGING: His chest x-ray continues to show bilateral infiltrates. LABORATORY DATA: White blood cell count 8.8, hematocrit 29.5, and platelet count 208. Sodium 144, potassium 5.1, chloride 110, CO2 26, potassium 91, creatinine 2.2, glucose 189. ASSESSMENT: 1. COVID pneumonia. 2. Acute hypoxic respiratory failure requiring mechanical ventilation. 3. Diabetes mellitus. 4. Mild hyperkalemia. PLAN: I will switch him from Versed to a Precedex drip in hopes of getting little more. He is rapidly weaning from mechanical ventilation in terms of being able to decrease his FiO2 and PEEP. We will watch his potassium level closely. Job ID: [id number]
[2020-03-28] MEDS: Apixaban 5 MG TAB PER TUBE SCH ×2 (09:36→20:04)
[2020-03-28] MEDS: Aspirin Chewable 81 MG TAB PO SCH (09:37)
[2020-03-28] MEDS: Minoxidil 2.5 MG TAB PER TUBE SCH (09:37)
[2020-03-28] MEDS: Amlodipine 10 MG TAB PER TUBE SCH (09:37)
[2020-03-28] MEDS: Acetaminophen 325 MG TAB PO PRN (09:37)
[2020-03-28] MEDS: Ascorbic Acid 500 mg Chewable Tablet PO SCH (09:37)
[2020-03-28] MEDS: Pantoprazole 40 MG GRANULES PACKET PER TUBE SCH (09:37)
[2020-03-28] MEDS: Doxazosin 2 MG TAB PO SCH (09:37)
[2020-03-28] MEDS: Bisoprolol Fumarate 5 MG TAB PO SCH (09:38)
[2020-03-28] MEDS: Dexamethasone 4 mg/ml Vial SLOW IVP SCH (09:38)
[2020-03-28] MEDS: Dutasteride 0.5 MG CAP PO SCH (09:38)
[2020-03-28] MEDS: cloNIDine 0.2mg/24 Hour PATCH TD SCH (09:39)
[2020-03-28] MEDS: NPH, Human Insulin Isophane 300 UNIT/3 ML VIAL SC SCH ×2 (09:46→20:36)
[2020-03-28] MEDS: Zinc Sulfate 220 MG CAP PO SCH (09:51)
[2020-03-28] MEDS: Cholecalciferol (Vitamin D3) 400 UNITS TAB PO SCH (09:51)
--- NOTE | 2020-03-28 16:05 | PDOC.HOSPP ---
- Subjective Encounter Date: 03/28/20 Encounter Time: 16:02 non-verbal Subjective: Mr. Woods remains on the ventilator. He is not following any commands. - Objective Vital Signs & Weight: Vital Signs (12 hours) Temp Pulse Resp Pulse Ox 03/28/20 15:19 72 03/28/20 14:00 16 03/28/20 12:00 99.7 F H 11 L 03/28/20 11:40 67 03/28/20 10:00 11 L 03/28/20 09:37 94 03/28/20 08:00 99.9 F H 6 L 03/28/20 07:54 100 03/28/20 07:31 94 03/28/20 06:00 19 Weight Admit Weight 276 lb Weight 286 lb 2.56 oz Most Recent Monitor Data Heart Rate from ECG 74 NIBP 138/61 NIBP BP-Mean 86 Respiration from ECG 23 SpO2 93 I&O: 03/27/20 03/28/20 03/29/20 06:59 06:59 06:59 Intake Total 1879 5603 800 Output Total 2685 2685 1050 Balance -806 2918 -250 Result Diagrams: 03/28/20 05:17 03/28/20 05:17 Additional Labs: Accuchecks 03/28/20 03/28/20 03/28/20 12:21 09:58 05:11 POC Glucose 201 H 185 H 184 H 03/27/20 03/27/20 03/27/20 23:46 20:06 16:06 POC Glucose 163 H 189 H 182 H Radiology Reviewed by me: Yes EKG Reviewed by me: Yes Hospitalist ROS - Review of Systems ROS unobtainable: due to mental status Constitutional: reports: weakness Gastrointestinal: reports: nausea Neurological: reports: weakness - Medication Medications: Active Medications Generic Name Dose Route Start Last Admin Trade Name Freq PRN Reason Stop Dose Admin Acetaminophen 650 mg 03/18/20 14:41 03/28/20 09:37 Acetaminophen 325 Mg Tab PO 650 mg Q4H PRN Administration Headache/Fever/Mild Pain (1-3) Amlodipine Besylate 10 mg 03/21/20 09:00 03/28/20 09:37 Amlodipine 10 Mg Tab PER TUBE 10 mg DAILY SYDNEE Administration Apixaban 5 mg 03/20/20 21:00 03/28/20 09:36 Apixaban 5 Mg Tab PER TUBE 5 mg BID SYDNEE Administration Ascorbic Acid 1,000 mg 03/20/20 09:00 03/28/20 09:37 Ascorbic Acid 500 Mg Chewable Tablet PO 1,000 mg DAILY SYDNEE Administration Aspirin 81 mg 03/21/20 09:00 03/28/20 09:37 Aspirin Chewable 81 Mg Tab PO 81 mg DAILY SYDNEE Administration Atorvastatin Calcium 40 mg 03/18/20 21:00 03/27/20 20:00 Atorvastatin Calcium 40 Mg Tab PO 40 mg HS SYDNEE Administration Bisoprolol Fumarate 5 mg 03/19/20 09:00 03/28/20 09:38 Bisoprolol Fumarate 5 Mg Tab PO 5 mg DAILY SYDNEE Administration Cholecalciferol 400 units 03/20/20 09:00 03/28/20 09:51 Cholecalciferol (Vitamin D3) 400 Units Tab PO 400 units DAILY SYDNEE Administration Clonidine 0.2 mg 03/21/20 15:00 03/28/20 09:39 Clonidine 0.2mg/24 Hour Patch TD 0.2 mg Q7DAYS@1500 SYDNEE Administration Dexamethasone 4 mg 03/25/20 09:00 03/28/20 09:38 Dexamethasone 4 Mg/Ml Vial SLOW IVP 4 mg DAILY SYDNEE Administration Doxazosin Mesylate 2 mg 03/19/20 09:00 03/28/20 09:37 Doxazosin 2 Mg Tab PO 2 mg DAILY SYDNEE Administration Dutasteride 0.5 mg 03/19/20 09:00 03/28/20 09:38 Dutasteride 0.5 Mg Cap PO 0.5 mg DAILY SYDNEE Administration Hydralazine HCl 20 mg 03/21/20 13:50 03/24/20 19:38 Hydralazine 20 Mg/Ml Vial SLOW IVP 20 mg Q4H PRN Administration SBP>170 Fentanyl 100 mls @ 0 mls/hr 03/20/20 14:00 03/27/20 05:38 Fentanyl Cadd IV 04/19/20 14:00 100 mls INF SYDNEE Administration Protocol Per Protocol Nicardipine HCl 25 mg/ Sodium 250 mls @ 0 mls/hr 03/21/20 19:30 03/22/20 10:41 Chloride IVPB 250 mls INF SYDNEE Administration Protocol Titrate Dexmedetomidine HCl 400 mcg/ 100 mls @ 0 mls/hr 03/28/20 08:45 03/28/20 09:52 Sodium Chloride IVPB 100 mls INF SYDNEE Administration Protocol Per Protocol Insulin Human Lispro 0 units 03/25/20 08:12 03/28/20 12:34 Humalog 300 Units/3 Ml Vial SC 6 unit .AGGRESSIVE SLIDING PRN Administration Aggressive Correctional Scale Insulin Human NPH 45 unit 03/25/20 09:00 03/28/20 09:46 Nph, Human Insulin Isophane 300 Unit/3 Ml Vial SC 45 unit BID SYDNEE Administration Labetalol HCl 40 mg 03/21/20 07:34 03/21/20 12:54 Labetalol Hcl 100 Mg/20 Ml Vial SLOW IVP 8 ml Q4H PRN Administration SBP Greater Than 180 Lorazepam 2 mg 03/20/20 14:00 03/22/20 13:45 Lorazepam 2 Mg/Ml Vial SLOW IVP 04/19/20 14:00 2 mg Q1H PRN Administration Breakthrough agitation Minoxidil 5 mg 03/24/20 09:00 03/28/20 09:37 Minoxidil 2.5 Mg Tab PER TUBE 5 mg DAILY SYDNEE Administration Morphine Sulfate 2 mg 03/20/20 14:00 03/22/20 13:45 Morphine 2 Mg/Ml Vial SLOW IVP 04/19/20 14:00 2 mg Q1H PRN Administration Breakthrough Pain/Agitation Pantoprazole Sodium 40 mg 03/21/20 09:00 03/28/20 09:37 Pantoprazole 40 Mg Granules Packet PER TUBE 40 mg DAILY SYDNEE Administration Vecuronium [place] 10 mg 03/20/20 12:37 03/22/20 13:44 Vecuronium 10 Mg Vial IVP 10 mg Q30MIN PRN Administration Agitation Zinc Sulfate 220 mg 03/20/20 09:00 03/28/20 09:51 Zinc Sulfate 220 Mg Cap PO 220 mg DAILY SYDNEE Administration - Exam General Appearance: NAD, ill appearing Eye: PERRL, anicteric sclera ENT: normocephalic atraumatic, no oropharyngeal lesions Neck: supple, symmetric Heart: RRR, no murmur, no gallops Respiratory: CTAB, no wheezes, no rales Gastrointestinal: soft, non-tender, non-distended Neurological: cranial nerve grossly intact Psychiatric: not oriented, somnolent, lethargic Hosp A/P (1) Acute respiratory failure with hypoxia Code(s): J96.01 - ACUTE RESPIRATORY FAILURE WITH HYPOXIA Status: Acute (2) Pneumonia due to COVID-19 virus Code(s): U07.1 - COVID-19; J12.82 - PNEUMONIA DUE TO CORONAVIRUS DISEASE 2019 Status: Acute (3) Morbid obesity Code(s): E66.01 - MORBID (SEVERE) OBESITY DUE TO EXCESS CALORIES Status: Acute (4) Diabetes mellitus Code(s): E11.9 - TYPE 2 DIABETES MELLITUS WITHOUT COMPLICATIONS Status: Chronic Qualifiers: Diabetes mellitus shelter insulin use: with terminal gauger supervisor use Diabetes mellitus complication status: without complication - Plan 03/26/2020. Mr. Woods remains on mechanical ventilation. He has respiratory failure sec ondary to COVID-19 pneumonia. I did call and speak with his family day before yesterday and updated them about plan of care. Will defer to the critical care team about any weaning protocols. 03/27/2020. He remains intubated and ventilated.
[2020-03-28] MEDS: Milk Of Magnesia 30 ML UDCUP PO PRN (17:08)
[2020-03-28] MEDS: Docusate Sodium 100 MG/10 ML UDCUP PO SCH (20:03)
[2020-03-28] MEDS: Atorvastatin Calcium 40 MG TAB PO SCH (20:04)
[2020-03-29] MEDS: HumaLOG 300 UNITS/3 ML VIAL SC PRN ×6 (00:16→20:54)
[2020-03-29] MEDS: Labetalol HCl 100 MG/20 ML VIAL SLOW IVP PRN (00:17)
[2020-03-29] MEDS: Acetaminophen 325 MG TAB PO PRN (00:23)
[2020-03-29] MEDS: hydrALAZINE 20 MG/ML VIAL SLOW IVP PRN (02:16)
[2020-03-29 05:32] LABS: #Eosinphils 0.1 thou/uL (0.0-0.7); #Lymphocytes 1.1 thou/uL (1.20-3.40); #Monocytes 0.6 thou/uL (0.11-0.59); #Neutrophils 8.1 thou/uL (1.40-6.50); %Basophils 0.5 % (0.0-1.0); %Eosinophils 0.7 % (0.0-10.0); %Lymphocytes 10.9 % (21.0-51.0); %Monocytes 5.6 % (0.0-10.0); %Neutrophils 82.4 % (42.0-75.0); Hemoglobin 10.4 g/dL (14.0-18.0); Mean Corpuscular HGB CONC 31.3 g/dL (32.0-36.0); Mean Corpuscular Hemoglobin 29.2 pg (27.0-31.0); Mean Corpuscular Volume 93.3 fL (78.0-98.0); Mean Platelet Volume 9.7 fL (7.4-10.4); Platelet Count 218 thou/uL (130-400); RBC Distribution Width 11.7 % (11.5-14.5); Red Blood Cell (RBC) Count 3.54 mill/uL (4.70-6.10); White Blood Cell (WBC) Count 9.8 thou/uL (4.8-10.8)
[2020-03-29 06:45] LABS: Anion Gap 16 mmol/L (10-20); BUN (Urea Nitrogen) 89 mg/dL (8.4-25.7); Calc. Creatinine Clearance 62 mL/min (70-130); Calcium 9.2 mg/dL (7.8-10.44); Carbon Dioxide 25 mmol/L (23-31); Chloride 109 mmol/L (98-107); Glucose 177 mg/dL (83-110); Potassium 4.6 mmol/L (3.5-5.1); Sodium 145 mmol/L (136-145)
--- NOTE | 2020-03-29 08:40 | RAD ---
PORTABLE CHEST: HISTORY: Pneumonia followup. CCU followup. COMPARISON: 03/28/2020. FINDINGS/IMPRESSION: ET tube unchanged. Bilateral hazy infiltrates more prominent in the lung bases appear stable from sterday. No significant interval change apparent. POS: OFF
[2020-03-29] MEDS: Ascorbic Acid 500 mg Chewable Tablet PO SCH (08:57)
[2020-03-29] MEDS: Zinc Sulfate 220 MG CAP PO SCH (08:57)
[2020-03-29] MEDS: Docusate Sodium 100 MG/10 ML UDCUP PO SCH ×2 (08:57→20:55)
[2020-03-29] MEDS: Minoxidil 2.5 MG TAB PER TUBE SCH (08:57)
[2020-03-29] MEDS: Pantoprazole 40 MG GRANULES PACKET PER TUBE SCH (08:57)
[2020-03-29] MEDS: Apixaban 5 MG TAB PER TUBE SCH ×2 (08:58→20:23)
[2020-03-29] MEDS: Dexamethasone 4 mg/ml Vial SLOW IVP SCH (08:58)
[2020-03-29] MEDS: Aspirin Chewable 81 MG TAB PO SCH (08:58)
[2020-03-29] MEDS: Doxazosin 2 MG TAB PO SCH (08:58)
[2020-03-29] MEDS: Dutasteride 0.5 MG CAP PO SCH (08:58)
[2020-03-29] MEDS: Amlodipine 10 MG TAB PER TUBE SCH (08:58)
[2020-03-29] MEDS: Milk Of Magnesia 30 ML UDCUP PO PRN (09:07)
[2020-03-29] MEDS: NPH, Human Insulin Isophane 300 UNIT/3 ML VIAL SC SCH ×2 (09:07→20:43)
[2020-03-29] MEDS: Bisoprolol Fumarate 5 MG TAB PO SCH (09:39)
[2020-03-29] MEDS: Cholecalciferol (Vitamin D3) 400 UNITS TAB PO SCH (09:39)
--- NOTE | 2020-03-29 14:33 | PDOC.HOSPP ---
- Subjective Encounter Date: 03/29/20 Encounter Time: 14:24 Subjective: Mr. Woods was seen and evaluated today. He seems to be coming around. He is squeeze my hand on command. He is slowly being weaned off of the ventilator. Unfortunate 74-year-old admitted with acute respiratory failure secondary to COVID-19 pneumonia. We will continue current management plan. - Objective Vital Signs & Weight: Vital Signs (12 hours) Temp Pulse Resp Pulse Ox 03/29/20 12:00 99.4 F 14 03/29/20 11:48 77 03/29/20 10:00 18 03/29/20 08:58 82 03/29/20 08:00 99.8 F H 03/29/20 07:29 99 03/29/20 07:21 12 03/29/20 07:01 82 03/29/20 06:00 23 H 03/29/20 04:00 100.1 F H 20 03/29/20 02:57 78 Weight Admit Weight 276 lb Weight 284 lb 2.813 oz Most Recent Monitor Data Heart Rate from ECG 75 NIBP 172/75 NIBP BP-Mean 107 Respiration from ECG 21 SpO2 97 I&O: 03/28/20 03/29/20 03/30/20 06:59 06:59 06:59 Intake Total 5603 3783 800 Output Total 2685 4360 1090 Balance 2918 -577 -290 Result Diagrams: 03/29/20 05:00 03/29/20 03:30 Additional Labs: Accuchecks 03/29/20 03/29/20 03/29/20 12:01 09:12 04:45 POC Glucose 201 H 200 H 163 H 03/29/20 03/28/20 03/28/20 00:04 20:09 17:23 POC Glucose 171 H 227 H 212 H Radiology Reviewed by me: Yes EKG Reviewed by me: Yes Hospitalist ROS - Review of Systems ROS unobtainable: due to mental status Constitutional: reports: weakness Neurological: reports: weakness - Medication Medications: Active Medications Generic Name Dose Route Start Last Admin Trade Name Freq PRN Reason Stop Dose Admin Acetaminophen 650 mg 03/18/20 14:41 03/29/20 00:23 Acetaminophen 325 Mg Tab PO 650 mg Q4H PRN Administration Headache/Fever/Mild Pain (1-3) Amlodipine Besylate 10 mg 03/21/20 09:00 03/29/20 08:58 Amlodipine 10 Mg Tab PER TUBE 10 mg DAILY SYDNEE Administration Apixaban 5 mg 03/20/20 21:00 03/29/20 08:58 Apixaban 5 Mg Tab PER TUBE 5 mg BID SYDNEE Administration Ascorbic Acid 1,000 mg 03/20/20 09:00 03/29/20 08:57 Ascorbic Acid 500 Mg Chewable Tablet PO 1,000 mg DAILY SYDNEE Administration Aspirin 81 mg 03/21/20 09:00 03/29/20 08:58 Aspirin Chewable 81 Mg Tab PO 81 mg DAILY SYDNEE Administration Atorvastatin Calcium 40 mg 03/18/20 21:00 03/28/20 20:04 Atorvastatin Calcium 40 Mg Tab PO 40 mg HS SYDNEE Administration Bisoprolol Fumarate 5 mg 03/19/20 09:00 03/29/20 09:39 Bisoprolol Fumarate 5 Mg Tab PO 5 mg DAILY SYDNEE Administration Cholecalciferol 400 units 03/20/20 09:00 03/29/20 09:39 Cholecalciferol (Vitamin D3) 400 Units Tab PO 400 units DAILY SYDNEE Administration Clonidine 0.1 mg 03/18/20 14:47 03/29/20 01:35 Clonidine 0.1 Mg Tab PO 0.1 mg Q4H PRN Administration SBP > 180 Clonidine 0.2 mg 03/21/20 15:00 03/28/20 09:39 Clonidine 0.2mg/24 Hour Patch TD 0.2 mg Q7DAYS@1500 SYDNEE Administration Dexamethasone 4 mg 03/25/20 09:00 03/29/20 08:58 Dexamethasone 4 Mg/Ml Vial SLOW IVP 4 mg DAILY SYDNEE Administration Docusate Sodium 100 mg 03/28/20 21:00 03/29/20 08:57 Docusate Sodium 100 Mg/10 Ml Udcup PO 100 mg BID SYDNEE Administration Doxazosin Mesylate 2 mg 03/19/20 09:00 03/29/20 08:58 Doxazosin 2 Mg Tab PO 2 mg DAILY SYDNEE Administration Dutasteride 0.5 mg 03/19/20 09:00 03/29/20 08:58 Dutasteride 0.5 Mg Cap PO 0.5 mg DAILY SYDNEE Administration Hydralazine HCl 20 mg 03/21/20 13:50 03/29/20 02:16 Hydralazine 20 Mg/Ml Vial SLOW IVP 20 mg Q4H PRN Administration SBP>170 Fentanyl 100 mls @ 0 mls/hr 03/20/20 14:00 03/27/20 05:38 Fentanyl Cadd IV 04/19/20 14:00 100 mls INF SYDNEE Administration Protocol Per Protocol Nicardipine HCl 25 mg/ Sodium 250 mls @ 0 mls/hr 03/21/20 19:30 03/22/20 10:41 Chloride IVPB 250 mls INF SYDNEE Administration Protocol Titrate Dexmedetomidine HCl 400 mcg/ 100 mls @ 0 mls/hr 03/28/20 08:45 03/29/20 09:38 Sodium Chloride IVPB 100 mls INF SYDNEE Administration Protocol Per Protocol Insulin Human Lispro 0 units 03/25/20 08:12 03/29/20 12:10 Humalog 300 Units/3 Ml Vial SC 6 unit .AGGRESSIVE SLIDING PRN Administration Aggressive Correctional Scale Insulin Human NPH 45 unit 03/25/20 09:00 03/29/20 09:07 Nph, Human Insulin Isophane 300 Unit/3 Ml Vial SC 45 unit BID SYDNEE Administration Labetalol HCl 40 mg 03/21/20 07:34 03/29/20 00:17 Labetalol Hcl 100 Mg/20 Ml Vial SLOW IVP 8 ml Q4H PRN Administration SBP Greater Than 180 Lorazepam 2 mg 03/20/20 14:00 03/22/20 13:45 Lorazepam 2 Mg/Ml Vial SLOW IVP 04/19/20 14:00 2 mg Q1H PRN Administration Breakthrough agitation Magnesium Hydroxide 30 ml 03/28/20 12:06 03/29/20 09:07 Milk Of Magnesia 30 Ml Udcup PO 30 ml DAILYPRN PRN Administration Constipation Minoxidil 5 mg 03/24/20 09:00 03/29/20 08:57 Minoxidil 2.5 Mg Tab PER TUBE 5 mg DAILY SYDNEE Administration Morphine Sulfate 2 mg 03/20/20 14:00 03/22/20 13:45 Morphine 2 Mg/Ml Vial SLOW IVP 04/19/20 14:00 2 mg Q1H PRN Administration Breakthrough Pain/Agitation Pantoprazole Sodium 40 mg 03/21/20 09:00 03/29/20 08:57 Pantoprazole 40 Mg Granules Packet PER TUBE 40 mg DAILY SYDNEE Administration Vecuronium [place] 10 mg 03/20/20 12:37 03/22/20 13:44 Vecuronium 10 Mg Vial IVP 10 mg Q30MIN PRN Administration Agitation Zinc Sulfate 220 mg 03/20/20 09:00 03/29/20 08:57 Zinc Sulfate 220 Mg Cap PO 220 mg DAILY SYDNEE Administration - Exam General Appearance: NAD, ill appearing Eye: PERRL, anicteric sclera ENT: normocephalic atraumatic, no oropharyngeal lesions Neck: supple, symmetric Heart: RRR, no murmur, no gallops Respiratory: CTAB, no wheezes Gastrointestinal: soft, non-tender, non-distended Psychiatric: not oriented, somnolent, lethargic Hosp A/P (1) Acute respiratory failure with hypoxia Code(s): J96.01 - ACUTE RESPIRATORY FAILURE WITH HYPOXIA Status: Acute (2) Pneumonia due to COVID-19 virus Code(s): U07.1 - COVID-19; J12.82 - PNEUMONIA DUE TO CORONAVIRUS DISEASE 2019 Status: Acute (3) Morbid obesity Code(s): E66.01 - MORBID (SEVERE) OBESITY DUE TO EXCESS CALORIES Status: Acute (4) Diabetes mellitus Code(s): E11.9 - TYPE 2 DIABETES MELLITUS WITHOUT COMPLICATIONS Status: Chronic Qualifiers: Diabetes mellitus long term care pharmacist insulin use: with long term care pharmacist use Diabetes mellitus complication status: without complication - Plan 03/26/2020. Mr. Woods remains on mechanical ventilation. He has respiratory failure secondary to COVID-19 pneumonia. I did call and speak with his family day before yesterday and updated them about plan of care. Will defer to the critical care team about any weaning protocols. 03/27/2020. He remains intubated and ventilated. 03/29/2020. Mr. Woods remains intubated. I think he is coming around. He is able to squeeze my hands on command. He is probably close to being extubated. He will likely need long-term convalescence. I will get physical therapy to help with increasing his activity while he is intubated.
[2020-03-29] MEDS ORDERED: Fentanyl CADD 100 ML ONE (15:23)
[2020-03-29] MEDS: Fentanyl CADD 100 ML IV SCH (15:29)
[2020-03-29] MEDS: Lorazepam 2 MG/ML VIAL SLOW IVP PRN (15:45)
--- NOTE | 2020-03-29 17:40 | PRG ---
DATE OF SERVICE: 03/29/2020 SUBJECTIVE: Mr. Woods remains hemodynamically stable. OBJECTIVE: VITAL SIGNS: Heart rate is in 80s, FiO2 is at 40%, blood pressure 166/74. LUNGS: Remarkable for equal breath sounds. HEART: Regular rhythm. ABDOMEN: Soft. EXTREMITIES: Without edema. DIAGNOSTIC STUDIES: Chest x-ray today shows bibasilar alveolar infiltrates that are unchanged. LABORATORY DATA: White count 9.8, hemoglobin 10.4, and platelets 218. Sodium 145, potassium 4.6, chloride 109, bicarb 25, BUN 89, and creatinine 1.93, creatinine was 2.93 on admission. IMPRESSION: 1. COVID pneumonia. 2. Acute on chronic kidney disease. 3. Diabetes. 4. Respiratory failure. He appears to be stable, but probably not at a point where we can safely extubate him. Job ID: [id number]
[2020-03-29] MEDS: Atorvastatin Calcium 40 MG TAB PO SCH (20:23)
[2020-03-30] MEDS: HumaLOG 300 UNITS/3 ML VIAL SC PRN ×6 (00:24→23:20)
[2020-03-30 04:23] LABS: #Basophils 0.1 thou/uL (0.0-0.2); #Eosinphils 0.1 thou/uL (0.0-0.7); #Lymphocytes 1.5 thou/uL (1.20-3.40); #Monocytes 1.1 thou/uL (0.11-0.59); %Basophils 0.5 % (0.0-1.0); %Eosinophils 0.7 % (0.0-10.0); %Lymphocytes 14.1 % (21.0-51.0); %Neutrophils 74.7 % (42.0-75.0); Hemoglobin 7.7 g/dL (14.0-18.0); Mean Corpuscular HGB CONC 32.1 g/dL (32.0-36.0); Mean Corpuscular Hemoglobin 30.2 pg (27.0-31.0); Mean Corpuscular Volume 94.2 fL (78.0-98.0); Mean Platelet Volume 10.1 fL (7.4-10.4); Platelet Count 222 thou/uL (130-400); RBC Distribution Width 11.6 % (11.5-14.5); Red Blood Cell (RBC) Count 2.55 mill/uL (4.70-6.10); White Blood Cell (WBC) Count 10.7 thou/uL (4.8-10.8)
[2020-03-30 04:35] LABS: Anion Gap 15 mmol/L (10-20); BUN (Urea Nitrogen) 82 mg/dL (8.4-25.7); Calc. Creatinine Clearance 61 mL/min (70-130); Calcium 9.3 mg/dL (7.8-10.44); Carbon Dioxide 28 mmol/L (23-31); Chloride 109 mmol/L (98-107); Glucose 200 mg/dL (83-110); Potassium 4.5 mmol/L (3.5-5.1); Sodium 147 mmol/L (136-145)
[2020-03-30] MEDS: Lorazepam 2 MG/ML VIAL SLOW IVP PRN ×4 (06:05→20:36)
--- NOTE | 2020-03-30 08:23 | RAD ---
Portable frontal chest radiograph: 03/30/2020 COMPARISON: 03/29/2020 HISTORY: Pneumonia FINDINGS: There are coarse linear interstitial densities with superimposed groundglass opacity in the perihilar regions and both lung bases, right greater than left, not significantly changed when compared to the prior exam. There is a stable endotracheal tube and nasogastric tube in place. IMPRESSION: No significant interval change.
[2020-03-30] MEDS: Dexamethasone 4 mg/ml Vial SLOW IVP SCH (08:29)
[2020-03-30] MEDS: Docusate Sodium 100 MG/10 ML UDCUP PO SCH ×2 (08:29→20:24)
[2020-03-30] MEDS: Amlodipine 10 MG TAB PER TUBE SCH (08:29)
[2020-03-30] MEDS: Doxazosin 2 MG TAB PO SCH (08:29)
[2020-03-30] MEDS: Ascorbic Acid 500 mg Chewable Tablet PO SCH (08:29)
[2020-03-30] MEDS: Aspirin Chewable 81 MG TAB PO SCH (08:29)
[2020-03-30] MEDS: Zinc Sulfate 220 MG CAP PO SCH (08:29)
[2020-03-30] MEDS: Dutasteride 0.5 MG CAP PO SCH (08:29)
[2020-03-30] MEDS: Cholecalciferol (Vitamin D3) 400 UNITS TAB PO SCH (08:29)
[2020-03-30] MEDS: Pantoprazole 40 MG GRANULES PACKET PER TUBE SCH (08:29)
[2020-03-30] MEDS: Minoxidil 2.5 MG TAB PER TUBE SCH (08:30)
[2020-03-30] MEDS: Apixaban 5 MG TAB PER TUBE SCH ×2 (08:30→20:24)
[2020-03-30] MEDS: NPH, Human Insulin Isophane 300 UNIT/3 ML VIAL SC SCH ×2 (08:30→20:25)
[2020-03-30] MEDS: Bisoprolol Fumarate 5 MG TAB PO SCH (12:21)
[2020-03-30] MEDS ORDERED: Morphine 2 MG/ML VIAL SLOW IVP PRN (14:26)
[2020-03-30] MEDS ORDERED: Fentanyl BOLUS 250 ML IVPB PRN (14:27)
[2020-03-30] MEDS ORDERED: Fentanyl CADD 100 ML IV SCH (14:30)
--- NOTE | 2020-03-30 14:56 | PDOC.HOSPP ---
- Subjective Encounter Date: 03/30/20 Encounter Time: 09:00 Subjective: is on vent, not in distress - Objective Vital Signs & Weight: Vital Signs (12 hours) Temp Pulse Resp Pulse Ox 03/30/20 14:00 25 H 03/30/20 12:00 98.8 F 24 H 03/30/20 10:29 72 03/30/20 10:00 20 03/30/20 08:29 70 03/30/20 08:24 70 03/30/20 08:00 99.2 F 03/30/20 07:45 13 03/30/20 07:35 95 03/30/20 06:00 21 H 03/30/20 04:00 99.4 F 21 H Weight Admit Weight 276 lb Weight 281 lb 15.539 oz Most Recent Monitor Data Heart Rate from ECG 88 NIBP 116/62 NIBP BP-Mean 80 Respiration from ECG 20 SpO2 97 I&O: 03/29/20 03/30/20 03/31/20 06:59 06:59 06:59 Intake Total 3783 4898.2 1200 Output Total 4360 3815 1025 Balance -577 1083.2 175 Result Diagrams: 03/30/20 03:45 03/30/20 03:45 Additional Labs: Accuchecks 03/30/20 03/30/20 03/29/20 03:50 00:20 20:13 POC Glucose 186 H 228 H 243 H Hospitalist ROS - Medication Medications: Active Medications Generic Name Dose Route Start Last Admin Trade Name Freq PRN Reason Stop Dose Admin Acetaminophen 650 mg 03/18/20 14:41 03/29/20 00:23 Acetaminophen 325 Mg Tab PO 650 mg Q4H PRN Administration Headache/Fever/Mild Pain (1-3) Amlodipine Besylate 10 mg 03/21/20 09:00 03/30/20 08:29 Amlodipine 10 Mg Tab PER TUBE 10 mg DAILY SYDNEE Administration Apixaban 5 mg 03/20/20 21:00 03/30/20 08:30 Apixaban 5 Mg Tab PER TUBE 5 mg BID SYDNEE Administration Ascorbic Acid 1,000 mg 03/20/20 09:00 03/30/20 08:29 Ascorbic Acid 500 Mg Chewable Tablet PO 1,000 mg DAILY SYDNEE Administration Aspirin 81 mg 03/21/20 09:00 03/30/20 08:29 Aspirin Chewable 81 Mg Tab PO 81 mg DAILY SYDNEE Administration Atorvastatin Calcium 40 mg 03/18/20 21:00 03/29/20 20:23 Atorvastatin Calcium 40 Mg Tab PO 40 mg HS SYDNEE Administration Bisoprolol Fumarate 5 mg 03/19/20 09:00 03/30/20 12:21 Bisoprolol Fumarate 5 Mg Tab PO 5 mg DAILY SYDNEE Administration Cholecalciferol 400 units 03/20/20 09:00 03/30/20 08:29 Cholecalciferol (Vitamin D3) 400 Units Tab PO 400 units DAILY SYDNEE Administration Clonidine 0.1 mg 03/18/20 14:47 03/29/20 01:35 Clonidine 0.1 Mg Tab PO 0.1 mg Q4H PRN Administration SBP > 180 Clonidine 0.2 mg 03/21/20 15:00 03/28/20 09:39 Clonidine 0.2mg/24 Hour Patch TD 0.2 mg Q7DAYS@1500 SYDNEE Administration Dexamethasone 4 mg 03/25/20 09:00 03/30/20 08:29 Dexamethasone 4 Mg/Ml Vial SLOW IVP 4 mg DAILY SYDNEE Administration Docusate Sodium 100 mg 03/28/20 21:00 03/30/20 08:29 Docusate Sodium 100 Mg/10 Ml Udcup PO 100 mg BID SYDNEE Administration Doxazosin Mesylate 2 mg 03/19/20 09:00 03/30/20 08:29 Doxazosin 2 Mg Tab PO 2 mg DAILY SYDNEE Administration Dutasteride 0.5 mg 03/19/20 09:00 03/30/20 08:29 Dutasteride 0.5 Mg Cap PO 0.5 mg DAILY SYDNEE Administration Hydralazine HCl 20 mg 03/21/20 13:50 03/29/20 02:16 Hydralazine 20 Mg/Ml Vial SLOW IVP 20 mg Q4H PRN Administration SBP>170 Nicardipine HCl 25 mg/ Sodium 250 mls @ 0 mls/hr 03/21/20 19:30 03/22/20 10:41 Chloride IVPB 250 mls INF SYDNEE Administration Protocol Titrate Dexmedetomidine HCl 400 mcg/ 100 mls @ 0 mls/hr 03/28/20 08:45 03/30/20 04:12 Sodium Chloride IVPB 100 mls INF SYDNEE Administration Protocol Per Protocol Insulin Human Lispro 0 units 03/25/20 08:12 03/30/20 12:52 Humalog 300 Units/3 Ml Vial SC 9 unit .AGGRESSIVE SLIDING PRN Administration Aggressive Correctional Scale Insulin Human NPH 45 unit 03/25/20 09:00 03/30/20 08:30 Nph, Human Insulin Isophane 300 Unit/3 Ml Vial SC 45 unit BID SYDNEE Administration Labetalol HCl 40 mg 03/21/20 07:34 03/29/20 00:17 Labetalol Hcl 100 Mg/20 Ml Vial SLOW IVP 8 ml Q4H PRN Administration SBP Greater Than 180 Magnesium Hydroxide 30 ml 03/28/20 12:06 03/29/20 09:07 Milk Of Magnesia 30 Ml Udcup PO 30 ml DAILYPRN PRN Administration Constipation Minoxidil 5 mg 03/24/20 09:00 03/30/20 08:30 Minoxidil 2.5 Mg Tab PER TUBE 5 mg DAILY SYDNEE Administration Pantoprazole Sodium 40 mg 03/21/20 09:00 03/30/20 08:29 Pantoprazole 40 Mg Granules Packet PER TUBE 40 mg DAILY SYDNEE Administration Vecuronium [place] 10 mg 03/20/20 12:37 03/22/20 13:44 Vecuronium 10 Mg Vial IVP 10 mg Q30MIN PRN Administration Agitation Zinc Sulfate 220 mg 03/20/20 09:00 03/30/20 08:29 Zinc Sulfate 220 Mg Cap PO 220 mg DAILY SYDNEE Administration - Exam General Appearance: ill appearing Eye: PERRL, anicteric sclera ENT: no oropharyngeal lesions, dry oral mucosa Neck: supple, no JVD Heart: RRR, no murmur Respiratory: no wheezes, rales, rhonchi Gastrointestinal: soft, non-tender, non-distended, normal bowel sounds Extremities: no cyanosis, no edema Neurological: cranial nerve grossly intact, no focal deficits Hosp A/P (1) Pneumonia due to COVID-19 virus Code(s): U07.1 - COVID-19; J12.82 - PNEUMONIA DUE TO CORONAVIRUS DISEASE 2019 Status: Acute (2) Acute respiratory failure with hypoxia Code(s): J96.01 - ACUTE RESPIRATORY FAILURE WITH HYPOXIA Status: Acute (3) Acute worsening of stage 3 chronic kidney disease Code(s): N18.30 - CHRONIC KIDNEY DISEASE, STAGE 3 UNSPECIFIED Status: Acute (4) Hyponatremia Code(s): E87.1 - HYPO-OSMOLALITY AND HYPONATREMIA Status: Resolved (5) Diabetes mellitus Code(s): E11.9 - TYPE 2 DIABETES MELLITUS WITHOUT COMPLICATIONS Status: Chronic Qualifiers: Diabetes mellitus alf insulin use: with intermediate frame tender use Diabetes mellitus complication status: with kidney complications Diabetes mellitus complication detail: with chronic kidney disease Chronic kidney disease stage: stage 3 (moderate) (6) Obesity Code(s): E66.9 - OBESITY, UNSPECIFIED Status: Chronic Qualifiers: Obesity classification: adult class 2 (BMI 35 - 39.9) (7) BPH (benign prostatic hyperplasia) Code(s): N40.0 - BENIGN PROSTATIC HYPERPLASIA WITHOUT LOWER URINRY TRACT SYMP Status: Chronic Qualifiers: Lower urinary tract symptom presence: symptoms absent Qualified Code(s): N40.0 - Benign prostatic hyperplasia without lower urinary tract symptoms (8) Hyperlipidemia Code(s): E78.5 - HYPERLIPIDEMIA, UNSPECIFIED Status: Chronic Qualifiers: Hyperlipidemia type: unspecified Qualified Code(s): E78.5 - Hyperlipidemia, unspecified - Plan is on dexamethasone, alb inh, weaning per pulm advice continue asp, lipitor, bisoprolol, eliquis, minoxidil, clonidine tts, avodart, doxazosin, protonix and nph insulin hemostable tried calling son Mr.Wesley Woods [phone] x2 and x1 unable to reach them, will update them in am
[2020-03-30] MEDS ORDERED: Fentanyl CADD 100 ML ONE (15:35)
--- NOTE | 2020-03-30 17:18 | PRG ---
DATE OF SERVICE: 03/30/2020 SUBJECTIVE: Mr. Woods remains mechanically ventilated. OBJECTIVE: VITAL SIGNS: Respiratory rate is in 20s, FiO2 is at 40, heart rate is in 80s, blood pressure 116/62, oximetry is in the high 90s. Intake and output positive 1083. LUNGS: Clear. HEART: Regular rhythm. ABDOMEN: Soft. EXTREMITIES: Asymmetry. LABORATORY DATA: White count 10.7, hemoglobin 7.7, platelets 222,000. Sodium 147, potassium 4.5, chloride 109, bicarb 28, BUN 82, creatinine 1.96. IMPRESSION: 1. COVID pneumonia. 2. [id number] kidney disease. 3. Diabetes. 4. Deconditioning with this hospitalization. Chest x-ray is unchanged today. He is 11 days into his hospitalization. He is not deteriorating, but as expected, he is not making rapid progress. Job ID: [id number]
[2020-03-30] MEDS: Atorvastatin Calcium 40 MG TAB PO SCH (20:24)
[2020-03-31] MEDS: Lorazepam 2 MG/ML VIAL SLOW IVP PRN ×5 (01:49→20:11)
[2020-03-31] MEDS: HumaLOG 300 UNITS/3 ML VIAL SC PRN ×6 (03:41→23:38)
[2020-03-31] MEDS ORDERED: Fentanyl CADD 100 ML ONE ×2 (03:45→17:22)
[2020-03-31 04:06] LABS: #Basophils 0.1 thou/uL (0.0-0.2); #Eosinphils 0.1 thou/uL (0.0-0.7); #Lymphocytes 1.2 thou/uL (1.20-3.40); #Neutrophils 6.6 thou/uL (1.40-6.50); %Basophils 0.7 % (0.0-1.0); %Eosinophils 0.9 % (0.0-10.0); %Lymphocytes 13.1 % (21.0-51.0); %Monocytes 10.8 % (0.0-10.0); %Neutrophils 74.4 % (42.0-75.0); Hemoglobin 9.6 g/dL (14.0-18.0); Mean Corpuscular HGB CONC 31.8 g/dL (32.0-36.0); Mean Corpuscular Hemoglobin 30.1 pg (27.0-31.0); Mean Corpuscular Volume 94.5 fL (78.0-98.0); Platelet Count 182 thou/uL (130-400); RBC Distribution Width 11.6 % (11.5-14.5); Red Blood Cell (RBC) Count 3.18 mill/uL (4.70-6.10); White Blood Cell (WBC) Count 8.8 thou/uL (4.8-10.8)
[2020-03-31 04:31] LABS: Anion Gap 14 mmol/L (10-20); BUN (Urea Nitrogen) 88 mg/dL (8.4-25.7); Calc. Creatinine Clearance 58 mL/min (70-130); Calcium 9.1 mg/dL (7.8-10.44); Carbon Dioxide 27 mmol/L (23-31); Chloride 109 mmol/L (98-107); Glucose 161 mg/dL (83-110); Potassium 4.8 mmol/L (3.5-5.1); Sodium 145 mmol/L (136-145)
[2020-03-31] MEDS: Ascorbic Acid 500 mg Chewable Tablet PO SCH (09:02)
[2020-03-31] MEDS: Cholecalciferol (Vitamin D3) 400 UNITS TAB PO SCH (09:02)
[2020-03-31] MEDS: Minoxidil 2.5 MG TAB PER TUBE SCH (09:02)
[2020-03-31] MEDS: Doxazosin 2 MG TAB PO SCH (09:02)
[2020-03-31] MEDS: Dutasteride 0.5 MG CAP PO SCH (09:02)
[2020-03-31] MEDS: Zinc Sulfate 220 MG CAP PO SCH (09:02)
[2020-03-31] MEDS: Aspirin Chewable 81 MG TAB PO SCH (09:02)
[2020-03-31] MEDS: Pantoprazole 40 MG GRANULES PACKET PER TUBE SCH (09:02)
[2020-03-31] MEDS: Apixaban 5 MG TAB PER TUBE SCH ×2 (09:04→20:40)
[2020-03-31] MEDS: Amlodipine 10 MG TAB PER TUBE SCH (09:04)
[2020-03-31] MEDS: Dexamethasone 4 mg/ml Vial SLOW IVP SCH (09:04)
[2020-03-31] MEDS: Acetaminophen 325 MG TAB PO PRN ×3 (09:08→17:51)
--- NOTE | 2020-03-31 09:09 | RAD ---
PORTABLE CHEST: 03/31/20 PROVIDED CLINICAL HISTORY: Pneumonia. COMPARISON: 03/30/2020 FINDINGS: Significant interval change with respect to the prior study is not apparent. IMPRESSION: As above. POS: STEFANIA
[2020-03-31] MEDS: Docusate Sodium 100 MG/10 ML UDCUP PO SCH ×2 (09:46→20:40)
[2020-03-31] MEDS: NPH, Human Insulin Isophane 300 UNIT/3 ML VIAL SC SCH ×2 (09:51→20:41)
[2020-03-31] MEDS: Bisoprolol Fumarate 5 MG TAB PO SCH (09:52)
[2020-03-31] MEDS ORDERED: Scopolamine 1.5 mg/72 hour Patch TD SCH (15:00)
--- NOTE | 2020-03-31 15:42 | PDOC.HOSPP ---
- Subjective Encounter Date: 03/31/20 Encounter Time: 09:30 Subjective: is on vent, mild sedation, follows verbal stimuli - Objective Vital Signs & Weight: Vital Signs (12 hours) Temp Pulse Resp BP Pulse Ox 03/31/20 15:20 69 03/31/20 13:07 101.1 F H 03/31/20 10:15 66 03/31/20 09:08 100.4 F H 03/31/20 09:04 66 160/75 H 03/31/20 08:00 100.4 F H 91 L 03/31/20 07:21 66 03/31/20 06:00 16 03/31/20 04:00 98.8 F 18 Weight Admit Weight 276 lb Weight 278 lb 14.156 oz Most Recent Monitor Data Heart Rate from ECG 73 NIBP 162/73 NIBP BP-Mean 102 Respiration from ECG 22 SpO2 94 I&O: 03/30/20 03/31/20 04/01/20 06:59 06:59 06:59 Intake Total 4898.2 5559.4 320 Output Total 3815 3180 950 Balance 1083.2 2379.4 -630 Result Diagrams: 03/31/20 03:36 03/31/20 03:36 Additional Labs: Accuchecks 03/31/20 03/31/20 03/31/20 12:30 08:13 03:39 POC Glucose 210 H 161 H 151 H 03/30/20 20:10 POC Glucose 154 H Hospitalist ROS - Medication Medications: Active Medications Generic Name Dose Route Start Last Admin Trade Name Freq PRN Reason Stop Dose Admin Acetaminophen 650 mg 03/18/20 14:41 03/31/20 13:07 Acetaminophen 325 Mg Tab PO 650 mg Q4H PRN Administration Headache/Fever/Mild Pain (1-3) Amlodipine Besylate 10 mg 03/21/20 09:00 03/31/20 09:04 Amlodipine 10 Mg Tab PER TUBE 10 mg DAILY SYDNEE Administration Apixaban 5 mg 03/20/20 21:00 03/31/20 09:04 Apixaban 5 Mg Tab PER TUBE 5 mg BID SYDNEE Administration Ascorbic Acid 1,000 mg 03/20/20 09:00 03/31/20 09:02 Ascorbic Acid 500 Mg Chewable Tablet PO 1,000 mg DAILY SYDNEE Administration Aspirin 81 mg 03/21/20 09:00 03/31/20 09:02 Aspirin Chewable 81 Mg Tab PO 81 mg DAILY SYDNEE Administration Atorvastatin Calcium 40 mg 03/18/20 21:00 03/30/20 20:24 Atorvastatin Calcium 40 Mg Tab PO 40 mg HS SYDNEE Administration Bisoprolol Fumarate 5 mg 03/19/20 09:00 03/31/20 09:52 Bisoprolol Fumarate 5 Mg Tab PO 5 mg DAILY SYDNEE Administration Cholecalciferol 400 units 03/20/20 09:00 03/31/20 09:02 Cholecalciferol (Vitamin D3) 400 Units Tab PO 400 units DAILY SYDNEE Administration Clonidine 0.1 mg 03/18/20 14:47 03/29/20 01:35 Clonidine 0.1 Mg Tab PO 0.1 mg Q4H PRN Administration SBP > 180 Clonidine 0.2 mg 03/21/20 15:00 03/28/20 09:39 Clonidine 0.2mg/24 Hour Patch TD 0.2 mg Q7DAYS@1500 SYDNEE Administration Dexamethasone 4 mg 03/25/20 09:00 03/31/20 09:04 Dexamethasone 4 Mg/Ml Vial SLOW IVP 4 mg DAILY SYDNEE Administration Docusate Sodium 100 mg 03/28/20 21:00 03/31/20 09:46 Docusate Sodium 100 Mg/10 Ml Udcup PO 100 mg BID SYDNEE Administration Doxazosin Mesylate 2 mg 03/19/20 09:00 03/31/20 09:02 Doxazosin 2 Mg Tab PO 2 mg DAILY SYDNEE Administration Dutasteride 0.5 mg 03/19/20 09:00 03/31/20 09:02 Dutasteride 0.5 Mg Cap PO 0.5 mg DAILY SYDNEE Administration Hydralazine HCl 20 mg 03/21/20 13:50 03/29/20 02:16 Hydralazine 20 Mg/Ml Vial SLOW IVP 20 mg Q4H PRN Administration SBP>170 Nicardipine HCl 25 mg/ Sodium 250 mls @ 0 mls/hr 03/21/20 19:30 03/22/20 10:41 Chloride IVPB 250 mls INF SYDNEE Administration Protocol Titrate Dexmedetomidine HCl 400 mcg/ 100 mls @ 0 mls/hr 03/28/20 08:45 03/31/20 14:52 Sodium Chloride IVPB 100 mls INF SYDNEE Administration Protocol Per Protocol Fentanyl 100 mls @ 0 mls/hr 03/30/20 14:30 03/30/20 15:44 Fentanyl Cadd IV 100 mls INF SYDNEE Administration Protocol Per Protocol Insulin Human Lispro 0 units 03/25/20 08:12 03/31/20 12:45 Humalog 300 Units/3 Ml Vial SC 6 unit .AGGRESSIVE SLIDING PRN Administration Aggressive Correctional Scale Insulin Human NPH 45 unit 03/25/20 09:00 03/31/20 09:51 Nph, Human Insulin Isophane 300 Unit/3 Ml Vial SC 45 unit BID SYDNEE Administration Labetalol HCl 40 mg 03/21/20 07:34 03/29/20 00:17 Labetalol Hcl 100 Mg/20 Ml Vial SLOW IVP 8 ml Q4H PRN Administration SBP Greater Than 180 Lorazepam 2 mg 03/30/20 14:27 03/31/20 15:10 Lorazepam 2 Mg/Ml Vial SLOW IVP 2 mg Q1H PRN Administration Breakthrough agitation Magnesium Hydroxide 30 ml 03/28/20 12:06 03/29/20 09:07 Milk Of Magnesia 30 Ml Udcup PO 30 ml DAILYPRN PRN Administration Constipation Minoxidil 5 mg 03/24/20 09:00 03/31/20 09:02 Minoxidil 2.5 Mg Tab PER TUBE 5 mg DAILY SYDNEE Administration Pantoprazole Sodium 40 mg 03/21/20 09:00 03/31/20 09:02 Pantoprazole 40 Mg Granules Packet PER TUBE 40 mg DAILY SYDNEE Administration Vecuronium [place] 10 mg 03/20/20 12:37 03/22/20 13:44 Vecuronium 10 Mg Vial IVP 10 mg Q30MIN PRN Administration Agitation Zinc Sulfate 220 mg 03/20/20 09:00 03/31/20 09:02 Zinc Sulfate 220 Mg Cap PO 220 mg DAILY SYDNEE Administration - Exam General Appearance: awake alert Eye: PERRL, anicteric sclera ENT: no oropharyngeal lesions, moist mucosa Neck: supple, no JVD Heart: RRR, no murmur Respiratory: no wheezes, rales, rhonchi Gastrointestinal: soft, non-tender, non-distended, normal bowel sounds Extremities: no cyanosis, no edema Neurological: cranial nerve grossly intact, no focal deficits Hosp A/P (1) Pneumonia due to COVID-19 virus Code(s): U07.1 - COVID-19; J12.82 - PNEUMONIA DUE TO CORONAVIRUS DISEASE 2019 Status: Acute (2) Acute respiratory failure with hypoxia Code(s): J96.01 - ACUTE RESPIRATORY FAILURE WITH HYPOXIA Status: Acute (3) Acute worsening of stage 3 chronic kidney disease Code(s): N18.30 - CHRONIC KIDNEY DISEASE, STAGE 3 UNSPECIFIED Status: Acute (4) Hyponatremia Code(s): E87.1 - HYPO-OSMOLALITY AND HYPONATREMIA Status: Resolved (5) Diabetes mellitus Code(s): E11.9 - TYPE 2 DIABETES MELLITUS WITHOUT COMPLICATIONS Status: Chronic Qualifiers: Diabetes mellitus care 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 insulin 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 Diabetes mellitus complication status: with kidney complications Diabetes mellitus complication detail: with chronic kidney disease Chronic kidney disease stage: stage 3 (moderate) (6) Obesity Code(s): E66.9 - OBESITY, UNSPECIFIED Status: Chronic Qualifiers: Obesity classification: adult class 2 (BMI 35 - 39.9) (7) BPH (benign prostatic hyperplasia) Code(s): N40.0 - BENIGN PROSTATIC HYPERPLASIA WITHOUT LOWER URINRY TRACT SYMP Status: Chronic Qualifiers: Lower urinary tract symptom presence: symptoms absent Qualified Code(s): N40.0 - Benign prostatic hyperplasia without lower urinary tract symptoms (8) Hyperlipidemia Code(s): E78.5 - HYPERLIPIDEMIA, UNSPECIFIED Status: Chronic Qualifiers: Hyperlipidemia type: unspecified Qualified Code(s): E78.5 - Hyperlipidemia, unspecified - Plan is on dexamethasone, alb inh, weaning per pulm advice continue asp, lipitor, bisoprolol, eliquis, minoxidil, clonidine tts, avodart, doxazosin, protonix and nph insulin hemostable d/w son [place] [phone] and gave full updates.
--- NOTE | 2020-03-31 15:51 | PRG ---
DATE OF SERVICE: 03/31/2020 SUBJECTIVE: Aureliano Woods remains mechanically ventilated. He is day 12 into the hospitalization. He is having some secretion issues, so I have added scopolamine patch. He had a COVID test 7 days prior to admission, so he is actually 19 days into this. OBJECTIVE: VITAL SIGNS: He had a temperature spiked to 101, blood pressure 160/73, heart rate 73. LUNGS: Remarkable for coarse equal breath sounds. HEART: Regular rhythm. ABDOMEN: Soft. LABORATORY DATA: White count 8.8, hemoglobin 9.6, platelets 182. Sodium 145, potassium 4.8, chloride 109, bicarb 27, BUN 88, and creatinine 2.05. Intake and output positive 2379. Weight is 278, weight on admission is reported as 285, but the weights are all over the place, so I am not sure what his true weight is. Chest x-ray is unchanged. IMPRESSION: 1. COVID pneumonia, respiratory failure, now probably 19 days into his illness. 2. Fever, needs to be re-cultured. Empiric antibiotics will be started. Job ID: [id number]
[2020-03-31] MEDS ORDERED: Meropenem 2 GM in Admixture Fee 1 EACH IVPB SCH (16:00)
[2020-03-31] MEDS: Milk Of Magnesia 30 ML UDCUP PO PRN (16:00)
[2020-03-31] MEDS: Vancomycin 1 GM in Premix Bag 1 BAG IVPB SCH (16:40)
[2020-03-31] MEDS: Atorvastatin Calcium 40 MG TAB PO SCH (20:40)
[2020-03-31] MEDS: Meropenem 2 GM in Sodium Chloride 0.9% 100 ML IVPB SCH (23:13)
[2020-04-01] MEDS ORDERED: Meropenem 2 GM in Sodium Chloride 0.9% 100 ML IVPB SCH
[2020-04-01] MEDS: Lorazepam 2 MG/ML VIAL SLOW IVP PRN ×2 (01:30→08:56)
[2020-04-01] MEDS: Vancomycin 1 GM in Premix Bag 1 BAG IVPB SCH ×2 (02:35→15:56)
[2020-04-01] MEDS: HumaLOG 300 UNITS/3 ML VIAL SC PRN ×2 (03:53→08:21)
[2020-04-01 04:22] LABS: #Basophils 0.1 thou/uL (0.0-0.2); #Eosinphils 0.1 thou/uL (0.0-0.7); #Lymphocytes 1.1 thou/uL (1.20-3.40); #Neutrophils 7.2 thou/uL (1.40-6.50); %Basophils 0.8 % (0.0-1.0); %Eosinophils 0.7 % (0.0-10.0); %Lymphocytes 11.8 % (21.0-51.0); %Monocytes 10.6 % (0.0-10.0); %Neutrophils 76.1 % (42.0-75.0); Hemoglobin 8.9 g/dL (14.0-18.0); Mean Corpuscular HGB CONC 32.8 g/dL (32.0-36.0); Mean Corpuscular Hemoglobin 30.9 pg (27.0-31.0); Mean Corpuscular Volume 94.1 fL (78.0-98.0); Mean Platelet Volume 10.4 fL (7.4-10.4); Platelet Count 174 thou/uL (130-400); RBC Distribution Width 11.6 % (11.5-14.5); Red Blood Cell (RBC) Count 2.89 mill/uL (4.70-6.10); White Blood Cell (WBC) Count 9.5 thou/uL (4.8-10.8)
[2020-04-01 04:45] LABS: Anion Gap 14 mmol/L (10-20); BUN (Urea Nitrogen) 90 mg/dL (8.4-25.7); Calc. Creatinine Clearance 57 mL/min (70-130); Calcium 8.9 mg/dL (7.8-10.44); Carbon Dioxide 28 mmol/L (23-31); Chloride 109 mmol/L (98-107); Glucose 205 mg/dL (83-110); Potassium 4.7 mmol/L (3.5-5.1); Sodium 146 mmol/L (136-145)
[2020-04-01] MEDS ORDERED: Fentanyl CADD 100 ML ONE (05:42)
[2020-04-01] MEDS: Meropenem 2 GM in Sodium Chloride 0.9% 100 ML IVPB SCH ×3 (08:20→23:35)
[2020-04-01] MEDS: Bisoprolol Fumarate 5 MG TAB PO SCH (08:21)
[2020-04-01] MEDS: NPH, Human Insulin Isophane 300 UNIT/3 ML VIAL SC SCH ×2 (08:21→21:28)
[2020-04-01] MEDS: Dexamethasone 4 mg/ml Vial SLOW IVP SCH ×2 (08:30→08:47)
[2020-04-01] MEDS: Zinc Sulfate 220 MG CAP PO SCH (08:47)
[2020-04-01] MEDS: Amlodipine 10 MG TAB PER TUBE SCH (08:47)
[2020-04-01] MEDS: Pantoprazole 40 MG GRANULES PACKET PER TUBE SCH (08:47)
[2020-04-01] MEDS: Cholecalciferol (Vitamin D3) 400 UNITS TAB PO SCH (08:47)
[2020-04-01] MEDS: Aspirin Chewable 81 MG TAB PO SCH (08:47)
[2020-04-01] MEDS: Apixaban 5 MG TAB PER TUBE SCH ×2 (08:47→20:59)
[2020-04-01] MEDS: Minoxidil 2.5 MG TAB PER TUBE SCH (08:47)
[2020-04-01] MEDS: Dutasteride 0.5 MG CAP PO SCH (08:47)
[2020-04-01] MEDS: Doxazosin 2 MG TAB PO SCH (08:51)
[2020-04-01] MEDS: Docusate Sodium 100 MG/10 ML UDCUP PO SCH ×2 (08:51→20:59)
[2020-04-01] MEDS: Ascorbic Acid 500 mg Chewable Tablet PO SCH (08:51)
--- NOTE | 2020-04-01 08:57 | PRG ---
DATE OF SERVICE: 04/01/2020 35 minutes critical time. SUBJECTIVE: Mr. Woods is awake, alert, follows all commands for me today. He has been on CPAP 5, pressure support 10 overnight. OBJECTIVE: VITAL SIGNS: His temperature is 99.0 with a T-max of 101.6 yesterday, pulse 65, blood pressure 137/66, 24 hour intake 4426, output 3235. HEENT: Unremarkable. NECK: No adenopathy or JVD. LUNGS: Coarse breath sounds. CARDIAC: S1, S2. Regular. ABDOMEN: Soft. EXTREMITIES: No edema. LABORATORY DATA: Sodium 146, potassium 4.7, chloride 109, CO2 28, BUN 90, creatinine 2.1, glucose 205. White blood cell count 9.5, hematocrit 37.2, and platelet count 174. IMAGING: His x-ray continues to show bilateral infiltrates. ASSESSMENT: 1. COVID-19 pneumonia. 2. Fever yesterday-empiric started, meropenem and vancomycin. 3. Very much improved gas exchange. PLAN: We will go ahead and extubate and see how he does. He is still 2 days away from being able to come out of isolation. His blood sugars seem to be reasonably well controlled. His sodium is somewhat high, indicating mild free water deficit. Job ID: [id number]
--- NOTE | 2020-04-01 09:46 | RAD ---
CHEST 1 VIEW: HISTORY: Followup pneumonia. COMPARISON: 03/31/2020. FINDINGS: Life support tubes stable in place. Poor inspiratory effort with bilateral interstitial, alveolar, a nd ground-glass opacity changes, evidence for bilateral COVID pneumonia, little overall change. IMPRESSION: Evidence for stable bilateral COVID pneumonia. POS: OFF
[2020-04-01 14:46] LABS: Vancomycin, Trough 15.1 ug/mL
--- NOTE | 2020-04-01 15:18 | PDOC.HOSPP ---
- Subjective Encounter Date: 04/01/20 Encounter Time: 08:45 Subjective: awake, follows verbal stimuli, is on vent, minimal sedation - Objective Vital Signs & Weight: Vital Signs (12 hours) Temp Pulse Resp BP Pulse Ox 04/01/20 13:47 98 04/01/20 09:00 94 L 04/01/20 08:47 64 147/66 H 04/01/20 08:00 95 04/01/20 07:01 64 147/66 H 04/01/20 06:00 22 H 04/01/20 04:00 99.0 F 21 H Weight Admit Weight 276 lb Weight 278 lb 3.574 oz Most Recent Monitor Data Heart Rate from ECG 88 NIBP 151/67 NIBP BP-Mean 95 Respiration from ECG 30 SpO2 94 I&O: 03/31/20 04/01/20 04/02/20 06:59 06:59 06:59 Intake Total 5559.4 4426 340 Output Total 3180 3235 1200 Balance 2379.4 1191 -860 Result Diagrams: 04/01/20 03:50 04/01/20 03:50 Additional Labs: Accuchecks 04/01/20 04/01/20 04/01/20 13:46 11:37 08:07 POC Glucose 110 H 142 H 184 H 04/01/20 03/31/20 03/31/20 03:40 23:20 20:18 POC Glucose 191 H 194 H 269 H 03/31/20 03/30/20 03/30/20 16:28 15:48 08:42 POC Glucose 238 H 202 H 171 H 03/29/20 15:36 POC Glucose 251 H Hospitalist ROS - Medication Medications: Active Medications Generic Name Dose Route Start Last Admin Trade Name Freq PRN Reason Stop Dose Admin Acetaminophen 650 mg 03/18/20 14:41 03/31/20 17:51 Acetaminophen 325 Mg Tab PO 650 mg Q4H PRN Administration Headache/Fever/Mild Pain (1-3) Amlodipine Besylate 10 mg 03/21/20 09:00 04/01/20 08:47 Amlodipine 10 Mg Tab PER TUBE 10 mg DAILY SYDNEE Administration Apixaban 5 mg 03/20/20 21:00 04/01/20 08:47 Apixaban 5 Mg Tab PER TUBE 5 mg BID SYDNEE Administration Ascorbic Acid 1,000 mg 03/20/20 09:00 04/01/20 08:51 Ascorbic Acid 500 Mg Chewable Tablet PO 1,000 mg DAILY SYDNEE Administration Aspirin 81 mg 03/21/20 09:00 04/01/20 08:47 Aspirin Chewable 81 Mg Tab PO 81 mg DAILY SYDNEE Administration Atorvastatin Calcium 40 mg 03/18/20 21:00 03/31/20 20:40 Atorvastatin Calcium 40 Mg Tab PO 40 mg HS SYDNEE Administration Bisoprolol Fumarate 5 mg 03/19/20 09:00 04/01/20 08:21 Bisoprolol Fumarate 5 Mg Tab PO 5 mg DAILY SYDNEE Administration Cholecalciferol 400 units 03/20/20 09:00 04/01/20 08:47 Cholecalciferol (Vitamin D3) 400 Units Tab PO 400 units DAILY SYDNEE Administration Clonidine 0.1 mg 03/18/20 14:47 03/29/20 01:35 Clonidine 0.1 Mg Tab PO 0.1 mg Q4H PRN Administration SBP > 180 Clonidine 0.2 mg 03/21/20 15:00 03/28/20 09:39 Clonidine 0.2mg/24 Hour Patch TD 0.2 mg Q7DAYS@1500 SYDNEE Administration Dexamethasone 4 mg 03/25/20 09:00 04/01/20 08:30 Dexamethasone 4 Mg/Ml Vial SLOW IVP 4 mg DAILY SYDNEE Administration Docusate Sodium 100 mg 03/28/20 21:00 04/01/20 08:51 Docusate Sodium 100 Mg/10 Ml Udcup PO 100 mg BID SYDNEE Administration Doxazosin Mesylate 2 mg 03/19/20 09:00 04/01/20 08:51 Doxazosin 2 Mg Tab PO 2 mg DAILY SYDNEE Administration Dutasteride 0.5 mg 03/19/20 09:00 04/01/20 08:47 Dutasteride 0.5 Mg Cap PO 0.5 mg DAILY SYDNEE Administration Hydralazine HCl 20 mg 03/21/20 13:50 03/29/20 02:16 Hydralazine 20 Mg/Ml Vial SLOW IVP 20 mg Q4H PRN Administration SBP>170 Nicardipine HCl 25 mg/ Sodium 250 mls @ 0 mls/hr 03/21/20 19:30 03/22/20 10:41 Chloride IVPB 250 mls INF SYDNEE Administration Protocol Titrate Dexmedetomidine HCl 400 mcg/ 100 mls @ 0 mls/hr 03/28/20 08:45 04/01/20 11:17 Sodium Chloride IVPB 100 mls INF SYDNEE Administration Protocol Per Protocol Vancomycin HCl 1 gm/ Device 200 mls @ 200 mls/hr 03/31/20 15:00 04/01/20 02:35 IVPB 200 mls 0300,1500 SYDNEE Administration Meropenem 2 gm/ Sodium 100 mls @ 0 mls/hr 04/01/20 00:00 04/01/20 08:20 Chloride IVPB 100 mls 0000,0800,1600 SYDNEE Administration Insulin Human Lispro 0 units 03/25/20 08:12 04/01/20 08:21 Humalog 300 Units/3 Ml Vial SC 3 unit .AGGRESSIVE SLIDING PRN Administration Aggressive Correctional Scale Insulin Human NPH 45 unit 03/25/20 09:00 04/01/20 08:21 Nph, Human Insulin Isophane 300 Unit/3 Ml Vial SC 45 unit BID SYDNEE Administration Labetalol HCl 40 mg 03/21/20 07:34 03/29/20 00:17 Labetalol Hcl 100 Mg/20 Ml Vial SLOW IVP 8 ml Q4H PRN Administration SBP Greater Than 180 Lorazepam 2 mg 03/30/20 14:27 04/01/20 08:56 Lorazepam 2 Mg/Ml Vial SLOW IVP 2 mg Q1H PRN Administration Breakthrough agitation Magnesium Hydroxide 30 ml 03/28/20 12:06 03/31/20 16:00 Milk Of Magnesia 30 Ml Udcup PO 30 ml DAILYPRN PRN Administration Constipation Minoxidil 5 mg 03/24/20 09:00 04/01/20 08:47 Minoxidil 2.5 Mg Tab PER TUBE 5 mg DAILY SYDNEE Administration Pantoprazole Sodium 40 mg 03/21/20 09:00 04/01/20 08:47 Pantoprazole 40 Mg Granules Packet PER TUBE 40 mg DAILY SYDNEE Administration Scopolamine 1.5 mg 03/31/20 15:00 03/31/20 16:41 Scopolamine 1.5 Mg/72 Hour Patch TD 1.5 mg Q3D SYDNEE Administration Sodium Chloride 10 ml 03/31/20 21:00 04/01/20 08:48 Flush - Normal Saline 10 Ml Syringe IVF 10 ml Q12HR SYDNEE Administration Vecuronium [place] 10 mg 03/20/20 12:37 03/22/20 13:44 Vecuronium 10 Mg Vial IVP 10 mg Q30MIN PRN Administration Agitation Zinc Sulfate 220 mg 03/20/20 09:00 04/01/20 08:47 Zinc Sulfate 220 Mg Cap PO 220 mg DAILY SYDNEE Administration - Exam Eye: PERRL, anicteric sclera ENT: no oropharyngeal lesions, moist mucosa Neck: supple, no JVD Heart: RRR, no murmur Respiratory: no wheezes, no rales, rhonchi Gastrointestinal: soft, non-tender, non-distended, normal bowel sounds Extremities: no cyanosis, no edema Neurological: cranial nerve grossly intact, no focal deficits Hosp A/P (1) Pneumonia due to COVID-19 virus Code(s): U07.1 - COVID-19; J12.82 - PNEUMONIA DUE TO CORONAVIRUS DISEASE 2019 Status: Acute (2) Acute respiratory failure with hypoxia Code(s): J96.01 - ACUTE RESPIRATORY FAILURE WITH HYPOXIA Status: Acute (3) Acute worsening of stage 3 chronic kidney disease Code(s): N18.30 - CHRONIC KIDNEY DISEASE, STAGE 3 UNSPECIFIED Status: Acute (4) Hyponatremia Code(s): E87.1 - HYPO-OSMOLALITY AND HYPONATREMIA Status: Resolved (5) Diabetes mellitus Code(s): E11.9 - TYPE 2 DIABETES MELLITUS WITHOUT COMPLICATIONS Status: Chronic Qualifiers: Diabetes mellitus 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: with watermelon inspector use Diabetes mellitus complication status: with kidney complications Diabetes mellitus complication detail: with chronic kidney disease Chronic kidney disease stage: stage 3 (moderate) (6) Obesity Code(s): E66.9 - OBESITY, UNSPECIFIED Status: Chronic Qualifiers: Obesity classification: adult class 2 (BMI 35 - 39.9) (7) BPH (benign prostatic hyperplasia) Code(s): N40.0 - BENIGN PROSTATIC HYPERPLASIA WITHOUT LOWER URINRY TRACT SYMP Status: Chronic Qualifiers: Lower urinary tract symptom presence: symptoms absent Qualified Code(s): N40.0 - Benign prostatic hyperplasia without lower urinary tract symptoms (8) Hyperlipidemia Code(s): E78.5 - HYPERLIPIDEMIA, UNSPECIFIED Status: Chronic Qualifiers: Hyperlipidemia type: unspecified Qualified Code(s): E78.5 - Hyperlipidemia, unspecified - Plan is on dexamethasone, alb inh, will get likely get extubated today continue asp, lipitor, bisoprolol, eliquis, minoxidil, clonidine tts, avodart, doxazosin, protonix and nph insulin hemostable d/w son Mr.Wesley Woods [phone] and gave full updates 03/31, 04/01.
[2020-04-01] MEDS: Atorvastatin Calcium 40 MG TAB PO SCH (20:59)
[2020-04-02] MEDS: Vancomycin 1 GM in Premix Bag 1 BAG IVPB SCH (03:52)
[2020-04-02 04:45] LABS: #Monocytes 1.2 thou/uL (0.11-0.59); %Basophils 0.3 % (0.0-1.0); %Eosinophils 0.3 % (0.0-10.0); %Lymphocytes 8.4 % (21.0-51.0); %Monocytes 10.1 % (0.0-10.0); %Neutrophils 80.9 % (42.0-75.0); Hemoglobin 9.8 g/dL (14.0-18.0); Mean Corpuscular HGB CONC 34.2 g/dL (32.0-36.0); Mean Corpuscular Volume 93.7 fL (78.0-98.0); Mean Platelet Volume 10.4 fL (7.4-10.4); Platelet Count 180 thou/uL (130-400); RBC Distribution Width 11.7 % (11.5-14.5); Red Blood Cell (RBC) Count 3.05 mill/uL (4.70-6.10); White Blood Cell (WBC) Count 12.3 thou/uL (4.8-10.8)
[2020-04-02 05:09] LABS: Anion Gap 16 mmol/L (10-20); BUN (Urea Nitrogen) 79 mg/dL (8.4-25.7); Calc. Creatinine Clearance 55 mL/min (70-130); Calcium 9.3 mg/dL (7.8-10.44); Carbon Dioxide 26 mmol/L (23-31); Chloride 112 mmol/L (98-107); Glucose 108 mg/dL (83-110); Potassium 4.2 mmol/L (3.5-5.1); Sodium 150 mmol/L (136-145)
[2020-04-02] MEDS: Meropenem 2 GM in Sodium Chloride 0.9% 100 ML IVPB SCH ×2 (07:45→15:52)
[2020-04-02] MEDS: Dexamethasone 4 mg/ml Vial SLOW IVP SCH (08:08)
--- NOTE | 2020-04-02 08:11 | RAD ---
Portable semiupright frontal chest radiograph: 04/02/2020 COMPARISON: 04/01/2020 HISTORY: Pneumonia FINDINGS: There is no pneumothorax seen. The endotracheal tube and nasogastric tube have been removed . There is interstitial opacity in the perihilar regions and both lung bases with superimposed airspace disease/groundglass opacity, most prominent within the lung bases. IMPRESSION: Interval removal of endotracheal tube and nasogastric tube-otherwise unchanged.
[2020-04-02] MEDS: Dextrose 5% in Water 1,000 ML IV SCH ×2 (08:57→22:03)
--- NOTE | 2020-04-02 08:57 | PRG ---
DATE OF SERVICE: 04/02/2020 SUBJECTIVE: The patient was successfully extubated yesterday. OBJECTIVE: GENERAL: He is awake, alert, talkative. VITAL SIGNS: Temperature 99.1, pulse 92, blood pressure 165/69. 24-hour intake 1370, output 3910. HEENT: Unremarkable. NECK: No adenopathy or JVD. LUNGS: Fairly clear anteriorly. CARDIAC: S1, S2, regular. ABDOMEN: Soft. EXTREMITIES: Trace edema. IMAGING STUDIES: His x-ray shows improving bilateral infiltrates and interval removal of his endotracheal tube. LABORATORY DATA: Sodium 150, potassium 4.2, chloride 112, CO2 of 26, BUN 79, creatinine 2.1, and glucose 108. White blood cell count 12.3, hematocrit 28.6, and platelet count 180. ASSESSMENT: 1. COVID-19 pneumonia. 2. Status post acute respiratory failure requiring mechanical ventilation. 3. Hypernatremia with a free water deficit. PLAN: 1. Stop Precedex. 2. Stop vancomycin since nothing has grown out of his cultures. 3. Add free water. 4. Reduce the NPH dose. Job ID: [id number]
[2020-04-02] MEDS: Apixaban 5 MG TAB PER TUBE SCH ×2 (10:46→21:13)
[2020-04-02] MEDS: Aspirin Chewable 81 MG TAB PO SCH (10:46)
[2020-04-02] MEDS: Ascorbic Acid 500 mg Chewable Tablet PO SCH (10:46)
[2020-04-02] MEDS: Bisoprolol Fumarate 5 MG TAB PO SCH (10:46)
[2020-04-02] MEDS: Amlodipine 10 MG TAB PER TUBE SCH (10:46)
[2020-04-02] MEDS: Zinc Sulfate 220 MG CAP PO SCH (10:46)
[2020-04-02] MEDS: Dutasteride 0.5 MG CAP PO SCH (10:46)
[2020-04-02] MEDS: Docusate Sodium 100 MG/10 ML UDCUP PO SCH ×2 (10:46→21:13)
[2020-04-02] MEDS: Minoxidil 2.5 MG TAB PER TUBE SCH (10:46)
[2020-04-02] MEDS: Doxazosin 2 MG TAB PO SCH (10:46)
[2020-04-02] MEDS: Cholecalciferol (Vitamin D3) 400 UNITS TAB PO SCH (10:46)
[2020-04-02] MEDS: Pantoprazole 40 MG GRANULES PACKET PER TUBE SCH (10:47)
[2020-04-02] MEDS: HumaLOG 300 UNITS/3 ML VIAL SC PRN ×3 (11:22→21:25)
[2020-04-02] MEDS: Labetalol HCl 100 MG/20 ML VIAL SLOW IVP PRN (11:35)
--- NOTE | 2020-04-02 16:12 | PDOC.HOSPP ---
- Subjective Encounter Date: 04/02/20 Encounter Time: 08:45 Subjective: got extubated yesterday, doing well, is on high flow oriented well, says he has 3 children 2 girls and a boy, 8 grand kids which is all accurate and confirmed with son over phone lethargic/freq yawing but easily arousable, is moving all extremities - Objective Vital Signs & Weight: Vital Signs (12 hours) Temp Pulse Pulse Pulse BP BP BP 04/02/20 15:24 04/02/20 12:00 99.8 F H 04/02/20 11:35 95 189/88 H 04/02/20 10:46 64 147/66 H 04/02/20 10:32 94 93 167/70 H 154/72 H 04/02/20 08:00 99.8 F H Pulse Ox Pulse Ox Pulse Ox 04/02/20 15:24 92 L 04/02/20 12:00 04/02/20 11:35 04/02/20 10:46 04/02/20 10:32 95 95 04/02/20 08:00 93 L Weight Admit Weight 276 lb Weight 272 lb 0.807 oz Most Recent Monitor Data Heart Rate from ECG 88 NIBP 146/64 NIBP BP-Mean 91 Respiration from ECG 23 SpO2 92 I&O: 04/01/20 04/02/20 04/03/20 06:59 06:59 06:59 Intake Total 4426 1370.4 990 Output Total 3235 3910 1220 Balance 1191 -2539.6 -230 Result Diagrams: 04/02/20 04:10 04/02/20 04:10 Additional Labs: Accuchecks 04/02/20 04/02/20 04/02/20 15:20 10:59 07:50 POC Glucose 256 H 205 H 127 H 04/02/20 04/02/20 04/01/20 04:20 00:21 21:16 POC Glucose 100 111 H 130 H 04/01/20 04/01/20 17:54 16:17 POC Glucose 132 H 117 H Hospitalist ROS - Medication Medications: Active Medications Generic Name Dose Route Start Last Admin Trade Name Freq PRN Reason Stop Dose Admin Acetaminophen 650 mg 03/18/20 14:41 03/31/20 17:51 Acetaminophen 325 Mg Tab PO 650 mg Q4H PRN Administration Headache/Fever/Mild Pain (1-3) Amlodipine Besylate 10 mg 03/21/20 09:00 04/02/20 10:46 Amlodipine 10 Mg Tab PER TUBE 10 mg DAILY SYDNEE Administration Apixaban 5 mg 03/20/20 21:00 04/02/20 10:46 Apixaban 5 Mg Tab PER TUBE 5 mg BID SYDNEE Administration Ascorbic Acid 1,000 mg 03/20/20 09:00 04/02/20 10:46 Ascorbic Acid 500 Mg Chewable Tablet PO 1,000 mg DAILY SYDNEE Administration Aspirin 81 mg 03/21/20 09:00 04/02/20 10:46 Aspirin Chewable 81 Mg Tab PO 81 mg DAILY SYDNEE Administration Atorvastatin Calcium 40 mg 03/18/20 21:00 04/01/20 20:59 Atorvastatin Calcium 40 Mg Tab PO Not Given HS [facility] Bisoprolol Fumarate 5 mg 03/19/20 09:00 04/02/20 10:46 Bisoprolol Fumarate 5 Mg Tab PO 5 mg DAILY SYDNEE Administration Cholecalciferol 400 units 03/20/20 09:00 04/02/20 10:46 Cholecalciferol (Vitamin D3) 400 Units Tab PO 400 units DAILY SYDNEE Administration Clonidine 0.1 mg 03/18/20 14:47 03/29/20 01:35 Clonidine 0.1 Mg Tab PO 0.1 mg Q4H PRN Administration SBP > 180 Clonidine 0.2 mg 03/21/20 15:00 03/28/20 09:39 Clonidine 0.2mg/24 Hour Patch TD 0.2 mg Q7DAYS@1500 SYDNEE Administration Dexamethasone 4 mg 03/25/20 09:00 04/02/20 08:08 Dexamethasone 4 Mg/Ml Vial SLOW IVP 4 mg DAILY SYDNEE Administration Docusate Sodium 100 mg 03/28/20 21:00 04/02/20 10:46 Docusate Sodium 100 Mg/10 Ml Udcup PO 100 mg BID SYDNEE Administration Doxazosin Mesylate 2 mg 03/19/20 09:00 04/02/20 10:46 Doxazosin 2 Mg Tab PO 2 mg DAILY SYDNEE Administration Dutasteride 0.5 mg 03/19/20 09:00 04/02/20 10:46 Dutasteride 0.5 Mg Cap PO 0.5 mg DAILY SYDNEE Administration Hydralazine HCl 20 mg 03/21/20 13:50 03/29/20 02:16 Hydralazine 20 Mg/Ml Vial SLOW IVP 20 mg Q4H PRN Administration SBP>170 Nicardipine HCl 25 mg/ Sodium 250 mls @ 0 mls/hr 03/21/20 19:30 03/22/20 10:41 Chloride IVPB 250 mls INF SYDNEE Administration Protocol Titrate Meropenem 2 gm/ Sodium 100 mls @ 0 mls/hr 04/01/20 00:00 04/02/20 15:52 Chloride IVPB 100 mls 0000,0800,1600 SYDNEE Administration Dextrose/Water 1,000 mls @ 75 mls/hr 04/02/20 08:45 04/02/20 08:57 D5w IV 04/03/20 11:24 1,000 mls .[id number] SYDNEE Administration Insulin Human Lispro 0 units 03/25/20 08:12 04/02/20 15:22 Humalog 300 Units/3 Ml Vial SC 9 unit .AGGRESSIVE SLIDING PRN Administration Aggressive Correctional Scale Labetalol HCl 40 mg 03/21/20 07:34 04/02/20 11:35 Labetalol Hcl 100 Mg/20 Ml Vial SLOW IVP 8 ml Q4H PRN Administration SBP Greater Than 180 Lorazepam 2 mg 03/30/20 14:27 04/01/20 08:56 Lorazepam 2 Mg/Ml Vial SLOW IVP 2 mg Q1H PRN Administration Breakthrough agitation Magnesium Hydroxide 30 ml 03/28/20 12:06 03/31/20 16:00 Milk Of Magnesia 30 Ml Udcup PO 30 ml DAILYPRN PRN Administration Constipation Minoxidil 5 mg 03/24/20 09:00 04/02/20 10:46 Minoxidil 2.5 Mg Tab PER TUBE 5 mg DAILY SYDNEE Administration Pantoprazole Sodium 40 mg 03/21/20 09:00 04/02/20 10:47 Pantoprazole 40 Mg Granules Packet PER TUBE 40 mg DAILY SYDNEE Administration Sodium Chloride 10 ml 03/31/20 21:00 04/02/20 08:57 Flush - Normal Saline 10 Ml Syringe IVF 10 ml Q12HR SYDNEE Administration Vecuronium [place] 10 mg 03/20/20 12:37 03/22/20 13:44 Vecuronium 10 Mg Vial IVP 10 mg Q30MIN PRN Administration Agitation Zinc Sulfate 220 mg 03/20/20 09:00 04/02/20 10:46 Zinc Sulfate 220 Mg Cap PO 220 mg DAILY SYDNEE Administration Hospitalist Exam Vitals: Vital Signs (12 hours) Temp Pulse Pulse Pulse BP BP BP 04/02/20 15:24 04/02/20 12:00 99.8 F H 04/02/20 11:35 95 189/88 H 04/02/20 10:46 64 147/66 H 04/02/20 10:32 94 93 167/70 H 154/72 H 04/02/20 08:00 99.8 F H Pulse Ox Pulse Ox Pulse Ox 04/02/20 15:24 92 L 04/02/20 12:00 04/02/20 11:35 04/02/20 10:46 04/02/20 10:32 95 95 04/02/20 08:00 93 L Weight Admit Weight 276 lb Weight 272 lb 0.807 oz Most Recent Monitor Data Heart Rate from ECG 88 NIBP 146/64 NIBP BP-Mean 91 Respiration from ECG 23 SpO2 92 Eye: PERRL, anicteric sclera ENT: no oropharyngeal lesions, dry oral mucosa Neck: supple, no JVD Heart: RRR, no murmur Respiratory: no wheezes, no rales, rhonchi Gastrointestinal: soft, non-tender, non-distended, normal bowel sounds Extremities: no cyanosis, 1+ LE edema Neurological: cranial nerve grossly intact, no focal deficits Hosp A/P (1) Pneumonia due to COVID-19 virus Code(s): U07.1 - COVID-19; J12.82 - PNEUMONIA DUE TO CORONAVIRUS DISEASE 2019 Status: Acute (2) Acute respiratory failure with hypoxia Code(s): J96.01 - ACUTE RESPIRATORY FAILURE WITH HYPOXIA Status: Acute (3) Acute worsening of stage 3 chronic kidney disease Code(s): N18.30 - CHRONIC KIDNEY DISEASE, STAGE 3 UNSPECIFIED Status: Acute (4) Hyponatremia Code(s): E87.1 - HYPO-OSMOLALITY AND HYPONATREMIA Status: Resolved (5) Diabetes mellitus Code(s): E11.9 - TYPE 2 DIABETES MELLITUS WITHOUT COMPLICATIONS Status: Chronic Qualifiers: Diabetes mellitus shelter insulin use: with shelter use Diabetes mellitus complication status: with kidney complications Diabetes mellitus complication detail: with chronic kidney disease Chronic kidney disease stage: stage 3 (moderate) (6) Obesity Code(s): E66.9 - OBESITY, UNSPECIFIED Status: Chronic Qualifiers: Obesity classification: adult class 2 (BMI 35 - 39.9) (7) BPH (benign prostatic hyperplasia) Code(s): N40.0 - BENIGN PROSTATIC HYPERPLASIA WITHOUT LOWER URINRY TRACT SYMP Status: Chronic Qualifiers: Lower urinary tract symptom presence: symptoms absent Qualified Code(s): N40.0 - Benign prostatic hyperplasia without lower urinary tract symptoms (8) Hyperlipidemia Code(s): E78.5 - HYPERLIPIDEMIA, UNSPECIFIED Status: Chronic Qualifiers: Hyperlipidemia type: unspecified Qualified Code(s): E78.5 - Hyperlipidemia, unspecified - Plan is on dexamethasone, alb inh, extuabated on 04/01/2020, doing well continue asp, lipitor, bisoprolol, eliquis, minoxidil, clonidine tts, avodart, doxazosin, protonix and nph insulin hemostable d/w son Mr.Wesley Woods [phone] and gave full updates 03/31, 04/01, 04/02. He will be off precautions from tomorrow encourage po intake, needs family to engage to keep him awake and eat PT eval
[2020-04-02] MEDS: Atorvastatin Calcium 40 MG TAB PO SCH (21:12)
[2020-04-03] MEDS: Meropenem 2 GM in Sodium Chloride 0.9% 100 ML IVPB SCH ×3 (00:54→17:42)
[2020-04-03 03:40] LABS: #Basophils 0.1 thou/uL (0.0-0.2); #Eosinphils 0.2 thou/uL (0.0-0.7); #Lymphocytes 1.5 thou/uL (1.20-3.40); #Monocytes 1.1 thou/uL (0.11-0.59); #Neutrophils 8.3 thou/uL (1.40-6.50); %Basophils 0.6 % (0.0-1.0); %Monocytes 10.1 % (0.0-10.0); %Neutrophils 74.3 % (42.0-75.0); Hemoglobin 10.5 g/dL (14.0-18.0); Mean Corpuscular Hemoglobin 30.7 pg (27.0-31.0); Mean Corpuscular Volume 93.2 fL (78.0-98.0); Mean Platelet Volume 10.2 fL (7.4-10.4); Platelet Count 182 thou/uL (130-400); RBC Distribution Width 11.9 % (11.5-14.5); Red Blood Cell (RBC) Count 3.42 mill/uL (4.70-6.10); White Blood Cell (WBC) Count 11.1 thou/uL (4.8-10.8)
[2020-04-03 03:59] LABS: Anion Gap 16 mmol/L (10-20); BUN (Urea Nitrogen) 65 mg/dL (8.4-25.7); Calc. Creatinine Clearance 57 mL/min (70-130); Calcium 9.2 mg/dL (7.8-10.44); Carbon Dioxide 21 mmol/L (23-31); Chloride 111 mmol/L (98-107); Glucose 163 mg/dL (83-110); Potassium 4.3 mmol/L (3.5-5.1); Sodium 144 mmol/L (136-145)
--- NOTE | 2020-04-03 08:14 | PRG ---
DATE OF SERVICE: 04/03/2020 SUBJECTIVE: Mr. Woods is still very confused until today, it is day #20 since his positive test and that he can come out of isolation. OBJECTIVE: VITAL SIGNS: His temperature is 98.7, pulse rate 89, blood pressure 160/91, and O2 saturation 96%. HEENT: Unremarkable. NECK: No adenopathy or JVD. LUNGS: Fairly clear. He is currently requiring 30% oxygen. ABDOMEN: Soft and nontender. EXTREMITIES: No edema. LABORATORY DATA: Sodium 144, potassium 4.3, chloride 111, CO2 of 21, BUN 65, creatinine 2.0, glucose 163. White blood cell count 11.1, hematocrit 31.8, and platelet count 182. His x-ray is about the same. ASSESSMENT: 1. COVID-19 pneumonia. 2. Status post endotracheal intubation and mechanical ventilation. 3. Obesity. 4. Hypernatremia. 5. Encephalopathy. PLAN: 1. I will go ahead and stop his clonidine, Ativan, morphine, and fentanyl-all of which could be affecting his mental status. 2. Reduce the steroid dose. 3. Because of reduction in the steroid dose, his need for insulin will continue to decrease. 4. If his mental status is suitable this afternoon, then he can be transferred to the [facility] with a sitter. Job ID: [id number]
--- NOTE | 2020-04-03 08:55 | RAD ---
CHEST 1 VIEW: Date: 04/03/2020 INDICATION: History of pneumonia. COMPARISON: Prior exam dated 04/02/2020. IMPRESSION: Bilateral air space disease persists. Mild cardiomegaly is stable. Small bilateral pleural effusions are similar appearing. No pneumothorax is evident. POS: BH
[2020-04-03] MEDS: Docusate Sodium 100 MG/10 ML UDCUP PO SCH ×2 (09:05→22:25)
[2020-04-03] MEDS: Pantoprazole 40 MG GRANULES PACKET PER TUBE SCH (09:05)
[2020-04-03] MEDS: Doxazosin 2 MG TAB PO SCH (09:06)
[2020-04-03] MEDS: Ascorbic Acid 500 mg Chewable Tablet PO SCH (09:06)
[2020-04-03] MEDS: Aspirin Chewable 81 MG TAB PO SCH (09:06)
[2020-04-03] MEDS: Zinc Sulfate 220 MG CAP PO SCH (09:06)
[2020-04-03] MEDS: Cholecalciferol (Vitamin D3) 400 UNITS TAB PO SCH (09:06)
[2020-04-03] MEDS: Amlodipine 10 MG TAB PER TUBE SCH (09:07)
[2020-04-03] MEDS: Apixaban 5 MG TAB PER TUBE SCH ×2 (09:07→22:26)
[2020-04-03] MEDS: Dutasteride 0.5 MG CAP PO SCH (09:07)
[2020-04-03] MEDS: Dexamethasone 4 mg/ml Vial SLOW IVP SCH (09:08)
[2020-04-03] MEDS: HumaLOG 300 UNITS/3 ML VIAL SC PRN ×2 (10:22→17:41)
[2020-04-03] MEDS: Bisoprolol Fumarate 5 MG TAB PO SCH (11:10)
[2020-04-03] MEDS: Minoxidil 2.5 MG TAB PER TUBE SCH (11:10)
--- NOTE | 2020-04-03 17:26 | PDOC.HOSPP ---
- Subjective Encounter Date: 04/03/20 Encounter Time: 09:00 Subjective: awake, responds well to verbal questions, says he will eat better today is on high flow O2 moves all extremities, wants something for right eye burning - Objective Vital Signs & Weight: Vital Signs (12 hours) Temp Pulse Pulse Pulse BP BP BP 04/03/20 16:34 04/03/20 13:56 68 93 141/70 H 141/73 H 04/03/20 09:07 80 125/72 04/03/20 08:00 98.2 F Pulse Ox Pulse Ox Pulse Ox 04/03/20 16:34 96 04/03/20 13:56 88 L 98 04/03/20 09:07 04/03/20 08:00 Weight Admit Weight 276 lb Weight 4.335 oz Most Recent Monitor Data Heart Rate from ECG 71 NIBP 163/70 NIBP BP-Mean 101 Respiration from ECG 12 SpO2 98 I&O: 04/02/20 04/03/20 04/04/20 06:59 06:59 06:59 Intake Total 1370.4 2422 100 Output Total 3910 3545 400 Balance -2539.6 -1123 -300 Result Diagrams: 04/03/20 03:28 04/03/20 03:28 Additional Labs: Accuchecks 04/03/20 04/03/20 04/03/20 17:04 10:18 01:18 POC Glucose 234 H 216 H 136 H 04/02/20 21:17 POC Glucose 184 H Hospitalist ROS - Medication Medications: Active Medications Generic Name Dose Route Start Last Admin Trade Name Freq PRN Reason Stop Dose Admin Acetaminophen 650 mg 03/18/20 14:41 03/31/20 17:51 Acetaminophen 325 Mg Tab PO 650 mg Q4H PRN Administration Headache/Fever/Mild Pain (1-3) Amlodipine Besylate 10 mg 03/21/20 09:00 04/03/20 09:07 Amlodipine 10 Mg Tab PER TUBE 10 mg DAILY SYDNEE Administration Apixaban 5 mg 03/20/20 21:00 04/03/20 09:07 Apixaban 5 Mg Tab PER TUBE 5 mg BID SYDNEE Administration Ascorbic Acid 1,000 mg 03/20/20 09:00 04/03/20 09:06 Ascorbic Acid 500 Mg Chewable Tablet PO 1,000 mg DAILY SYDNEE Administration Aspirin 81 mg 03/21/20 09:00 04/03/20 09:06 Aspirin Chewable 81 Mg Tab PO 81 mg DAILY SYDNEE Administration Atorvastatin Calcium 40 mg 03/18/20 21:00 04/02/20 21:12 Atorvastatin Calcium 40 Mg Tab PO 40 mg HS SYDNEE Administration Bisoprolol Fumarate 5 mg 03/19/20 09:00 04/03/20 11:10 Bisoprolol Fumarate 5 Mg Tab PO 5 mg DAILY SYDNEE Administration Cholecalciferol 400 units 03/20/20 09:00 04/03/20 09:06 Cholecalciferol (Vitamin D3) 400 Units Tab PO 400 units DAILY SYDNEE Administration Dexamethasone 2 mg 04/03/20 09:00 04/03/20 09:08 Dexamethasone 4 Mg/Ml Vial SLOW IVP 2 mg DAILY SYDNEE Administration Docusate Sodium 100 mg 03/28/20 21:00 04/03/20 09:05 Docusate Sodium 100 Mg/10 Ml Udcup PO 100 mg BID SYDNEE Administration Doxazosin Mesylate 2 mg 03/19/20 09:00 04/03/20 09:06 Doxazosin 2 Mg Tab PO 2 mg DAILY SYDNEE Administration Dutasteride 0.5 mg 03/19/20 09:00 04/03/20 09:07 Dutasteride 0.5 Mg Cap PO 0.5 mg DAILY SYDNEE Administration Hydralazine HCl 20 mg 03/21/20 13:50 03/29/20 02:16 Hydralazine 20 Mg/Ml Vial SLOW IVP 20 mg Q4H PRN Administration SBP>170 Nicardipine HCl 25 mg/ Sodium 250 mls @ 0 mls/hr 03/21/20 19:30 03/22/20 10:41 Chloride IVPB 250 mls INF SYDNEE Administration Protocol Titrate Meropenem 2 gm/ Sodium 100 mls @ 0 mls/hr 04/01/20 00:00 04/03/20 08:57 Chloride IVPB 100 mls 0000,0800,1600 SYDNEE Administration Insulin Human Lispro 0 units 03/25/20 08:12 04/03/20 10:22 Humalog 300 Units/3 Ml Vial SC 6 unit .AGGRESSIVE SLIDING PRN Administration Aggressive Correctional Scale Labetalol HCl 40 mg 03/21/20 07:34 04/02/20 11:35 Labetalol Hcl 100 Mg/20 Ml Vial SLOW IVP 8 ml Q4H PRN Administration SBP Greater Than 180 Magnesium Hydroxide 30 ml 03/28/20 12:06 03/31/20 16:00 Milk Of Magnesia 30 Ml Udcup PO 30 ml DAILYPRN PRN Administration Constipation Minoxidil 5 mg 03/24/20 09:00 04/03/20 11:10 Minoxidil 2.5 Mg Tab PER TUBE 5 mg DAILY SYDNEE Administration Pantoprazole Sodium 40 mg 03/21/20 09:00 04/03/20 09:05 Pantoprazole 40 Mg Granules Packet PER TUBE 40 mg DAILY SYDNEE Administration Sodium Chloride 10 ml 03/31/20 21:00 04/03/20 09:08 Flush - Normal Saline 10 Ml Syringe IVF 10 ml Q12HR SYDNEE Administration Zinc Sulfate 220 mg 03/20/20 09:00 04/03/20 09:06 Zinc Sulfate 220 Mg Cap PO 220 mg DAILY SYDNEE Administration Hospitalist Exam Vitals: Vital Signs (12 hours) Temp Pulse Pulse Pulse BP BP BP 04/03/20 16:34 04/03/20 13:56 68 93 141/70 H 141/73 H 04/03/20 09:07 80 125/72 04/03/20 08:00 98.2 F Pulse Ox Pulse Ox Pulse Ox 04/03/20 16:34 96 04/03/20 13:56 88 L 98 04/03/20 09:07 04/03/20 08:00 Weight Admit Weight 276 lb Weight 4.335 oz Most Recent Monitor Data Heart Rate from ECG 71 NIBP 163/70 NIBP BP-Mean 101 Respiration from ECG 12 SpO2 98 Eye: PERRL, anicteric sclera ENT: no oropharyngeal lesions, dry oral mucosa Neck: supple, no JVD Heart: RRR, no murmur Respiratory: no wheezes, rales, rhonchi Gastrointestinal: soft, non-tender, non-distended, normal bowel sounds Extremities: no cyanosis, no edema Neurological: cranial nerve grossly intact, no focal deficits Hosp A/P (1) Pneumonia due to COVID-19 virus Code(s): U07.1 - COVID-19; J12.82 - PNEUMONIA DUE TO CORONAVIRUS DISEASE 2019 Status: Acute (2) Acute respiratory failure with hypoxia Code(s): J96.01 - ACUTE RESPIRATORY FAILURE WITH HYPOXIA Status: Acute (3) Acute worsening of stage 3 chronic kidney disease Code(s): N18.30 - CHRONIC KIDNEY DISEASE, STAGE 3 UNSPECIFIED Status: Acute (4) Hyponatremia Code(s): E87.1 - HYPO-OSMOLALITY AND HYPONATREMIA Status: Resolved (5) Diabetes mellitus Code(s): E11.9 - TYPE 2 DIABETES MELLITUS WITHOUT COMPLICATIONS Status: Chronic Qualifiers: Diabetes mellitus snf insulin use: with snf use Diabetes mellitus complication status: with kidney complications Diabetes mellitus complication detail: with chronic kidney disease Chronic kidney disease stage: stage 3 (moderate) (6) Obesity Code(s): E66.9 - OBESITY, UNSPECIFIED Status: Chronic Qualifiers: Obesity classification: adult class 2 (BMI 35 - 39.9) (7) BPH (benign prostatic hyperplasia) Code(s): N40.0 - BENIGN PROSTATIC HYPERPLASIA WITHOUT LOWER URINRY TRACT SYMP Status: Chronic Qualifiers: Lower urinary tract symptom presence: symptoms absent Qualified Code(s): N40.0 - Benign prostatic hyperplasia without lower urinary tract symptoms (8) Hyperlipidemia Code(s): E78.5 - HYPERLIPIDEMIA, UNSPECIFIED Status: Chronic Qualifiers: Hyperlipidemia type: unspecified Qualified Code(s): E78.5 - Hyperlipidemia, unspecified - Plan is on dexamethasone, alb inh, extuabated on 04/01/2020, doing well continue asp, lipitor, bisoprolol, eliquis, minoxidil, avodart, doxazosin, protonix, coverage of reg insulin hemostable d/w son Mr.Wesley Woods [phone] and gave full updates 03/31, 04/01, 04/02, 04/03. He is off precautions from tomorrow encourage po intake, needs family to engage to keep him awake and eat PT eval and mobilize as tolerated with high flow O2
[2020-04-03] MEDS: Acetaminophen 325 MG TAB PO PRN (22:25)
[2020-04-03] MEDS: Atorvastatin Calcium 40 MG TAB PO SCH (22:26)
[2020-04-03] MEDS: Tetrahydrozoline 0.05% OPTH 15 ML BOT EA EYE SCH (22:44)
[2020-04-04] MEDS: Meropenem 2 GM in Sodium Chloride 0.9% 100 ML IVPB SCH ×2 (01:03→08:52)
[2020-04-04 05:31] LABS: Anion Gap 18 mmol/L (10-20); BUN (Urea Nitrogen) 67 mg/dL (8.4-25.7); Calc. Creatinine Clearance 0 mL/min (70-130); Calcium 8.8 mg/dL (7.8-10.44); Carbon Dioxide 17 mmol/L (23-31); Chloride 113 mmol/L (98-107); Glucose 168 mg/dL (83-110); Magnesium 2.3 mg/dL (1.6-2.6); Potassium 4.4 mmol/L (3.5-5.1); Sodium 144 mmol/L (136-145)
[2020-04-04 05:52] LABS: #Eosinphils 0.2 thou/uL (0.0-0.7); #Monocytes 0.8 thou/uL (0.11-0.59); #Neutrophils 6.2 thou/uL (1.40-6.50); %Basophils 0.4 % (0.0-1.0); %Eosinophils 2.5 % (0.0-10.0); %Monocytes 10.1 % (0.0-10.0); Hemoglobin 10.5 g/dL (14.0-18.0); Mean Corpuscular HGB CONC 33.4 g/dL (32.0-36.0); Mean Corpuscular Hemoglobin 31.9 pg (27.0-31.0); Mean Corpuscular Volume 95.6 fL (78.0-98.0); Mean Platelet Volume 10.9 fL (7.4-10.4); Platelet Count 117 thou/uL (130-400); Platelet Morphology Comment PLT clumps seen-ADEQ; RBC Distribution Width 11.9 % (11.5-14.5); Red Blood Cell (RBC) Count 3.29 mill/uL (4.70-6.10); White Blood Cell (WBC) Count 8.3 thou/uL (4.8-10.8)
[2020-04-04] MEDS: Cholecalciferol (Vitamin D3) 400 UNITS TAB PO SCH (08:52)
[2020-04-04] MEDS: Dutasteride 0.5 MG CAP PO SCH (08:52)
[2020-04-04] MEDS: Dexamethasone 4 mg/ml Vial SLOW IVP SCH (08:52)
[2020-04-04] MEDS: Zinc Sulfate 220 MG CAP PO SCH (08:52)
[2020-04-04] MEDS: Aspirin Chewable 81 MG TAB PO SCH (08:52)
[2020-04-04] MEDS: Bisoprolol Fumarate 5 MG TAB PO SCH (08:52)
[2020-04-04] MEDS: Pantoprazole 40 MG GRANULES PACKET PER TUBE SCH (08:52)
[2020-04-04] MEDS: Minoxidil 2.5 MG TAB PER TUBE SCH (08:53)
[2020-04-04] MEDS: Amlodipine 10 MG TAB PER TUBE SCH (08:53)
[2020-04-04] MEDS: Tetrahydrozoline 0.05% OPTH 15 ML BOT EA EYE SCH ×2 (08:53→20:15)
[2020-04-04] MEDS: Apixaban 5 MG TAB PER TUBE SCH ×2 (08:53→20:16)
[2020-04-04] MEDS: Ascorbic Acid 500 mg Chewable Tablet PO SCH (08:53)
[2020-04-04] MEDS: Docusate Sodium 100 MG/10 ML UDCUP PO SCH ×2 (08:53→20:16)
[2020-04-04] MEDS: Doxazosin 2 MG TAB PO SCH (08:53)
--- NOTE | 2020-04-04 09:53 | CON ---
DATE OF CONSULTATION: 04/04/2020 HISTORY OF PRESENT ILLNESS: Mr. Woods is a 74-year-old white male with history of chronic renal failure from presumed diabetic nephropathy and was admitted for COVID-19 pneumonia. He has been in the hospital for several days and his COVID-19 pneumonia seems to be stabilizing. He is currently off isolation at the present time. On close questioning, the patient is still complaining of generalized malaise. His shortness of breath has actually much improved. We are consulting for his acute kidney injury on top of his chronic renal failure. REVIEW OF SYSTEMS: Positive for generalized malaise, decreased energy level, decreased appetite. No chest pain. No shortness of breath. No gross hematuria. No dysuria. No frequency. No productive cough. No fever or chills. No sore throat. No headache. No diplopia. No nausea. No vomiting. MEDICATIONS: Currently on; 1. Amlodipine 10 mg tab daily. 2. Apixaban 5 mg b.i.d. 3. DuoNeb two puffs q.4 p.r.n. 4. Ascorbic acid 1000 mg daily. 5. Aspirin 81 mg daily. 6. Atorvastatin 40 mg tablet at bedtime. 7. Bisoprolol 5 mg daily. 8. Vitamin D3 of 400 international units daily. 9. Dexamethasone 2 mg IV daily. 10. Colace 100 mg p.o. b.i.d. 11. Avodart 0.5 mg once a day. 12. Doxazosin 2 mg at bedtime. 13. Humalog sliding scale. 14. Labetalol 40 mg IV q.4 p.r.n. 15. Meropenem 2 g IV q.8. 16. Minoxidil 5 mg daily. 17. Zinc sulfate 220 mg daily. PAST MEDICAL HISTORY: 1. Recent diagnosis of COVID-19 pneumonia. 2. Chronic renal failure from diabetic nephropathy. 3. BPH. 4. Type 2 diabetes mellitus. 5. Hypertension. 6. Hyperlipidemia. 7. Chronic NSAID intake. PAST SURGICAL HISTORY: Status post colonoscopy. SOCIAL HISTORY: The patient is , lives in [place], but originally from [place], [place], 3 children. 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 College graduate. Smoked for 30 years, 2 packs a day, currently not smoking. Occasional alcohol. No IV drug abuse. No blood transfusion. FAMILY HISTORY: No family history of ESRD. ALLERGIES: NONE, BUT ADVERSE REACTION TO CODEINE. TRAUMA: None. IMMUNIZATIONS: Up-to-date. HOSPITALIZATIONS: Please see past medical history. PHYSICAL EXAMINATION: VITAL SIGNS: Blood pressure 140/62, heart rate 78, respiratory rate 22, temperature 98, and O2 saturation 94%. GENERAL: The patient is awake, alert, comfortable, supine, obese, not in distress. SKIN: Adequate turgor. HEENT: He has pinkish conjunctivae. Anicteric sclerae. NECK: No neck mass. No carotid bruits. No JVD. CHEST: No deformities. LUNGS: Clear breath sounds. No wheezing. No crackles. HEART: Normal sinus rhythm. No murmur. No gallops. No rubs. ABDOMEN: Globular, soft, and nontender. No masses. EXTREMITIES: No edema. No deformities. NEUROLOGICAL: The patient is awake, oriented to 3 spheres. Moving all extremities. No tremors. No asterixis. DIAGNOSTIC DATA: Chest x-ray of April 03, 2020, bilateral airspace disease, persisting small bilateral pleural effusions. No pneumothorax. Laboratories of April 04, 2020; white count 8.2, hemoglobin 10.5. Sodium 144, potassium 4.4, chloride 113, carbon dioxide 17, BUN 67, creatinine 2.22, GFR 29 mL/minute, calcium 8.8, and magnesium 2.3. Further review of the serum creatinine shows the following on April 03, 2020, 2.03; April 02, 2020, 2.12; March 18, 2020, creatinine 2.93. Renal ultrasound in February 2019, there is a hypoechoic lesion in the left renal mid pole. Recommendation is CT scan. ASSESSMENT AND PLAN: 1. Acute kidney injury on top of his chronic renal failure. He most likely had hemodynamically-mediated renal dysfunction. My plan is to start him back on lactated Ringer's solution at 125 mL/hour. There is no indication for any dialytic intervention with this patient. Continue IV hydration. We will review urine sediment to rule out acute tubular necrosis. 2. Chronic renal failure secondary to presumed diabetic nephropathy. Baseline creatinine is about 1.8 to 1.9. 3. Left mid pole hypoechoic lesion. Continue to observe. Once the patient is out of the hospital, consider renal mass protocol assuming that the renal function will go back to baseline. 4. COVID-19 pneumonia, clinically improving. Continuing supportive care. We will recheck CBC and basic metabolic panel in a.m. Job ID: [id number]
[2020-04-04] MEDS: Lactated Ringer's 1,000 ML IV SCH ×2 (10:31→16:55)
--- NOTE | 2020-04-04 14:51 | PDOC.HOSPP ---
- Subjective Encounter Date: 04/04/20 Encounter Time: 12:00 Subjective: awake, responds well to verbal stimuli, is moving all extremities, ate his breakfast - Objective Vital Signs & Weight: Vital Signs (12 hours) Temp Pulse Pulse Pulse Pulse Resp BP 04/04/20 11:43 98.3 F 76 22 H 04/04/20 10:20 77 150 H 145 H 127/63 04/04/20 09:57 78 20 04/04/20 08:30 04/04/20 07:30 98 F 78 22 H 04/04/20 06:37 78 20 04/04/20 04:23 97.6 F 71 24 H BP BP BP Pulse Ox Pulse Ox Pulse Ox Pulse Ox 04/04/20 11:43 111/70 95 04/04/20 10:20 96/71 99 83 L 95 04/04/20 09:57 125/62 94 L 04/04/20 08:30 96 04/04/20 07:30 140/62 94 L 04/04/20 06:37 129/68 96 04/04/20 04:23 120/60 99 Weight Admit Weight 276 lb Weight 271 lb Most Recent Monitor Data Heart Rate from ECG 83 NIBP 142/78 NIBP BP-Mean 99 Respiration from ECG 20 SpO2 91 I&O: 04/03/20 04/04/20 04/05/20 06:59 06:59 06:59 Intake Total 2422 1216 Output Total 9381 8901 Balance -1123 -994 Result Diagrams: 04/04/20 04:59 04/04/20 04:59 Additional Labs: Accuchecks 04/04/20 04/03/20 00:56 17:04 POC Glucose 161 H 234 H Hospitalist ROS - Medication Medications: Active Medications Generic Name Dose Route Start Last Admin Trade Name Freq PRN Reason Stop Dose Admin Acetaminophen 650 mg 03/18/20 14:41 04/03/20 22:25 Acetaminophen 325 Mg Tab PO 650 mg Q4H PRN Administration Headache/Fever/Mild Pain (1-3) Amlodipine Besylate 10 mg 03/21/20 09:00 04/04/20 08:53 Amlodipine 10 Mg Tab PER TUBE 10 mg DAILY SYDNEE Administration Apixaban 5 mg 03/20/20 21:00 04/04/20 08:53 Apixaban 5 Mg Tab PER TUBE 5 mg BID SYDNEE Administration Ascorbic Acid 1,000 mg 03/20/20 09:00 04/04/20 08:53 Ascorbic Acid 500 Mg Chewable Tablet PO 1,000 mg DAILY SYDNEE Administration Aspirin 81 mg 03/21/20 09:00 04/04/20 08:52 Aspirin Chewable 81 Mg Tab PO 81 mg DAILY SYDNEE Administration Atorvastatin Calcium 40 mg 03/18/20 21:00 04/03/20 22:26 Atorvastatin Calcium 40 Mg Tab PO 40 mg HS SYDNEE Administration Bisoprolol Fumarate 5 mg 03/19/20 09:00 04/04/20 08:52 Bisoprolol Fumarate 5 Mg Tab PO 5 mg DAILY SYDNEE Administration Cholecalciferol 400 units 03/20/20 09:00 04/04/20 08:52 Cholecalciferol (Vitamin D3) 400 Units Tab PO 400 units DAILY SYDNEE Administration Dexamethasone 2 mg 04/03/20 09:00 04/04/20 08:52 Dexamethasone 4 Mg/Ml Vial SLOW IVP 2 mg DAILY SYDNEE Administration Docusate Sodium 100 mg 03/28/20 21:00 04/04/20 08:53 Docusate Sodium 100 Mg/10 Ml Udcup PO 100 mg BID SYDNEE Administration Doxazosin Mesylate 2 mg 03/19/20 09:00 04/04/20 08:53 Doxazosin 2 Mg Tab PO 2 mg DAILY SYDNEE Administration Dutasteride 0.5 mg 03/19/20 09:00 04/04/20 08:52 Dutasteride 0.5 Mg Cap PO 0.5 mg DAILY SYDNEE Administration Hydralazine HCl 20 mg 03/21/20 13:50 03/29/20 02:16 Hydralazine 20 Mg/Ml Vial SLOW IVP 20 mg Q4H PRN Administration SBP>170 Meropenem 2 gm/ Sodium 100 mls @ 0 mls/hr 04/01/20 00:00 04/04/20 08:52 Chloride IVPB 100 mls 0000,0800,1600 SYDNEE Administration Lactated Ringer's 1,000 mls @ 125 mls/hr 04/04/20 09:30 04/04/20 10:31 Lactated Ringer's IV 1,000 mls .Q8H SYDNEE Administration Insulin Human Lispro 0 units 03/25/20 08:12 04/03/20 17:41 Humalog 300 Units/3 Ml Vial SC 6 unit .AGGRESSIVE SLIDING PRN Administration Aggressive Correctional Scale Labetalol HCl 40 mg 03/21/20 07:34 04/02/20 11:35 Labetalol Hcl 100 Mg/20 Ml Vial SLOW IVP 8 ml Q4H PRN Administration SBP Greater Than 180 Magnesium Hydroxide 30 ml 03/28/20 12:06 03/31/20 16:00 Milk Of Magnesia 30 Ml Udcup PO 30 ml DAILYPRN PRN Administration Constipation Minoxidil 5 mg 03/24/20 09:00 04/04/20 08:53 Minoxidil 2.5 Mg Tab PER TUBE 5 mg DAILY SYDNEE Administration Sodium Chloride 10 ml 03/31/20 21:00 04/04/20 08:53 Flush - Normal Saline 10 Ml Syringe IVF 10 ml Q12HR SYDNEE Administration Tetrahydrozoline HCl 2 drop 04/03/20 21:00 04/04/20 08:53 Tetrahydrozoline 0.05% Opth 15 Ml Bot EA EYE 2 drop BID SYDNEE Administration Zinc Sulfate 220 mg 03/20/20 09:00 04/04/20 08:52 Zinc Sulfate 220 Mg Cap PO 220 mg DAILY SYDNEE Administration Hospitalist Exam Vitals: Vital Signs (12 hours) Temp Pulse Pulse Pulse Pulse Resp BP 04/04/20 11:43 98.3 F 76 22 H 04/04/20 10:20 77 150 H 145 H 127/63 04/04/20 09:57 78 20 04/04/20 08:30 04/04/20 07:30 98 F 78 22 H 04/04/20 06:37 78 20 04/04/20 04:23 97.6 F 71 24 H BP BP BP Pulse Ox Pulse Ox Pulse Ox Pulse Ox 04/04/20 11:43 111/70 95 04/04/20 10:20 96/71 99 83 L 95 04/04/20 09:57 125/62 94 L 04/04/20 08:30 96 04/04/20 07:30 140/62 94 L 04/04/20 06:37 129/68 96 04/04/20 04:23 120/60 99 Weight Admit Weight 276 lb Weight 271 lb Most Recent Monitor Data Heart Rate from ECG 83 NIBP 142/78 NIBP BP-Mean 99 Respiration from ECG 20 SpO2 91 General Appearance: awake alert Eye: PERRL, anicteric sclera ENT: no oropharyngeal lesions, moist mucosa Neck: supple, no JVD Heart: RRR, no murmur Respiratory: no wheezes, rales, rhonchi Gastrointestinal: soft, non-tender, non-distended, normal bowel sounds Extremities: no cyanosis, no edema Neurological: cranial nerve grossly intact, no focal deficits Psychiatric: A&O x 3 Hosp A/P (1) Pneumonia due to COVID-19 virus Code(s): U07.1 - COVID-19; J12.82 - PNEUMONIA DUE TO CORONAVIRUS DISEASE 2019 Status: Acute (2) Acute respiratory failure with hypoxia Code(s): J96.01 - ACUTE RESPIRATORY FAILURE WITH HYPOXIA Status: Acute (3) Acute worsening of stage 3 chronic kidney disease Code(s): N18.30 - CHRONIC KIDNEY DISEASE, STAGE 3 UNSPECIFIED Status: Acute (4) Hyponatremia Code(s): E87.1 - HYPO-OSMOLALITY AND HYPONATREMIA Status: Resolved (5) Diabetes mellitus Code(s): E11.9 - TYPE 2 DIABETES MELLITUS WITHOUT COMPLICATIONS Status: Chronic Qualifiers: 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: with roller printing supervisor use Diabetes mellitus complication status: with kidney complications Diabetes mellitus complication detail: with chronic kidney disease Chronic kidney disease stage: stage 3 (moderate) (6) Obesity Code(s): E66.9 - OBESITY, UNSPECIFIED Status: Chronic Qualifiers: Obesity classification: adult class 2 (BMI 35 - 39.9) (7) BPH (benign prostatic hyperplasia) Code(s): N40.0 - BENIGN PROSTATIC HYPERPLASIA WITHOUT LOWER URINRY TRACT SYMP Status: Chronic Qualifiers: Lower urinary tract symptom presence: symptoms absent Qualified Code(s): N40.0 - Benign prostatic hyperplasia without lower urinary tract symptoms (8) Hyperlipidemia Code(s): E78.5 - HYPERLIPIDEMIA, UNSPECIFIED Status: Chronic Qualifiers: Hyperlipidemia type: unspecified Qualified Code(s): E78.5 - Hyperlipidemia, unspecified - Plan is on dexamethasone, alb inh, extuabated on 04/01/2020, doing well continue asp, lipitor, bisoprolol, eliquis, minoxidil, avodart, doxazosin, protonix, coverage of reg insulin hemostable d/w son Hawi [phone] and gave full updates 03/31, 04/01, 04/02, 04/03, 04/04. He is off precautions from 04/04 encourage po intake, needs family to engage to make him eat and exercise/mobilize PT eval and mobilize as tolerated with nasal canula O2 is on LR 125mls/hr for natali. will need rehab/swing, skilled bed for dc plan, await PT mobilization to see his effort
[2020-04-04 15:30] LABS: Bilirubin Negative (Negative); Blood, Urine 2+ (Negative); Clarity Clear (Clear); Glucose, Urine (Dipstick) Normal (Negative); Ketone, Urine Negative (Negative); Leukocyte 250 Leu/uL (Negative); Nitrite Negative (Negative); Protein, Urine (Dipstick) 70 mg/dL (Neg-Trace); Specific Gravity, Urine 1.016 (1.002-1.036); Squamous Epithelial None Seen HPF (0-3); Urobilinogen Normal mg/dL (Less than 2)
[2020-04-04 15:32] LABS: Bacteria/HPF 1+ HPF (None Seen)
[2020-04-04] MEDS: HumaLOG 300 UNITS/3 ML VIAL SC PRN (16:55)
[2020-04-04] MEDS: Atorvastatin Calcium 40 MG TAB PO SCH (20:16)
[2020-04-05] MEDS: Lactated Ringer's 1,000 ML IV SCH ×4 (02:04→23:39)
[2020-04-05 07:19] LABS: #Eosinphils 0.4 thou/uL (0.0-0.7); #Lymphocytes 1.3 thou/uL (1.20-3.40); #Monocytes 0.8 thou/uL (0.11-0.59); #Neutrophils 5.8 thou/uL (1.40-6.50); %Basophils 0.5 % (0.0-1.0); %Eosinophils 4.7 % (0.0-10.0); %Lymphocytes 15.5 % (21.0-51.0); %Monocytes 9.5 % (0.0-10.0); %Neutrophils 69.8 % (42.0-75.0); Hemoglobin 10.4 g/dL (14.0-18.0); Mean Corpuscular HGB CONC 32.6 g/dL (32.0-36.0); Mean Corpuscular Hemoglobin 30.6 pg (27.0-31.0); Mean Corpuscular Volume 93.9 fL (78.0-98.0); Mean Platelet Volume 10.7 fL (7.4-10.4); Platelet Count 137 thou/uL (130-400); RBC Distribution Width 11.9 % (11.5-14.5); White Blood Cell (WBC) Count 8.3 thou/uL (4.8-10.8)
[2020-04-05 07:31] LABS: Anion Gap 18 mmol/L (10-20); BUN (Urea Nitrogen) 62 mg/dL (8.4-25.7); Calc. Creatinine Clearance 53 mL/min (70-130); Calcium 8.5 mg/dL (7.8-10.44); Carbon Dioxide 16 mmol/L (23-31); Chloride 117 mmol/L (98-107); Glucose 171 mg/dL (83-110); Potassium 5.1 mmol/L (3.5-5.1); Sodium 146 mmol/L (136-145)
[2020-04-05] MEDS: Amlodipine 10 MG TAB PER TUBE SCH (07:46)
[2020-04-05] MEDS: Apixaban 5 MG TAB PER TUBE SCH ×2 (07:47→20:49)
[2020-04-05] MEDS: Ascorbic Acid 500 mg Chewable Tablet PO SCH (07:47)
[2020-04-05] MEDS: Aspirin Chewable 81 MG TAB PO SCH (07:47)
[2020-04-05] MEDS: Bisoprolol Fumarate 5 MG TAB PO SCH (07:48)
[2020-04-05] MEDS: Dexamethasone 4 mg/ml Vial SLOW IVP SCH (07:48)
[2020-04-05] MEDS: Cholecalciferol (Vitamin D3) 400 UNITS TAB PO SCH (07:48)
[2020-04-05] MEDS: Docusate Sodium 100 MG/10 ML UDCUP PO SCH ×2 (07:48→20:49)
[2020-04-05] MEDS: Doxazosin 2 MG TAB PO SCH (07:48)
[2020-04-05] MEDS: Dutasteride 0.5 MG CAP PO SCH (07:49)
[2020-04-05] MEDS: Zinc Sulfate 220 MG CAP PO SCH (07:49)
[2020-04-05] MEDS: Minoxidil 2.5 MG TAB PER TUBE SCH (07:49)
[2020-04-05] MEDS: Tetrahydrozoline 0.05% OPTH 15 ML BOT EA EYE SCH ×2 (10:07→23:38)
[2020-04-05 10:08] VITALS: BMI 38.1
--- NOTE | 2020-04-05 10:13 | PRG ---
DATE OF SERVICE: 04/05/2020 SUBJECTIVE: Mr. Woods is a 74-year-old white male with known history of chronic renal failure from diabetic nephropathy, initially admitted for COVID-19 pneumonia. We are following up this patient for his acute kidney injury on top of his chronic renal failure. We are currently resuming back IV hydration with this patient. He has no new complaints today. OBJECTIVE: VITAL SIGNS: Blood pressure is noted at 170/80, heart rate 81, respiratory rate 20, temperature 97.6, O2 saturation is 95%. GENERAL: The patient is awake, occasionally confused, but not in distress, obese. SKIN: Adequate turgor. HEENT: He has pinkish conjunctivae, anicteric sclerae. NECK: No neck mass. No carotid bruits. No JVD. CHEST: No deformities. LUNGS: Decreased breath sounds. HEART: Normal sinus rhythm. No murmurs, gallops, or rubs. ABDOMEN: Globular, soft, nontender. No masses. EXTREMITIES: No edema. No deformities. MEDICATIONS: April 05, 2020, was reviewed. LABORATORY DATA: April 05, 2020, white count 8.3, hemoglobin 10.4. Sodium 146, potassium 5.1, chloride 117, carbon dioxide 16, BUN 62, creatinine 2.17, calcium is 8.5. ASSESSMENT AND PLAN: 1. Acute kidney injury-consider hemodynamically-mediated renal dysfunction. Currently receiving IV hydration. The patient is receiving lactated Ringer's at 125 mL/hour. 2. Chronic renal failure from diabetic nephropathy. Baseline creatinine is 1.8 to 1.9. No indication for any dialytic intervention. 3. Mild hypernatremia. Encouraged to increase fluid intake. If this further worsens, we may need to change the patient's IV fluid to one-half normal saline. 4. Status post COVID-19 pneumonia, doing better, off isolation. 5. We will recheck basic metabolic and CBC in a.m. Job ID: [id number]
--- NOTE | 2020-04-05 11:43 | PDOC.FMACP ---
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 The diagnosis, prognosis and goals of care were discussed. Appropriate forms and documentation to accomplish the goals of care were discussed. All questions were answered. *MPOA Completed, original and copy given to patient , copy placed on chart for m edical records. *Directive to Physician provided to patient. Elected to not complete at this time. Please refer to Palliative care notes in note section. Goal: Continued recovery with rehab/pt/ot Palliative Care will sign off as Goals addressed, MPOA completed, education in relation to directive to physician completed. Thank you for this very appropriate consult and allowing Palliative Care to participate in the care of Mr Woods and support his family. Time Spent (mins): 20
[2020-04-05] MEDS: HumaLOG 300 UNITS/3 ML VIAL SC PRN ×2 (12:56→17:43)
--- NOTE | 2020-04-05 14:27 | PDOC.HOSPP ---
- Subjective Encounter Date: 04/05/20 Encounter Time: 12:00 Subjective: oriented well, is moving all extremities feels better - Objective Vital Signs & Weight: Vital Signs (12 hours) Temp Pulse Resp BP BP BP Pulse Ox 04/05/20 12:56 98.3 F 74 18 142/72 H 97 04/05/20 11:56 98.2 F 76 20 157/88 H 97 04/05/20 11:45 97 04/05/20 10:00 73 105/61 94 L 04/05/20 08:00 97.6 F 81 20 170/80 H 95 04/05/20 07:46 74 145/61 H 04/05/20 07:34 95 04/05/20 06:22 80 22 H 155/90 H 95 04/05/20 03:51 98.0 F 72 24 H 146/67 H 95 Weight Admit Weight 276 lb Weight 273 lb 4.8 oz Most Recent Monitor Data Heart Rate from ECG 83 NIBP 142/78 NIBP BP-Mean 99 Respiration from ECG 20 SpO2 91 I&O: 04/04/20 04/05/20 04/06/20 06:59 06:59 06:59 Intake Total 1216 3890 240 Output Total 2210 1550 550 Balance -994 2340 -310 Result Diagrams: 04/05/20 07:05 04/05/20 07:05 Additional Labs: Accuchecks 04/05/20 04/05/20 04/04/20 10:31 05:11 20:14 POC Glucose 218 H 154 H 158 H 04/04/20 15:52 POC Glucose 204 H Hospitalist ROS - Medication Medications: Active Medications Generic Name Dose Route Start Last Admin Trade Name Freq PRN Reason Stop Dose Admin Acetaminophen 650 mg 03/18/20 14:41 04/03/20 22:25 Acetaminophen 325 Mg Tab PO 650 mg Q4H PRN Administration Headache/Fever/Mild Pain (1-3) Amlodipine Besylate 10 mg 03/21/20 09:00 04/05/20 07:46 Amlodipine 10 Mg Tab PER TUBE 10 mg DAILY SYDNEE Administration Apixaban 5 mg 03/20/20 21:00 04/05/20 07:47 Apixaban 5 Mg Tab PER TUBE 5 mg BID SYDNEE Administration Ascorbic Acid 1,000 mg 03/20/20 09:00 04/05/20 07:47 Ascorbic Acid 500 Mg Chewable Tablet PO 1,000 mg DAILY SYDNEE Administration Aspirin 81 mg 03/21/20 09:00 04/05/20 07:47 Aspirin Chewable 81 Mg Tab PO 81 mg DAILY SYDNEE Administration Atorvastatin Calcium 40 mg 03/18/20 21:00 04/04/20 20:16 Atorvastatin Calcium 40 Mg Tab PO 40 mg HS SYDNEE Administration Bisoprolol Fumarate 5 mg 03/19/20 09:00 04/05/20 07:48 Bisoprolol Fumarate 5 Mg Tab PO 5 mg DAILY SYDNEE Administration Cholecalciferol 400 units 03/20/20 09:00 04/05/20 07:48 Cholecalciferol (Vitamin D3) 400 Units Tab PO 400 units DAILY SYDNEE Administration Dexamethasone 2 mg 04/03/20 09:00 04/05/20 07:48 Dexamethasone 4 Mg/Ml Vial SLOW IVP 2 mg DAILY SYDNEE Administration Docusate Sodium 100 mg 03/28/20 21:00 04/05/20 07:48 Docusate Sodium 100 Mg/10 Ml Udcup PO Not Given BID [facility] Doxazosin Mesylate 2 mg 03/19/20 09:00 04/05/20 07:48 Doxazosin 2 Mg Tab PO 2 mg DAILY SYDNEE Administration Dutasteride 0.5 mg 03/19/20 09:00 04/05/20 07:49 Dutasteride 0.5 Mg Cap PO 0.5 mg DAILY SYDNEE Administration Hydralazine HCl 20 mg 03/21/20 13:50 03/29/20 02:16 Hydralazine 20 Mg/Ml Vial SLOW IVP 20 mg Q4H PRN Administration SBP>170 Lactated Ringer's 1,000 mls @ 125 mls/hr 04/04/20 09:30 04/05/20 10:10 Lactated Ringer's IV 1,000 mls .Q8H SYDNEE Administration Insulin Human Lispro 0 units 03/25/20 08:12 04/05/20 12:56 Humalog 300 Units/3 Ml Vial SC 6 unit .AGGRESSIVE SLIDING PRN Administration Aggressive Correctional Scale Labetalol HCl 40 mg 03/21/20 07:34 04/02/20 11:35 Labetalol Hcl 100 Mg/20 Ml Vial SLOW IVP 8 ml Q4H PRN Administration SBP Greater Than 180 Magnesium Hydroxide 30 ml 03/28/20 12:06 03/31/20 16:00 Milk Of Magnesia 30 Ml Udcup PO 30 ml DAILYPRN PRN Administration Constipation Minoxidil 5 mg 03/24/20 09:00 04/05/20 07:49 Minoxidil 2.5 Mg Tab PER TUBE 5 mg DAILY SYDNEE Administration Pantoprazole Sodium 40 mg 04/05/20 09:00 04/05/20 07:49 Pantoprazole 40 Mg Tab PO 40 mg DAILY SYDNEE Administration Sodium Chloride 10 ml 03/31/20 21:00 04/05/20 07:49 Flush - Normal Saline 10 Ml Syringe IVF 10 ml Q12HR SYDNEE Administration Tetrahydrozoline HCl 2 drop 04/03/20 21:00 04/05/20 10:07 Tetrahydrozoline 0.05% Opth 15 Ml Bot EA EYE 2 drop BID SYDNEE Administration Zinc Sulfate 220 mg 03/20/20 09:00 04/05/20 07:49 Zinc Sulfate 220 Mg Cap PO 220 mg DAILY SYDNEE Administration Hospitalist Exam Vitals: Vital Signs (12 hours) Temp Pulse Resp BP BP BP Pulse Ox 04/05/20 12:56 98.3 F 74 18 142/72 H 97 04/05/20 11:56 98.2 F 76 20 157/88 H 97 04/05/20 11:45 97 04/05/20 10:00 73 105/61 94 L 04/05/20 08:00 97.6 F 81 20 170/80 H 95 04/05/20 07:46 74 145/61 H 04/05/20 07:34 95 04/05/20 06:22 80 22 H 155/90 H 95 04/05/20 03:51 98.0 F 72 24 H 146/67 H 95 Weight Admit Weight 276 lb Weight 273 lb 4.8 oz Most Recent Monitor Data Heart Rate from ECG 83 NIBP 142/78 NIBP BP-Mean 99 Respiration from ECG 20 SpO2 91 General Appearance: awake alert Eye: PERRL, anicteric sclera ENT: no oropharyngeal lesions, moist mucosa Neck: supple, no JVD Heart: RRR, no murmur Respiratory: no wheezes, no rales, rhonchi Gastrointestinal: soft, non-tender, non-distended, normal bowel sounds Extremities: no cyanosis, no edema Neurological: cranial nerve grossly intact, no focal deficits Psychiatric: normal affect, A&O x 3 Hosp A/P (1) Pneumonia due to COVID-19 virus Code(s): U07.1 - COVID-19; J12.82 - PNEUMONIA DUE TO CORONAVIRUS DISEASE 2019 Status: Acute (2) Acute respiratory failure with hypoxia Code(s): J96.01 - ACUTE RESPIRATORY FAILURE WITH HYPOXIA Status: Acute (3) Acute worsening of stage 3 chronic kidney disease Code(s): N18.30 - CHRONIC KIDNEY DISEASE, STAGE 3 UNSPECIFIED Status: Acute (4) Hyponatremia Code(s): E87.1 - HYPO-OSMOLALITY AND HYPONATREMIA Status: Resolved (5) Diabetes mellitus Code(s): E11.9 - TYPE 2 DIABETES MELLITUS WITHOUT COMPLICATIONS Status: Chronic Qualifiers: Diabetes mellitus shelter insulin use: with terminal makeup operator use Diabetes mellitus complication status: with kidney complications Diabetes mellitus complication detail: with chronic kidney disease Chronic kidney disease stage: stage 3 (moderate) (6) Obesity Code(s): E66.9 - OBESITY, UNSPECIFIED Status: Chronic Qualifiers: Obesity classification: adult class 2 (BMI 35 - 39.9) (7) BPH (benign prostatic hyperplasia) Code(s): N40.0 - BENIGN PROSTATIC HYPERPLASIA WITHOUT LOWER URINRY TRACT SYMP Status: Chronic Qualifiers: Lower urinary tract symptom presence: symptoms absent Qualified Code(s): N40.0 - Benign prostatic hyperplasia without lower urinary tract symptoms (8) Hyperlipidemia Code(s): E78.5 - HYPERLIPIDEMIA, UNSPECIFIED Status: Chronic Qualifiers: Hyperlipidemia type: unspecified Qualified Code(s): E78.5 - Hyperlipidemia, unspecified - Plan is on dexamethasone, alb inh, extuabated on 04/01/2020, doing well continue asp, lipitor, bisoprolol, eliquis, minoxidil, avodart, doxazosin, protonix, coverage of reg insulin hemostable d/w son Mr.Wesley Woods [phone] and gave full updates 03/31, 04/01, 04/02, 04/03, 04/04. He is off precautions from 04/04 encourage po intake, needs family to engage to make him eat and exercise/mobilize PT eval and mobilize as tolerated with nasal canula O2 is on LR 125mls/hr for natali, d/w he will reduce the dose. will need rehab/swing, skilled bed for dc plan.
--- NOTE | 2020-04-05 17:27 | PRG ---
DATE OF SERVICE: 04/05/2020 SUBJECTIVE: Patient has been moved to the intermediate care unit. He is actually doing fairly well. He is able to converse with me today. His son is at the bedside. OBJECTIVE: VITAL SIGNS: His O2 saturation is 97% on 0.5 L of nasal cannula. Temperature 98.3, pulse 74, respirations 18, blood pressure 142/72. HEENT: Unremarkable. NECK: No adenopathy or JVD. CHEST: Fairly clear. CARDIAC: S1 and S2. Regular. ABDOMEN: Soft. EXTREMITIES: No edema. LABORATORY DATA: White blood count 8.3, hematocrit 31.9, and platelet count 137. Sodium 146, potassium 5.1, BUN 62, creatinine 2.2, glucose 171. ASSESSMENT: 1. Coronavirus disease 2019 pneumonia. 2. Status post respiratory failure requiring mechanical ventilation. 3. Extreme deconditioning. 4. Acute renal insufficiency. PLAN: The patient has been weaned down to a very low dose of dexamethasone. Hopefully, we can stop this next week. He is on anticoagulation. No further Pulmonary recommendations. I will check him intermittently. Job ID: [id number]
[2020-04-05] MEDS: Atorvastatin Calcium 40 MG TAB PO SCH (20:49)
[2020-04-06] MEDS: Lactated Ringer's 1,000 ML IV SCH ×3 (04:42→18:36)
[2020-04-06 05:01] LABS: #Basophils 0.1 thou/uL (0.0-0.2); #Eosinphils 0.5 thou/uL (0.0-0.7); #Monocytes 0.7 thou/uL (0.11-0.59); #Neutrophils 4.8 thou/uL (1.40-6.50); %Basophils 0.9 % (0.0-1.0); %Eosinophils 6.7 % (0.0-10.0); %Lymphocytes 14.9 % (21.0-51.0); %Monocytes 9.4 % (0.0-10.0); %Neutrophils 68.2 % (42.0-75.0); Hemoglobin 9.7 g/dL (14.0-18.0); Mean Corpuscular HGB CONC 32.9 g/dL (32.0-36.0); Mean Corpuscular Hemoglobin 30.6 pg (27.0-31.0); Mean Corpuscular Volume 92.9 fL (78.0-98.0); Mean Platelet Volume 9.9 fL (7.4-10.4); Platelet Count 152 thou/uL (130-400); RBC Distribution Width 11.7 % (11.5-14.5); Red Blood Cell (RBC) Count 3.18 mill/uL (4.70-6.10)
[2020-04-06 05:34] LABS: Anion Gap 12 mmol/L (10-20); BUN (Urea Nitrogen) 48 mg/dL (8.4-25.7); Calc. Creatinine Clearance 64 mL/min (70-130); Calcium 8.9 mg/dL (7.8-10.44); Carbon Dioxide 20 mmol/L (23-31); Chloride 114 mmol/L (98-107); Glucose 157 mg/dL (83-110); Potassium 3.8 mmol/L (3.5-5.1); Sodium 142 mmol/L (136-145)
[2020-04-06] MEDS: HumaLOG 300 UNITS/3 ML VIAL SC PRN ×3 (05:39→18:41)
[2020-04-06] MEDS: hydrALAZINE 20 MG/ML VIAL SLOW IVP PRN (06:34)
[2020-04-06] MEDS ORDERED: Bisacodyl 10 MG SUPP PR PRN (06:46)
[2020-04-06] MEDS: Cholecalciferol (Vitamin D3) 400 UNITS TAB PO SCH (09:56)
[2020-04-06] MEDS: Bisoprolol Fumarate 5 MG TAB PO SCH (09:56)
[2020-04-06] MEDS: Ascorbic Acid 500 mg Chewable Tablet PO SCH (09:56)
[2020-04-06] MEDS: Docusate Sodium 100 MG/10 ML UDCUP PO SCH ×2 (09:56→20:41)
[2020-04-06] MEDS: Aspirin Chewable 81 MG TAB PO SCH (09:56)
[2020-04-06] MEDS: Amlodipine 10 MG TAB PER TUBE SCH (09:57)
[2020-04-06] MEDS: Zinc Sulfate 220 MG CAP PO SCH (09:57)
[2020-04-06] MEDS: Dutasteride 0.5 MG CAP PO SCH (09:57)
[2020-04-06] MEDS: Minoxidil 2.5 MG TAB PER TUBE SCH (09:57)
[2020-04-06] MEDS: Apixaban 5 MG TAB PER TUBE SCH ×2 (09:57→20:41)
[2020-04-06] MEDS: Doxazosin 2 MG TAB PO SCH (09:58)
[2020-04-06] MEDS: Tetrahydrozoline 0.05% OPTH 15 ML BOT EA EYE SCH ×2 (09:59→20:42)
[2020-04-06] MEDS: Dexamethasone 4 mg/ml Vial SLOW IVP SCH (10:13)
--- NOTE | 2020-04-06 14:14 | PDOC.HOSPP ---
- Subjective Encounter Date: 04/06/20 Encounter Time: 11:00 Subjective: awake, oriented well, is eating well per staff needs to ambulate with PT - Objective Vital Signs & Weight: Vital Signs (12 hours) Temp Pulse Resp BP BP BP Pulse Ox 04/06/20 11:26 97.9 F 62 17 115/67 94 L 04/06/20 11:20 97.9 F 62 17 115/67 94 L 04/06/20 09:52 98.2 F 76 20 152/67 H 96 04/06/20 06:34 72 178/78 H 04/06/20 03:58 98.3 F 72 20 178/78 H 94 L Weight Admit Weight 276 lb Weight 273 lb 4.8 oz Most Recent Monitor Data Heart Rate from ECG 83 NIBP 142/78 NIBP BP-Mean 99 Respiration from ECG 20 SpO2 91 I&O: 04/05/20 04/06/20 04/07/20 06:59 06:59 06:59 Intake Total 3890 2774 110 Output Total 1550 550 225 Balance 2340 2224 -115 Result Diagrams: 04/06/20 04:45 04/06/20 04:45 Additional Labs: Accuchecks 04/06/20 04/06/20 04/05/20 10:53 05:04 19:43 POC Glucose 175 H 156 H 158 H 04/05/20 17:17 POC Glucose 208 H Hospitalist ROS - Medication Medications: Active Medications Generic Name Dose Route Start Last Admin Trade Name Freq PRN Reason Stop Dose Admin Acetaminophen 650 mg 03/18/20 14:41 04/03/20 22:25 Acetaminophen 325 Mg Tab PO 650 mg Q4H PRN Administration Headache/Fever/Mild Pain (1-3) Amlodipine Besylate 10 mg 03/21/20 09:00 04/06/20 09:57 Amlodipine 10 Mg Tab PER TUBE 10 mg DAILY SYDNEE Administration Apixaban 5 mg 03/20/20 21:00 04/06/20 09:57 Apixaban 5 Mg Tab PER TUBE 5 mg BID SYDNEE Administration Ascorbic Acid 1,000 mg 03/20/20 09:00 04/06/20 09:56 Ascorbic Acid 500 Mg Chewable Tablet PO 1,000 mg DAILY SYDNEE Administration Aspirin 81 mg 03/21/20 09:00 04/06/20 09:56 Aspirin Chewable 81 Mg Tab PO 81 mg DAILY SYDNEE Administration Atorvastatin Calcium 40 mg 03/18/20 21:00 04/05/20 20:49 Atorvastatin Calcium 40 Mg Tab PO 40 mg HS SYDNEE Administration Bisoprolol Fumarate 5 mg 03/19/20 09:00 04/06/20 09:56 Bisoprolol Fumarate 5 Mg Tab PO 5 mg DAILY SYDNEE Administration Cholecalciferol 400 units 03/20/20 09:00 04/06/20 09:56 Cholecalciferol (Vitamin D3) 400 Units Tab PO 400 units DAILY SYDNEE Administration Dexamethasone 2 mg 04/03/20 09:00 04/06/20 10:13 Dexamethasone 4 Mg/Ml Vial SLOW IVP 2 mg DAILY SYDNEE Administration Docusate Sodium 100 mg 03/28/20 21:00 04/06/20 09:56 Docusate Sodium 100 Mg/10 Ml Udcup PO 100 mg BID SYDNEE Administration Doxazosin Mesylate 2 mg 03/19/20 09:00 04/06/20 09:58 Doxazosin 2 Mg Tab PO 2 mg DAILY SYDNEE Administration Dutasteride 0.5 mg 03/19/20 09:00 04/06/20 09:57 Dutasteride 0.5 Mg Cap PO 0.5 mg DAILY SYDNEE Administration Hydralazine HCl 20 mg 03/21/20 13:50 04/06/20 06:34 Hydralazine 20 Mg/Ml Vial SLOW IVP 20 mg Q4H PRN Administration SBP>170 Lactated Ringer's 1,000 mls @ 125 mls/hr 04/04/20 09:30 04/06/20 09:59 Lactated Ringer's IV 1,000 mls .Q8H SYDNEE Administration Insulin Human Lispro 0 units 03/25/20 08:12 04/06/20 12:36 Humalog 300 Units/3 Ml Vial SC 3 unit .AGGRESSIVE SLIDING PRN Administration Aggressive Correctional Scale Labetalol HCl 40 mg 03/21/20 07:34 04/02/20 11:35 Labetalol Hcl 100 Mg/20 Ml Vial SLOW IVP 8 ml Q4H PRN Administration SBP Greater Than 180 Magnesium Hydroxide 30 ml 03/28/20 12:06 03/31/20 16:00 Milk Of Magnesia 30 Ml Udcup PO 30 ml DAILYPRN PRN Administration Constipation Minoxidil 5 mg 03/24/20 09:00 04/06/20 09:57 Minoxidil 2.5 Mg Tab PER TUBE 5 mg DAILY SYDNEE Administration Pantoprazole Sodium 40 mg 04/05/20 09:00 04/06/20 09:57 Pantoprazole 40 Mg Tab PO 40 mg DAILY SYDNEE Administration Sodium Chloride 10 ml 03/31/20 21:00 04/06/20 09:59 Flush - Normal Saline 10 Ml Syringe IVF 10 ml Q12HR SYDNEE Administration Tetrahydrozoline HCl 2 drop 04/03/20 21:00 04/06/20 09:59 Tetrahydrozoline 0.05% Opth 15 Ml Bot EA EYE 2 drop BID SYDNEE Administration Zinc Sulfate 220 mg 03/20/20 09:00 04/06/20 09:57 Zinc Sulfate 220 Mg Cap PO 220 mg DAILY SYDNEE Administration Hospitalist Exam Vitals: Vital Signs (12 hours) Temp Pulse Resp BP BP BP Pulse Ox 04/06/20 11:26 97.9 F 62 17 115/67 94 L 04/06/20 11:20 97.9 F 62 17 115/67 94 L 04/06/20 09:52 98.2 F 76 20 152/67 H 96 04/06/20 06:34 72 178/78 H 04/06/20 03:58 98.3 F 72 20 178/78 H 94 L Weight Admit Weight 276 lb Weight 273 lb 4.8 oz Most Recent Monitor Data Heart Rate from ECG 83 NIBP 142/78 NIBP BP-Mean 99 Respiration from ECG 20 SpO2 91 General Appearance: NAD, awake alert Eye: PERRL, anicteric sclera ENT: no oropharyngeal lesions, moist mucosa Neck: supple, no JVD Heart: RRR, no murmur Respiratory: no wheezes, rales, rhonchi Gastrointestinal: soft, non-tender, non-distended, normal bowel sounds Extremities: no cyanosis, no edema Neurological: cranial nerve grossly intact, no focal deficits Psychiatric: normal affect, A&O x 3 Hosp A/P (1) Pneumonia due to COVID-19 virus Code(s): U07.1 - COVID-19; J12.82 - PNEUMONIA DUE TO CORONAVIRUS DISEASE 2019 Status: Acute (2) Acute respiratory failure with hypoxia Code(s): J96.01 - ACUTE RESPIRATORY FAILURE WITH HYPOXIA Status: Acute (3) Acute worsening of stage 3 chronic kidney disease Code(s): N18.30 - CHRONIC KIDNEY DISEASE, STAGE 3 UNSPECIFIED Status: Acute (4) Hyponatremia Code(s): E87.1 - HYPO-OSMOLALITY AND HYPONATREMIA Status: Resolved (5) Diabetes mellitus Code(s): E11.9 - TYPE 2 DIABETES MELLITUS WITHOUT COMPLICATIONS Status: Chronic Qualifiers: Diabetes mellitus intermediate card tender insulin use: with shelter use Diabetes mellitus complication status: with kidney complications Diabetes mellitus complication detail: with chronic kidney disease Chronic kidney disease stage: stage 3 (moderate) (6) Obesity Code(s): E66.9 - OBESITY, UNSPECIFIED Status: Chronic Qualifiers: Obesity classification: adult class 2 (BMI 35 - 39.9) (7) BPH (benign prostatic hyperplasia) Code(s): N40.0 - BENIGN PROSTATIC HYPERPLASIA WITHOUT LOWER URINRY TRACT SYMP Status: Chronic Qualifiers: Lower urinary tract symptom presence: symptoms absent Qualified Code(s): N40.0 - Benign prostatic hyperplasia without lower urinary tract symptoms (8) Hyperlipidemia Code(s): E78.5 - HYPERLIPIDEMIA, UNSPECIFIED Status: Chronic Qualifiers: Hyperlipidemia type: unspecified Qualified Code(s): E78.5 - Hyperlipidemia, unspecified - Plan is on dexamethasone, alb inh, extuabated on 04/01/2020, doing well continue asp, lipitor, bisoprolol, eliquis, minoxidil, avodart, doxazosin, protonix, coverage of reg insulin hemostable d/w son Mr.Wesley Woods [phone] and gave full updates 03/31, 04/01, 04/02, 04/03, 04/04, 04/06. He is off precautions from 04/04 encourage po intake, needs family to engage to make him eat and exercise/mobilize PT eval and mobilize as tolerated with nasal canula O2 is on LR 125mls/hr for natali which is getting better suggest reduce dose. will need rehab/swing, skilled bed for dc plan.
[2020-04-06] MEDS: Atorvastatin Calcium 40 MG TAB PO SCH (20:41)
[2020-04-07] MEDS: Lactated Ringer's 1,000 ML IV SCH ×4 (02:30→18:52)
[2020-04-07 06:02] LABS: #Eosinphils 0.5 thou/uL (0.0-0.7); #Lymphocytes 1.1 thou/uL (1.20-3.40); #Monocytes 0.6 thou/uL (0.11-0.59); #Neutrophils 3.9 thou/uL (1.40-6.50); %Basophils 0.8 % (0.0-1.0); %Eosinophils 7.4 % (0.0-10.0); %Lymphocytes 18.4 % (21.0-51.0); %Monocytes 9.9 % (0.0-10.0); %Neutrophils 63.5 % (42.0-75.0); Hemoglobin 9.4 g/dL (14.0-18.0); Mean Corpuscular HGB CONC 33.5 g/dL (32.0-36.0); Mean Corpuscular Volume 92.5 fL (78.0-98.0); Mean Platelet Volume 9.7 fL (7.4-10.4); Platelet Count 147 thou/uL (130-400); RBC Distribution Width 11.9 % (11.5-14.5); Red Blood Cell (RBC) Count 3.05 mill/uL (4.70-6.10); White Blood Cell (WBC) Count 6.1 thou/uL (4.8-10.8)
[2020-04-07 06:16] LABS: Anion Gap 12 mmol/L (10-20); BUN (Urea Nitrogen) 40 mg/dL (8.4-25.7); Calc. Creatinine Clearance 61 mL/min (70-130); Calcium 8.8 mg/dL (7.8-10.44); Carbon Dioxide 20 mmol/L (23-31); Chloride 116 mmol/L (98-107); Glucose 162 mg/dL (83-110); Potassium 3.9 mmol/L (3.5-5.1); Sodium 144 mmol/L (136-145)
[2020-04-07] MEDS: Minoxidil 2.5 MG TAB PER TUBE SCH (09:39)
[2020-04-07] MEDS: Docusate Sodium 100 MG/10 ML UDCUP PO SCH ×2 (09:39→20:28)
[2020-04-07] MEDS: Bisoprolol Fumarate 5 MG TAB PO SCH (09:39)
[2020-04-07] MEDS: Cholecalciferol (Vitamin D3) 400 UNITS TAB PO SCH (09:39)
[2020-04-07] MEDS: Ascorbic Acid 500 mg Chewable Tablet PO SCH (09:39)
[2020-04-07] MEDS: Aspirin Chewable 81 MG TAB PO SCH (09:39)
[2020-04-07] MEDS: Doxazosin 2 MG TAB PO SCH (09:39)
[2020-04-07] MEDS: Dutasteride 0.5 MG CAP PO SCH (09:40)
[2020-04-07] MEDS: Dexamethasone 4 mg/ml Vial SLOW IVP SCH (09:40)
[2020-04-07] MEDS: Zinc Sulfate 220 MG CAP PO SCH (09:40)
[2020-04-07] MEDS: Apixaban 5 MG TAB PER TUBE SCH ×2 (09:40→20:29)
[2020-04-07] MEDS: Amlodipine 10 MG TAB PER TUBE SCH (09:40)
[2020-04-07] MEDS: Tetrahydrozoline 0.05% OPTH 15 ML BOT EA EYE SCH ×2 (09:41→20:29)
--- NOTE | 2020-04-07 10:30 | PRG ---
DATE OF SERVICE: 04/07/2020 SUBJECTIVE: Mr. Woods is a 74-year-old white male, who was initially admitted with COVID-19 pneumonia. We are following him up for his acute kidney injury on top of his chronic renal failure. We felt that he may have had hemodynamically mediated renal dysfunction. Empiric volume repletion was given. There is stabilization of his creatinine. Creatinine today is 1.88, which is near baseline. Please note, the patient is tolerating the IV fluid. He feels better. He is eating better. Denies any chest pain or shortness of breath. OBJECTIVE: VITAL SIGNS: Blood pressure is 159/83, heart rate 88, respiratory rate 18, temperature 98.4, O2 saturation 97%. GENERAL: The patient is awake, comfortable, obese, not in distress. SKIN: Adequate turgor. HEENT: He has a slightly pale conjunctivae. Anicteric sclerae. NECK: No neck mass. No carotid bruits. No JVD. CHEST: No deformities. LUNGS: Decreased breath sounds. HEART: Normal sinus rhythm. No murmur. No gallops. No rubs. ABDOMEN: Globular, soft, and nontender. No masses. EXTREMITIES: No edema. MEDICATIONS: Medications of April 07, 2020, reviewed. LABORATORY DATA: April 03, 2020; white count 6.1, hemoglobin 9.4. Sodium 144, potassium 4.3, chloride 111, carbon dioxide 21, BUN 65, creatinine 2.03. April 07, 2020; sodium 144, potassium 3.9, chloride 116, carbon dioxide 20, BUN 40, creatinine 1.88, GFR 35 mL/minute, calcium 8.8. White count 6.1, hemoglobin 9.4. ASSESSMENT AND PLAN: 1. Acute kidney injury - superimposed prerenal azotemia. Continue IV hydration. Due to the slowly improving renal function, we will decrease IV fluid from 125 to 100 mL/hr. No indication for any dialytic intervention. 2. Chronic renal failure. He has underlying diabetic nephropathy. Baseline creatinine is from 1.8 to 1.9 mg%. 3. COVID-19 pneumonia, clinically much improved. Continuing supportive care. Recheck basic metabolic panel and complete blood count in a.m. Job ID: [id number]
[2020-04-07] MEDS: HumaLOG 300 UNITS/3 ML VIAL SC PRN ×3 (12:04→21:35)
--- NOTE | 2020-04-07 13:25 | PDOC.HOSPP ---
- Subjective Encounter Date: 04/07/20 Encounter Time: 08:00 Subjective: no sob, feels better - Objective Vital Signs & Weight: Vital Signs (12 hours) Temp Pulse Resp BP BP Pulse Ox 04/07/20 12:56 97 04/07/20 12:03 97.8 F 81 18 145/78 H 96 04/07/20 09:36 98.4 F 88 18 159/83 H 97 04/07/20 03:00 98.2 F 76 20 149/75 H 90 L Weight Admit Weight 276 lb Weight 273 lb 4.8 oz Most Recent Monitor Data Heart Rate from ECG 83 NIBP 142/78 NIBP BP-Mean 99 Respiration from ECG 20 SpO2 91 I&O: 04/06/20 04/07/20 04/08/20 06:59 06:59 06:59 Intake Total 2774 1646 240 Output Total 550 225 Balance 2224 1421 240 Result Diagrams: 04/07/20 05:38 04/07/20 05:38 Additional Labs: Accuchecks 04/07/20 04/07/20 04/06/20 10:31 05:23 20:52 POC Glucose 204 H 147 H 171 H 04/06/20 17:32 POC Glucose 189 H Hospitalist ROS - Medication Medications: Active Medications Generic Name Dose Route Start Last Admin Trade Name Freq PRN Reason Stop Dose Admin Acetaminophen 650 mg 03/18/20 14:41 04/03/20 22:25 Acetaminophen 325 Mg Tab PO 650 mg Q4H PRN Administration Headache/Fever/Mild Pain (1-3) Amlodipine Besylate 10 mg 03/21/20 09:00 04/07/20 09:40 Amlodipine 10 Mg Tab PER TUBE 10 mg DAILY SYDNEE Administration Apixaban 5 mg 03/20/20 21:00 04/07/20 09:40 Apixaban 5 Mg Tab PER TUBE 5 mg BID SYDNEE Administration Ascorbic Acid 1,000 mg 03/20/20 09:00 04/07/20 09:39 Ascorbic Acid 500 Mg Chewable Tablet PO 1,000 mg DAILY SYDNEE Administration Aspirin 81 mg 03/21/20 09:00 04/07/20 09:39 Aspirin Chewable 81 Mg Tab PO 81 mg DAILY SYDNEE Administration Atorvastatin Calcium 40 mg 03/18/20 21:00 04/06/20 20:41 Atorvastatin Calcium 40 Mg Tab PO 40 mg HS SYDNEE Administration Bisoprolol Fumarate 5 mg 03/19/20 09:00 04/07/20 09:39 Bisoprolol Fumarate 5 Mg Tab PO 5 mg DAILY SYDNEE Administration Cholecalciferol 400 units 03/20/20 09:00 04/07/20 09:39 Cholecalciferol (Vitamin D3) 400 Units Tab PO 400 units DAILY SYDNEE Administration Dexamethasone 2 mg 04/03/20 09:00 04/07/20 09:40 Dexamethasone 4 Mg/Ml Vial SLOW IVP 2 mg DAILY SYDNEE Administration Docusate Sodium 100 mg 03/28/20 21:00 04/07/20 09:39 Docusate Sodium 100 Mg/10 Ml Udcup PO 100 mg BID SYDNEE Administration Doxazosin Mesylate 2 mg 03/19/20 09:00 04/07/20 09:39 Doxazosin 2 Mg Tab PO 2 mg DAILY SYDNEE Administration Dutasteride 0.5 mg 03/19/20 09:00 04/07/20 09:40 Dutasteride 0.5 Mg Cap PO 0.5 mg DAILY SYDNEE Administration Hydralazine HCl 20 mg 03/21/20 13:50 04/06/20 06:34 Hydralazine 20 Mg/Ml Vial SLOW IVP 20 mg Q4H PRN Administration SBP>170 Lactated Ringer's 1,000 mls @ 100 mls/hr 04/07/20 10:10 04/07/20 10:00 Lactated Ringer's IV 1,000 mls .Q10H SYDNEE Administration Insulin Human Lispro 0 units 03/25/20 08:12 04/07/20 12:04 Humalog 300 Units/3 Ml Vial SC 6 unit .AGGRESSIVE SLIDING PRN Administration Aggressive Correctional Scale Labetalol HCl 40 mg 03/21/20 07:34 04/02/20 11:35 Labetalol Hcl 100 Mg/20 Ml Vial SLOW IVP 8 ml Q4H PRN Administration SBP Greater Than 180 Magnesium Hydroxide 30 ml 03/28/20 12:06 03/31/20 16:00 Milk Of Magnesia 30 Ml Udcup PO 30 ml DAILYPRN PRN Administration Constipation Minoxidil 5 mg 03/24/20 09:00 04/07/20 09:39 Minoxidil 2.5 Mg Tab PER TUBE 5 mg DAILY SYDNEE Administration Pantoprazole Sodium 40 mg 04/05/20 09:00 04/07/20 09:39 Pantoprazole 40 Mg Tab PO Not Given DAILY SYDNEE Sodium Chloride 10 ml 03/31/20 21:00 04/07/20 09:41 Flush - Normal Saline 10 Ml Syringe IVF Not Given Q12HR SYDNEE Tetrahydrozoline HCl 2 drop 04/03/20 21:00 04/07/20 09:41 Tetrahydrozoline 0.05% Opth 15 Ml Bot EA EYE 2 drop BID SYDNEE Administration Zinc Sulfate 220 mg 03/20/20 09:00 04/07/20 09:40 Zinc Sulfate 220 Mg Cap PO 220 mg DAILY SYDNEE Administration Hospitalist Exam Vitals: Vital Signs (12 hours) Temp Pulse Resp BP BP Pulse Ox 04/07/20 12:56 97 04/07/20 12:03 97.8 F 81 18 145/78 H 96 04/07/20 09:36 98.4 F 88 18 159/83 H 97 04/07/20 03:00 98.2 F 76 20 149/75 H 90 L Weight Admit Weight 276 lb Weight 273 lb 4.8 oz Most Recent Monitor Data Heart Rate from ECG 83 NIBP 142/78 NIBP BP-Mean 99 Respiration from ECG 20 SpO2 91 General Appearance: NAD, awake alert Eye: PERRL, anicteric sclera ENT: no oropharyngeal lesions, moist mucosa Neck: supple, no JVD Heart: RRR, no murmur Respiratory: no wheezes, rales, rhonchi Gastrointestinal: soft, non-tender, non-distended, normal bowel sounds Extremities: no cyanosis, no edema Neurological: cranial nerve grossly intact, no focal deficits Psychiatric: normal affect, A&O x 3 Hosp A/P (1) Pneumonia due to COVID-19 virus Code(s): U07.1 - COVID-19; J12.82 - PNEUMONIA DUE TO CORONAVIRUS DISEASE 2019 Status: Acute (2) Acute respiratory failure with hypoxia Code(s): J96.01 - ACUTE RESPIRATORY FAILURE WITH HYPOXIA Status: Acute (3) Acute worsening of stage 3 chronic kidney disease Code(s): N18.30 - CHRONIC KIDNEY DISEASE, STAGE 3 UNSPECIFIED Status: Acute (4) Hyponatremia Code(s): E87.1 - HYPO-OSMOLALITY AND HYPONATREMIA Status: Resolved (5) Diabetes mellitus Code(s): E11.9 - TYPE 2 DIABETES MELLITUS WITHOUT COMPLICATIONS Status: Chronic Qualifiers: Diabetes mellitus nursing home insulin use: with nursing home use Diabetes mellitus complication status: with kidney complications Diabetes mellitus complication detail: with chronic kidney disease Chronic kidney disease stage: stage 3 (moderate) (6) Obesity Code(s): E66.9 - OBESITY, UNSPECIFIED Status: Chronic Qualifiers: Obesity classification: adult class 2 (BMI 35 - 39.9) (7) BPH (benign prostatic hyperplasia) Code(s): N40.0 - BENIGN PROSTATIC HYPERPLASIA WITHOUT LOWER URINRY TRACT SYMP Status: Chronic Qualifiers: Lower urinary tract symptom presence: symptoms absent Qualified Code(s): N40.0 - Benign prostatic hyperplasia without lower urinary tract symptoms (8) Hyperlipidemia Code(s): E78.5 - HYPERLIPIDEMIA, UNSPECIFIED Status: Chronic Qualifiers: Hyperlipidemia type: unspecified Qualified Code(s): E78.5 - Hyperlipidemia, unspecified - Plan is on dexamethasone, alb inh, extuabated on 04/01/2020, doing well continue asp, lipitor, bisoprolol, eliquis, minoxidil, avodart, doxazosin, protonix, coverage of reg insulin hemostable d/w son [place] [phone] and gave full updates 03/31, 04/01, 04/02, 04/03, 04/04, 04/06. He is off precautions from 04/04 encourage po intake, needs family to engage to make him eat and exercise/mobilize PT eval and mobilize as tolerated with nasal canula O2 is on LR 100mls/hr for natali which is getting better and may dc in am. will need rehab/swing, skilled bed for dc plan.
[2020-04-07] MEDS: Atorvastatin Calcium 40 MG TAB PO SCH (20:28)
[2020-04-08] MEDS: hydrALAZINE 20 MG/ML VIAL SLOW IVP PRN ×2 (00:13→04:18)
[2020-04-08 04:43] LABS: #Eosinphils 0.4 thou/uL (0.0-0.7); #Lymphocytes 1.2 thou/uL (1.20-3.40); #Monocytes 0.6 thou/uL (0.11-0.59); #Neutrophils 3.7 thou/uL (1.40-6.50); %Basophils 0.4 % (0.0-1.0); %Eosinophils 6.8 % (0.0-10.0); %Lymphocytes 20.1 % (21.0-51.0); %Monocytes 10.7 % (0.0-10.0); Hemoglobin 9.9 g/dL (14.0-18.0); Mean Corpuscular HGB CONC 33.8 g/dL (32.0-36.0); Mean Corpuscular Hemoglobin 31.2 pg (27.0-31.0); Mean Corpuscular Volume 92.4 fL (78.0-98.0); Mean Platelet Volume 9.7 fL (7.4-10.4); Platelet Count 143 thou/uL (130-400); Red Blood Cell (RBC) Count 3.15 mill/uL (4.70-6.10)
[2020-04-08 05:07] LABS: Anion Gap 13 mmol/L (10-20); BUN (Urea Nitrogen) 36 mg/dL (8.4-25.7); Calc. Creatinine Clearance 67 mL/min (70-130); Calcium 8.7 mg/dL (7.8-10.44); Carbon Dioxide 21 mmol/L (23-31); Chloride 114 mmol/L (98-107); Glucose 151 mg/dL (83-110); Potassium 3.5 mmol/L (3.5-5.1); Sodium 144 mmol/L (136-145)
[2020-04-08] MEDS: Doxazosin 2 MG TAB PO SCH (08:30)
[2020-04-08] MEDS: Apixaban 5 MG TAB PER TUBE SCH ×2 (08:30→22:02)
[2020-04-08] MEDS: Cholecalciferol (Vitamin D3) 400 UNITS TAB PO SCH (08:30)
[2020-04-08] MEDS: Bisoprolol Fumarate 5 MG TAB PO SCH (08:30)
[2020-04-08] MEDS: Docusate Sodium 100 MG/10 ML UDCUP PO SCH ×2 (08:30→22:01)
[2020-04-08] MEDS: Aspirin Chewable 81 MG TAB PO SCH (08:30)
[2020-04-08] MEDS: Minoxidil 2.5 MG TAB PER TUBE SCH (08:30)
[2020-04-08] MEDS: Lactated Ringer's 1,000 ML IV SCH ×2 (08:30→15:47)
[2020-04-08] MEDS: Dutasteride 0.5 MG CAP PO SCH (08:31)
[2020-04-08] MEDS: Zinc Sulfate 220 MG CAP PO SCH (08:31)
[2020-04-08] MEDS: Dexamethasone 4 mg/ml Vial SLOW IVP SCH (08:31)
[2020-04-08] MEDS: Amlodipine 10 MG TAB PER TUBE SCH (08:31)
[2020-04-08] MEDS: Ascorbic Acid 500 mg Chewable Tablet PO SCH (08:31)
[2020-04-08] MEDS: Tetrahydrozoline 0.05% OPTH 15 ML BOT EA EYE SCH ×2 (08:33→22:01)
--- NOTE | 2020-04-08 09:16 | PRG ---
DATE OF SERVICE: 04/08/2020 SUBJECTIVE: Mr. Woods is a 74-year-old white male, who was diagnosed with COVID-19 pneumonia and is actually improving from the COVID-19 infection. We are following him up for his acute kidney injury on top of his chronic renal failure. Initially, we felt that he simply had a hemodynamically-mediated renal dysfunction and IV fluid was given. This led to improvement of the renal function. No new complaints today. No chest pain or shortness of breath. OBJECTIVE: VITAL SIGNS: Blood pressure 150/82, heart rate 84, respiratory rate 18, temperature 97.1, O2 saturation 98%. GENERAL: Awake, alert, comfortable, not in overt distress. SKIN: Adequate turgor. HEENT: He has a slightly pale conjunctivae and anicteric sclerae. No neck mass. No carotid bruits. No JVD. CHEST: No deformities. LUNGS: Clear breath sounds. HEART: Normal sinus rhythm. No murmur. No gallops. No rubs. ABDOMEN: Globular, soft, nontender. No masses. EXTREMITIES: No edema. No deformities. MEDICATIONS: Medications of April 08, 2020, was reviewed. LABORATORY DATA: Laboratories of April 08, 2020, white count 6, hemoglobin 9.9. Sodium was 144, potassium 3.5, chloride 114, carbon dioxide 21, BUN 36, creatinine 1.73, calcium 8.7. ASSESSMENT AND PLAN: 1. Acute kidney injury-on superimposed hemodynamically-mediated renal dysfunction. Improving creatinine. Most recent creatinine is improved at 1.73. We will decrease the lactated Ringer's from 100 mL/h to 75 mL/hour. No indication for any acute dialytic intervention. 2. Chronic renal failure. This is secondary to his diabetic nephropathy. The patient is nearing or almost at baseline GFR. 3. COVID-19 pneumonia, clinically much improved. Recheck CBC and basic metabolic profile in a.m. Job ID: [id number]
[2020-04-08] MEDS: HumaLOG 300 UNITS/3 ML VIAL SC PRN ×3 (12:28→22:02)
--- NOTE | 2020-04-08 15:23 | PDOC.HOSPP ---
- Subjective Encounter Date: 04/08/20 Encounter Time: 11:00 Subjective: pt up in bed no complains - Objective Vital Signs & Weight: Vital Signs (12 hours) Temp Pulse Pulse Resp BP BP BP 04/08/20 12:00 98.1 F 80 16 04/08/20 09:35 89 139/73 04/08/20 08:31 84 155/73 H 04/08/20 08:05 90/34 L 04/08/20 08:00 97.8 F 73 29 H 69/38 L 04/08/20 06:48 04/08/20 05:00 97.1 F L 84 18 BP BP Pulse Ox Pulse Ox 04/08/20 12:00 146/76 H 94 L 04/08/20 09:35 96 04/08/20 08:31 04/08/20 08:05 04/08/20 08:00 96 04/08/20 06:48 98 04/08/20 05:00 150/82 H 98 Weight Admit Weight 276 lb Weight 273 lb 4.8 oz Most Recent Monitor Data Heart Rate from ECG 83 NIBP 142/78 NIBP BP-Mean 99 Respiration from ECG 20 SpO2 91 I&O: 04/07/20 04/08/20 04/09/20 06:59 06:59 06:59 Intake Total 1646 3839 480 Output Total 225 750 Balance 1421 3089 480 Result Diagrams: 04/08/20 04:13 04/08/20 04:13 Additional Labs: Accuchecks 04/08/20 04/08/20 04/07/20 11:18 04:12 21:08 POC Glucose 252 H 140 H 188 H 04/07/20 16:34 POC Glucose 197 H Hospitalist ROS - Review of Systems Respiratory: denies: cough, dry, shortness of breath, hemoptysis, SOB with excertion, pleuritic pain, sputum, wheezing, other Cardiovascular: denies: chest pain, palpitations, orthopnea, paroxysmal noc. dyspnea, edema, light headedness, other Gastrointestinal: denies: nausea, vomiting, abdominal pain, diarrhea, constipation, melena, hematochezia, other - Medication Medications: Active Medications Generic Name Dose Route Start Last Admin Trade Name Freq PRN Reason Stop Dose Admin Acetaminophen 650 mg 03/18/20 14:41 04/03/20 22:25 Acetaminophen 325 Mg Tab PO 650 mg Q4H PRN Administration Headache/Fever/Mild Pain (1-3) Amlodipine Besylate 10 mg 03/21/20 09:00 04/08/20 08:31 Amlodipine 10 Mg Tab PER TUBE 10 mg DAILY SYDNEE Administration Apixaban 5 mg 03/20/20 21:00 04/08/20 08:30 Apixaban 5 Mg Tab PER TUBE 5 mg BID SYDNEE Administration Ascorbic Acid 1,000 mg 03/20/20 09:00 04/08/20 08:31 Ascorbic Acid 500 Mg Chewable Tablet PO 1,000 mg DAILY SYDNEE Administration Aspirin 81 mg 03/21/20 09:00 04/08/20 08:30 Aspirin Chewable 81 Mg Tab PO 81 mg DAILY SYDNEE Administration Atorvastatin Calcium 40 mg 03/18/20 21:00 04/07/20 20:28 Atorvastatin Calcium 40 Mg Tab PO 40 mg HS SYDNEE Administration Bisoprolol Fumarate 5 mg 03/19/20 09:00 04/08/20 08:30 Bisoprolol Fumarate 5 Mg Tab PO 5 mg DAILY SYDNEE Administration Cholecalciferol 400 units 03/20/20 09:00 04/08/20 08:30 Cholecalciferol (Vitamin D3) 400 Units Tab PO 400 units DAILY SYDNEE Administration Dexamethasone 2 mg 04/03/20 09:00 04/08/20 08:31 Dexamethasone 4 Mg/Ml Vial SLOW IVP 2 mg DAILY SYDNEE Administration Docusate Sodium 100 mg 03/28/20 21:00 04/08/20 08:30 Docusate Sodium 100 Mg/10 Ml Udcup PO 100 mg BID SYDNEE Administration Doxazosin Mesylate 2 mg 03/19/20 09:00 04/08/20 08:30 Doxazosin 2 Mg Tab PO 2 mg DAILY SYDNEE Administration Dutasteride 0.5 mg 03/19/20 09:00 04/08/20 08:31 Dutasteride 0.5 Mg Cap PO 0.5 mg DAILY SYDNEE Administration Hydralazine HCl 20 mg 03/21/20 13:50 04/08/20 00:13 Hydralazine 20 Mg/Ml Vial SLOW IVP 20 mg Q4H PRN Administration SBP>170 Insulin Human Lispro 0 units 03/25/20 08:12 04/08/20 12:28 Humalog 300 Units/3 Ml Vial SC 9 unit .AGGRESSIVE SLIDING PRN Administration Aggressive Correctional Scale Labetalol HCl 40 mg 03/21/20 07:34 04/02/20 11:35 Labetalol Hcl 100 Mg/20 Ml Vial SLOW IVP 8 ml Q4H PRN Administration SBP Greater Than 180 Magnesium Hydroxide 30 ml 03/28/20 12:06 03/31/20 16:00 Milk Of Magnesia 30 Ml Udcup PO 30 ml DAILYPRN PRN Administration Constipation Minoxidil 5 mg 03/24/20 09:00 04/08/20 08:30 Minoxidil 2.5 Mg Tab PER TUBE 5 mg DAILY SYDNEE Administration Pantoprazole Sodium 40 mg 04/05/20 09:00 04/08/20 08:33 Pantoprazole 40 Mg Tab PO Not Given DAILY SYDNEE Sodium Chloride 10 ml 03/31/20 21:00 04/08/20 08:33 Flush - Normal Saline 10 Ml Syringe IVF 10 ml Q12HR SYDNEE Administration Tetrahydrozoline HCl 2 drop 04/03/20 21:00 04/08/20 08:33 Tetrahydrozoline 0.05% Opth 15 Ml Bot EA EYE 2 drop BID SYDNEE Administration Zinc Sulfate 220 mg 03/20/20 09:00 04/08/20 08:31 Zinc Sulfate 220 Mg Cap PO 220 mg DAILY SYDNEE Administration Hospitalist Exam Vitals: Vital Signs (12 hours) Temp Pulse Pulse Resp BP BP BP 04/08/20 12:00 98.1 F 80 16 04/08/20 09:35 89 139/73 04/08/20 08:31 84 155/73 H 04/08/20 08:05 90/34 L 04/08/20 08:00 97.8 F 73 29 H 69/38 L 04/08/20 06:48 04/08/20 05:00 97.1 F L 84 18 BP BP Pulse Ox Pulse Ox 04/08/20 12:00 146/76 H 94 L 04/08/20 09:35 96 04/08/20 08:31 04/08/20 08:05 04/08/20 08:00 96 04/08/20 06:48 98 04/08/20 05:00 150/82 H 98 Weight Admit Weight 276 lb Weight 273 lb 4.8 oz Most Recent Monitor Data Heart Rate from ECG 83 NIBP 142/78 NIBP BP-Mean 99 Respiration from ECG 20 SpO2 91 Neck: supple Heart: RRR, no gallops, no rubs Respiratory: no wheezes, no rales, no ronchi Gastrointestinal: soft, non-tender, normal bowel sounds Hosp A/P (1) Acute respiratory failure with hypoxia Code(s): J96.01 - ACUTE RESPIRATORY FAILURE WITH HYPOXIA Status: Acute (2) Hypertension Code(s): I10 - ESSENTIAL (PRIMARY) HYPERTENSION Status: Acute (3) Morbid obesity Code(s): E66.01 - MORBID (SEVERE) OBESITY DUE TO EXCESS CALORIES Status: Acute (4) Pneumonia due to COVID-19 virus Code(s): U07.1 - COVID-19; J12.82 - PNEUMONIA DUE TO CORONAVIRUS DISEASE 2019 Status: Acute (5) Diabetes mellitus Code(s): E11.9 - TYPE 2 DIABETES MELLITUS WITHOUT COMPLICATIONS Status: Chronic Qualifiers: Diabetes mellitus termination clerk insulin use: with residential use Diabetes mellitus complication status: with kidney complications Diabetes mellitus complication detail: with chronic kidney disease Chronic kidney disease stage: stage 3 (moderate) - Plan Patient is a 74-year-old male with a history of diabetes, hypertension, presents to the hospital complaint of shortness of breath. Patient was noted to have Covid. Patient underwent intubation. Patient underwent successful extubation. Patient is doing well.
[2020-04-08] MEDS: Atorvastatin Calcium 40 MG TAB PO SCH (22:02)
[2020-04-09] MEDS: Labetalol HCl 100 MG/20 ML VIAL SLOW IVP PRN (02:44)
[2020-04-09 05:15] LABS: #Eosinphils 0.5 thou/uL (0.0-0.7); #Lymphocytes 1.1 thou/uL (1.20-3.40); #Monocytes 0.5 thou/uL (0.11-0.59); #Neutrophils 3.5 thou/uL (1.40-6.50); %Basophils 0.9 % (0.0-1.0); %Eosinophils 8.3 % (0.0-10.0); %Lymphocytes 19.6 % (21.0-51.0); %Monocytes 8.7 % (0.0-10.0); %Neutrophils 62.5 % (42.0-75.0); Hemoglobin 9.4 g/dL (14.0-18.0); Mean Corpuscular HGB CONC 32.2 g/dL (32.0-36.0); Mean Corpuscular Hemoglobin 29.8 pg (27.0-31.0); Mean Corpuscular Volume 92.6 fL (78.0-98.0); Mean Platelet Volume 9.6 fL (7.4-10.4); Platelet Count 152 thou/uL (130-400); Red Blood Cell (RBC) Count 3.16 mill/uL (4.70-6.10); White Blood Cell (WBC) Count 5.6 thou/uL (4.8-10.8)
[2020-04-09 05:39] LABS: Anion Gap 15 mmol/L (10-20); BUN (Urea Nitrogen) 29 mg/dL (8.4-25.7); Calc. Creatinine Clearance 72 mL/min (70-130); Calcium 8.5 mg/dL (7.8-10.44); Carbon Dioxide 20 mmol/L (23-31); Chloride 113 mmol/L (98-107); Glucose 148 mg/dL (83-110); Potassium 3.5 mmol/L (3.5-5.1); Sodium 144 mmol/L (136-145)
[2020-04-09] MEDS: Lactated Ringer's 1,000 ML IV SCH ×4 (05:50→19:26)
[2020-04-09] MEDS: hydrALAZINE 20 MG/ML VIAL SLOW IVP PRN (05:51)
--- NOTE | 2020-04-09 09:01 | PRG ---
DATE OF SERVICE: 04/09/2020 SUBJECTIVE: Mr. Woods is a 74-year-old white male, who was admitted for COVID-19 pneumonia. He developed acute kidney injury and we were consulted. He had a superimposed hemodynamically-mediated renal dysfunction. Renal function is much improved with IV hydration. No new complaints today. He feels somewhat sad being in the hospital. He wants to go home. He denies any chest pain or shortness of breath. OBJECTIVE: VITAL SIGNS: Blood pressure 144/68, heart rate 71, respiratory rate 18, temperature 98, and O2 saturation 97%. GENERAL: Awake, alert, comfortable, not in distress. SKIN: Adequate turgor. HEENT: He has pinkish conjunctivae. Anicteric sclerae. NECK: No neck mass. No carotid bruits. No JVD. CHEST: No deformities. LUNGS: Clear breath sounds. HEART: Normal sinus rhythm. No murmur. No gallops. No rubs. ABDOMEN: Globular, soft, and nontender. No masses. EXTREMITIES: No edema. MEDICATIONS: Of April 09, 2020, reviewed. LABORATORY DATA: Laboratories of April 09, 2020; white count 5.6, hemoglobin 9.4. Sodium 144, potassium 3.5, chloride 103, carbon dioxide 20, BUN 29, creatinine 1.61, GFR 42 mL/minute, glucose 148, and calcium 8.5. ASSESSMENT AND PLAN: 1. Acute kidney injury - superimposed hemodynamically-mediated renal dysfunction, much improved with IV hydration on decreased dose of lactated Ringer's - we will continue current IV fluids since the p.o. intake still decreased. No indication for any dialytic intervention. 2. Chronic renal failure. He has underlying diabetic nephropathy. 3. COVID-19 pneumonia, clinically improving. 4. Depression. Zoloft 50 mg tablet daily. Recheck CBC and basic metabolic panel in a.m. Job ID: [id number]
[2020-04-09] MEDS: Cholecalciferol (Vitamin D3) 400 UNITS TAB PO SCH (09:59)
[2020-04-09] MEDS: Dutasteride 0.5 MG CAP PO SCH (09:59)
[2020-04-09] MEDS: Aspirin Chewable 81 MG TAB PO SCH (09:59)
[2020-04-09] MEDS: Apixaban 5 MG TAB PER TUBE SCH ×2 (09:59→20:21)
[2020-04-09] MEDS: Doxazosin 2 MG TAB PO SCH (09:59)
[2020-04-09] MEDS: Zinc Sulfate 220 MG CAP PO SCH (09:59)
[2020-04-09] MEDS: Ascorbic Acid 500 mg Chewable Tablet PO SCH (10:00)
[2020-04-09] MEDS: Amlodipine 10 MG TAB PER TUBE SCH (10:00)
[2020-04-09] MEDS: Minoxidil 2.5 MG TAB PER TUBE SCH (10:00)
[2020-04-09] MEDS: Bisoprolol Fumarate 5 MG TAB PO SCH (10:01)
[2020-04-09] MEDS: Dexamethasone 4 mg/ml Vial SLOW IVP SCH (10:01)
[2020-04-09] MEDS: Docusate Sodium 100 MG/10 ML UDCUP PO SCH ×2 (10:01→20:21)
[2020-04-09] MEDS: Tetrahydrozoline 0.05% OPTH 15 ML BOT EA EYE SCH (10:03)
[2020-04-09] MEDS: HumaLOG 300 UNITS/3 ML VIAL SC PRN ×3 (11:12→20:26)
--- NOTE | 2020-04-09 18:06 | PDOC.HOSPP ---
- Subjective Encounter Date: 04/09/20 Encounter Time: 11:30 Subjective: pt up in bed no complains - Objective Vital Signs & Weight: Vital Signs (12 hours) Temp Pulse Resp BP BP Pulse Ox 04/09/20 15:00 98.8 F 79 20 144/62 H 99 04/09/20 11:59 97.7 F 71 18 108/55 L 97 04/09/20 11:16 70 22 H 117/45 L 99 04/09/20 10:00 71 04/09/20 08:59 97 04/09/20 08:11 98 04/09/20 07:55 98 F 71 18 144/68 H 97 Weight Admit Weight 276 lb Weight 273 lb 4.8 oz Most Recent Monitor Data Heart Rate from ECG 83 NIBP 142/78 NIBP BP-Mean 99 Respiration from ECG 20 SpO2 91 I&O: 04/08/20 04/09/20 04/10/20 06:59 06:59 06:59 Intake Total 3839 3294 1221 Output Total 750 1200 700 Balance 3089 2094 521 Result Diagrams: 04/09/20 04:27 04/09/20 04:27 Additional Labs: Accuchecks 04/09/20 04/09/20 04/08/20 16:44 10:30 21:14 POC Glucose 263 H 197 H 192 H Hospitalist ROS - Review of Systems Cardiovascular: denies: chest pain, palpitations, orthopnea, paroxysmal noc. dyspnea, edema, light headedness, other Gastrointestinal: denies: nausea, vomiting, abdominal pain, diarrhea, constipation, melena, hematochezia, other Genitourinary: denies: dysuria, frequency, incontinence, hematuria, retention, other - Medication Medications: Active Medications Generic Name Dose Route Start Last Admin Trade Name Freq PRN Reason Stop Dose Admin Acetaminophen 650 mg 03/18/20 14:41 04/03/20 22:25 Acetaminophen 325 Mg Tab PO 650 mg Q4H PRN Administration Headache/Fever/Mild Pain (1-3) Apixaban 5 mg 03/20/20 21:00 04/09/20 09:59 Apixaban 5 Mg Tab PER TUBE 5 mg BID SYDNEE Administration Ascorbic Acid 1,000 mg 03/20/20 09:00 04/09/20 10:00 Ascorbic Acid 500 Mg Chewable Tablet PO 1,000 mg DAILY SYDNEE Administration Aspirin 81 mg 03/21/20 09:00 04/09/20 09:59 Aspirin Chewable 81 Mg Tab PO 81 mg DAILY [facility] Administration Atorvastatin Calcium 40 mg 03/18/20 21:00 04/08/20 22:02 Atorvastatin Calcium 40 Mg Tab PO 40 mg HS [facility] Administration Bisoprolol Fumarate 5 mg 03/19/20 09:00 04/09/20 10:01 Bisoprolol Fumarate 5 Mg Tab PO 5 mg DAILY [facility] Administration Cholecalciferol 400 units 03/20/20 09:00 04/09/20 09:59 Cholecalciferol (Vitamin D3) 400 Units Tab PO 400 units DAILY SYDNEE Administration Dexamethasone 2 mg 04/03/20 09:00 04/09/20 10:01 Dexamethasone 4 Mg/Ml Vial SLOW IVP 2 mg DAILY [facility] Administration Docusate Sodium 100 mg 03/28/20 21:00 04/09/20 10:01 Docusate Sodium 100 Mg/10 Ml Udcup PO 100 mg BID [facility] Administration Doxazosin Mesylate 2 mg 03/19/20 09:00 04/09/20 09:59 Doxazosin 2 Mg Tab PO 2 mg DAILY [facility] Administration Hydralazine HCl 20 mg 03/21/20 13:50 04/09/20 05:51 Hydralazine 20 Mg/Ml Vial SLOW IVP 20 mg Q4H PRN Administration SBP>170 Lactated Ringer's 1,000 mls @ 75 mls/hr 04/08/20 08:52 04/09/20 12:54 Lactated Ringer's IV Not Given .[id number] [facility] Insulin Human Lispro 0 units 03/25/20 08:12 04/09/20 17:06 Humalog 300 Units/3 Ml Vial SC 9 unit .AGGRESSIVE SLIDING PRN Administration Aggressive Correctional Scale Labetalol HCl 40 mg 03/21/20 07:34 04/09/20 02:44 Labetalol Hcl 100 Mg/20 Ml Vial SLOW IVP 20 ml Q4H PRN Administration SBP Greater Than 180 Magnesium Hydroxide 30 ml 03/28/20 12:06 03/31/20 16:00 Milk Of Magnesia 30 Ml Udcup PO 30 ml DAILYPRN PRN Administration Constipation Minoxidil 5 mg 03/24/20 09:00 04/09/20 10:00 Minoxidil 2.5 Mg Tab PER TUBE 5 mg DAILY SYDNEE Administration Pantoprazole Sodium 40 mg 04/05/20 09:00 04/09/20 09:59 Pantoprazole 40 Mg Tab PO 40 mg DAILY SYDNEE Administration Sertraline HCl 50 mg 04/09/20 09:00 04/09/20 10:00 Sertraline Hcl 100 Mg Tab PO 50 mg DAILY SYDNEE Administration Sodium Chloride 10 ml 03/31/20 21:00 04/09/20 10:03 Flush - Normal Saline 10 Ml Syringe IVF 10 ml Q12HR SYDNEE Administration Tetrahydrozoline HCl 2 drop 04/03/20 21:00 04/09/20 10:03 Tetrahydrozoline 0.05% Opth 15 Ml Bot EA EYE 2 drop BID SYDNEE Administration Zinc Sulfate 220 mg 03/20/20 09:00 04/09/20 09:59 Zinc Sulfate 220 Mg Cap PO 220 mg DAILY SYDNEE Administration Hospitalist Exam Vitals: Vital Signs (12 hours) Temp Pulse Resp BP BP Pulse Ox 04/09/20 15:00 98.8 F 79 20 144/62 H 99 04/09/20 11:59 97.7 F 71 18 108/55 L 97 04/09/20 11:16 70 22 H 117/45 L 99 04/09/20 10:00 71 04/09/20 08:59 97 04/09/20 08:11 98 04/09/20 07:55 98 F 71 18 144/68 H 97 Weight Admit Weight 276 lb Weight 273 lb 4.8 oz Most Recent Monitor Data Heart Rate from ECG 83 NIBP 142/78 NIBP BP-Mean 99 Respiration from ECG 20 SpO2 91 Neck: supple Heart: no murmur, no gallops Respiratory: no wheezes, no rales Gastrointestinal: soft, non-tender, normal bowel sounds Extremities: 2+ LE edema Hosp A/P (1) Acute respiratory failure with hypoxia Code(s): J96.01 - ACUTE RESPIRATORY FAILURE WITH HYPOXIA Status: Acute (2) Hypertension Code(s): I10 - ESSENTIAL (PRIMARY) HYPERTENSION Status: Acute (3) Morbid obesity Code(s): E66.01 - MORBID (SEVERE) OBESITY DUE TO EXCESS CALORIES Status: Acute (4) Pneumonia due to COVID-19 virus Code(s): U07.1 - COVID-19; J12.82 - PNEUMONIA DUE TO CORONAVIRUS DISEASE 2019 Status: Acute (5) Diabetes mellitus Code(s): E11.9 - TYPE 2 DIABETES MELLITUS WITHOUT COMPLICATIONS Status: Chronic Qualifiers: Diabetes mellitus oil heaterman insulin use: with oil heaterman use Diabetes mellitus complication status: with kidney complications Diabetes mellitus complication detail: with chronic kidney disease Chronic kidney disease stage: stage 3 (moderate) - Plan Patient is a 74-year-old male with a history of diabetes, hypertension, presents to the hospital complaint of shortness of breath. Patient was noted to have Covid. Patient underwent intubation. Patient underwent successful extubation. Patient is doing well. 2/2 [id number] today for inpatient rehabilitation however this was denied by the physician. Case management notified we'll start the paperwork for detention facility. We'll continue to monitor along. We'll stop IV Decadron this has been weaned off. Continues full dose of Eliquis for DVT prophylaxis
[2020-04-09] MEDS: Atorvastatin Calcium 40 MG TAB PO SCH (20:21)
[2020-04-10 07:22] LABS: #Eosinphils 0.5 thou/uL (0.0-0.7); #Lymphocytes 1.3 thou/uL (1.20-3.40); #Monocytes 0.5 thou/uL (0.11-0.59); #Neutrophils 3.5 thou/uL (1.40-6.50); %Basophils 0.5 % (0.0-1.0); %Eosinophils 8.8 % (0.0-10.0); %Lymphocytes 21.6 % (21.0-51.0); %Monocytes 8.8 % (0.0-10.0); %Neutrophils 60.3 % (42.0-75.0); Hemoglobin 9.6 g/dL (14.0-18.0); Mean Corpuscular HGB CONC 33.3 g/dL (32.0-36.0); Mean Corpuscular Hemoglobin 30.9 pg (27.0-31.0); Mean Corpuscular Volume 92.6 fL (78.0-98.0); Mean Platelet Volume 9.4 fL (7.4-10.4); Platelet Count 157 thou/uL (130-400); RBC Distribution Width 12.1 % (11.5-14.5); Red Blood Cell (RBC) Count 3.11 mill/uL (4.70-6.10); White Blood Cell (WBC) Count 5.8 thou/uL (4.8-10.8)
[2020-04-10 07:24] LABS: Anion Gap 14 mmol/L (10-20); BUN (Urea Nitrogen) 26 mg/dL (8.4-25.7); Calc. Creatinine Clearance 73 mL/min (70-130); Calcium 8.5 mg/dL (7.8-10.44); Carbon Dioxide 22 mmol/L (23-31); Chloride 110 mmol/L (98-107); Glucose 161 mg/dL (83-110); Potassium 3.7 mmol/L (3.5-5.1); Sodium 142 mmol/L (136-145)
--- NOTE | 2020-04-10 08:59 | PRG ---
DATE OF SERVICE: 04/10/2020 SUBJECTIVE: Mr. Woods is a 74-year-old white male, who was admitted for COVID-19 pneumonia. We are seeing him for his acute kidney injury on top of his chronic renal failure. He had a superimposed hemodynamically-mediated renal dysfunction, which has been slowly improving over time with volume repletion. He denies any chest pain or shortness of breath. He was also noted to be somewhat depressed yesterday. He was started on Zoloft. He voices no new complaints today. He denies any chest pain or shortness of breath. OBJECTIVE: VITAL SIGNS: Blood pressure is 160/72, heart rate 72, respiratory rate 20, O2 saturation 93%, and temperature 98.9. GENERAL: Awake, alert, and comfortable, not in distress. SKIN: Adequate turgor. HEENT: He has slightly pale conjunctivae. Anicteric sclerae. NECK: No neck mass. No carotid bruits. No JVD. CHEST: No deformities. LUNGS: Clear breath sounds. No wheezing. No crackles. HEART: Normal sinus rhythm. No murmur. No gallops. No rubs. ABDOMEN: Globular, soft, and nontender. No masses. EXTREMITIES: No edema. No deformities. MEDICATIONS: Medications of April 10, 2020, was reviewed. LABORATORY DATA: Laboratories of April 10, 2020, white count 5.8 and hemoglobin 9.6. Sodium 142, potassium 3.7, chloride 110, carbon dioxide 22, BUN 26, creatinine 1.58, glucose 161, and calcium 8.5. ASSESSMENT AND PLAN: 1. Acute kidney injury on top of his chronic renal failure, improving renal function. He is about baseline with his renal function. Continue current lactated Ringer's at 75 mL/hour. There is no indication for any acute dialytic intervention with this patient. 2. Chronic renal failure secondary to diabetic nephropathy. 3. Depression, currently on Zoloft. 4. COVID-19 pneumonia, clinically improving. Job ID: [id number]
[2020-04-10] MEDS ORDERED: Amlodipine 5 MG TAB PER TUBE SCH (09:00)
[2020-04-10] MEDS ORDERED: Amlodipine 10 MG TAB PER TUBE SCH (10:15)
[2020-04-10] MEDS: Apixaban 5 MG TAB PER TUBE SCH ×2 (10:16→20:34)
[2020-04-10] MEDS: Lactated Ringer's 1,000 ML IV SCH ×2 (10:16→13:50)
[2020-04-10] MEDS: Aspirin Chewable 81 MG TAB PO SCH (10:17)
[2020-04-10] MEDS: Doxazosin 2 MG TAB PO SCH (10:17)
[2020-04-10] MEDS: Cholecalciferol (Vitamin D3) 400 UNITS TAB PO SCH (10:17)
[2020-04-10] MEDS: Dutasteride 0.5 MG CAP PO SCH (10:17)
[2020-04-10] MEDS: Docusate Sodium 100 MG/10 ML UDCUP PO SCH ×2 (10:17→20:34)
[2020-04-10] MEDS: Bisoprolol Fumarate 5 MG TAB PO SCH (10:17)
[2020-04-10] MEDS: Ascorbic Acid 500 mg Chewable Tablet PO SCH (10:18)
[2020-04-10] MEDS: Tetrahydrozoline 0.05% OPTH 15 ML BOT EA EYE SCH ×2 (10:24→20:35)
[2020-04-10] MEDS: Minoxidil 2.5 MG TAB PER TUBE SCH (10:29)
[2020-04-10] MEDS: Zinc Sulfate 220 MG CAP PO SCH (10:29)
[2020-04-10] MEDS: HumaLOG 300 UNITS/3 ML VIAL SC PRN ×2 (12:40→17:54)
--- NOTE | 2020-04-10 16:53 | PDOC.HOSPP ---
- Subjective Encounter Date: 04/10/20 Encounter Time: 10:30 Subjective: pt up in bed no complains - Objective Vital Signs & Weight: Vital Signs (12 hours) Temp Pulse Resp BP Pulse Ox 04/10/20 15:00 97.7 F 65 20 147/67 H 94 L 04/10/20 11:00 97.8 F 71 18 158/82 H 97 04/10/20 10:29 72 04/10/20 09:32 65 04/10/20 07:46 93 L 04/10/20 07:45 98.9 F 72 20 160/72 H 93 L Weight Admit Weight 276 lb Weight 273 lb 4.8 oz Most Recent Monitor Data Heart Rate from ECG 83 NIBP 142/78 NIBP BP-Mean 99 Respiration from ECG 20 SpO2 91 I&O: 04/09/20 04/10/20 04/11/20 06:59 06:59 06:59 Intake Total 3294 1321 Output Total 1200 980 600 Balance 2094 341 -600 Result Diagrams: 04/10/20 04:16 04/10/20 03:30 Additional Labs: Accuchecks 04/10/20 04/10/20 04/09/20 10:27 03:13 23:20 POC Glucose 157 H 159 H 169 H 04/09/20 04/09/20 20:03 16:44 POC Glucose 207 H 263 H Hospitalist ROS - Review of Systems Cardiovascular: denies: chest pain, palpitations, orthopnea, paroxysmal noc. dyspnea, edema, light headedness, other Gastrointestinal: denies: nausea, vomiting, abdominal pain, diarrhea, constipation, melena, hematochezia, other Genitourinary: denies: dysuria, frequency, incontinence, hematuria, retention, other - Medication Medications: Active Medications Generic Name Dose Route Start Last Admin Trade Name Freq PRN Reason Stop Dose Admin Acetaminophen 650 mg 03/18/20 14:41 04/03/20 22:25 Acetaminophen 325 Mg Tab PO 650 mg Q4H PRN Administration Headache/Fever/Mild Pain (1-3) Apixaban 5 mg 03/20/20 21:00 04/10/20 10:16 Apixaban 5 Mg Tab PER TUBE 5 mg BID SYDNEE Administration Ascorbic Acid 1,000 mg 03/20/20 09:00 04/10/20 10:18 Ascorbic Acid 500 Mg Chewable Tablet PO 1,000 mg DAILY SYDNEE Administration Aspirin 81 mg 03/21/20 09:00 04/10/20 10:17 Aspirin Chewable 81 Mg Tab PO 81 mg DAILY SYDNEE Administration Atorvastatin Calcium 40 mg 04/09/20 21:00 04/09/20 20:21 Atorvastatin Calcium 40 Mg Tab PO 40 mg QPM SYDNEE Administration Bisoprolol Fumarate 5 mg 03/19/20 09:00 04/10/20 10:17 Bisoprolol Fumarate 5 Mg Tab PO 5 mg DAILY SYDNEE Administration Cholecalciferol 400 units 03/20/20 09:00 04/10/20 10:17 Cholecalciferol (Vitamin D3) 400 Units Tab PO 400 units DAILY SYDNEE Administration Docusate Sodium 100 mg 03/28/20 21:00 04/10/20 10:17 Docusate Sodium 100 Mg/10 Ml Udcup PO 100 mg BID SYDNEE Administration Doxazosin Mesylate 2 mg 03/19/20 09:00 04/10/20 10:17 Doxazosin 2 Mg Tab PO 2 mg DAILY SYDNEE Administration Dutasteride 0.5 mg 04/10/20 09:00 04/10/20 10:17 Dutasteride 0.5 Mg Cap PO 0.5 mg DAILY SYDNEE Administration Hydralazine HCl 20 mg 03/21/20 13:50 04/09/20 05:51 Hydralazine 20 Mg/Ml Vial SLOW IVP 20 mg Q4H PRN Administration SBP>170 Lactated Ringer's 1,000 mls @ 75 mls/hr 04/08/20 08:52 04/10/20 10:16 Lactated Ringer's IV 1,000 mls .[id number] SYDNEE Administration Insulin Human Lispro 0 units 03/25/20 08:12 04/10/20 12:40 Humalog 300 Units/3 Ml Vial SC 3 unit .AGGRESSIVE SLIDING PRN Administration Aggressive Correctional Scale Labetalol HCl 40 mg 03/21/20 07:34 04/09/20 02:44 Labetalol Hcl 100 Mg/20 Ml Vial SLOW IVP 20 ml Q4H PRN Administration SBP Greater Than 180 Magnesium Hydroxide 30 ml 03/28/20 12:06 03/31/20 16:00 Milk Of Magnesia 30 Ml Udcup PO 30 ml DAILYPRN PRN Administration Constipation Minoxidil 5 mg 03/24/20 09:00 04/10/20 10:29 Minoxidil 2.5 Mg Tab PER TUBE 5 mg DAILY SYDNEE Administration Pantoprazole Sodium 40 mg 04/05/20 09:00 04/10/20 10:17 Pantoprazole 40 Mg Tab PO 40 mg DAILY SYDNEE Administration Sertraline HCl 50 mg 04/09/20 09:00 04/10/20 10:18 Sertraline Hcl 100 Mg Tab PO 50 mg DAILY SYDNEE Administration Sodium Chloride 10 ml 03/31/20 21:00 04/10/20 10:20 Flush - Normal Saline 10 Ml Syringe IVF Not Given Q12HR SYDNEE Tetrahydrozoline HCl 2 drop 04/03/20 21:00 04/10/20 10:24 Tetrahydrozoline 0.05% Opth 15 Ml Bot EA EYE 2 drop BID SYDNEE Administration Zinc Sulfate 220 mg 03/20/20 09:00 04/10/20 10:29 Zinc Sulfate 220 Mg Cap PO 220 mg DAILY SYDNEE Administration Hospitalist Exam Vitals: Vital Signs (12 hours) Temp Pulse Resp BP Pulse Ox 04/10/20 15:00 97.7 F 65 20 147/67 H 94 L 04/10/20 11:00 97.8 F 71 18 158/82 H 97 04/10/20 10:29 72 04/10/20 09:32 65 04/10/20 07:46 93 L 04/10/20 07:45 98.9 F 72 20 160/72 H 93 L Weight Admit Weight 276 lb Weight 273 lb 4.8 oz Most Recent Monitor Data Heart Rate from ECG 83 NIBP 142/78 NIBP BP-Mean 99 Respiration from ECG 20 SpO2 91 Neck: supple Heart: RRR, no murmur, no gallops Respiratory: no wheezes, no rales Gastrointestinal: non-tender, normal bowel sounds Hosp A/P (1) Acute respiratory failure with hypoxia Code(s): J96.01 - ACUTE RESPIRATORY FAILURE WITH HYPOXIA Status: Acute (2) Hypertension Code(s): I10 - ESSENTIAL (PRIMARY) HYPERTENSION Status: Acute (3) Morbid obesity Code(s): E66.01 - MORBID (SEVERE) OBESITY DUE TO EXCESS CALORIES Status: Acute (4) Pneumonia due to COVID-19 virus Code(s): U07.1 - COVID-19; J12.82 - PNEUMONIA DUE TO CORONAVIRUS DISEASE 2019 Status: Acute (5) Diabetes mellitus Code(s): E11.9 - TYPE 2 DIABETES MELLITUS WITHOUT COMPLICATIONS Status: Chronic Qualifiers: Diabetes mellitus intermediate card tender insulin use: with intermediate card tender use Diabetes mellitus complication status: with kidney complications Diabetes mellitus complication detail: with chronic kidney disease Chronic kidney disease stage: stage 3 (moderate) - Plan Patient is a 74-year-old male with a history of diabetes, hypertension, presents to the hospital complaint of shortness of breath. Patient was noted to have Covid. Patient underwent intubation. Patient underwent successful extubation. Patient is doing well. 2/2 [id number] today for inpatient rehabilitation however this was denied by the physician. Case management notified we'll start the paperwork for assisted facility. We'll continue to monitor along. We'll stop IV Decadron this has been weaned off. Continues full dose of Eliquis for DVT prophylaxis 2/3 A[address]. will continue to monitor. creatinine improving. pt eating. pt on fluids per nephrology.
[2020-04-10] MEDS: Atorvastatin Calcium 40 MG TAB PO SCH (20:34)
[2020-04-11] MEDS: Lactated Ringer's 1,000 ML IV SCH ×3 (01:40→15:28)
[2020-04-11 05:02] LABS: #Eosinphils 0.5 thou/uL (0.0-0.7); #Lymphocytes 1.1 thou/uL (1.20-3.40); #Monocytes 0.4 thou/uL (0.11-0.59); %Basophils 0.6 % (0.0-1.0); %Eosinophils 10.4 % (0.0-10.0); %Lymphocytes 21.3 % (21.0-51.0); %Monocytes 8.4 % (0.0-10.0); %Neutrophils 59.3 % (42.0-75.0); Hemoglobin 9.5 g/dL (14.0-18.0); Mean Corpuscular HGB CONC 33.6 g/dL (32.0-36.0); Mean Corpuscular Hemoglobin 30.9 pg (27.0-31.0); Mean Platelet Volume 9.5 fL (7.4-10.4); Platelet Count 150 thou/uL (130-400); RBC Distribution Width 11.9 % (11.5-14.5); Red Blood Cell (RBC) Count 3.08 mill/uL (4.70-6.10)
[2020-04-11 05:48] LABS: Anion Gap 14 mmol/L (10-20); BUN (Urea Nitrogen) 22 mg/dL (8.4-25.7); Calc. Creatinine Clearance 76 mL/min (70-130); Calcium 8.2 mg/dL (7.8-10.44); Carbon Dioxide 22 mmol/L (23-31); Chloride 107 mmol/L (98-107); Glucose 146 mg/dL (83-110); Potassium 3.6 mmol/L (3.5-5.1); Sodium 139 mmol/L (136-145)
[2020-04-11] MEDS: Minoxidil 2.5 MG TAB PER TUBE SCH (10:04)
[2020-04-11] MEDS: Aspirin Chewable 81 MG TAB PO SCH (10:04)
[2020-04-11] MEDS: Docusate Sodium 100 MG/10 ML UDCUP PO SCH ×2 (10:04→20:06)
[2020-04-11] MEDS: Bisoprolol Fumarate 5 MG TAB PO SCH (10:04)
[2020-04-11] MEDS: Doxazosin 2 MG TAB PO SCH (10:05)
[2020-04-11] MEDS: Apixaban 5 MG TAB PER TUBE SCH ×2 (10:05→20:06)
[2020-04-11] MEDS: Dutasteride 0.5 MG CAP PO SCH (10:05)
[2020-04-11] MEDS: Amlodipine 10 MG TAB PER TUBE SCH (10:06)
[2020-04-11] MEDS: Zinc Sulfate 220 MG CAP PO SCH (10:06)
[2020-04-11] MEDS: Cholecalciferol (Vitamin D3) 400 UNITS TAB PO SCH (10:06)
[2020-04-11] MEDS: Ascorbic Acid 500 mg Chewable Tablet PO SCH (10:06)
[2020-04-11] MEDS: Tetrahydrozoline 0.05% OPTH 15 ML BOT EA EYE SCH ×3 (10:07→20:26)
[2020-04-11] MEDS: Atorvastatin Calcium 40 MG TAB PO SCH (20:06)
[2020-04-12 04:51] LABS: #Eosinphils 0.5 thou/uL (0.0-0.7); #Monocytes 0.5 thou/uL (0.11-0.59); #Neutrophils 2.4 thou/uL (1.40-6.50); %Basophils 1.1 % (0.0-1.0); %Lymphocytes 22.2 % (21.0-51.0); %Monocytes 11.4 % (0.0-10.0); %Neutrophils 54.2 % (42.0-75.0); Hemoglobin 9.7 g/dL (14.0-18.0); Mean Corpuscular HGB CONC 34.7 g/dL (32.0-36.0); Mean Corpuscular Hemoglobin 32.3 pg (27.0-31.0); Mean Corpuscular Volume 93.2 fL (78.0-98.0); Mean Platelet Volume 9.3 fL (7.4-10.4); Platelet Count 135 thou/uL (130-400); RBC Distribution Width 12.1 % (11.5-14.5); Red Blood Cell (RBC) Count 3.02 mill/uL (4.70-6.10); White Blood Cell (WBC) Count 4.4 thou/uL (4.8-10.8)
[2020-04-12 05:04] LABS: Anion Gap 13 mmol/L (10-20); BUN (Urea Nitrogen) 20 mg/dL (8.4-25.7); Calc. Creatinine Clearance 79 mL/min (70-130); Calcium 8.1 mg/dL (7.8-10.44); Carbon Dioxide 23 mmol/L (23-31); Chloride 107 mmol/L (98-107); Glucose 145 mg/dL (83-110); Potassium 3.5 mmol/L (3.5-5.1); Sodium 139 mmol/L (136-145)
[2020-04-12] MEDS: Lactated Ringer's 1,000 ML IV SCH ×2 (05:30→23:32)
[2020-04-12] MEDS: Apixaban 5 MG TAB PER TUBE SCH ×2 (08:47→20:11)
[2020-04-12] MEDS: Aspirin Chewable 81 MG TAB PO SCH (08:47)
[2020-04-12] MEDS: Minoxidil 2.5 MG TAB PER TUBE SCH (08:48)
[2020-04-12] MEDS: Dutasteride 0.5 MG CAP PO SCH (08:48)
[2020-04-12] MEDS: Doxazosin 2 MG TAB PO SCH (08:48)
[2020-04-12] MEDS: Cholecalciferol (Vitamin D3) 400 UNITS TAB PO SCH (08:48)
[2020-04-12] MEDS: Amlodipine 10 MG TAB PER TUBE SCH (08:48)
[2020-04-12] MEDS: Ascorbic Acid 500 mg Chewable Tablet PO SCH (08:48)
[2020-04-12] MEDS: Zinc Sulfate 220 MG CAP PO SCH (08:48)
[2020-04-12] MEDS: Bisoprolol Fumarate 5 MG TAB PO SCH (08:53)
[2020-04-12] MEDS: Docusate Sodium 100 MG/10 ML UDCUP PO SCH ×2 (08:54→20:10)
[2020-04-12] MEDS: Tetrahydrozoline 0.05% OPTH 15 ML BOT EA EYE SCH ×2 (09:05→20:10)
--- NOTE | 2020-04-12 16:52 | PDOC.HOSPP ---
- Subjective Encounter Date: 04/11/20 Encounter Time: 10:40 Subjective: pt up in bed no complains. - Objective Vital Signs & Weight: Vital Signs (12 hours) Temp Pulse Resp BP BP BP Pulse Ox 04/12/20 16:00 98.6 F 62 18 121/59 L 98 04/12/20 12:45 98.8 F 70 17 125/56 L 98 04/12/20 08:48 66 143/69 H 97 04/12/20 08:00 97.9 F 58 L 20 147/67 H 97 Weight Admit Weight 276 lb Weight 273 lb Most Recent Monitor Data Heart Rate from ECG 83 NIBP 142/78 NIBP BP-Mean 99 Respiration from ECG 20 SpO2 91 I&O: 04/11/20 04/12/20 04/13/20 06:59 06:59 06:59 Intake Total 2086 1420 550 Output Total 1800 1750 Balance 286 -330 550 Result Diagrams: 04/12/20 04:04 04/12/20 04:04 Additional Labs: Accuchecks 04/12/20 04/12/20 04/12/20 16:31 10:44 06:28 POC Glucose 182 H 144 H 144 H 04/11/20 20:10 POC Glucose 160 H Hospitalist ROS - Review of Systems Cardiovascular: denies: chest pain, palpitations, orthopnea, paroxysmal noc. dyspnea, edema, light headedness, other Gastrointestinal: denies: nausea, vomiting, abdominal pain, diarrhea, constipation, melena, hematochezia, other Genitourinary: denies: dysuria, frequency, incontinence, hematuria, retention, other - Medication Medications: Active Medications Generic Name Dose Route Start Last Admin Trade Name Freq PRN Reason Stop Dose Admin Acetaminophen 650 mg 03/18/20 14:41 04/03/20 22:25 Acetaminophen 325 Mg Tab PO 650 mg Q4H PRN Administration Headache/Fever/Mild Pain (1-3) Amlodipine Besylate 10 mg 04/11/20 09:00 04/12/20 08:48 Amlodipine 10 Mg Tab PER TUBE 10 mg DAILY SYDNEE Administration Apixaban 5 mg 03/20/20 21:00 04/12/20 08:47 Apixaban 5 Mg Tab PER TUBE 5 mg BID SYDNEE Administration Ascorbic Acid 1,000 mg 03/20/20 09:00 04/12/20 08:48 Ascorbic Acid 500 Mg Chewable Tablet PO 1,000 mg DAILY SYDNEE Administration Aspirin 81 mg 03/21/20 09:00 04/12/20 08:47 Aspirin Chewable 81 Mg Tab PO 81 mg DAILY SYDNEE Administration Atorvastatin Calcium 40 mg 04/09/20 21:00 04/11/20 20:06 Atorvastatin Calcium 40 Mg Tab PO 40 mg QPM SYDNEE Administration Bisoprolol Fumarate 5 mg 03/19/20 09:00 04/12/20 08:53 Bisoprolol Fumarate 5 Mg Tab PO 5 mg DAILY SYDNEE Administration Cholecalciferol 400 units 03/20/20 09:00 04/12/20 08:48 Cholecalciferol (Vitamin D3) 400 Units Tab PO 400 units DAILY SYDNEE Administration Docusate Sodium 100 mg 03/28/20 21:00 04/12/20 08:54 Docusate Sodium 100 Mg/10 Ml Udcup PO 100 mg BID SYDNEE Administration Doxazosin Mesylate 2 mg 03/19/20 09:00 04/12/20 08:48 Doxazosin 2 Mg Tab PO 2 mg DAILY SYDNEE Administration Dutasteride 0.5 mg 04/10/20 09:00 04/12/20 08:48 Dutasteride 0.5 Mg Cap PO 0.5 mg DAILY SYDNEE Administration Hydralazine HCl 20 mg 03/21/20 13:50 04/09/20 05:51 Hydralazine 20 Mg/Ml Vial SLOW IVP 20 mg Q4H PRN Administration SBP>170 Lactated Ringer's 1,000 mls @ 75 mls/hr 04/08/20 08:52 04/12/20 05:30 Lactated Ringer's IV 1,000 mls .[id number] SYDNEE Administration Insulin Human Lispro 0 units 03/25/20 08:12 04/10/20 17:54 Humalog 300 Units/3 Ml Vial SC 3 unit .AGGRESSIVE SLIDING PRN Administration Aggressive Correctional Scale Labetalol HCl 40 mg 03/21/20 07:34 04/09/20 02:44 Labetalol Hcl 100 Mg/20 Ml Vial SLOW IVP 20 ml Q4H PRN Administration SBP Greater Than 180 Magnesium Hydroxide 30 ml 03/28/20 12:06 03/31/20 16:00 Milk Of Magnesia 30 Ml Udcup PO 30 ml DAILYPRN PRN Administration Constipation Minoxidil 5 mg 03/24/20 09:00 04/12/20 08:48 Minoxidil 2.5 Mg Tab PER TUBE 5 mg DAILY SYDNEE Administration Pantoprazole Sodium 40 mg 04/05/20 09:00 04/12/20 08:48 Pantoprazole 40 Mg Tab PO 40 mg DAILY SYDNEE Administration Sertraline HCl 50 mg 04/09/20 09:00 04/12/20 08:47 Sertraline Hcl 100 Mg Tab PO 50 mg DAILY SYDNEE Administration Sodium Chloride 10 ml 03/31/20 21:00 04/12/20 09:05 Flush - Normal Saline 10 Ml Syringe IVF 10 ml Q12HR SYDNEE Administration Tetrahydrozoline HCl 2 drop 04/03/20 21:00 04/12/20 09:05 Tetrahydrozoline 0.05% Opth 15 Ml Bot EA EYE 2 drop BID SYDNEE Administration Zinc Sulfate 220 mg 03/20/20 09:00 04/12/20 08:48 Zinc Sulfate 220 Mg Cap PO 220 mg DAILY SYDNEE Administration Hospitalist Exam Vitals: Vital Signs (12 hours) Temp Pulse Resp BP BP BP Pulse Ox 04/12/20 16:00 98.6 F 62 18 121/59 L 98 04/12/20 12:45 98.8 F 70 17 125/56 L 98 04/12/20 08:48 66 143/69 H 97 04/12/20 08:00 97.9 F 58 L 20 147/67 H 97 Weight Admit Weight 276 lb Weight 273 lb Most Recent Monitor Data Heart Rate from ECG 83 NIBP 142/78 NIBP BP-Mean 99 Respiration from ECG 20 SpO2 91 ENT: normocephalic atraumatic Neck: supple Heart: RRR, no murmur, no gallops Respiratory: no wheezes, no rales Gastrointestinal: soft, normal bowel sounds Hosp A/P (1) Acute respiratory failure with hypoxia Code(s): J96.01 - ACUTE RESPIRATORY FAILURE WITH HYPOXIA Status: Acute (2) Hypertension Code(s): I10 - ESSENTIAL (PRIMARY) HYPERTENSION Status: Acute (3) Morbid obesity Code(s): E66.01 - MORBID (SEVERE) OBESITY DUE TO EXCESS CALORIES Status: Acute (4) Pneumonia due to COVID-19 virus Code(s): U07.1 - COVID-19; J12.82 - PNEUMONIA DUE TO CORONAVIRUS DISEASE 2019 Status: Acute (5) Diabetes mellitus Code(s): E11.9 - TYPE 2 DIABETES MELLITUS WITHOUT COMPLICATIONS Status: Chronic Qualifiers: Diabetes mellitus exterminator termite insulin use: with exterminator termite use Diabetes mellitus complication status: with kidney complications Diabetes mellitus complication detail: with chronic kidney disease Chronic kidney disease stage: stage 3 (moderate) - Plan Patient is a 74-year-old male with a history of diabetes, hypertension, presents to the hospital complaint of shortness of breath. Patient was noted to have Covid. Patient underwent intubation. Patient underwent successful extubation. Patient is doing well. 2/2 [id number] today for inpatient rehabilitation however this was denied by the physician. Case management notified we'll start the paperwork for long term facility. We'll continue to monitor along. We'll stop IV Decadron this has been weaned off. Continues full dose of Eliquis for DVT prophylaxis 2/3 Await[address] placement. will continue to monitor. creatinine improving. pt eating. pt on fluids per nephrology. 2/4 fluids stopped, awaiting placement.
--- NOTE | 2020-04-12 16:53 | PDOC.HOSPP ---
- Subjective Encounter Date: 04/12/20 Encounter Time: 11:45 Subjective: pt up in bed no complains - Objective Vital Signs & Weight: Vital Signs (12 hours) Temp Pulse Resp BP BP BP Pulse Ox 04/12/20 16:00 98.6 F 62 18 121/59 L 98 04/12/20 12:45 98.8 F 70 17 125/56 L 98 04/12/20 08:48 66 143/69 H 97 04/12/20 08:00 97.9 F 58 L 20 147/67 H 97 Weight Admit Weight 276 lb Weight 273 lb Most Recent Monitor Data Heart Rate from ECG 83 NIBP 142/78 NIBP BP-Mean 99 Respiration from ECG 20 SpO2 91 I&O: 04/11/20 04/12/20 04/13/20 06:59 06:59 06:59 Intake Total 2086 1420 550 Output Total 1800 1750 Balance 286 -330 550 Result Diagrams: 04/12/20 04:04 04/12/20 04:04 Additional Labs: Accuchecks 04/12/20 04/12/20 04/12/20 16:31 10:44 06:28 POC Glucose 182 H 144 H 144 H 04/11/20 20:10 POC Glucose 160 H Hospitalist ROS - Review of Systems Cardiovascular: denies: chest pain, palpitations, orthopnea, paroxysmal noc. dyspnea, edema, light headedness, other Gastrointestinal: denies: nausea, vomiting, abdominal pain, diarrhea, constipation, melena, hematochezia, other Genitourinary: denies: dysuria, frequency, incontinence, hematuria, retention, other - Medication Medications: Active Medications Generic Name Dose Route Start Last Admin Trade Name Freq PRN Reason Stop Dose Admin Acetaminophen 650 mg 03/18/20 14:41 04/03/20 22:25 Acetaminophen 325 Mg Tab PO 650 mg Q4H PRN Administration Headache/Fever/Mild Pain (1-3) Amlodipine Besylate 10 mg 04/11/20 09:00 04/12/20 08:48 Amlodipine 10 Mg Tab PER TUBE 10 mg DAILY SYDNEE Administration Apixaban 5 mg 03/20/20 21:00 04/12/20 08:47 Apixaban 5 Mg Tab PER TUBE 5 mg BID SYDNEE Administration Ascorbic Acid 1,000 mg 03/20/20 09:00 04/12/20 08:48 Ascorbic Acid 500 Mg Chewable Tablet PO 1,000 mg DAILY SYDNEE Administration Aspirin 81 mg 03/21/20 09:00 04/12/20 08:47 Aspirin Chewable 81 Mg Tab PO 81 mg DAILY SYDNEE Administration Atorvastatin Calcium 40 mg 04/09/20 21:00 04/11/20 20:06 Atorvastatin Calcium 40 Mg Tab PO 40 mg QPM SYDNEE Administration Bisoprolol Fumarate 5 mg 03/19/20 09:00 04/12/20 08:53 Bisoprolol Fumarate 5 Mg Tab PO 5 mg DAILY SYDNEE Administration Cholecalciferol 400 units 03/20/20 09:00 04/12/20 08:48 Cholecalciferol (Vitamin D3) 400 Units Tab PO 400 units DAILY SYDNEE Administration Docusate Sodium 100 mg 03/28/20 21:00 04/12/20 08:54 Docusate Sodium 100 Mg/10 Ml Udcup PO 100 mg BID SYDNEE Administration Doxazosin Mesylate 2 mg 03/19/20 09:00 04/12/20 08:48 Doxazosin 2 Mg Tab PO 2 mg DAILY SYDNEE Administration Dutasteride 0.5 mg 04/10/20 09:00 04/12/20 08:48 Dutasteride 0.5 Mg Cap PO 0.5 mg DAILY SYDNEE Administration Hydralazine HCl 20 mg 03/21/20 13:50 04/09/20 05:51 Hydralazine 20 Mg/Ml Vial SLOW IVP 20 mg Q4H PRN Administration SBP>170 Lactated Ringer's 1,000 mls @ 75 mls/hr 04/08/20 08:52 04/12/20 05:30 Lactated Ringer's IV 1,000 mls .[id number] SYDNEE Administration Insulin Human Lispro 0 units 03/25/20 08:12 04/10/20 17:54 Humalog 300 Units/3 Ml Vial SC 3 unit .AGGRESSIVE SLIDING PRN Administration Aggressive [employer] Scale Labetalol HCl 40 mg 03/21/20 07:34 04/09/20 02:44 Labetalol Hcl 100 Mg/20 Ml Vial SLOW IVP 20 ml Q4H PRN Administration SBP Greater Than 180 Magnesium Hydroxide 30 ml 03/28/20 12:06 03/31/20 16:00 Milk Of Magnesia 30 Ml Udcup PO 30 ml DAILYPRN PRN Administration Constipation Minoxidil 5 mg 03/24/20 09:00 04/12/20 08:48 Minoxidil 2.5 Mg Tab PER TUBE 5 mg DAILY SYDNEE Administration Pantoprazole Sodium 40 mg 04/05/20 09:00 04/12/20 08:48 Pantoprazole 40 Mg Tab PO 40 mg DAILY SYDNEE Administration Sertraline HCl 50 mg 04/09/20 09:00 04/12/20 08:47 Sertraline Hcl 100 Mg Tab PO 50 mg DAILY SYDNEE Administration Sodium Chloride 10 ml 03/31/20 21:00 04/12/20 09:05 Flush - Normal Saline 10 Ml Syringe IVF 10 ml Q12HR SYDNEE Administration Tetrahydrozoline HCl 2 drop 04/03/20 21:00 04/12/20 09:05 Tetrahydrozoline 0.05% Opth 15 Ml Bot EA EYE 2 drop BID SYDNEE Administration Zinc Sulfate 220 mg 03/20/20 09:00 04/12/20 08:48 Zinc Sulfate 220 Mg Cap PO 220 mg DAILY SYDNEE Administration Hospitalist Exam Vitals: Vital Signs (12 hours) Temp Pulse Resp BP BP BP Pulse Ox 04/12/20 16:00 98.6 F 62 18 121/59 L 98 04/12/20 12:45 98.8 F 70 17 125/56 L 98 04/12/20 08:48 66 143/69 H 97 04/12/20 08:00 97.9 F 58 L 20 147/67 H 97 Weight Admit Weight 276 lb Weight 273 lb Most Recent Monitor Data Heart Rate from ECG 83 NIBP 142/78 NIBP BP-Mean 99 Respiration from ECG 20 SpO2 91 Neck: supple Heart: RRR, no murmur Respiratory: no wheezes, no rales, no ronchi Gastrointestinal: soft, non-tender, normal bowel sounds Hosp A/P (1) Acute respiratory failure with hypoxia Code(s): J96.01 - ACUTE RESPIRATORY FAILURE WITH HYPOXIA Status: Acute (2) Hypertension Code(s): I10 - ESSENTIAL (PRIMARY) HYPERTENSION Status: Acute (3) Morbid obesity Code(s): E66.01 - MORBID (SEVERE) OBESITY DUE TO EXCESS CALORIES Status: Acute (4) Pneumonia due to COVID-19 virus Code(s): U07.1 - COVID-19; J12.82 - PNEUMONIA DUE TO CORONAVIRUS DISEASE 2019 Status: Acute (5) Diabetes mellitus Code(s): E11.9 - TYPE 2 DIABETES MELLITUS WITHOUT COMPLICATIONS Status: Chronic Qualifiers: Diabetes mellitus retirement insulin use: with terminal clerk use Diabetes mellitus complication status: with kidney complications Diabetes mellitus complication detail: with chronic kidney disease Chronic kidney disease stage: stage 3 (moderate) - Plan Patient is a 74-year-old male with a history of diabetes, hypertension, presents to the hospital complaint of shortness of breath. Patient was noted to have Covid. Patient underwent intubation. Patient underwent successful extubation. Patient is doing well. 2/2 [id number] today for inpatient rehabilitation however this was denied by the physician. Case management notified we'll start the paperwork for [facility] facility. We'll continue to monitor along. We'll stop IV Decadron this has been weaned off. Continues full dose of Eliquis for DVT prophylaxis 2/3 Awaiting placement. will continue to monitor. creatinine improving. pt eating. pt on fluids per nephrology. 2/4 fluids stopped, awaiting placement. 2/ will monitor. Awaiting bed at [facility].
[2020-04-12] MEDS: HumaLOG 300 UNITS/3 ML VIAL SC PRN (18:33)
[2020-04-12] MEDS: Atorvastatin Calcium 40 MG TAB PO SCH (20:11)
[2020-04-13 05:09] LABS: #Eosinphils 0.5 thou/uL (0.0-0.7); #Lymphocytes 1.2 thou/uL (1.20-3.40); #Monocytes 0.5 thou/uL (0.11-0.59); #Neutrophils 2.7 thou/uL (1.40-6.50); %Basophils 0.8 % (0.0-1.0); %Eosinophils 9.9 % (0.0-10.0); %Lymphocytes 23.9 % (21.0-51.0); %Monocytes 10.8 % (0.0-10.0); %Neutrophils 54.6 % (42.0-75.0); Hemoglobin 9.1 g/dL (14.0-18.0); Mean Corpuscular HGB CONC 33.9 g/dL (32.0-36.0); Mean Corpuscular Hemoglobin 31.2 pg (27.0-31.0); Mean Platelet Volume 9.2 fL (7.4-10.4); Platelet Count 136 thou/uL (130-400); RBC Distribution Width 12.2 % (11.5-14.5); Red Blood Cell (RBC) Count 2.92 mill/uL (4.70-6.10); White Blood Cell (WBC) Count 4.9 thou/uL (4.8-10.8)
[2020-04-13 05:32] LABS: Anion Gap 10 mmol/L (10-20); BUN (Urea Nitrogen) 23 mg/dL (8.4-25.7); Calc. Creatinine Clearance 77 mL/min (70-130); Calcium 7.7 mg/dL (7.8-10.44); Carbon Dioxide 24 mmol/L (23-31); Chloride 108 mmol/L (98-107); Glucose 160 mg/dL (83-110); Potassium 3.3 mmol/L (3.5-5.1); Sodium 139 mmol/L (136-145)
[2020-04-13] MEDS: Ascorbic Acid 500 mg Chewable Tablet PO SCH (10:25)
[2020-04-13] MEDS: Dutasteride 0.5 MG CAP PO SCH (10:25)
[2020-04-13] MEDS: Aspirin Chewable 81 MG TAB PO SCH (10:25)
[2020-04-13] MEDS: Zinc Sulfate 220 MG CAP PO SCH (10:25)
[2020-04-13] MEDS: Apixaban 5 MG TAB PER TUBE SCH (10:26)
[2020-04-13] MEDS: Doxazosin 2 MG TAB PO SCH (10:26)
[2020-04-13] MEDS: Amlodipine 10 MG TAB PER TUBE SCH (10:26)
[2020-04-13] MEDS: Cholecalciferol (Vitamin D3) 400 UNITS TAB PO SCH (10:27)
[2020-04-13] MEDS: Minoxidil 2.5 MG TAB PER TUBE SCH (10:28)
[2020-04-13] MEDS: Lactated Ringer's 1,000 ML IV SCH (10:39)
[2020-04-13] MEDS: Docusate Sodium 100 MG/10 ML UDCUP PO SCH (10:41)
[2020-04-13] MEDS: Tetrahydrozoline 0.05% OPTH 15 ML BOT EA EYE SCH (10:41)
[2020-04-13 11:23] VITALS: BP 110/57; TEMP 97.9
--- NOTE | 2020-04-13 11:47 | PDOC.DS.DS ---
Provider Date of Admission: 03/19/20 11:20 Date of Discharge: 04/13/20 Admitting Provider: Jian Yun MD Consultations: Nephrology (Dr. Buckley), Pulmonary (Dr. Bowles) Primary Care Physician: Unknown Course Hospital Course: Discharge diagnosis: 1. Acute hypoxic respiratory failure 2. COVID-19 pneumonia 3. Acute on chronic stage III renal failure 4. Respiratory failure requiring mechanical ventilation 5. Hypernatremia 6. Hyponatremia 7. Hyperkalemia 8. Nonanion gap metabolic acidosis 9. Physical deconditioning Hospital course: Patient is a pleasant 74-year-old gentleman who was admitted to the hospital on March 18, 2020 for COVID-19 pneumonia. He received dexamethasone. He did not qualify for remdesivir. He subsequently decompensated and he needed BiPAP. He was seen by pulmonology service. He subsequently was intubated and mechanically ventilated. He was eventually extubated on April 01, 2020. He was also seen by nephrology service for acute on chronic renal failure. Was started back on IV fluids. He was seen by therapy services. He was recommended rehab versus [facility]. Insurance denied inpatient rehab. He is being discharged to [facility] for further management. Many thanks for allowing me to participate in your patient's care. Please feel free to contact me with any questions or concerns. Discharge destination: [facility] Total amount of time spent coordinating this discharge: 32 minutes Resuscitation Status: 03/18/20 14:41 Resuscitation Status Routine Resuscitation Status: FULL: Full Resuscitation Lab Results: 04/13/20 04:54 04/13/20 04:54 Abnormal Lab Results - Last 48 hrs 04/12/20 04:04: WBC 4.4 L, RBC 3.02 L, Hgb 9.7 L, Hct 28.1 L, MCH 32.3 H, Monoc ytes % 11.4 H, Eosinophils % 11.0 H, Basophils % 1.1 H, Lymphocytes # 1.0 L 04/12/20 04:04: Creatinine 1.45 H 04/13/20 04:54: RBC 2.92 L, Hgb 9.1 L, Hct 26.8 L, MCH 31.2 H, Monocytes % 10.8 H 04/13/20 04:54: Potassium 3.3 L, Chloride 108 H, Creatinine 1.49 H, Calcium 7.7 L 04/13/20 04:54: Ferritin 430.43 H 04/13/20 04:54: D-Dimer 1.37 H Microbiology - Entire Visit 03/31/20 15:03 Venous blood - Right Arm Blood Culture - Final NO GROWTH IN 5 DAYS 03/31/20 15:03 Venous blood - Left Hand Blood Culture - Final NO GROWTH IN 5 DAYS 03/18/20 12:23 Venous blood - Left Hand Blood Culture - Final NO GROWTH IN 5 DAYS 03/18/20 12:23 Venous blood - Right Arm Blood Culture - Final NO GROWTH IN 5 DAYS Vitals: Vital Signs (12 hours) Temp Pulse Resp BP BP BP Pulse Ox 04/13/20 11:22 97.9 F 61 16 110/57 L 94 L 04/13/20 10:26 63 04/13/20 08:00 97.7 F 63 18 139/50 L 97 04/13/20 03:26 97.8 F 64 14 142/64 H 94 L 04/13/20 00:17 95 04/13/20 00:00 97.9 F 63 18 120/51 L 96 Weight Admit Weight 276 lb Weight 273 lb 14.4 oz Most Recent Monitor Data Heart Rate from ECG 83 NIBP 142/78 NIBP BP-Mean 99 Respiration from ECG 20 SpO2 91 Physical Exam: The patient was seen and examined on the day of discharge. Patient denies chest pain or shortness of breath. Vital signs are stable. S1 and S2 are heard. Lungs are clear to auscultation bilaterally. Plan Home Medications: Medication Instructions Recorded Confirmed Type Aspirin [Ecotrin Low Strength] 81 mg PO DAILY 03/19/20 04/13/20 History Atorvastatin Calcium 40 mg PO QPM 03/19/20 04/13/20 History Doxazosin Mesylate 1 tablet PO QAM 03/19/20 04/13/20 History Dutasteride 0.5 mg PO DAILY 03/19/20 04/13/20 History Icosapent Ethyl [Vascepa] 2 cap PO BID 03/19/20 04/13/20 History Pantoprazole [Protonix] 40 mg PO DAILY 03/19/20 04/13/20 History Polyethylene Glycol 3350 [Miralax] 17 gm PO DAILY PRN 03/19/20 04/13/20 History glipiZIDE [Glipizide] 5 mg PO BID 03/19/20 04/13/20 History Amlodipine [Norvasc] 10 mg PO DAILY 04/13/20 04/13/20 History Apixaban [Eliquis] 5 mg PO BID 04/13/20 04/13/20 History Bisoprolol Fumarate [Zebeta] 5 mg PO DAILY 04/13/20 04/13/20 History Minoxidil 5 mg PO DAILY tab 04/13/20 04/13/20 Rx Sertraline HCl [Zoloft] 50 mg PO DAILY tab 04/13/20 04/13/20 Rx Tetrahydrozoline 0.05% OPTH 2 drop EA EYE BID bot 04/13/20 04/13/20 Rx [[facility] Allergies: codeine Allergy (Verified 03/18/20 16:06) [facility]] Caroline George MD [Active] - 7 Days Unknown,Unknown [Primary Care Provider] - 7 Days [facility] Quality CORE MEASURES:: N/A
[2020-04-13] MEDS ORDERED: Potassium Chloride 20 MEQ TAB PO SCH (12:30)
[2020-04-13] MEDS: Bisoprolol Fumarate 5 MG TAB PO SCH (12:49)
== END 2020-04-13 16:38 | disposition swing bed (61) | DRG 207 ==
LOC: ERS 11:43 → 2SE 14:41 → OBSVTOIN 03-19 11:20 → CCU 03-20 14:27 → 2SE 04-03 19:34
PROVIDERS: ADMIT Internal Medicine; ATTEND Internal Medicine
PROC: 8E0ZXY6 Isolation (ICD-10-PCS; 2020-03-19)
PROC: XW13325 Transfusion of Convalescent Plasma (Nonautologous) into Peripheral Vein, Percutaneous Approach, New Technology Group 5 (ICD-10-PCS; principal; 2020-03-20)
PROC: 5A1955Z Respiratory Ventilation, Greater than 96 Consecutive Hours (ICD-10-PCS; 2020-03-20)
PROC: 0BH17EZ Insertion of Endotracheal Airway into Trachea, Via Natural or Artificial Opening (ICD-10-PCS; 2020-03-20)
DX: U07.1 COVID-19 (principal); J12.82 Pneumonia due to coronavirus disease 2019; J96.01 Acute respiratory failure with hypoxia; I21.A1 Myocardial infarction type 2; I13.0 Hypertensive heart and chronic kidney disease with heart failure and stage 1 through stage 4 chronic kidney disease, or unspecified chronic kidney disease; N17.9 Acute kidney failure, unspecified; E87.1 Hypo-osmolality and hyponatremia; E87.2 Acidosis; E87.0 Hyperosmolality and hypernatremia; G93.40 Encephalopathy, unspecified; E11.65 Type 2 diabetes mellitus with hyperglycemia; E87.5 Hyperkalemia; Z51.5 Encounter for palliative care; R53.1 Weakness; I50.9 Heart failure, unspecified; E78.00 Pure hypercholesterolemia, unspecified; E78.5 Hyperlipidemia, unspecified; E66.01 Morbid (severe) obesity due to excess calories; N18.30 Chronic kidney disease, stage 3 unspecified; E86.0 Dehydration; E11.22 Type 2 diabetes mellitus with diabetic chronic kidney disease; N40.0 Benign prostatic hyperplasia without lower urinary tract symptoms; E11.21 Type 2 diabetes mellitus with diabetic nephropathy; K21.9 Gastro-esophageal reflux disease without esophagitis; Z88.5 Allergy status to narcotic agent; Z79.899 Other long term (current) drug therapy; Z79.82 Long term (current) use of aspirin; Z82.3 Family history of stroke; Z68.38 Body mass index [BMI] 38.0-38.9, adult; Z98.890 Other specified postprocedural states; Z88.2 Allergy status to sulfonamides; F32.9 Major depressive disorder, single episode, unspecified; Z79.84 Long term (current) use of oral hypoglycemic drugs
CPT/HCPCS: 36415; 36416; 36430; 36600; 71045; 80048; 80053; 80202; 81001; 82553; 82728; 82805; 83605; 83735; 83880; 84484; 85025; 85379; 85652; 86140; 86850; 86900; 86901; 87040; 93005; 94002; 94003; 94660; 96365; 96367; 96372; 96375; G0378; J0360; J0456; J0696; J1100; J1650; J1815; J2060; J2185; J2270; J2704; J3010; J3370; J3490; J7050; P9017

== ENCOUNTER 2020-04-30 14:51 | Outpatient (CLI) | payer MEDICARE ==
--- NOTE | 2020-04-30 15:25 | RAD ---
EXAM: Two views chest PROVIDED CLINICAL HISTORY: Covid pneumonia. COMPARISON: 04/03/2020 FINDINGS: Cardiac silhouette and pulmonary vasculature are within normal limits. There are increased interstit ial densities seen within the lungs bilaterally. Interstitial and alveolar as well as groundglass opacity seen on prior exam have improved. Findings are suggestive of improvement in Covid pneumonia w ith residual interstitial densities possibly attributable to mild chronic interstitial lung changes. No consolidation or pleural fluid is seen. Degenerative changes are again seen in the spine. IMPRESSION: Improvement in interstitial and alveolar as well as groundglass opacities within the lungs bilaterall y related to improvement in Covid pneumonia. However, there are persistent linear interstitial densities noted greater in the lung bases which could be sequela of Covid pneumonia and possibly rela esperanza to chronic interstitial fibrotic changes..
== END 2020-04-30 14:52 | disposition home or self-care (01) ==
LOC: BICRAD 14:51
PROVIDERS: ATTEND Internal Medicine
DX: J12.89 Other viral pneumonia (principal); R91.8 Other nonspecific abnormal finding of lung field; Z86.16 Personal history of COVID-19
CPT/HCPCS: 71046

== ENCOUNTER 2020-09-10 12:43 | Outpatient (CLI) | payer MEDICARE | END 2020-09-10 12:44 | disposition home or self-care (01) | LOC: BICRAD 12:43 | PROVIDERS: ATTEND Internal Medicine | DX: I10 Essential (primary) hypertension (principal); Z86.16 Personal history of COVID-19 | CPT/HCPCS: 71046 ==

== ENCOUNTER 2022-04-07 06:30 | Day surgery (SDC) | payer MEDICARE ==
[2022-04-06 15:14] VITALS: BMI 45.4
[2022-04-07] MEDS ORDERED: Ketamine 50 MG/ML (10ML VIAL) ONE (07:47)
[2022-04-07] MEDS ORDERED: Lidocaine 2% 6 ML SYR ONE (07:47)
[2022-04-07] MEDS ORDERED: PROPOFOL 200 MG/20 ML VIAL ONE (07:57)
[2022-04-07] MEDS ORDERED: Lidocaine 1% PF 5 ML VIAL ONE (07:57)
[2022-04-07] MEDS ORDERED: Glycopyrrolate 0.2 MG/ML 5 ML SYRINGE ONE (07:57)
[2022-04-07 08:35] LABS: Anion Gap 16 mmol/L (10-20); BUN (Urea Nitrogen) 26 mg/dL (8.4-25.7); Calc. Creatinine Clearance 59 mL/min (70-130); Calcium 9.3 mg/dL (7.8-10.44); Carbon Dioxide 24 mmol/L (23-31); Chloride 103 mmol/L (98-107); Estimated GFR 31; Glucose 134 mg/dL (83-110); Sodium 139 mmol/L (136-145)
== END 2022-04-07 09:50 | disposition home or self-care (01) ==
LOC: SDC 06:30
PROVIDERS: ATTEND Internal Medicine Gastroenterology
PROC: 0DB78ZX Excision of Stomach, Pylorus, Via Natural or Artificial Opening Endoscopic, Diagnostic (ICD-10-PCS; principal; 2022-04-07)
PROC: 0DBC8ZX Excision of Ileocecal Valve, Via Natural or Artificial Opening Endoscopic, Diagnostic (ICD-10-PCS; 2022-04-07)
PROC: 0DBH8ZX Excision of Cecum, Via Natural or Artificial Opening Endoscopic, Diagnostic (ICD-10-PCS; 2022-04-07)
PROC: 0DBL8ZX Excision of Transverse Colon, Via Natural or Artificial Opening Endoscopic, Diagnostic (ICD-10-PCS; 2022-04-07)
PROC: 0DBN8ZX Excision of Sigmoid Colon, Via Natural or Artificial Opening Endoscopic, Diagnostic (ICD-10-PCS; 2022-04-07)
DX: D12.0 Benign neoplasm of cecum (principal); D12.3 Benign neoplasm of transverse colon; D12.5 Benign neoplasm of sigmoid colon; K31.7 Polyp of stomach and duodenum; I12.9 Hypertensive chronic kidney disease with stage 1 through stage 4 chronic kidney disease, or unspecified chronic kidney disease; E11.22 Type 2 diabetes mellitus with diabetic chronic kidney disease; N18.9 Chronic kidney disease, unspecified; D63.1 Anemia in chronic kidney disease; G47.30 Sleep apnea, unspecified; K58.0 Irritable bowel syndrome with diarrhea; K59.00 Constipation, unspecified; M19.90 Unspecified osteoarthritis, unspecified site; E78.00 Pure hypercholesterolemia, unspecified; E66.9 Obesity, unspecified; Z68.42 Body mass index [BMI] 45.0-49.9, adult; Z86.010 Personal history of colon polyps; Z87.891 Personal history of nicotine dependence; Z79.82 Long term (current) use of aspirin; Z79.84 Long term (current) use of oral hypoglycemic drugs; Z79.899 Other long term (current) drug therapy; Z88.2 Allergy status to sulfonamides; Z88.5 Allergy status to narcotic agent
CPT/HCPCS: 80048; 88305; J2704

== ENCOUNTER 2022-09-29 15:27 | Outpatient (CLI) | payer MEDICARE | END 2022-09-29 15:28 | disposition home or self-care (01) | LOC: RAD 15:27 | PROVIDERS: ATTEND Internal Medicine | DX: R06.00 Dyspnea, unspecified (principal) | CPT/HCPCS: 71046 ==

== ENCOUNTER 2023-07-08 16:00 | Outpatient (CLI) | payer MEDICARE | END 2023-07-08 16:01 | disposition home or self-care (01) | LOC: SLEEPLAB 16:00 | PROVIDERS: ATTEND Internal Medicine Critical Care Medicine | DX: G47.33 Obstructive sleep apnea (adult) (pediatric) (principal); R53.83 Other fatigue; R09.02 Hypoxemia | CPT/HCPCS: 95800 ==

== ENCOUNTER 2023-09-02 07:36 | Outpatient (CLI) | payer MEDICARE | END 2023-09-02 07:37 | disposition home or self-care (01) | LOC: CT 07:36 | PROVIDERS: ATTEND Physician Assistant Medical | DX: N18.9 Chronic kidney disease, unspecified (principal); R10.31 Right lower quadrant pain; M79.3 Panniculitis, unspecified | CPT/HCPCS: 74176 ==

== ENCOUNTER 2024-01-24 03:30 | Observation (INO) | payer MEDICARE ==
[2024-01-24 04:26] LABS: #Basophils 0.05 10x3/uL (0.0-0.2); %Basophils 0.7 % (0.0-1.0); %Eosinophils 2.4 % (0.0-10.0); %Lymphocytes 24.1 % (21.0-51.0); %Monocytes 9.5 % (0.0-10.0); Hematocrit 39.1 % (42.0-52.0); Hemoglobin 13.1 g/dL (14.0-18.0); Mean Corpuscular HGB CONC 33.5 g/dL (32.0-36.0); Mean Corpuscular Hemoglobin 31.1 pg (27.0-31.0); Mean Corpuscular Volume 92.9 fL (78.0-98.0); Mean Platelet Volume 10.6 fL (7.4-10.4); Platelet Count 210 10x3/uL (130-400); RBC Distribution Width 12.8 % (11.5-14.5); Red Blood Cell (RBC) Count 4.21 mill/uL (4.70-6.10)
[2024-01-24 04:51] LABS: ALT (SGPT) 17 U/L (8-55); AST (SGOT) 18 U/L (5-34); Albumin 3.5 g/dL (3.4-4.8); Alkaline Phosphatase 49 U/L (40-110); Anion Gap 17 mmol/L (10-20); BUN (Urea Nitrogen) 28 mg/dL (8.4-25.7); Bilirubin, Total 0.7 mg/dL (0.2-1.2); Calc. Creatinine Clearance 0 mL/min (70-130); Calcium 8.7 mg/dL (7.8-10.44); Carbon Dioxide 19 mmol/L (23-31); Chloride 106 mmol/L (98-107); Estimated GFR 26; Globulin 2.8 g/dL (2.4-3.5); Glucose 260 mg/dL (83-110); Magnesium 2.2 mg/dL (1.6-2.6); Potassium 3.6 mmol/L (3.5-5.1); Protein, Total 6.3 g/dL (5.8-8.1); Sodium 138 mmol/L (136-145)
[2024-01-24 04:54] LABS: Troponin I 0.039 ng/mL (< 0.028)
[2024-01-24 07:17] VITALS: BMI 44.3
[2024-01-24 07:49] LABS: Troponin I 0.037 ng/mL (< 0.028)
[2024-01-24] MEDS ORDERED: Senokot S 8.6-50 MG TAB PO PRN (07:51)
[2024-01-24] MEDS ORDERED: Glucagon 1 MG/ML KIT IM PRN (07:55)
[2024-01-24] MEDS ORDERED: Dextrose 50% Abboject 50 ML SYRINGE SLOW IVP PRN (07:55)
[2024-01-24] MEDS ORDERED: Insulin Regular, Human 100 UNIT/ML 10 ML VIAL SC PRN (07:55)
[2024-01-24] MEDS ORDERED: Dextrose 5% in Water 1,000 ML IV PRN (07:55)
[2024-01-24] MEDS ORDERED: Electrolyte Replacement Protocol 1 EACH FS SCH (08:00)
[2024-01-24] MEDS: Aspirin 81 mg Enteric Coated Tablet PO SCH (09:52)
[2024-01-24 10:39] LABS: Troponin I 0.048 ng/mL (< 0.028)
[2024-01-24] MEDS ORDERED: Polyethylene Glycol 3350 17 GM Packet PO PRN (11:44)
[2024-01-24] MEDS: Bisoprolol Fumarate 5 MG TAB PO SCH (20:12)
[2024-01-24] MEDS: Atorvastatin Calcium 40 MG TAB PO SCH (20:12)
[2024-01-25 04:43] LABS: #Basophils 0.06 10x3/uL (0.0-0.2); %Basophils 0.7 % (0.0-1.0); %Eosinophils 2.3 % (0.0-10.0); %Lymphocytes 24.3 % (21.0-51.0); %Monocytes 8.3 % (0.0-10.0); Hematocrit 39.6 % (42.0-52.0); Hemoglobin 13.3 g/dL (14.0-18.0); Mean Corpuscular HGB CONC 33.6 g/dL (32.0-36.0); Mean Corpuscular Volume 92.3 fL (78.0-98.0); Mean Platelet Volume 10.5 fL (7.4-10.4); Platelet Count 196 10x3/uL (130-400); RBC Distribution Width 12.8 % (11.5-14.5); Red Blood Cell (RBC) Count 4.29 mill/uL (4.70-6.10)
[2024-01-25 05:18] LABS: Anion Gap 17 mmol/L (10-20); BUN (Urea Nitrogen) 28 mg/dL (8.4-25.7); Calc. Creatinine Clearance 57 mL/min (70-130); Calcium 8.7 mg/dL (7.8-10.44); Carbon Dioxide 19 mmol/L (23-31); Chloride 104 mmol/L (98-107); Estimated GFR 31; Glucose 165 mg/dL (83-110); Sodium 136 mmol/L (136-145)
[2024-01-25] MEDS ORDERED: Bisoprolol Fumarate 5 MG TAB PO SCH (09:00)
[2024-01-25] MEDS: Empagliflozin 10 MG TAB PO SCH (09:33)
[2024-01-25] MEDS: Doxazosin Mesylate 4 MG TAB PO SCH (09:33)
[2024-01-25] MEDS: Pantoprazole DR 40 MG TAB PO SCH (09:33)
[2024-01-25] MEDS: Amlodipine 10 MG TAB PO SCH (09:33)
[2024-01-25] MEDS: Dutasteride 0.5 MG CAP PO SCH (09:33)
[2024-01-25] MEDS ORDERED: Ondansetron PF 4 MG/2 ML Vial IVP PRN (12:19)
[2024-01-25] MEDS ORDERED: Acetaminophen 325 MG TAB PO PRN (12:19)
[2024-01-25] MEDS: Insulin Regular, Human 100 UNIT/ML 10 ML VIAL SC PRN (16:54)
[2024-01-26] MEDS: Ezetimibe 10 MG TAB PO SCH (08:58)
[2024-01-26] MEDS: Ferrous Sulfate 325 MG TAB PO SCH (08:59)
[2024-01-26] MEDS: Apixaban 5 MG TAB PO SCH (10:48)
[2024-01-26 11:57] VITALS: BP 147/65; TEMP 98.1
[2024-01-26] MEDS ORDERED: Apixaban 5 MG TAB PO SCH (21:00)
== END 2024-01-26 13:20 | disposition home or self-care (01) ==
LOC: ERS 03:30 → OBS 06:33
PROVIDERS: ADMIT Internal Medicine; ATTEND Internal Medicine
PROC: B24BZZZ Ultrasonography of Heart with Aorta (ICD-10-PCS; principal; 2024-01-25)
DX: R07.89 Other chest pain (principal); I47.10 Supraventricular tachycardia, unspecified; I12.9 Hypertensive chronic kidney disease with stage 1 through stage 4 chronic kidney disease, or unspecified chronic kidney disease; N18.9 Chronic kidney disease, unspecified; E11.22 Type 2 diabetes mellitus with diabetic chronic kidney disease; E78.5 Hyperlipidemia, unspecified; E66.01 Morbid (severe) obesity due to excess calories; N40.0 Benign prostatic hyperplasia without lower urinary tract symptoms; Z68.41 Body mass index [BMI] 40.0-44.9, adult; Z88.5 Allergy status to narcotic agent; Z88.2 Allergy status to sulfonamides; Z79.84 Long term (current) use of oral hypoglycemic drugs; Z79.01 Long term (current) use of anticoagulants; Z79.4 Long term (current) use of insulin; Z79.82 Long term (current) use of aspirin; Z79.899 Other long term (current) drug therapy
CPT/HCPCS: 71045; 80048; 80053; 82962 ×3; 83735; 83880; 84484 ×2; 85025 ×2; 93005; 93306; 97530; 99285; G0378 ×4; J1815 ×2; 36415; 36416

== ENCOUNTER 2024-01-31 10:50 | Outpatient (CLI) | payer MEDICARE ==
[2024-01-31 12:04] LABS: #Basophils 0.04 10x3/uL (0.0-0.2); %Basophils 0.5 % (0.0-1.0); %Eosinophils 2.1 % (0.0-10.0); %Lymphocytes 18.2 % (21.0-51.0); %Monocytes 8.9 % (0.0-10.0); Hematocrit 38.1 % (42.0-52.0); Hemoglobin 12.7 g/dL (14.0-18.0); Mean Corpuscular HGB CONC 33.3 g/dL (32.0-36.0); Mean Corpuscular Hemoglobin 31.1 pg (27.0-31.0); Mean Corpuscular Volume 93.4 fL (78.0-98.0); Mean Platelet Volume 10.4 fL (7.4-10.4); Platelet Count 198 10x3/uL (130-400); Red Blood Cell (RBC) Count 4.08 mill/uL (4.70-6.10)
[2024-01-31 12:24] LABS: INR-International Normal Ratio 1.3; Prothrombin Time 16.4 sec (12.0-14.7)
[2024-01-31 12:25] LABS: PTT 29.3 sec (22.9-36.1)
[2024-01-31 12:44] LABS: Anion Gap 13 mmol/L (10-20); BUN (Urea Nitrogen) 34 mg/dL (8.4-25.7); Calc. Creatinine Clearance 0 mL/min (70-130); Calcium 8.9 mg/dL (7.8-10.44); Carbon Dioxide 22 mmol/L (23-31); Chloride 105 mmol/L (98-107); Estimated GFR 29; Glucose 159 mg/dL (83-110); Potassium 3.9 mmol/L (3.5-5.1); Sodium 136 mmol/L (136-145)
== END 2024-01-31 10:51 | disposition home or self-care (01) ==
LOC: LABBT 10:50
PROVIDERS: ATTEND Urology
DX: Z01.812 Encounter for preprocedural laboratory examination (principal); N32.0 Bladder-neck obstruction
CPT/HCPCS: 80048; 85025; 85610; 85730; 87086

== ENCOUNTER 2024-11-14 14:18 | Outpatient (CLI) | payer MEDICARE | END 2024-11-14 14:19 | disposition home or self-care (01) | LOC: ULT 14:18 | PROVIDERS: ATTEND Internal Medicine Cardiovascular Disease | DX: R60.0 Localized edema (principal) ==